=== PATIENT | male | born 1960 | race African-American/Black ===

== ENCOUNTER → 2016-12-02 13:06 | Outpatient (CLI) | payer MEDICARE, MEDICAID ==
[2015-09-29 15:39] VITALS: BMI 28.7
[~2016-12-02 13:06] MED LIST: ADVAIR 250/501 DISK INH; COMBIVENT RESPIM4 GM INH; LEVAQUIN500 MG PO; PRILOSEC20 MG PO
== END | disposition home or self-care (01) ==
LOC: D.RAD 13:06
DX: C34.90 Malignant neoplasm of unspecified part of unspecified bronchus or lung (principal)

== ENCOUNTER 2017-02-16 10:03 | Emergency (ER) | payer MEDICARE, MEDICAID ==
[2015-09-29 15:39] VITALS: BMI 28.7
[2017-02-16 11:32] LABS: BASOPHILS 0.6 % (0.0-2.0); EOSINOPHILS 2.1 % (0-7); HEMATOCRIT 43.8 % (42.0-54.0); HEMOGLOBIN 15.6 g/dL (13.5-17.5); IMMATURE GRANULOCYTES 0.2 % (0-5); LYMPHOCYTES 33.5 % (15-50); MCH 34.1 pg (26.0-34.0); MCHC 35.6 g/dL (31.0-37.0); MCV 95.8 fL (80.0-100.0); MEAN PLATELET VOLUME 9.5 fL (7.4-10.4); MONOCYTES 12.6 % (2-11); PLATELET COUNT 166 10x3/uL (130-400); RBC 4.57 10x6/uL (4.20-6.10); RDW 14.2 % (11.5-14.5); WBC 5.2 10x3/uL (4.8-10.8)
[2017-02-16 11:48] LABS: ALBUMIN 3.3 g/dL (3.4-5.0); ANION GAP 11.9 mmol/L (8-16); BILIRUBIN - TOTAL 0.9 mg/dL (0.2-1.3); CALCIUM 8.7 mg/dL (8.5-10.1); CARBON DIOXIDE 29.4 mmol/L (21.0-32.0); CREATININE - SERUM 1.1 mg/dL (0.6-1.3); POTASSIUM - SERUM 3.3 mmol/L (3.5-5.1); PROTEIN - SERUM 9.2 g/dL (6.4-8.2)
== END 2017-02-16 12:40 | disposition home or self-care (01) ==
LOC: D.ER 10:03
PROVIDERS: Nurse Practitioner Family
DX: J06.9 Acute upper respiratory infection, unspecified (principal); J44.1 Chronic obstructive pulmonary disease with (acute) exacerbation; J20.9 Acute bronchitis, unspecified; C96.9 Malignant neoplasm of lymphoid, hematopoietic and related tissue, unspecified; F17.200 Nicotine dependence, unspecified, uncomplicated

== ENCOUNTER 2017-03-07 06:07 | Inpatient (IN) | payer MEDICARE, MEDICAID ==
[~2017-03-07] VITALS: Ht 177.8 cm; Wt 96.9 kg
--- NOTE | ~2017-03-07 | CN ---
PATIENT NAME:SABINA CLARK MEDICAL RECORD: [id number] : 56 LOCATION:D. D.2114 ADMIT DATE: 03/07/17 ACCOUNT: [id number] CONSULTING PHYSICIAN: MIL SKINNER MD REFERRING PHYSICIAN: VANESSA REYES MD DATE OF CONSULTATION: 03/07/2017 CONSULT REQUESTING PHYSICIAN: Vanessa Reyes MD REASON FOR CONSULTATION: History of cancer of the lung, pneumonia and pulmonary edema. HISTORY OF PRESENT ILLNESS: Mr. Clark is a 56-year-old gentleman who was admitted who has a history of cancer of the lung and COPD and still everyday smoker. The patient with progressive shortness of breath for the last couple of weeks. Last week, he was treated with an antibiotic, but he was not getting any better. He is also having orthopnea. There is also PND. He is coughing with white yellowish colored mucus. Denies any fever or chills. There are no night sweats. REVIEW OF SYSTEMS: As in history of present illness. PAST MEDICAL HISTORY: 1. Chronic obstructive pulmonary disease. 2. History of cancer of the lung. 3. History of pneumonia. 4. History of hepatitis. 5. Gastroesophageal reflux disease. 6. Chronic back ache. PAST SURGICAL HISTORY: He had vasectomy. He had a right leg surgery. ALLERGIES: There are no known drug allergies. PRESENT MEDICATIONS: He is on albuterol/ipratropium nebulizer. He is on Advair Diskus. His other medication is reviewed. He is on omeprazole. PERSONAL AND SOCIAL HISTORY: He is still smoking 1-2 cigarettes a day. He is a nondrinker. FAMILY HISTORY: Noncontributory. PHYSICAL EXAMINATION: GENERAL: Now, the patient is lying comfortably in bed. He is not in acute distress. VITAL SIGNS: The blood pressure is 143/66, pulse is 110, respirations 20, temperature 97.7, SPO2 97% on 2 liters nasal cannula. HEENT: Conjunctivae are pink. Sclerae nonicteric. NECK: Supple. No JVD. CHEST: There are bilateral crackles, wheeze on forceful expiration. HEART: Rhythm regular, normal sound, no murmur. ABDOMEN: Soft, bowel sounds present. No hepatosplenomegaly. RECTAL: Deferred. EXTREMITIES: No cyanosis, no clubbing. There is 1+ pedal edema. SKIN: Warm, normal turgor. CONSULT REPORT [id number] SABINA CLARK CENTRAL NERVOUS SYSTEM: The patient is awake and alert. There is no obvious cranial nerve abnormality. The gait was not tested. IMAGING: CT scan of the chest: There is no pulmonary embolism. There is bilateral increased hilar interstitial infiltrate. There are no significant pleural effusion. There is also cholelithiasis. There is more interstitial marking in the right than the left. LABORATORY DATA: CBC: WBC 6.2, hemoglobin is 14.7, hematocrit is 41.7 and the platelet count is 456. Chemistry: Sodium is 135, potassium 3.4, magnesium is 1, total bilirubin is 1.32. CK is 332. MB is 1.5. The troponin is 0.047, the proBNP 8859. Albumin is 3. IMPRESSION: 1. Acute exacerbation of chronic obstructive pulmonary disease secondary to possible pneumonia right upper and lower lobe. 2. History of cancer of the lung, followed by Dr. Paul. 3. Pulmonary edema. 4. 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 5. Gastroesophageal reflux disease. 6. New onset congestive heart failure, possible diastolic dysfunction. 7. Gastroesophageal reflux disease. 8. Tobacco dependence syndrome. 9. Chronic backache. RECOMMENDATION: 1. Continue Lasix. I will start him on Rocephin and doxycycline to cover for Gram-negative as well as atypical for community-acquired pneumonia. 2. Albuterol/ipratropium nebulizer. Start on Brovana and budesonide nebulizer. 3. Goodspring for pain control. Follow labs and chest radiograph. Dr. Reyes, once again thanks for involving me in the care of Mr. Clark. TRANSINT:[id number] Voice Confirmation ID: [id number] DOCUMENT ID: [id number] MIL SKINNER MD CC: VANESSA REYES MD [id number] DICTATION DATE: 03/07/171423 ORCHESTRA TEACHER: 03/07/17 1557 ADM IN [place] [id number] [place] [id number]
--- NOTE | ~2017-03-07 | HEMODYNAMI ---
PATIENT:SABINA CLARK MEDICAL RECORD: [id number] : 56 [id number] ADMISSION DATE: 03/07/17 Generatedon:03/09/201713:02 Patient name: SABINA CLARK Patient #: [id number] SSN: [id number] : 1960 Date of study: 03/09/2017 Page: Of Hemodynamic Procedure Report Patient Data Patient Demographics Procedure consent was obtained First Name: SABINA Gender: Male Last Name: AMBER : 1960 Patient #: [id number] Age: 56 year(s) Race: Black SSN: [id number] Additional ID: [id number] Contact details [address]: [address] [place] [address] State: [place] City: [place] Zip code: [address] Admission Admission Data Admission Date: 03/07/2017 Admission Time: 9:43 Arrival Date: 03/07/2017 Arrival Time: 9:43 Admit Source: Other Insurance Payor: Medicare Room #: D.2114 Lab Results Lab Result Date: 03/09/2017 Lab Result Time: 0:00 Biochemistry Name Units Result Min Max BUN mg/dl 10 --(-*--)-- 7 18 Creatinine mg/dl 1.1 --(--*-)-- 0.6 1.3 CBC Name Units Result Min Max Hemoglobin g/dl 14.2 --(*---)-- 13.5 17.5 Procedure Procedure Types Cath Procedure Diagnostic Procedure LHC LHC w/Coronaries Miscellaneous Procedures Moderate Sedation up to 30 minutes Procedure Description Procedure Date Procedure Date: 03/09/2017 Procedure Start Time: 12:44 Procedure End Time: 12:57 Procedure Staff Name Function Tre May MD Performing Physician Nuha Chand RT Scrub Biran Hernandez RN Nurse Ella Blackwell RT Monitor Indication CHF Procedure Data Cath Procedure Fluoroscopy Diagnostic fluoroscopy Total fluoroscopy Time: 1.8 time: 1.8 min min Diagnostic fluoroscopy Total fluoroscopy dose: 589 dose: 589 mGy mGy Contrast Material Contrast Material Type Amount (ml) Isovue 370 61 Entry Location Entry Primary Successful Side Size Upsize Upsize Entry Closure Succes sful Closure Location (Fr) 1 (Fr) 2 (Fr) Remarks Device Remarks Femoral Right 5 Fr Exoseal artery Estimated blood loss: 5 ml Procedure Complications No complications Procedure Medications Medication Administration Route Dosage Oxygen NC 2 l/min Lidocaine 2% added to field 20 Heparin Flush Bag added to field 2 bags (1000units/500ml NS) 0.9% NaCl I.V. 100 ml/hr Benadryl I.V. 50 mg Versed I.V. 1 mg Fentanyl I.V. 50 mcg Versed I.V. 1 mg Fentanyl I.V. 50 mcg Radial Cocktail added to field 1 syringe (Verapomil 2mg/Nitro 400mcg/Heparin 1500units) Hemodynamics Rest HGB: 14.2 (g/dl) Heart Rate: 107 (bpm) Pressure Samples Time Site Value (mmHg) Purpose Heart Use Rate(bpm) 12:52 LV 127/9,20 Snapshot 104 Gradients Valve Time Site Site Mean SEP/DFP Peak To Heart Use 1 2 (mmHg) (sec/min) Peak Rate (mmHg) (bpm) Aortic 12:54 LV AO 104 Snapshots Pre Cath Intra NCS Post Cath Vital Signs Time Heart Resp SPO2 NIBP (mmHg) Rhythm Pain Sedation Rate (ipm) (%) Status Level (bpm) 12:33:34 106 26 97 No Cuff NSR 0 (11) 10(A) , No pain 12:37:54 109 20 98 128/100(112) NSR 0 (11) 10(A) , No pain 12:42:57 110 17 100 136/103(113) NSR 0 (11) 10(A) , No pain 12:47:16 106 18 97 140/95(122) NSR 0 (11) 9(A) , No pain 12:51:35 103 16 93 144/88(120) NSR 0 (11) 9(A) , No pain 12:55:54 103 17 95 138/99(119) NSR 0 (11) 9(A) , No pain 13:00:49 103 16 96 137/94(122) NSR 0 (11) 10(A) , No pain Medications Time Medication Route Dose Verified Delivered Reason Notes Effectiveness by by 12:37:02 Oxygen NC 2 l/min Tre Buffie used for Lalo Hernandez RN procedure 12:37:09 Lidocaine 2% added 20ml Tre Tre for local to vial Lalo May MD anesthetic field 12:37:17 Heparin Flush added 2 bags Tre Tre used for Bag to Lalo May MD procedure (1000units/500ml field NS) 12:37:25 0.9% NaCl I.V. 100 Tre Buffie Per ml/hr Lalo Hernandez RN physician 12:37:36 Benadryl I.V. 50 mg Tre Buffie used for Lalo Hernandez RN procedure 12:38:58 Radial Cocktail added 1 Tre Buffie not used (Verapomil to syringe Lalo Hernandez RN femoral 2mg/Nitro field approach 400mcg/Heparin used 1500units) 12:39:47 Versed I.V. 1 mg Tre Buffie for Laol Hernandez RN sedation 12:39:54 Fentanyl I.V. 50 mcg Tre Buffie for Lalo Hernandez RN sedation 12:46:26 Versed I.V. 1 mg Tre Buffie for Lalo Hernandez RN sedation 12:46:29 Fentanyl I.V. 50 mcg Tre Buffie for Lalo Hernandez RN sedation Procedure Log Time Note 12:07:50 Informed consent obtained and on chart 12:08:57 Admit Source: Other 12:09:10 Arrival Date: 03/07/2017 9:43:00 AM 12:09:18 Insurance Payor : Medicare 12:10:15 Lab Result : BUN 10 mg/dl 12:10:15 Lab Result : Hemoglobin 14.2 g/dl 12:10:15 Lab Result : Creatinine 1.1 mg/dl 12:10:27 Diagnostic Cath Status : Elective 12:11:18 Indication : CHF 12:11:27 Brian Hernandez RN sent for patient. Start room use. 12:11:28 Time tracking: Regular hours 12:11:32 Plan of Care:Hemodynamics will remain stable., Cardiac rhythm will remain stable., Comfort level will be maintained., Respiratory function will remain adequate., Patient/ family verbilizes understanding of procedure., Procedure tolerated without complication., Recovers from procedure without complications.. 12:14:06 Patient received from Med II to CCL 2 Alert and oriented. Tansferred to table in Supine position. 12:14:07 Warm blankets applied, and kaitlin hugger turned on for patient comfort. 12:14:08 Correct patient and procedure confirmed by team. 12:14:08 ECG and BP/O2 sat monitors applied to patient. 12:24:45 Vital chart was started 12:24:47 Baseline sample Acquired. 12:25:02 Rhythm: sinus tachycardia 12:25:15 Full Disclosure recording started 12:: H&P Date Dictated: 03/09/2017 New H&P dictated by physician.. 12:25:28 Pre-procedure instructions explained to patient. 12:25:28 Pre-op teaching completed and patient verbalized understanding. 12:25:29 Family in waiting room. 12:25:31 Patient NPO since Midnight. 12:25:39 Is the patient allergic to Iodine/contrast media? No. 12:25:41 Was the patient premedicated? No 12:26:53 Previous problem with sedation/anesthesia? No ? 12:27:59 Snore? Yes 12:28:01 Sleep apnea? No 12:28:02 Deviated septum? No 12:28:05 Opens mouth fully? Yes 12:28:06 Sticks out tongue? Yes 12:28:09 Airway obstruction? Yes copd 12:28:12 Dentures? No ? 12:28:17 Pre procedure: right dorsailis pedis pulse 1+ Palpable, but thready & weak; easily obliterated 12:28:19 Patient pain scale 0/10 ?. 12:28:28 IV patent on arrival in left forearm with 0.9% NaCl at [facility]. 12:28:30 Lab results completed and on chart. 12:28:37 Right Radial & Right Groin area was prepped with chlora-prep and draped in sterile fashion 12:28:38 Alarms reviewed by R. N. 12::38 Sharps counted by scrub and verified by R.N. 12:28:40 Physician arrived 12:28:40 --------ALL STOP TIME OUT------ 12:28:41 Final Timeout: patient, procedure, and site verified with staff and physician. All members of the team are in agreement. 12:28:43 Right Radial & Right Groin site verified by team. 12:28:45 Physical assessment completed. ASA score P 2 - A patient with mild systemic disease as per Tre May MD. 12:28:49 Sedation plan: IV Moderate Sedation Versed, Fentanyl 12:29:16 Use device set Radial Dx 12:29:17 Acist Syringe opened to sterile field. 12:29:17 Medline Cath Pack opened to sterile field. 12::18 Bag Decanter opened to sterile field. 12:29:18 Terumo 6Fr Slender Glidesheath opened to sterile field. 12:29:18 St Get 260cm J .035 wire opened to sterile field. 12:29:19 Acist Hand Control opened to sterile field. 12::19 Acist Manifold opened to sterile field. 12:29:20 Tegaderm 4 x 4 opened to sterile field. 12:29:20 MBrace Wrist Support opened to sterile field. 12:37:02 Oxygen 2 l/min NC was administered by Brian Hernandez RN; used for procedure; 12:37:09 Lidocaine 2% 20ml vial added to field was administered by Tre May MD; for local anesthetic; 12:37:17 Heparin Flush Bag (1000units/500ml NS) 2 bags added to field was administered by Tre May MD; used for procedure; 12:37:25 0.9% NaCl 100 ml/hr I.V. was administered by Brian Hernandez RN; Per physician; 12:37:36 Benadryl 50 mg I.V. was administered by Brian Hernandez RN; used for procedure; 12:38:58 Radial Cocktail (Verapomil 2mg/Nitro 400mcg/Heparin 1500units) 1 syringe added to field was administered by Brian Hernandez RN; ; not used femoral approach used 12:39:47 Versed 1 mg I.V. was administered by Brian Hernandez RN; for sedation; 12:39:54 Fentanyl 50 mcg I.V. was administered by Brian Hernandez RN; for sedation; 12:40:21 Zero performed for pressure channel P1 12:43:34 Procedure started. 12:44:29 Patient prepped for radial access, unable to keep arm still; decided to gain femoral access per Dr. May 12:44:32 Local anesthetic to right femoral artery with Lidocaine 2% by Tre May MD.INITIAL ACCESS ONLY 12:44:40 A 5 Fr sheath was inserted into the Right Femoral artery 12:44:54 Diagnostic Infinity 5Fr Multipack catheter opened to sterile field. 12:45:23 5 Fr jl 4 guide catheter was inserted over the wire 12:46:17 LCA angiography performed. 12:46:20 Injector settings: Ml/sec: 3, Volume: 6, 12:46:26 Versed 1 mg I.V. was administered by Brian Hernandez RN; for sedation; 12:46:29 Fentanyl 50 mcg I.V. was administered by Brian Hernandez RN; for sedation; 12:48:50 Catheter removed. 12:48:58 5 Fr 3drc guide catheter was inserted over the wire 12:49:02 RCA angiography performed. 12:49:06 Injector settings: Ml/sec: 3, Volume: 6, 12:51:28 Catheter removed. 12:51:34 5 Fr pigtail guide catheter was inserted over the wire 12:51:59 Cordis 5Fr Exoseal opened to sterile field. 12:53:13 LV hemodynamics recorded. 12:53:14 LV gram done using WOOD 12:53:17 Injector settings: Ml/sec: 5, Volume: 15, 12:53:49 EF : 20 % 12:54:27 Catheter removed. 12:54:47 Sheath removed intact; hemostasis achieved with Exoseal to the Right Femoral artery. 12:54:50 Procedure ended.(Physican Out) 12:55:36 Fluoroscopy time 01.80 minutes. 12:55:39 Fluoroscopy dose: 589 mGy 12:55:39 Flurop Dose total: 589 12:56:13 Contrast amount:Isovue 370 61ml. 12:56:19 Sharps counted by scrub and verified by R.N. 12:56:22 Insertion/operative site no bleeding no hematoma. 12:56:35 Post-op/insertion site Right Femoral artery dressed using a 4 x 4 and Tegaderm. 12:56:54 Post right femoral artery:stable 12:56:56 Post Procedure Pulses reassessed and unchanged 12:56:58 Post procedure rhythm: unchanged. 12:57:01 Estimated blood loss: 5 ml 12:57:02 Post procedure instruction explained to patient.Patient verbalizes understanding. 12:57:03 Patient needs reinforcement of post procedure teaching. 12:57:13 Procedure type changed to Cath procedure, Diagnostic procedure, LHC, LHC w/Coronaries, Miscellaneous Procedures, Moderate Sedation up to 30 minutes 12:57:14 Procedure and supply charges have been captured, reviewed, submitted and are correct. 12:57:19 Procedure Complication : No complications 12:57:21 Vital chart was stopped 12:57:22 See physician's report for complete and final results. 12:57:37 Report given to [facility] II. 12:57:40 Patient transfered to Med II with Stretcher. 12:57:42 Procedure ended. 12:57:42 Full Disclosure recording stopped 12:57:47 End room use (Document Last) Device Usage Item Name Manufacture Quantity Catalog Hospital Part Current Minimal Lot# / Number Charge Number Stock Stock Serial# Code Acist Acist 1 [id number] 344690 630584 504298 20 Syringe Medical Systems Inc Medline Cardinal 1 [id number] 881010 99570 402093 5 Cath Pack Health Bag Microtek 1 2002S 635576 63335 594251 5 DecAmericanflat [employer] Inc[employer] Terumo 6Fr Terumo 1 [id number] 473449 309862 732202 [address] Get St Get 1 183528 450592 971575 238766 30 260cm J .035 wire Acist Hand Acist 1 15719 667208 534622 588016 5 Control Medical Systems Inc Acist Acist 1 29955 357098 790573 790638 5 Manifold Medical Systems Inc Tegaderm 4 3M 1 1626W 052350 481240 195102 5 x 4 MBrace Advanced 1 140-0250-00 290040 36620 629089 5 Wrist Vascular Support Dynamics Diagnostic Cardinal 1 [id number] 524690 64449 497885 30 myseekit 5Fr Multipack catheter Cordis 5Fr Cardinal 1 EX500 902283 201662 571326 10 [employer]apoint Signature Audit [place] Stage Time Signature Unsigned Intra-Procedure 03/09/2017 Ella Blackwell 1:02:50 PM RT(R) Signatures Monitor : Ella Blackwell RT Signature : Date : Time : [address] [place] [address]
[2017-03-07 07:03] LABS: BASOPHILS 0.3 % (0.0-2.0); EOSINOPHILS 1.1 % (0-7); HEMATOCRIT 41.7 % (42.0-54.0); HEMOGLOBIN 14.5 g/dL (13.5-17.5); IMMATURE GRANULOCYTES 0.3 % (0-5); LYMPHOCYTES 23.7 % (15-50); MCH 34.2 pg (26.0-34.0); MCHC 34.8 g/dL (31.0-37.0); MCV 98.3 fL (80.0-100.0); MEAN PLATELET VOLUME 9.9 fL (7.4-10.4); NEUTROPHILS 66.6 % (40-80); PLATELET COUNT 156 10x3/uL (130-400); RBC 4.24 10x6/uL (4.20-6.10); RDW 15.3 % (11.5-14.5); WBC 6.2 10x3/uL (4.8-10.8)
[2017-03-07 07:19] LABS: ALKALINE PHOSPHATASE 61 U/L (46-116); ALT (SGPT) 38 U/L (10-68); BILIRUBIN - TOTAL 1.32 mg/dL (0.2-1.3); CALC OSMOLALITY 267 mosm/kg (275-300); CALCIUM 7.6 mg/dL (8.5-10.1); CARBON DIOXIDE 25.1 mmol/L (21.0-32.0); CHLORIDE - SERUM 98 mmol/L (98-107); CREATININE - SERUM 1.1 mg/dL (0.6-1.3); GLUCOSE 90 mg/dL (74-106); POTASSIUM - SERUM 3.4 mmol/L (3.5-5.1); PROTEIN - SERUM 8.1 g/dL (6.4-8.2); SODIUM 135 mmol/L (136-145); UREA NITROGEN 8 mg/dL (7-18); eGFR NON AFRICAN AMERICAN 73 mL/min (90-120)
[2017-03-07 07:39] LABS: CREATINE KINASE 332 UL (21-232); PRO BNP 8859 pg/mL (0-125); TROPONIN-I 0.047 ng/mL (0.000-0.060)
[2017-03-07 07:40] LABS: CKMB 1.5 U/L (0.0-3.6)
--- NOTE | 2017-03-07 10:15 | NUR ---
RECEIVED PT FROM ER TO ROOM 2113 VIA W/C IN STABLE CONDITION O2 PLACED AT 2LPM NC RESP SLIGFHTLY SOB , SHALLOW SKIN W/D COLOR WNL SALINE LOCK INTACT TO LFA DRSG C/D/I NO REDNESS OR EDEMA NOTED AT SITE PT DENIES ANY PAIN OR DISCOMFORT AT THIS TIME NAD NOTED WILL CONTINUE TO MONITOR
[2017-03-07] MEDS ORDERED: MOBIC7.5 MG PO (11:23)
[2017-03-07 15:14] VITALS: BP 143/66; BMI 30.9
[2017-03-07 15:39] VITALS: BP 134/97
--- NOTE | 2017-03-07 16:43 | NUR ---
Patient Name: SABINA CLARK Admission Status: ER Accout number: [id number] Admission Date: 03-07-2017 : 1960 Admission Diagnosis: New CHF Attending: FILI Current LOS: 1 Anticipated DC Date: 03-09-2017 Planned Disposition: Home Primary Insurance: [employer] ADV Emergency Contact: Joselin villalba - [phone] Discharge Planning Comments: Cm met with patient to complete initial discharge planning assessment. Patient gave consent to complete assessment. Patient reports he lives home alone and is independent in his care at home. He stated he has O2 at home that he wears prn. He stated he may need home health at discharge which would be good for new dx CHF for education. Patient plans to return home at discharge at this time. CM will continue to follow and assist with dc plan/needs. Metal Smelter: Thuy Crouch RN, [facility] [phone] Is the patient Alert and Oriented? Yes * How many steps to enter\exit or inside your home? none * PCP Does not have one * [facility] * Preadmission Environment Home Alone * ADLs Independent * Equipment Oxygen * Other Equipment O2 he wears prn * Additional services required to return to the preadmission environment? Yes * Can the patient safely return to the preadmission environment? Yes * Has this patient been hospitalized within the prior 30 days at any hospital? No
--- NOTE | 2017-03-07 17:38 | NUR ---
ASSUMED CARE OF PT. UP IN BEDSIDE CHAIR. TELEMERTY SHOWS ST 115. 0 2 AT 4 L/M. WILL MONITOR
--- NOTE | 2017-03-07 19:25 | NUR ---
INITIAL ROUNDS MADE. PT SITTING UP IN BED WATCHING TV. NO NEEDS OR C/O VOICED AT THIS TIME. CALL LIGHT IN REACH. WILL CONT TO MONITOR.
[2017-03-07 20:19] VITALS: BP 98/67
[2017-03-08 00:38] VITALS: BP 135/97
[2017-03-08 04:25] VITALS: BP 134/94
--- NOTE | 2017-03-08 07:30 | NUR ---
RECEIVED PT IN BED AAOX4 YADIEL UNLABORED ABDOMEN DISTENDED BS+ SKIN W/D NAD NOTED PT C/O CONSTIPATION WILL CONTINUE TO MONITOR
[2017-03-08 08:38] VITALS: BP 130/102
[2017-03-08 09:16] LABS: BASOPHILS 0.6 % (0.0-2.0); EOSINOPHILS 1.8 % (0-7); HEMATOCRIT 41.1 % (42.0-54.0); HEMOGLOBIN 14.2 g/dL (13.5-17.5); IMMATURE GRANULOCYTES 0.2 % (0-5); LYMPHOCYTES 22.6 % (15-50); MCH 34.4 pg (26.0-34.0); MCHC 34.5 g/dL (31.0-37.0); MCV 99.5 fL (80.0-100.0); MEAN PLATELET VOLUME 9.7 fL (7.4-10.4); MONOCYTES 7.3 % (2-11); NEUTROPHILS 67.5 % (40-80); PLATELET COUNT 145 10x3/uL (130-400); RBC 4.13 10x6/uL (4.20-6.10); RDW 15.4 % (11.5-14.5); WBC 6.6 10x3/uL (4.8-10.8)
[2017-03-08 09:33] LABS: ANION GAP 16.2 mmol/L (8-16); CALCIUM 7.7 mg/dL (8.5-10.1); CARBON DIOXIDE 24.2 mmol/L (21.0-32.0); CREATININE - SERUM 1.1 mg/dL (0.6-1.3); POTASSIUM - SERUM 3.4 mmol/L (3.5-5.1)
[2017-03-08 12:45] VITALS: BP 137/102
[2017-03-08 17:05] VITALS: BP 132/99
--- NOTE | 2017-03-08 19:15 | NUR ---
INITIAL ROUNDS MADE. PT SITTING UP IN BED WATCHING TV, RT IN ROOM. NO NEEDS OR C/O VOICED AT THIS TIME. CALL LIGHT IN REACH. WILL CONT TO MONITOR.
[2017-03-08 20:00] VITALS: BP 142/94
--- NOTE | 2017-03-09 01:45 | NUR ---
ASSISTANT DESIGNER AT BEDSIDE FOR VS. NEEDS ADDRESSED AT THIS TIME. CALL LIGHT IN REACH. WILL CONT TO MONITOR.
[2017-03-09 02:00] VITALS: BP 142/102
[2017-03-09 04:00] VITALS: BP 131/99
[2017-03-09 06:03] LABS: BASOPHILS 0.3 % (0.0-2.0); EOSINOPHILS 2.9 % (0-7); HEMATOCRIT 41.3 % (42.0-54.0); HEMOGLOBIN 14.2 g/dL (13.5-17.5); IMMATURE GRANULOCYTES 0.2 % (0-5); LYMPHOCYTES 22.9 % (15-50); MCH 33.9 pg (26.0-34.0); MCHC 34.4 g/dL (31.0-37.0); MCV 98.6 fL (80.0-100.0); MEAN PLATELET VOLUME 9.9 fL (7.4-10.4); MONOCYTES 8.4 % (2-11); NEUTROPHILS 65.3 % (40-80); PLATELET COUNT 153 10x3/uL (130-400); RBC 4.19 10x6/uL (4.20-6.10); RDW 15.3 % (11.5-14.5); WBC 5.9 10x3/uL (4.8-10.8)
[2017-03-09 06:24] LABS: ALKALINE PHOSPHATASE 63 U/L (46-116); ALT (SGPT) 34 U/L (10-68); CALCIUM 8.4 mg/dL (8.5-10.1); CHLORIDE - SERUM 95 mmol/L (98-107); GLUCOSE 106 mg/dL (74-106); SODIUM 132 mmol/L (136-145); eGFR NON AFRICAN AMERICAN 81 mL/min (90-120)
[2017-03-09 06:29] LABS: CALC OSMOLALITY 262 mosm/kg (275-300); CARBON DIOXIDE 30.7 mmol/L (21.0-32.0); UREA NITROGEN 7 mg/dL (7-18)
--- NOTE | 2017-03-09 06:44 | NUR ---
NOTIFIED ALPHONSO IN PUBLICATION DIRECTOR OF PT POTASSIUM 3.0-- HE INSTRUCTED TO TREAT LYTE PROTOCOL ORALLY AND HE WILL MOVE PT DOWN LIST THIS AM. GIVEN 40MEQ ORAL WITH OJ AT THIS TIME, PT INFORMED OF NEW PLAN.
[2017-03-09 07:42] VITALS: BP 119/94
[2017-03-09 10:31] VITALS: Ht 177.8 cm; Wt 96.9 kg
[2017-03-09 11:12] VITALS: BP 127/88
--- NOTE | 2017-03-09 12:11 | NUR ---
LEAVING FOR CATH LAV BY BED.
--- NOTE | 2017-03-09 13:21 | NUR ---
BACK FROM HAND THERMAL CUTTER. VS WNL. RIGHT GROIN STABLE WITHOUT BLEEDING OR HEMATOMA NOTED.
--- NOTE | 2017-03-09 13:43 | NUR ---
IV RESTARTED TO RIGHT FA WITH 22 GAUGE CATH X 1 STICK. LINE IS PATENT.
--- NOTE | 2017-03-09 15:11 | NUR ---
BED REST UP. GROIN STABLE.
[2017-03-09 15:25] VITALS: BP 130/94
--- NOTE | 2017-03-09 19:15 | NUR ---
INITIAL ROUNDS MADE. PT SITTING UP IN BED WATCHING TV. RT IN ROOM FOR SCHEDULED UPDRAFT. PT DENIES NEEDS OR C/O AT THIS TIME. RIGHT GROIN STABLE. CALL LIGHT IN REACH. WILL CONT TO MONITOR.
[2017-03-09 20:00] VITALS: BP 124/95
[2017-03-10] VITALS: BP 95/74
[2017-03-10 04:00] VITALS: BP 120/95
[2017-03-10 04:32] LABS: HEMATOCRIT 38.6 % (42.0-54.0); HEMOGLOBIN 13.3 g/dL (13.5-17.5); LYMPHOCYTES 23.6 % (15-50); MCH 34.3 pg (26.0-34.0); MCHC 34.5 g/dL (31.0-37.0); MCV 99.5 fL (80.0-100.0); MEAN PLATELET VOLUME 9.6 fL (7.4-10.4); NEUTROPHILS 67.6 % (40-80); PLATELET COUNT 139 10x3/uL (130-400); RBC 3.88 10x6/uL (4.20-6.10); RDW 16.4 % (11.5-14.5); WBC 5.4 10x3/uL (4.8-10.8)
[2017-03-10 05:00] LABS: ALBUMIN 2.8 g/dL (3.4-5.0); ANION GAP 9.9 mmol/L (8-16); BILIRUBIN - TOTAL 0.53 mg/dL (0.2-1.3); CALCIUM 8.2 mg/dL (8.5-10.1); CARBON DIOXIDE 29.7 mmol/L (21.0-32.0); CREATININE - SERUM 1.2 mg/dL (0.6-1.3); PHOSPHOROUS 4.8 mg/dL (2.5-4.9); POTASSIUM - SERUM 3.6 mmol/L (3.5-5.1); PROTEIN - SERUM 7.7 g/dL (6.4-8.2)
[2017-03-10 05:15] LABS: MAGNESIUM - SERUM 0.7 mg/dL (1.8-2.4)
[2017-03-10 07:47] VITALS: BP 126/91
--- NOTE | 2017-03-10 09:20 | NUR ---
IV PATENT. TELEMETRY ST. RESP UL ON 02 2L NC. CALL LIGHT IN REACH. WILL CONT. PLAN OF CARE.
[2017-03-10 11:06] VITALS: BP 128/91
--- NOTE | 2017-03-10 12:53 | NUR ---
UP AMBULATING HALLWAY WITH PT.
[2017-03-10 16:12] VITALS: BP 130/106
[2017-03-10 19:00] VITALS: BP 120/94
[2017-03-11 06:30] LABS: BASOPHILS 0.5 % (0.0-2.0); EOSINOPHILS 3.2 % (0-7); HEMATOCRIT 40.9 % (42.0-54.0); HEMOGLOBIN 14.2 g/dL (13.5-17.5); IMMATURE GRANULOCYTES 0.2 % (0-5); LYMPHOCYTES 26.7 % (15-50); MCH 34.8 pg (26.0-34.0); MCHC 34.7 g/dL (31.0-37.0); MCV 100.2 fL (80.0-100.0); MEAN PLATELET VOLUME 10.1 fL (7.4-10.4); MONOCYTES 7.7 % (2-11); NEUTROPHILS 61.7 % (40-80); PLATELET COUNT 163 10x3/uL (130-400); RBC 4.08 10x6/uL (4.20-6.10); RDW 15.4 % (11.5-14.5); WBC 5.9 10x3/uL (4.8-10.8)
[2017-03-11 06:38] LABS: ANION GAP 12.4 mmol/L (8-16); BILIRUBIN - TOTAL 0.57 mg/dL (0.2-1.3); CALCIUM 8.7 mg/dL (8.5-10.1); CARBON DIOXIDE 27.4 mmol/L (21.0-32.0); CREATININE - SERUM 1.1 mg/dL (0.6-1.3); POTASSIUM - SERUM 3.8 mmol/L (3.5-5.1); PROTEIN - SERUM 8.2 g/dL (6.4-8.2)
[2017-03-11 06:40] LABS: MAGNESIUM - SERUM 0.9 mg/dL (1.8-2.4)
--- NOTE | 2017-03-11 06:48 | NUR ---
MEDITECH DOWN THROUGHOUT THE SHIFT, SEE NARRATIVE PAPER CHARTING.
[2017-03-11 08:50] VITALS: BP 109/86
--- NOTE | 2017-03-11 09:31 | NUR ---
TELEMETRY SR. UP ADLIB. GAIT STEADY. WILL MONITOR NEEDS.
[2017-03-11 10:27] LABS: PHOSPHOROUS 4.6 mg/dL (2.5-4.9)
[2017-03-11 11:54] VITALS: BP 112/82
--- NOTE | 2017-03-11 14:59 | NUR ---
BILAT SCDS APPLIED.
[2017-03-11 16:09] VITALS: BP 139/95
[2017-03-11 19:00] VITALS: BP 117/87
--- NOTE | 2017-03-11 19:24 | NUR ---
RESUMED CARE OF PT, LYING IN BED RESPIRATIONS EVEN AND UNLABORED ON 2LPM VIA NC. 104 ST ON TELEMETRY. NO NEEDS VOICED AT THIS TIME. CALL LIGHT IN REACH. WILL CONTINUE TO MONITOR. SEE NURSE ASSESSMENT.
[2017-03-12] VITALS: BP 98/53
--- NOTE | 2017-03-12 02:58 | NUR ---
CALL LIGHT IN REACH. WILL CONTINUE TO MONITOR.
[2017-03-12 04:00] VITALS: BP 123/82
[2017-03-12 05:16] LABS: BASOPHILS 0.7 % (0.0-2.0); EOSINOPHILS 3.3 % (0-7); HEMATOCRIT 41.6 % (42.0-54.0); HEMOGLOBIN 14.4 g/dL (13.5-17.5); IMMATURE GRANULOCYTES 0.2 % (0-5); LYMPHOCYTES 26.1 % (15-50); MCH 34.4 pg (26.0-34.0); MCHC 34.6 g/dL (31.0-37.0); MCV 99.3 fL (80.0-100.0); MEAN PLATELET VOLUME 9.7 fL (7.4-10.4); MONOCYTES 9.1 % (2-11); NEUTROPHILS 60.6 % (40-80); PLATELET COUNT 148 10x3/uL (130-400); RBC 4.19 10x6/uL (4.20-6.10); RDW 14.9 % (11.5-14.5); WBC 4.6 10x3/uL (4.8-10.8)
[2017-03-12 05:28] LABS: CALCIUM 8.8 mg/dL (8.5-10.1); CREATININE - SERUM 1.3 mg/dL (0.6-1.3); MAGNESIUM - SERUM 1.1 mg/dL (1.8-2.4)
--- NOTE | 2017-03-12 06:31 | NUR ---
NO CHANGES FROM PREVIOUS ASSESSMENT, CALL LIGHT IN REACH.
--- NOTE | 2017-03-12 07:30 | NUR ---
RESTING QUIETLY DENIES ANY NEEDS RESP UNLABORED NAD NOTED
[2017-03-12 08:24] VITALS: BP 114/87
[2017-03-12 11:55] VITALS: BP 156/91
--- NOTE | 2017-03-12 13:50 | NUR ---
Nutrition Follow Up: Pt reported that his appetite is good. He is eating 60% meal avg on an AHA diet. Wt stable. I<O. +BM 03/08/17. Labs reviewed. Meds noted including Lasix, Solu-Medrol. Pt with fair po intake at this time. Rec continue current diet. Will send Ensure BID. RD following.
[2017-03-12 16:21] VITALS: BP 112/54
--- NOTE | 2017-03-12 19:20 | NUR ---
RESUMED CARE OF PT, LYING IN BED WITH EYES CLOSED RESPIRATIONS EVEN AND UNLABORED ON 2LPM VIA NC. [address] ST ON TELEMETRY. NO NEEDS NOTED AT THIS TIME. CALL LIGHT IN REACH. SEE NURSE ASSESSMENT. WILL CONTINUE TO MONITOR.
[2017-03-12 20:00] VITALS: BP 113/84
--- NOTE | 2017-03-12 20:19 | NUR ---
22 GAUGE X 1 STICK TO LEFT HAND.
--- NOTE | 2017-03-13 04:17 | NUR ---
EMBROIDERY ASSISTANT AT BEDSIDE TO OBTAIN VITALS, CALL LIGHT IN REACH. WILL CONTINUE WITH PLAN OF CARE.
[2017-03-13 05:31] LABS: BASOPHILS 0 % (0.0-2.0); EOSINOPHILS 0 % (0-7); HEMATOCRIT 43.9 % (42.0-54.0); HEMOGLOBIN 15.4 g/dL (13.5-17.5); LYMPHOCYTES 23.3 % (15-50); MCH 34.8 pg (26.0-34.0); MCHC 35.1 g/dL (31.0-37.0); MCV 99.1 fL (80.0-100.0); MEAN PLATELET VOLUME 10.4 fL (7.4-10.4); MONOCYTES 3.2 % (2-11); NEUTROPHILS 73.5 % (40-80); PLATELET COUNT 181 10x3/uL (130-400); RBC 4.43 10x6/uL (4.20-6.10); RDW 14.7 % (11.5-14.5); WBC 4.1 10x3/uL (4.8-10.8)
[2017-03-13 05:51] LABS: ANION GAP 14.6 mmol/L (8-16); CALCIUM 9.4 mg/dL (8.5-10.1); CARBON DIOXIDE 26.7 mmol/L (21.0-32.0); CREATININE - SERUM 1.2 mg/dL (0.6-1.3); MAGNESIUM - SERUM 1.2 mg/dL (1.8-2.4); PHOSPHOROUS 4.3 mg/dL (2.5-4.9)
[2017-03-13 05:54] LABS: POTASSIUM - SERUM 5.3 mmol/L (3.5-5.1)
--- NOTE | 2017-03-13 06:32 | NUR ---
NO CHANGES FROM PREVIOUS ASSESSMENT, CALL LIGHT IN REACH.
--- NOTE | 2017-03-13 07:30 | NUR ---
RECEIVED PT AAOX4 WALKING AROUND IN ROOM DENIOES ANY NEEDS OR DISCOMFORT MAGNESIUM 1 GRAM IV STARTED TO LT HAND FOR ELECTROLYTE PROTOCAL PT TOLERATING WELL
[2017-03-13 08:19] VITALS: BP 112/88
--- NOTE | 2017-03-13 12:24 | EC ---
PATIENT:SABINA CLARK DATE OF SERVICE: 03/07/17 SEX: M MEDICAL RECORD: [id number] DATE OF : 56 LOCATION:D. D.211 AGE OF PATIENT: 56 ADMISSION DATE: 03/07/17 REFERRING PHYSICIAN: INTERPRETING PHYSICIAN: JEANETTE MAY M.D. ECHOCARDIOGRAM REPORT ECHO CHARGES 4 ECHO COMPLETE CLINICAL DIAGNOSIS: PLEURAL EFFUSION ECHOCARDIOGRAPHIC MEASUREMENTS (adult normal given) AC root (d.<3.7cm) 3.6 LV Septum d (<1.2 cm> 1.0 Valve Excursion 2.0 LV Septum (systole) 1.4 Left Atria (s.<4.0cm> 3.7 LVPW d(<1.2cm) 0.9 RV (d.<2.3cm) 3.1 LVPW (sytole) 1.2 LV diastole(<5.6CM) 6.7 MV E-F(>70mm/sec) LV systole 6.1 LVOT Diameter 2.0 MV exc.(>10mm) Est.ejection fraction (50-75%) Pericardial Effusion N DOPPLER: LVIT A E 107 LA RVSP 43.0 LVOT 68.0 AOP1/2T Asc. Ao 114 RVOT 65.0 RA PA 67.0 AV Gradient Peak 5.2 AV Mean 2.5 AV Area 1.2 MV Gradient Peak 4.6 MV Mean 2.2 MV Area COMMENTS: Mushroom Growing Supervisor: Tyra WUOE Inspector Technician:Reddy May TAPE# PACS DATE OF SERVICE: 03/08/2017 REFERRING PHYSICIAN: Delma Walton M.D. INDICATION: Congestive heart failure. DESCRIPTION: Left ventricle is moderately dilated. There is severe LV dysfunction noted. Estimated ejection fraction is in the order of 20%. Mitral valve is structurally normal. There is bqdg-ew-fpjqsdeg regurgitation seen. Left atrium is normal size. The aortic valve is trileaflet. There is trivial ECHOCARDIOGRAM REPORT [id number] SABINA CLARK insufficiency seen, but no evidence of stenosis. Right ventricle is mildly dilated. Tricuspid valve is normal. There is moderate regurgitation noted. Right ventricular systolic pressure is elevated at 43 mmHg. There is no pericardial effusion seen. IMPRESSION: 1. Severe left ventricular dysfunction with ejection fraction 20%. 2. Fxlp-hr-pcbuifpq mitral regurgitation. 3. Moderate tricuspid regurgitation. TRANSINT:[id number] Voice Confirmation ID: [id number] DOCUMENT ID: [id number] JEANETTE MAY M.D. at 1224 CC: [id number] DICTATION DATE: 03/09/17809 MARBLE MACHINE OPERATOR: 03/09/17 1122 ADM IN [place] [id number] [place] [address]
--- NOTE | 2017-03-13 12:24 | OP ---
PATIENT NAME: SABINA CLARK MEDICAL RECORD: [id number] :56 LOCATION:D.M2 D.2114 ADMISSION DATE:03/07/17 SURGEON: JEANETTE COTO M.D. DATE OF OPERATION: 03/09/2017 REFERRING PHYSICIAN: Delma Walton MD PROCEDURES PERFORMED: 1. Selective coronary angiography. 2. Left heart catheterization with ventriculogram. INDICATION: A 56-year-old gentleman presents with cardiomyopathy. EQUIPMENT USED: A 5-Sri Lankan JL4, Juan M right, pigtail catheter. TECHNIQUE: A 5-[place]ankan sheath was inserted in retrograde fashion in the right common femoral artery. Next, selective coronary angiography was performed in standard 5-[place]ri [place]ankan JL4 and Juan M right. Left heart catheterization performed using pigtail catheter. CORONARY ANATOMY: 1. Left main: Left main trunk is large in caliber. It gives rise to the LAD and circumflex. It has no obstruction. 2. LAD: This is a large caliber vessel extending to the apex. It is a smooth-walled vessel and angiographically normal. 3. Circumflex: This vessel is moderate in caliber and dominant. ____ 2 large lateral branch in mid segment. The circumflex and lateral branches are angiographically normal. 4. Right coronary artery: This vessel is small in caliber. It is nondominant. It appears angiographically normal. 5. Left ventricle: Left ventricle is dilated. There is severe global hypokinesis noted. Estimated ejection fraction is in the order of 20%. IMPRESSION: 1. Normal coronary arteries. 2. Severe left ventricular dysfunction with ejection fraction of 20% consistent with nonischemic cardiomyopathy. RECOMMENDATIONS: At this point, we will continue with medical management. TRANSINT:[id number] Voice Confirmation ID: [id number] DOCUMENT ID: [id number] JEANETTE COTO M.D. at 1224 CC: [id number] DICTATION DATE: 03/09/17 1303 BUSINESS MACHINE OPERATOR: 03/09/17 1733 ADM IN [place] [id number] [place] [id number]
[2017-03-13 12:44] VITALS: BP 131/86
[2017-03-13] MEDS ORDERED: VIBRAMYCIN 100100 MG PO (12:58)
[2017-03-13] MEDS ORDERED: LISINOPRIL5 MG PO (12:58)
[2017-03-13] MEDS ORDERED: BENZONATATE200 MG PO (12:58)
[2017-03-13] MEDS ORDERED: LASIX40 MG PO (12:58)
[2017-03-13] MEDS ORDERED: COREG 3.1253.125 MG PO (12:58)
[2017-03-13] MEDS ORDERED: K-DUR20 MEQ PO (13:01)
[2017-03-13] MEDS ORDERED: FLORAJEN3 CAPS460 MG PO (13:01)
[2017-03-13] MEDS ORDERED: PREDNISONE10 MG PO (13:01)
[2017-03-13] MEDS ORDERED: MUCINEX DM ER1 EAC1 PO (13:01)
[2017-03-13] MEDS ORDERED: MAG-OX 400 MG400 MG PO (13:41)
--- NOTE | 2017-03-13 14:54 | NUR ---
Patient Name: SABINA CLARK Encounter No: [id number] : 1960 Primary Insurance: WELL[employer] MEDICARE ADV Anticipated DC Date: 03-09-2017 Planned Disposition: Home DCP follow-up note: CM MET WITH PT IN ROOM TO DISCUSS DISCHARGE NEEDS AND PLANNING. CM DISCUSSED AVAILABILITY OF HOME HEALTH, REHAB SERVICES AND MEDICAL EQUIPMENT. PT DENIES NEED FOR THERAPY SERVICES, WOUND CARE, MEDICATION MANAGEMENT OR TEACHING. PT WOULD ACCEPT HOME HEALTH IF ORDERED BY THE DOCTOR, CHOICE FOR [facility] SIGNED BY PT. PT'S SISTER TO TRANSPORT HOME AT DISCHARGE. IMPORTANT MESSAGE FROM MEDICARE PROVIDED AND EXPLAINED. PT REPORTS HAVING HOME AND PORTABLE OXYGEN AT HOME FROM [facility], BUT NO PORTABLE HERE TO DISCHARGE HOME. CM CALLED [facility], , SPOKE TO TIFFANIE WHO VERIFIED PT'S OXYGEN PORTABILITY AND WILL DELIVER PT'S PORTABLE OXYGEN TO HOSPITAL ROOM FOR DISCHARGE HOME. CM REVIEWED CHART, DID NOT IDENTIFY SKILLED NEED FOR HOME HEALTH. PT NOTIFIED. PT IN AGREEMENT WITH DISCHARGE HOME, SISTER TO CLAIM TECHNICIAN AND HE WILL WAIT FOR PORTABLE OXYGEN DELIVERY TO ROOM BY [facility] FOR DISCHARGE. Tam Spangler, CASE MANAGEMENT
--- NOTE | 2017-03-13 15:45 | NUR ---
REVIEWED DISCHARGE INSTRUCTIONS WITH PT STATES UNDERSTANDING COPY GIVEN TO PT DCD LT HAND SALINE LOCK WITH CATHETER TIP INTACT SITE FREE OF REDNESS OR EDEMA PT DISCHARGED HOME IN STABLE CONDITION WITH ALL PERSONAL BELONGINGS LEFT UNIT VIA W/C
== END 2017-03-13 15:45 | disposition home or self-care (01) | DRG 287 ==
LOC: D.ER 06:07 → D.M2 09:43
PROVIDERS: Emergency Medicine; Family Medicine; Internal Medicine Cardiovascular Disease; ADMIT Family Medicine
PROC: B2151ZZ Fluoroscopy of Left Heart using Low Osmolar Contrast (ICD-10-PCS; 2017-03-09)
PROC: 4A023N7 Measurement of Cardiac Sampling and Pressure, Left Heart, Percutaneous Approach (ICD-10-PCS; 2017-03-09)
PROC: B2111ZZ Fluoroscopy of Multiple Coronary Arteries using Low Osmolar Contrast (ICD-10-PCS; principal; 2017-03-09 09:00)
DX: I50.23 Acute on chronic systolic (congestive) heart failure (principal); J70.0 Acute pulmonary manifestations due to radiation; I42.9 Cardiomyopathy, unspecified; J44.1 Chronic obstructive pulmonary disease with (acute) exacerbation; E87.1 Hypo-osmolality and hyponatremia; K21.9 Gastro-esophageal reflux disease without esophagitis; F17.200 Nicotine dependence, unspecified, uncomplicated; I08.1 Rheumatic disorders of both mitral and tricuspid valves; K80.20 Calculus of gallbladder without cholecystitis without obstruction; E87.6 Hypokalemia; Z85.118 Personal history of other malignant neoplasm of bronchus and lung; D64.9 Anemia, unspecified

== ENCOUNTER 2017-05-23 06:57 | Inpatient (IN) | payer MEDICARE, MEDICAID ==
[~2017-05-23] VITALS: Ht 177.8 cm; Wt 86.2 kg
[~2017-05-23 06:57] MED LIST changes: +BENZONATATE200 MG PO; +COREG 3.1253.125 MG PO; +FLORAJEN3 CAPS460 MG PO; +K-DUR20 MEQ PO; +LASIX40 MG PO; +LISINOPRIL5 MG PO; +MAG-OX 400 MG400 MG PO; +MOBIC7.5 MG PO; +MUCINEX DM ER1 EAC1 PO; +PREDNISONE10 MG PO; +VIBRAMYCIN 100100 MG PO
[2017-05-23 07:38] LABS: BASOPHILS 0.5 % (0-2); EOSINOPHILS 0.5 % (0-7); HEMATOCRIT 40.1 % (42.0-54.0); HEMOGLOBIN 14.3 g/dL (13.5-17.5); IMMATURE GRANULOCYTES 0.3 % (0-5); LYMPHOCYTES 26.8 % (15-50); MCH 34.1 pg (26.0-34.0); MCHC 35.7 g/dL (31.0-37.0); MCV 95.7 fL (80.0-100.0); MEAN PLATELET VOLUME 9.5 fL (7.4-10.4); MONOCYTES 8.4 % (2-11); NEUTROPHILS 63.5 % (40-80); PLATELET COUNT 150 10x3/uL (130-400); RBC 4.19 10x6/uL (4.20-6.10); RDW 14.1 % (11.5-14.5); WBC 6.4 10x3/uL (4.8-10.8)
[2017-05-23 07:42] LABS: APTT 34.5 SECONDS (22.8-39.4)
[2017-05-23 07:43] LABS: INR 1.58 (0.85-1.17); PROTIME 18.8 SECONDS (11.6-15.0)
[2017-05-23 07:48] LABS: APPEARANCE CLEAR (CLEAR); BILIRUBIN 2+ (NEGATIVE); COLOR DK YELLOW (YELLOW); GLUCOSE NEGATIVE (NEGATIVE); KETONE NEGATIVE (NEGATIVE); LEUKOCYTE ESTERASE NEGATIVE (NEGATIVE); NITRITE NEGATIVE (NEGATIVE); PROTEIN 2+ mg/dL (NEGATIVE); SPECIFIC GRAVITY 1.025 (1.005-1.020)
[2017-05-23 07:49] LABS: BACTERIA MODERATE /hpf (NONE SEEN); EPITHELIAL CELLS 0-5 /hpf (0-5); MUCUS <1+ /lpf (NONE SEEN); RED CELLS - URINE 0-5 /hpf (0-5); WHITE CELLS - URINE 0-5 /hpf (0-5)
[2017-05-23 07:50] LABS: UDS - AMPHET NEGATIVE QUAL (NEGATIVE); UDS - BARB NEGATIVE QUAL (NEGATIVE); UDS - BENZO NEGATIVE QUAL (NEGATIVE); UDS - COCAINE POSITIVE QUAL (NEGATIVE); UDS - METH NEGATIVE QUAL (NEGATIVE); UDS - OPIATE NEGATIVE QUAL (NEGATIVE); UDS - PCP NEGATIVE QUAL (NEGATIVE); UDS - THC NEGATIVE QUAL (NEGATIVE)
[2017-05-23 07:57] LABS: ALBUMIN 3.2 g/dL (3.4-5.0); ALKALINE PHOSPHATASE 76 U/L (46-116); ALT (SGPT) 36 U/L (10-68); BILIRUBIN - TOTAL 1.81 mg/dL (0.2-1.3); CALC OSMOLALITY 257 mosm/kg (275-300); CARBON DIOXIDE 19.4 mmol/L (21.0-32.0); CHLORIDE - SERUM 94 mmol/L (98-107); CREATININE - SERUM 1.2 mg/dL (0.6-1.3); POTASSIUM - SERUM 3.3 mmol/L (3.5-5.1); PROTEIN - SERUM 7.4 g/dL (6.4-8.2); SODIUM 129 mmol/L (136-145); UREA NITROGEN 10 mg/dL (7-18); eGFR NON AFRICAN AMERICAN 66 mL/min (90-120)
[2017-05-23 07:58] LABS: GLUCOSE 91 mg/dL (74-106)
[2017-05-23 08:07] LABS: LIPASE 135 U/L (73-393); PRO BNP 9796 pg/mL (0-125)
[2017-05-23 08:08] LABS: TROPONIN-I < 0.017 ng/mL (0.000-0.060)
--- NOTE | 2017-05-23 12:25 | NUR ---
PATIENT RECEIVED TO FLOOR FROM ER VIA WHEELCHAIR. TRANSFERRED SELF TO BED. ORIENTED TO ROOM. NO SIGNS OF DISTRESS NOTED. SIDE RAILS UP X2. BED IN LOW POSITION. CALL LIGHT IN REACH.
[2017-05-23] MEDS ORDERED: OMEPRAZOLE20 M1 PO (12:29)
[2017-05-23] MEDS ORDERED: MOBIC7.5 MG PO (12:30)
[2017-05-23 12:36] VITALS: BP 132/94; BMI 27.3
[2017-05-23 13:18] LABS: AMYLASE - SERUM 45 U/L (25-115)
--- NOTE | 2017-05-23 14:12 | NUR ---
ALERT IN BED WATCHING TV. NO SIGNS OF DISTRESS NOTED. SCHEDULED MEDICATION ADMINISTERED. DENIES NEEDS. SCDS ON BILATERALLY. USE EXPLAINED. SIDE RAILS UP X2. BED IN LOW POSITION. CALL LIGHT IN REACH.
[2017-05-23 14:37] LABS: CKMB 1.3 U/L (0.0-3.6); CREATINE KINASE 279 UL (21-232); TROPONIN-I < 0.017 ng/mL (0.000-0.060)
[2017-05-23 16:02] VITALS: BP 113/89
--- NOTE | 2017-05-23 17:49 | NUR ---
ALERT IN BED WATCHING TV. NO SIGNS OF DISTRESS NOTED. SCHEDULED IV ABX INITIATED PER ORDER. IV TO RIGHT PATENT. FLUSHES EASY. NO REDNESS OR INFLAMMATION NOTED. DENIES NEEDS. SIDE RAILS UP X2. BED IN LOW POSITION. CALL LIGHT IN REACH.
[2017-05-23 20:39] LABS: CKMB 1.4 U/L (0.0-3.6); CREATINE KINASE 270 UL (21-232); TROPONIN-I 0.022 ng/mL (0.000-0.060)
--- NOTE | 2017-05-23 22:35 | NUR ---
TALKED WITH RADIOLOGY, THEY WILL INFORM THE DOCTOR IN THE AM FOR PROCEDURE. THEY WANT HIM NPO AT MIDNIGHT AND CONSENTS SIGNED.
[2017-05-23 23:14] VITALS: BP 110/85
[2017-05-24 00:54] LABS: CKMB 1.3 U/L (0.0-3.6); CREATINE KINASE 261 UL (21-232); TROPONIN-I 0.017 ng/mL (0.000-0.060)
--- NOTE | 2017-05-24 04:21 | NUR ---
PT IS AWAKE AT THE OPENING OF THE DOOR. HE VOICED NO COMPLAINTS AND RESPIRATIONS WERE EASY AND UNLABORED. THE BED IS LOW, RAILS UP X'S 2 WITH THE CALL LIGHT AT HAND
[2017-05-24 05:06] VITALS: BP 103/76
[2017-05-24 06:24] LABS: BASOPHILS 0.2 % (0-2); EOSINOPHILS 0.2 % (0-7); HEMATOCRIT 41.9 % (42.0-54.0); HEMOGLOBIN 14.7 g/dL (13.5-17.5); IMMATURE GRANULOCYTES 0.2 % (0-5); LYMPHOCYTES 15.9 % (15-50); MCH 34.3 pg (26.0-34.0); MCHC 35.1 g/dL (31.0-37.0); MEAN PLATELET VOLUME 9.8 fL (7.4-10.4); MONOCYTES 5.6 % (2-11); NEUTROPHILS 77.9 % (40-80); PLATELET COUNT 150 10x3/uL (130-400); RBC 4.28 10x6/uL (4.20-6.10); RDW 14.3 % (11.5-14.5); WBC 5.9 10x3/uL (4.8-10.8)
[2017-05-24 06:29] LABS: MCV 97.9 fL (80.0-100.0)
[2017-05-24 06:38] LABS: APTT 38.7 SECONDS (22.8-39.4); INR 1.56 (0.85-1.17); PROTIME 18.6 SECONDS (11.6-15.0)
[2017-05-24 06:54] LABS: ALBUMIN 3.1 g/dL (3.4-5.0); BILIRUBIN - TOTAL 1.86 mg/dL (0.2-1.3); CALCIUM 7.1 mg/dL (8.5-10.1); PHOSPHOROUS 5.9 mg/dL (2.5-4.9); PROTEIN - SERUM 7.5 g/dL (6.4-8.2); THYROID STIMULATING HORMONE 22.95 uIU/mL (0.36-3.74)
[2017-05-24 06:55] LABS: ANION GAP 15.4 mmol/L (8-16); CREATININE - SERUM 1.8 mg/dL (0.6-1.3); MAGNESIUM - SERUM 0.6 mg/dL (1.8-2.4); POTASSIUM - SERUM 4.4 mmol/L (3.5-5.1)
--- NOTE | 2017-05-24 07:30 | NUR ---
PATIENT RECEIVED IN MID BLAKE POSITION ALERT AND RESTING QUIETLY. RESPIRATIONS EVEN AND UNLABORED. SIDE RAILS UP X2. BED IN LOW BLAKE POSITION. CALL LIGHT IN REACH.
--- NOTE | 2017-05-24 08:43 | NUR ---
ALERT IN HIGH BLAKE POSITION EATING BREAKFAST. TOLERATING WELL. SCHEDULED MEDICATION ADMINISTERED. DENIES NEEDS. SIDE RAILS UP X2. BED IN LOW POSITION. CALL LIGHT IN REACH.
[2017-05-24 09:11] VITALS: BP 102/75
[2017-05-24 12:20] VITALS: BP 107/80
--- NOTE | 2017-05-24 13:00 | NUR ---
PATIENT ALERT IN BED. IV TO RIGHT HAND SALINE LOCKED. FLUSHES EASY. DENIES NEEDS. SIDE RAILS UP X2. BED IN LOW POSITION. CALL LIGHT IN REACH.
--- NOTE | 2017-05-24 16:00 | NUR ---
UP AMBULATING IN HALLWAY WITHOUT ASSIST. NO SIGNS OF DISTRESS NOTED.
[2017-05-24 16:23] VITALS: BP 107/76
--- NOTE | 2017-05-24 17:08 | HP ---
PATIENT: SABINA CLARK MEDICAL RECORD: [id number] ACCOUNT: [id number] LOCATION:D.MS [place] : 56 ADMISSION DATE: 05/23/17 HISTORY AND PHYSICAL EXAMINATION HISTORY OF PRESENT ILLNESS: A 57-year-old black male who was admitted to the hospital for evaluation of shortness of breath. The patient was seen in the Emergency Room. He has a history of small cell lung cancer that has been treated with chemo and radiation and has been in remission. Evidently, he started having some abdominal distention and shortness breath over the last 48 hours, came in for further evaluation and evaluated in the Emergency Room. The patient did smoke some medicine with cocaine last night and has had positive drug screen. I have discussed with his family. PAST MEDICAL HISTORY: Significant for history of hepatitis, COPD, pneumonia, lung cancer, arrhythmia, GERD, hypertension and CHF. ALLERGIES: The patient has no known drug allergies. PAST SURGICAL HISTORY: He has had right leg surgery and vasectomy. MEDICATIONS: Listed on the MAR sheet. SOCIAL HISTORY: The patient does smoke at least half pack per day and does continue to use illicit drug use. PHYSICAL EXAMINATION: VITAL SIGNS: At the time of the history and physical as below. GENERAL: He is a well-developed, well-nourished, obese 57-year-old black male, in no acute distress. HEENT: Pupils are equal, round and reactive to light. Extraocular movements are intact. Oral cavity and oropharynx otherwise clear. He has got some dental caries noted. LUNGS: Coarse breath sounds bilaterally. HEART: Regular rate and rhythm with a I/ ejection murmur. ABDOMEN: Soft, nontender, positive bowel sounds, distention is noted. SKIN: He has got dullness in his right base of his rib area. EXTREMITIES: No arthritic changes. No edema. NEUROLOGIC: He is moving all 4 extremities. ASSESSMENT: 1. Lung cancer. 2. Pneumonia versus atelectasis. 3. Chronic obstructive pulmonary disease. 4. Large pleural effusion. 5. Illicit drug use. 6. Diverticulosis. 7. Congestive heart failure. 8. Gastroesophageal reflux disease. 9. Urinary tract infection. 10. Hypokalemia. PLAN: The patient will be admitted to the hospital. Hem/onc and pulmonary consultation obtained. Replace his electrolytes, check laboratory appropriately. HISTORY AND PHYSICAL [id number] SABINA CLARK TRANSINT:[id number] Voice Confirmation ID: [id number] DOCUMENT ID: [id number] MARIBEL MARTINEZ MD at 1708 CC: [id number] DICTATION DATE: 05/23/17 1325 BARN MANAGER: 05/23/17 1645 ADM IN [facility] [address] [place] [address]
--- NOTE | 2017-05-24 17:40 | NUR ---
ALERT IN BED EATING DINNER. TOLERATING WELL. DENIES NEEDS. SIDE RAILS UP X1. BED IN LOW POSITION. CALL LIGHT IN REACH.
[2017-05-24 19:00] VITALS: BP 109/78
--- NOTE | 2017-05-24 22:20 | NUR ---
LYING IN BED TALKING ON PHONE, DENIES PAIN OR NEEDS, SR'S UP, CL IN REACH
[2017-05-25 04:00] VITALS: BP 102/83
[2017-05-25 06:51] LABS: BASOPHILS 0 % (0-2); EOSINOPHILS 0 % (0-7); HEMATOCRIT 40.5 % (42.0-54.0); HEMOGLOBIN 14.2 g/dL (13.5-17.5); IMMATURE GRANULOCYTES 0.1 % (0-5); LYMPHOCYTES 5.8 % (15-50); MCH 34.1 pg (26.0-34.0); MCHC 35.1 g/dL (31.0-37.0); MCV 97.4 fL (80.0-100.0); MEAN PLATELET VOLUME 9.9 fL (7.4-10.4); MONOCYTES 2.8 % (2-11); NEUTROPHILS 91.3 % (40-80); PLATELET COUNT 164 10x3/uL (130-400); RBC 4.16 10x6/uL (4.20-6.10); RDW 14.1 % (11.5-14.5)
[2017-05-25 07:12] LABS: CALCIUM 7.4 mg/dL (8.5-10.1); CARBON DIOXIDE 19.9 mmol/L (21.0-32.0); CREATININE - SERUM 1.7 mg/dL (0.6-1.3); POTASSIUM - SERUM 4.9 mmol/L (3.5-5.1)
--- NOTE | 2017-05-25 07:15 | NUR ---
AMBULATING IN THE HALLWAY AT THIS TIME. EXPLAINED TO PT THAT HE WAS POSSIBLY HAVING A PROCEDURE TODAY TO DRAIN THE FLUID OFF OF HIS LUNG AND HE VERBALIZED UNDERSTANDING. EXPLAINED TO HIM THAT HE WOULD NEED TO HAVE A HIBICLENS BATH AND A CLEAN GOWN PLACED ON. HE VERBALIZED UNDERSTANDING. ALSO EXPLAINED THAT HE WOULD HAVE TO REMAIN IN HIS ROOM BECAUSE WE ARE UNSURE OF WHEN THEY MAY COME TO GET HIM FOR HIS PROCEDURE AND THAT HE MUST REMAINS NPO. PT VERBALIZED UNDERSTANDING AND WENT BACK TO HIS ROOM TO PREPARE FOR THE PROCEDURE WITH THE ASSISTANCE OF ANDRZEJ MACARIO.
[2017-05-25 07:34] LABS: WBC 12.3 10x3/uL (4.8-10.8)
[2017-05-25 07:36] LABS: MAGNESIUM - SERUM 0.7 mg/dL (1.8-2.4)
--- NOTE | 2017-05-25 07:45 | NUR ---
ELECTROLYTE PROTOCOL INITIATED FOR MAGNESIUM OF 0.7.
--- NOTE | 2017-05-25 08:00 | NUR ---
NURSES TO ROOM TO TAKE PT FOR THORACENTESIS. PT NOT IN ROOM AND IV POLL MISSING. MED 2 CHECKED AND FRONT AND BACK OF HOSPITAL CHECKED FOR PT. WILL AWAIT PT'S RETURN TO ROOM [id number]. PT BUMPED IN PROCEDURE ORDER AT THIS TIME DUE TO NOT BEING IN HIS ROOM.
--- NOTE | 2017-05-25 08:25 | NUR ---
COME TO FIND OUT PT WAS ACTUAL IN X-RAY WHEN THEY ARRIVED TO GET HIM FOR HIS CT GUIDED THORACENTESIS. PT TAKEN FROM X-RAY TO CT GUIDED THORACENTESIS.
[2017-05-25 08:31] VITALS: BP 105/77
--- NOTE | 2017-05-25 09:59 | NUR ---
Patient Name: SABINA CLARK Admission Status: ER Accout number: [id number] Admission Date: 05-23-2017 : 1960 Admission Diagnosis: Attending: JINNY Current LOS: 2 Anticipated DC Date: Planned Disposition: Home or Self Care Primary Insurance: WE[employer] MEDICARE ADV Discharge Planning Comments: CM met with patient to assess discharge planning needs. Patient states that she lives alone and was hesitant to tell me where he lives. He states that he has a ramp and uses home O2. He said that the DME he uses is across from [facility] on [address]. He could not tell me how he was getting home or who would be taking him. CM will continue to follow and assist as needed with discharge planning needs. PCP: none [facility]acy: [facility] Pantographer: Sofie Mai * Is the patient Alert and Oriented? No 0 * How many steps to enter\exit or inside your home? RAMP 0 * PCP NONE 0 * [facility]acy [facility] 0 * Preadmission Environment Home Alone 0 * ADLs Independent 0 * Equipment Oxygen 0 * Community resources currently utilized None 0 * Additional services required to return to the preadmission environment? Yes 0 * Can the patient safely return to the preadmission environment? Yes 0 * Has this patient been hospitalized within the prior 30 days at any hospital? No 0 Grand Total: 0
[2017-05-25 10:12] LABS: INR 1.48 (0.85-1.17); PROTIME 17.9 SECONDS (11.6-15.0)
[2017-05-25 10:14] LABS: APTT 22.4 SECONDS (22.8-39.4)
[2017-05-25 10:15] VITALS: BP 102/79
[2017-05-25 11:21] LABS: LYMPH - BF 87 %; MACROPHAGES BF 3 %; MESOTHELIALS BF 5 %; NEUT - BF 5 %
[2017-05-25 12:32] VITALS: BP 117/93
[2017-05-25 12:58] VITALS: Ht 177.8 cm; Wt 86.2 kg
--- NOTE | 2017-05-25 13:35 | NUR ---
PT REFUSES TO STAY IN BED AT THIS TIME. PT IS CONFUSED AND VERY UNSTEADY ON HIS FEET. ATTEMPTED TO GET UP WHEN I LEFT THE ROOM TO GET PRN ATIVAN. TIESHA MAT ALARMING AND ANDRZEJ MACARIO WALKING TO PT'S ROOM. PT DESCRIBED BY RENALDO LAYING ON RIGHT SIDE. PT ASSISTED UP AND TO BED WITH VITAL SIGNS OBTAINED. BP 95/42, PULSE 110 OXYGEN SATURATION 97% ON ROOM AIR AND RESPIRATORY RATE 16. ATTEMPTED TO NOTIFY PT'S SISTER,DEEPAK, LISTED IN EMERGENCY CONTACTS AND WHEN THE NUMBER DIALED, , THE LINE STATED, "THIS NUMBER IS NO LONGER IN SERVICE." PT UNABLE TO PROVIDE ME WITH A PHONE NUMBER FOR THE NEXT OF KIN. ORDER OBTAINED FOR TIESHA BED AND CLOSE SUPERVISION WITH ANDRZEJ CAMPOS AT BEDSIDE UNTIL BED CAN BE OBTAINED.
--- NOTE | 2017-05-25 14:45 | NUR ---
TIESHA BED IN ROOM AT THIS TIME AND DR FLANAGAN ASSESSING PT AND EXPLAINING TO HIM THAT HE IS NOT READY FOR DISCHARGE AND DUE TO HIM BEING CONFUSED ON UNABLE TO FOLLOW DIRECTIONS HE MUST BE PLACED IN THE TIESHA BED. SECURITY AT THE BEDSIDE TO ASSIST PT INTO BED HE IS TRYING TO RESIST. PT PLACED IN BED AND EVEYTHING SECURED TO ENSURE THAT PT REMAINS IN BED. CALL LIGHT IN REACH, WILL CONTINUE WITH PLAN OF CARE.
--- NOTE | 2017-05-25 15:06 | NUR ---
PT ATTEMPTING TO GET OUT OF BED AT THIS TIME, DR FLANAGAN AT BEDSIDE. ALPA SAMS ADMINISTERED X4 PEOPLE ASSISTING PER ORDER FOR AGGITATION.
--- NOTE | 2017-05-25 16:00 | NUR ---
PT REFUSES VITAL SIGNS AT THIS TIME.
--- NOTE | 2017-05-25 18:00 | NUR ---
ATTEMPTED TO OPEN TIESHA NET BED TO OBTAIN VITAL SIGNS AND PT REFUSED VITAL SIGNS AND BECAME AGGRESSIVE. IT WAS DEEMED UNSAFE TO LEAVE THE TIESHA BED UNZIPPED FOR A TRIAL. BED ZIPPED AND SECURED WITH PT INSIDE AND TIESHA MAT ALARM IN USE. CALL LIGHT IN REACH, WILL CONTINUE WITH PLAN OF CARE.
[2017-05-26] VITALS (10 sets, daily range): BP systolic 101–148; BP diastolic 65–107
--- NOTE | 2017-05-26 00:30 | NUR ---
IN ROOM FOR RELEASE OF RESTRAINT PT RESTING WELL UNZIPPED AND NO ACUTE DISTRESS NOTED. ZIPPED AGAIN AFTER 30 MIN RELEASE CALL LIGHT IN REACH
--- NOTE | 2017-05-26 02:44 | NUR ---
PT AWAKE AND REFUSING TO STAY IN BED REDUCTION OF RESTRAINT UNSUCCESSFUL.
--- NOTE | 2017-05-26 05:18 | NUR ---
PT YELLING OUT LET ME OUT OF THIS BED PULLING AT ENCLOSURE BED ATTEMPTED TO RELEASE RESTRAINT PT BECOMING INCREASINGLY AGGITATED AND THREATNING WITH BEHAVIOR. STATES YALL ARE TREATING ME LIKE A DOG. ATTEMPTED TO REORIENT PT UNSUCCESSFULY. EXPLAINED TO PT THAT DUE TO FACT THAT HE IS A FALL RISK AND UNWILLING TO CALL FOR HELP HE HAD A FALL ON PREVIOUS SHIFT AND THUS REQUIRES MORE SUPERVISION. PT STATES THAT HE IS NOT A FALL RISK HE CAN WALK WITH NO PROBLEMS. WILL MONITOR
--- NOTE | 2017-05-26 06:24 | NUR ---
PT CALM AND COOPERATIVE AT THIS TIME CLEANED OF INCT EPISODE OF URINE. TOOK AM MEDS WITH NO DIFFICULTY NOTED. PIV TO RIGHT HAND NOTED FLUSHES WELL.
[2017-05-26 07:20] LABS: BASOPHILS 0 % (0-2); EOSINOPHILS 0.1 % (0-7); HEMATOCRIT 40.3 % (42.0-54.0); HEMOGLOBIN 14.4 g/dL (13.5-17.5); IMMATURE GRANULOCYTES 0.3 % (0-5); LYMPHOCYTES 15.3 % (15-50); MCH 34.6 pg (26.0-34.0); MCHC 35.7 g/dL (31.0-37.0); MCV 96.9 fL (80.0-100.0); MEAN PLATELET VOLUME 9.7 fL (7.4-10.4); MONOCYTES 7.8 % (2-11); NEUTROPHILS 76.5 % (40-80); PLATELET COUNT 148 10x3/uL (130-400); RBC 4.16 10x6/uL (4.20-6.10); RDW 14.5 % (11.5-14.5); WBC 10.1 10x3/uL (4.8-10.8)
--- NOTE | 2017-05-26 07:20 | NUR ---
REPORT RECEIVED FROM OPERATIONS MANAGER STATION NURSE. CALL LIGHT IN REACH.
[2017-05-26 07:33] LABS: BILIRUBIN - TOTAL 0.63 mg/dL (0.2-1.3); CALCIUM 7.5 mg/dL (8.5-10.1); CARBON DIOXIDE 21.3 mmol/L (21.0-32.0); CREATININE - SERUM 1.4 mg/dL (0.6-1.3); POTASSIUM - SERUM 4.3 mmol/L (3.5-5.1); PROTEIN - SERUM 7.1 g/dL (6.4-8.2)
--- NOTE | 2017-05-26 08:00 | NUR ---
IN BED WITH EYES CLOSED AT THIS TIME. RESP EVEN AND UNLABORED. CALL LIGHT IN REACH. VSS. WILL CONTINUE TO MONITOR.
--- NOTE | 2017-05-26 10:27 | NUR ---
ASSESSMENT COMPLETED. AM MEDS ADMINISTERED PER ORDER. ATIVAN 2 MG SIVP PER ANXIETY. REFUSES SCDs. BP INCREASED BUT COREG WAS GIVEN. RESPIRATORY THERAPIST IN ROOM TO DO BREATHING TREATMENT. TIESHA MAT ALARM IS ON. CALL LIGHT IN REACH. WILL CONTINUE WITH PLAN OF CARE.
--- NOTE | 2017-05-26 11:02 | NUR ---
IN SHOWER AT THIS TIME. ROUTE CDL DRIVER IN ROOM TO ASSIST PATIENT.
--- NOTE | 2017-05-26 13:03 | NUR ---
RESTING QUIETLY WITH EYES CLOSED. RESP EVEN UNLABORED. CL IN REACH. ALL SAFETY MEASURES CARRIED OUT.
--- NOTE | 2017-05-26 13:52 | NUR ---
ZOSYN IVPB AND SOLU-NEDROL 40 MG SIVP. HAD KNIFE IN BED ATTEMPTING TO CUT THROUGH THE NET. KNIFE TAKEN FROM PATIENT AND DIETARY NOTIFIED ABOUT KEEPING KNIVES OFF OF HIS MEAL TRAYS.
--- NOTE | 2017-05-26 15:30 | NUR ---
RESTING WITH EYES CLOSED. RESP EVEN AND UNLABORED. CALL LIGHT IN REACH.
--- NOTE | 2017-05-26 16:22 | NUR ---
AFTERNOON MEDS ADMINISTERED PER ORDER. CALL LIGHT IN REACH.
--- NOTE | 2017-05-26 17:32 | NUR ---
IV ZOSYN PER ORDER.
--- NOTE | 2017-05-26 18:26 | NUR ---
NO CHANGES IN INITIAL ASSESSMENT. STILL REFUSES SCDs. TIESHA MAT ALARM IS STILL ON WHILE IN TIESHA BED. CALL LIGHT IN REACH. WILL CONTINUE WITH PLAN OF CARE.
--- NOTE | 2017-05-26 19:39 | NUR ---
PATIENT IS RESTING IN BED AND DENIES NEEDS AT THIS TIME. TIESHA BED IS SECURLY CLOSED, TIESHA ALARM ON, AND CALL LIGHT IS WITHIN REACH. ENCOURAGED THE PATIENT TO CALL IF HE HAS NEEDS.
[2017-05-26 20:08] LABS: ACID FAST SMEAR Negative (()); AFB SPECIMEN PROCESSING Not Indicated (())
[2017-05-27] VITALS (11 sets, daily range): BP systolic 107–146; BP diastolic 68–89
--- NOTE | 2017-05-27 04:24 | NUR ---
ANDRZEJ WHITING AND Majo ASSISTED THE PATIENT IN CLEANING HIMSELF UP, CHANGING HIS CLOTHING, AND CHANGING HIS LINENS.
[2017-05-27 05:08] LABS: BASOPHILS 0 % (0-2); EOSINOPHILS 0 % (0-7); HEMATOCRIT 40.3 % (42.0-54.0); HEMOGLOBIN 14.2 g/dL (13.5-17.5); IMMATURE GRANULOCYTES 0.3 % (0-5); LYMPHOCYTES 9.4 % (15-50); MCH 34.5 pg (26.0-34.0); MCHC 35.2 g/dL (31.0-37.0); MCV 97.8 fL (80.0-100.0); MEAN PLATELET VOLUME 9.8 fL (7.4-10.4); MONOCYTES 4.4 % (2-11); NEUTROPHILS 85.9 % (40-80); PLATELET COUNT 161 10x3/uL (130-400); RBC 4.12 10x6/uL (4.20-6.10); RDW 14.4 % (11.5-14.5); WBC 7.7 10x3/uL (4.8-10.8)
[2017-05-27 05:23] LABS: BILIRUBIN - TOTAL 0.53 mg/dL (0.2-1.3); CARBON DIOXIDE 25.2 mmol/L (21.0-32.0); CREATININE - SERUM 1.2 mg/dL (0.6-1.3); PROTEIN - SERUM 7.1 g/dL (6.4-8.2)
[2017-05-27 05:52] LABS: ANION GAP 14.9 mmol/L (8-16); POTASSIUM - SERUM 5.1 mmol/L (3.5-5.1)
--- NOTE | 2017-05-27 07:03 | NUR ---
REPORT RECEIVED FROM OFFICE SUPPORT ASSISTANT NURSE. CALL LIGHT IN REACH.
--- NOTE | 2017-05-27 07:39 | NUR ---
PATIENT IS AWAKE AND ALERT. PATIENT IS IN TIESHA BED. LAYING ON HIS BACK. OXYGEN ON VIA NASAL CANNULA AT 2L/MIN. NO SIGNS OF DISTRESS NOTED. PATIENT REQUESTED A VANILLA ICE CREAM AND ORANGE SHERBERT. PATIENT HAS URINAL, EMPTIED 300ML OF URINE AND WASHED IT OUT BEFORE GIVING IT BACK TO HIM. CLOSED ENCLOSURE BED BACK WHEN FINISHED. PATIENT DENIES FURTHER NEEDS. CALL LIGHT IN REACH.
--- NOTE | 2017-05-27 09:03 | NUR ---
ASSESSMENT COMPLETED. AM MEDS ADMINISTERED. TIESHA BED. REFUSES SCDs. CALL LIGHT IN REACH. WILL CONTINUE WITH PLAN OF CARE.
--- NOTE | 2017-05-27 10:00 | NUR ---
VSS. OUT OF TIESHA FOR A FEW MINUTES.
--- NOTE | 2017-05-27 11:26 | NUR ---
TRYING TO GET IN TOUCH WITH PATIENT'S SISTER SO HE CAN GIVE HER HIS $24.00 TO TAKE HOME WITH HER ALONG WITH HIS WALLET AND OTHER MONEY THAT SHE HAS OF HIS.
--- NOTE | 2017-05-27 12:00 | NUR ---
DENIES NEEDS AT THIS TIME. VSS.
--- NOTE | 2017-05-27 14:13 | NUR ---
NUTRITION MONITORING & EVAL CHART REVIEWED. REMAINS IN TIESHA BED. NURSING REPORTS PT WITH GOOD INTAKE MOST MEALS. RD FOLLOWING
--- NOTE | 2017-05-27 14:20 | NUR ---
ASSISTED TO BR AND BACK TO BED. LARGE BM NOTED.
--- NOTE | 2017-05-27 16:54 | NUR ---
AFTERNOON MEDS ADMINISTERED. CALL LIGHT IN REACH.
[2017-05-27 17:13] LABS: FUNGUS STAIN Final report (())
--- NOTE | 2017-05-27 18:08 | NUR ---
NO CHANGES IN INITIAL ASSESSMENT. STILL REFUSES SCDs. CALL LIGHT IN REACH. WILL CONTINUE WITH PLAN OF CARE.
--- NOTE | 2017-05-27 20:00 | NUR ---
ASSESSMENT PER FLOWSHEET Q2H MONITORING WHILE IN POEY NET BED. SALINE LOCK PATNT RT HAND SITE CLEAR. SOME CONFUSION AT TIMES COOPERATIVE AT THIS TIME.
--- NOTE | 2017-05-27 21:00 | NUR ---
MEDS GIVEN PER MAR.
--- NOTE | 2017-05-27 22:00 | NUR ---
NO CHANGES WITH ASSESSMENT CONTINUES IN TIESHA NET BED TURNS SELF IN BED CALM AT THIS TIME.
[2017-05-28] VITALS: BP 118/86
--- NOTE | 2017-05-28 | NUR ---
EYES CLOSED RESPIRATIONS WITH EASE AND UNLABORED.
[2017-05-28 01:57] VITALS: BP 125/81
--- NOTE | 2017-05-28 02:00 | NUR ---
MEDS GIVEN PER MAR. RESTING QUIETLY REMAINS IN TIESHA NET BED. BOTH SIDES ZIPPED UP CALL LIGHT WITHIN [facility].
[2017-05-28 04:00] VITALS: BP 107/77
[2017-05-28 05:47] LABS: BASOPHILS 0 % (0-2); EOSINOPHILS 0 % (0-7); HEMATOCRIT 42.6 % (42.0-54.0); HEMOGLOBIN 14.7 g/dL (13.5-17.5); IMMATURE GRANULOCYTES 0.3 % (0-5); LYMPHOCYTES 8.3 % (15-50); MCH 34.2 pg (26.0-34.0); MCHC 34.5 g/dL (31.0-37.0); MCV 99.1 fL (80.0-100.0); MEAN PLATELET VOLUME 10.1 fL (7.4-10.4); MONOCYTES 6.1 % (2-11); NEUTROPHILS 85.3 % (40-80); PLATELET COUNT 161 10x3/uL (130-400); RDW 14.8 % (11.5-14.5)
[2017-05-28 06:07] LABS: ALKALINE PHOSPHATASE 66 U/L (46-116); ALT (SGPT) 35 U/L (10-68); BILIRUBIN - TOTAL 0.46 mg/dL (0.2-1.3); CALC OSMOLALITY 277 mosm/kg (275-300); CALCIUM 9.1 mg/dL (8.5-10.1); CARBON DIOXIDE 25.4 mmol/L (21.0-32.0); CHLORIDE - SERUM 101 mmol/L (98-107); GLUCOSE 122 mg/dL (74-106); POTASSIUM - SERUM 5.1 mmol/L (3.5-5.1); PROTEIN - SERUM 7.1 g/dL (6.4-8.2); SODIUM 137 mmol/L (136-145); UREA NITROGEN 21 mg/dL (7-18); eGFR NON AFRICAN AMERICAN 81 mL/min (90-120)
[2017-05-28 07:08] VITALS: BP 110/90
--- NOTE | 2017-05-28 08:39 | NUR ---
SCHEDULED MEDICATIONS ADMINISTERED AT THIS TIME. TIESHA BED OPEN AND PT EATING BREAKFAST AT THIS TIME. PT ALERT AND ORIENTED X4. ASSESSMENT PERFORMED PER FLOWSHEET. IV TO RIGHT HAND RE-DRESSED WITH TEGADERM EXISTING DRESSING WAS COMING OFF. EXPLAINED TO PT THAT WE WOULD LEAVE HIS TIESHA BED UNZIPPED, BUT THAT THE TIESHA MAT ALARM WOULD REMAIN ON AND HE WAS NOT TO GET UP AND OUT OF THE BED ON HIS OWN. IF HE NEEDED TO VOID HE WAS TO USE THE URINAL AND IF HE FELT THE NEED TO MOVE HIS BOWELS THAT HE MUST USE HIS CALL LIGHT TO CALL FOR ASSISTANCE. PT VERBALIZED UNDERSTANDING AND PROPER DEMONSTRATION OF THE CALL LIGHT. EXPLAINED TO PT THAT IF HE DID WELL WITH THE BED UNZIPPED THEN WE WOULD TRY TO GET HIM INTO A REGULAR BED BEFORE THE END OF MY SHIFT.
[2017-05-28 10:13] VITALS: BP 116/91
--- NOTE | 2017-05-28 10:30 | NUR ---
PLACED IN REGULAR BED WITH TIESHA MAT AT THIS TIME. TIESHA NET BED D/C PER PT'S GOOD BEHAVIOR AND ABILITY TO FOLLOW COMMANDS. CALL LIGHT IN REACH, WILL CONTINUE WITH PLAN OF CARE.
--- NOTE | 2017-05-28 11:05 | NUR ---
UP IN CHAIR PER PHYSICAL THERAPY WITH TIESHA MAT CHAIR ALARM ON AND IN WORKING ORDER. PT DENIES NEEDS. CALL LIGHT IN REACH, WILL CONTINUE WITH PLAN OF CARE.
[2017-05-28] MEDS ORDERED: NICODERM C1 PATCH .1 TRANSDERM (11:08)
[2017-05-28] MEDS ORDERED: LEVOXYL100 MCG PO (11:09)
[2017-05-28] MEDS ORDERED: THIAMINE HCL50 MG PO (11:09)
[2017-05-28] MEDS ORDERED: TESSALON PERLE100 MG PO (11:09)
[2017-05-28] MEDS ORDERED: FOLIC ACID1 MG PO (11:09)
[2017-05-28] MEDS ORDERED: MUCINEX DM ER1 EAC1 PO (11:09)
[2017-05-28] MEDS ORDERED: PREDNISONE10 MG PO (11:10)
--- NOTE | 2017-05-28 11:30 | NUR ---
IV TO RIGHT HAND D/C WITH CATH TIP INTACT. PT TURNED TIESHA BOX OFF PER HIMSELF, HOWEVER GAIT IS STEADY AND BALANCE IS WELL. PT ABLE TO AMBULATE INDEPENDENTLY WITHOUT SAFETY CONCERN.
--- NOTE | 2017-05-28 11:53 | NUR ---
PATIENT BEING DISCHARGED TODAY, HOME HEALTH SET UP WITH [facility]. FAX SENT TO DARRION AT [facility]. WILL PROVIDE TAXI TO HOME
[2017-05-28 12:27] VITALS: BP 128/93
--- NOTE | 2017-05-28 12:30 | NUR ---
DISCHARGE PAPERWORK REVIEWED WITH PT. DENIES QUESTIONS OR CONCERNS. WILL AWAIT CAB FOR DISCHARGE.
--- NOTE | 2017-05-28 13:00 | NUR ---
RUSSELL RETURNED TO PT FROM DIRTY LINEN ROOM. FRIEND HERE TO TAKE PT HOME. DENIES QUESTIONS OR CONCERNS. DISCHARGING WITH ALL OF HIS PERSONAL BELONGINGS.
--- NOTE | 2017-05-28 13:17 | NUR ---
PATIENT STATED HE DID NOT NEED A TAXI ANYMORE, HE FOUND A RIDE HOME WITH A FRIEND. PATIENT DISCHARGED HOME TODAY WITH HOME HEALTH SET UP
--- NOTE | 2017-05-28 16:44 | NUR ---
LATE ENTRY: CM REC. CALL FROM JOHNNY WITH [facility] STATING THAT PATIENT WILL NOT ANSWER THEIR PHONE CALLS. JOHNNY STATED THEY HAVE CALLED SEVERAL TIMES. SANA CALLED WHILE JOHNNY WAS ON HOLD AND IT WENT STAIGHT TO VOICE MAIL. JOHNNY WILL CALL [facility]ION WITH [facility] IN AM.
--- NOTE | 2017-05-29 09:10 | NUR ---
late entry- home health called and stated that they can not get aholdpof patient. they have attempted several times. they are calling him a non admit
== END 2017-05-28 13:05 | disposition home or self-care (01) | DRG 190 ==
LOC: D.ER 06:57 → D.MS 11:40
PROVIDERS: Emergency Medicine; Family Medicine; General Practice; Internal Medicine Hematology & Oncology; Internal Medicine Pulmonary Disease; ADMIT Family Medicine
PROC: 0W993ZZ Drainage of Right Pleural Cavity, Percutaneous Approach (ICD-10-PCS; principal; 2017-05-25 08:00)
DX: J44.0 Chronic obstructive pulmonary disease with (acute) lower respiratory infection (principal); J18.9 Pneumonia, unspecified organism; G93.41 Metabolic encephalopathy; G93.49 Other encephalopathy; N39.0 Urinary tract infection, site not specified; F17.203 Nicotine dependence unspecified, with withdrawal; J90 Pleural effusion, not elsewhere classified; C34.01 Malignant neoplasm of right main bronchus; E87.1 Hypo-osmolality and hyponatremia; F10.239 Alcohol dependence with withdrawal, unspecified; J44.1 Chronic obstructive pulmonary disease with (acute) exacerbation; K21.9 Gastro-esophageal reflux disease without esophagitis; I11.0 Hypertensive heart disease with heart failure; I50.9 Heart failure, unspecified; F14.10 Cocaine abuse, uncomplicated; R41.0 Disorientation, unspecified; R09.02 Hypoxemia

== ENCOUNTER 2017-07-14 15:49 | Inpatient (IN) | payer MEDICARE, MEDICAID ==
[~2017-07-14] VITALS: Ht 177.8 cm; Wt 89.8 kg
[~2017-07-14 15:49] MED LIST changes: +FOLIC ACID1 MG PO; +LEVOXYL100 MCG PO; +NICODERM C1 PATCH .1 TRANSDERM; +OMEPRAZOLE20 M1 PO; +TESSALON PERLE100 MG PO; +THIAMINE HCL50 MG PO
[2017-07-14 16:46] LABS: BASOPHILS 0.2 % (0-2); EOSINOPHILS 0.2 % (0-7); HEMATOCRIT 44.8 % (42.0-54.0); HEMOGLOBIN 15.7 g/dL (13.5-17.5); IMMATURE GRANULOCYTES 0.2 % (0-5); LYMPHOCYTES 17.4 % (15-50); MCH 33.8 pg (26.0-34.0); MCV 96.3 fL (80.0-100.0); MEAN PLATELET VOLUME 10.1 fL (7.4-10.4); MONOCYTES 9.7 % (2-11); NEUTROPHILS 72.3 % (40-80); RBC 4.65 10x6/uL (4.20-6.10); RDW 15.3 % (11.5-14.5); WBC 6.4 10x3/uL (4.8-10.8)
[2017-07-14 16:47] LABS: PLATELET COUNT 83 10x3/uL (130-400)
[2017-07-14 16:58] LABS: APTT 77.8 SECONDS (22.8-39.4); INR 2.23 (0.85-1.17); PROTIME 24.8 SECONDS (11.6-15.0)
[2017-07-14 17:00] LABS: PLATELET ESTIMATE DECREASED
[2017-07-14 17:15] LABS: ALKALINE PHOSPHATASE 114 U/L (46-116); ALT (SGPT) 48 U/L (10-68); BILIRUBIN - TOTAL 2.42 mg/dL (0.2-1.3); CALC OSMOLALITY 268 mosm/kg (275-300); CALCIUM 7.9 mg/dL (8.5-10.1); CARBON DIOXIDE 20.4 mmol/L (21.0-32.0); CHLORIDE - SERUM 99 mmol/L (98-107); CREATINE KINASE 127 UL (21-232); CREATININE - SERUM 1.2 mg/dL (0.6-1.3); GLUCOSE 125 mg/dL (74-106); POTASSIUM - SERUM 4.5 mmol/L (3.5-5.1); PRO BNP 15069 pg/mL (0-125); PROTEIN - SERUM 6.9 g/dL (6.4-8.2); SODIUM 133 mmol/L (136-145); UREA NITROGEN 17 mg/dL (7-18); eGFR NON AFRICAN AMERICAN 66 mL/min (90-120)
[2017-07-14 17:17] LABS: TROPONIN-I < 0.017 ng/mL (0.000-0.060)
[2017-07-14 17:18] LABS: APPEARANCE HAZY (CLEAR); BILIRUBIN 1+ (NEGATIVE); COLOR ORANGE (YELLOW); GLUCOSE NEGATIVE (NEGATIVE); KETONE NEGATIVE (NEGATIVE); LEUKOCYTE ESTERASE TRACE (NEGATIVE); NITRITE NEGATIVE (NEGATIVE); PROTEIN 1+ mg/dL (NEGATIVE)
[2017-07-14 17:19] LABS: WHITE CELLS - URINE 0-5 /hpf (0-5)
[2017-07-14 17:20] LABS: EPITHELIAL CELLS 0-5 /hpf (0-5); RED CELLS - URINE 0-5 /hpf (0-5)
[2017-07-14 17:21] LABS: AMORPHOUS SEDIMENT <1+ /lpf (NONE SEEN); BACTERIA FEW /hpf (NONE SEEN)
[2017-07-14 17:26] LABS: WAXY CAST OCC /lpf (NONE SEEN)
[2017-07-14 17:27] LABS: UDS - AMPHET NEGATIVE QUAL (NEGATIVE); UDS - BARB NEGATIVE QUAL (NEGATIVE); UDS - BENZO POSITIVE QUAL (NEGATIVE); UDS - COCAINE POSITIVE QUAL (NEGATIVE); UDS - METH NEGATIVE QUAL (NEGATIVE); UDS - OPIATE NEGATIVE QUAL (NEGATIVE); UDS - PCP NEGATIVE QUAL (NEGATIVE); UDS - THC NEGATIVE QUAL (NEGATIVE)
[2017-07-14 20:16] VITALS: BP 119/93
--- NOTE | 2017-07-14 20:17 | NUR ---
RECEIVED REPORT FROM ER.
[2017-07-15 01:21] LABS: CKMB 1.3 U/L (0.0-3.6); CREATINE KINASE 111 UL (21-232); TROPONIN-I 0.025 ng/mL (0.000-0.060)
[2017-07-15 02:18] VITALS: BP 119/93; BMI 27.3
[2017-07-15] MEDS ORDERED: PACERONE200 MG PO (03:18)
[2017-07-15] MEDS ORDERED: ELIQUIS5 MG PO (03:19)
[2017-07-15] MEDS ORDERED: BAYER CHEWABLE81 MG PO (03:19)
--- NOTE | 2017-07-15 03:47 | NUR ---
IV MORPHINE GIVEN. ADMISSION HISTORY AND ASSESSMENT COMPLETED. PT LYING AWAKE WITH A FREQUENT COUGH, STATES PRODUCTIVE AT TIMES WITH GREEN PHLEGM. O2 @ 2L/NC WITH MILD SHORTNESS OF BREATH AFTER COUGHING. PIV SALINE LOCKED TO LEFT HAND. PLAN OF CARE IN PLACE.
[2017-07-15 06:09] LABS: BASOPHILS 0.4 % (0-2); EOSINOPHILS 0.6 % (0-7); HEMATOCRIT 44.9 % (42.0-54.0); HEMOGLOBIN 16.1 g/dL (13.5-17.5); IMMATURE GRANULOCYTES 0.1 % (0-5); LYMPHOCYTES 24.2 % (15-50); MCH 34.3 pg (26.0-34.0); MCHC 35.9 g/dL (31.0-37.0); MCV 95.5 fL (80.0-100.0); MEAN PLATELET VOLUME 10.4 fL (7.4-10.4); MONOCYTES 9.6 % (2-11); NEUTROPHILS 65.1 % (40-80); RDW 15.2 % (11.5-14.5); WBC 6.9 10x3/uL (4.8-10.8)
[2017-07-15 06:24] LABS: PLATELET COUNT 100 10x3/uL (130-400)
[2017-07-15 06:46] LABS: CALC OSMOLALITY 274 mosm/kg (275-300); CARBON DIOXIDE 21.7 mmol/L (21.0-32.0); CHLORIDE - SERUM 100 mmol/L (98-107); CREATINE KINASE 104 UL (21-232); CREATININE - SERUM 1.3 mg/dL (0.6-1.3); GLUCOSE 113 mg/dL (74-106); POTASSIUM - SERUM 3.8 mmol/L (3.5-5.1); SODIUM 136 mmol/L (136-145); TROPONIN-I 0.029 ng/mL (0.000-0.060); UREA NITROGEN 18 mg/dL (7-18); eGFR NON AFRICAN AMERICAN 60 mL/min (90-120)
[2017-07-15 08:43] VITALS: BP 114/91
[2017-07-15 11:58] VITALS: BP 108/85
[2017-07-15 12:13] LABS: CKMB 1.3 U/L (0.0-3.6); CREATINE KINASE 137 UL (21-232); TROPONIN-I 0.017 ng/mL (0.000-0.060)
--- NOTE | 2017-07-15 13:32 | NUR ---
TELEMETRY ST. RESP UL ON 02 2L NC. CALL LIGHT IN REACH. WILL CONT. PLAN OF CARE.
[2017-07-15 16:16] VITALS: BP 94/69
--- NOTE | 2017-07-15 19:48 | NUR ---
RESUMED CARE OF PT, LYING IN BED WITH EYES CLOSED RESPIRATIONS EVEN AND UNLABORED ON 2LPM VIA NC. 94 SR ON TELEMETRY. LEFT HAND SALINE LOCKED. NO NEEDS NOTED AT THIS TIME. WILL CONTINUE TO MONITOR. SEE NURSE ASSESSMENT.
[2017-07-15 20:02] VITALS: BP 98/72
[2017-07-16 00:35] VITALS: BP 102/67
--- NOTE | 2017-07-16 00:54 | NUR ---
REQUESTS TO HAVE PERSONAL ITEMS LOCKED UP, NOTIFIED ER ADMISSIONS OF REQUEST. EXPLAINED TO PT THAT IT MAY BE A LITTLE WHILE BEFORE SHE CAN GET HERE. BECOMING MORE AGITATED ABOUT DELAY IN REQUEST. EXPLAINED TO PT AGAIN THAT IT MAY BE AWHILE, SERGEANT CAMILO NOTIFIED AND SHE EXPLAINED TO PT AGAIN THAT SHE WILL COME, BUT IT MAY BE A LITTLE WHILE. CALL LIGHT IN REACH. WILL CONTINUE TO MONITOR.
[2017-07-16 05:44] LABS: BASOPHILS 0.2 % (0-2); EOSINOPHILS 0.3 % (0-7); HEMATOCRIT 42.4 % (42.0-54.0); IMMATURE GRANULOCYTES 0.2 % (0-5); LYMPHOCYTES 18.2 % (15-50); MCH 33.9 pg (26.0-34.0); MCHC 35.4 g/dL (31.0-37.0); MCV 95.9 fL (80.0-100.0); MEAN PLATELET VOLUME 10.8 fL (7.4-10.4); MONOCYTES 8.2 % (2-11); NEUTROPHILS 72.9 % (40-80); PLATELET COUNT 92 10x3/uL (130-400); RBC 4.42 10x6/uL (4.20-6.10); RDW 15.1 % (11.5-14.5); WBC 6.6 10x3/uL (4.8-10.8)
[2017-07-16 06:24] LABS: ALBUMIN 2.7 g/dL (3.4-5.0); ANION GAP 15.9 mmol/L (8-16); BILIRUBIN - TOTAL 1.15 mg/dL (0.2-1.3); CALCIUM 7.6 mg/dL (8.5-10.1); CARBON DIOXIDE 23.9 mmol/L (21.0-32.0); POTASSIUM - SERUM 3.8 mmol/L (3.5-5.1); PROTEIN - SERUM 6.8 g/dL (6.4-8.2)
[2017-07-16 06:26] LABS: CREATININE - SERUM 1.7 mg/dL (0.6-1.3)
--- NOTE | 2017-07-16 07:30 | NUR ---
RECEIVED PT IN BED AAOX4 RESP NOTED SOB O2 ON PER NC @ 4LPM DENIES ANY NEEDS AT THIS TIME NAD NOTED
[2017-07-16 08:23] VITALS: BP 107/88
--- NOTE | 2017-07-16 11:04 | NUR ---
Patient Name: SABINA CLARK Admission Status: ER Accout number: [id number] Admission Date: 07-14-2017 : 1960 Admission Diagnosis: Attending: ANGELO Current LOS: 2 Anticipated DC Date: Planned Disposition: Home Primary Insurance: WELL[employer] MEDICARE ADV Discharge Planning Comments: * Is the patient Alert and Oriented? Yes 0 * How many steps to enter\exit or inside your home? RAMP 0 * PCP NONE REFERRED TO [facility] - INFORMATION PROVIDED 0 * Pharmacy [facility] [facility] * Preadmission Environment Home Alone 0 * ADLs Independent 0 * Equipment Oxygen 0 * Other Equipment HOME AND PORTABLE OXYGEN [facility] - MEDICAL EQUIPMENT PROVIDER PREFERENCE 0 * List name and contact numbers for known caregivers / representatives who currently or will assist patient after discharge: DEEPAK RIOJAS, SISTER, 0 * Community resources currently utilized None 0 * Please name any agencies selected above. NONE 0 * Additional services required to return to the preadmission environment? No 0 * Can the patient safely return to the preadmission environment? Yes 0 * Has this patient been hospitalized within the prior 30 days at any hospital? No 0 CM MET WITH PT IN ROOM TO DISCUSS DISCHARGE PLANNING AND NEEDS. PT REPORTS LIVING AT HOME INDEPENDENTLY AND ALONE. PT REPORTS HAVING HOME AND PORTABLE OXYGEN FROM [facility]. PT HAS NO OUTSIDE SERVICES ASSISTING IN THE HOME. CM DISCUSSED AVAILABILITY OF HOME HEALTH, REHAB SERVICES AND MEDICAL EQUIPMENT. PT DENIES DISCHARGE NEEDS, REPORTS HE WILL TRY TO FIND A FRIEND TO PICK HIM UP FOR DISCHARGE HOME. PT DENIES NEED FOR SUBSTANCE ABUSE TREATMENT RESOURCES. PT HAS NO PRIMARY CARE DOCTOR, CM PROVIDED AND DISCUSSED HOW TO ARRANGE APPOINTMENT FOR ASSESSMENT FOR POSSIBLE [facility] CM PROVIDED PT WITH MEDICAID TRANSPORTATION NUMBER AND INSTRUCTIONS ON HOW TO GET REGISTERED FOR SERVICES. CM TO FOLLOW AND ASSIST IF NEEDED. Instructional Technology Specialist: Tam Spangler
[2017-07-16 11:36] VITALS: BP 110/84
[2017-07-16 15:49] VITALS: BP 93/74
[2017-07-16 19:00] VITALS: BP 112/85
--- NOTE | 2017-07-16 20:00 | NUR ---
RESUMED CARE OF PT, LYING IN BED RESPIRATIONS EVEN AND UNLABORED ON ROOM AIR. [address] ST ON TELEMETRY. LEFT HAND SALINE LOCKED. NO NEEDS AT THIS TIME, CALL LIGHT IN REACH. WILL CONTINUE TO MONITOR. SEE NURSE ASSESSMENT.
--- NOTE | 2017-07-16 23:28 | NUR ---
D-DIMER ELEVEATED 16.2, PAGE OUT TO EBONI WHITE. AWAITING CALL BACK.
--- NOTE | 2017-07-16 23:38 | NUR ---
NEW ORDERS OBTAINED, XRAY NOTIFIED. PT MADE AWARE OF CURRENT SITUATION, STATES HE UNDERSTANDS AND WILL DO WHATEVER WE NEED HIM TO DO
--- NOTE | 2017-07-17 00:04 | NUR ---
GONE FOR VQ SCAN
--- NOTE | 2017-07-17 00:50 | NUR ---
BACK FROM VQ SCAN, LOVENOX INJECTION GIVEN. AWAITING RESULTS
--- NOTE | 2017-07-17 01:52 | NUR ---
EBONI WHITE PAGED FOR VQ SCAN RESULSTS, AWAIITING CALL BACK.
[2017-07-17 06:41] LABS: BASOPHILS 0.2 % (0-2); EOSINOPHILS 0.3 % (0-7); HEMOGLOBIN 15.8 g/dL (13.5-17.5); IMMATURE GRANULOCYTES 0.2 % (0-5); LYMPHOCYTES 21.2 % (15-50); MCHC 35.1 g/dL (31.0-37.0); MCV 96.8 fL (80.0-100.0); MEAN PLATELET VOLUME 11.2 fL (7.4-10.4); NEUTROPHILS 71.1 % (40-80); PLATELET COUNT 100 10x3/uL (130-400); RBC 4.65 10x6/uL (4.20-6.10); WBC 6.3 10x3/uL (4.8-10.8)
[2017-07-17 07:03] LABS: ALBUMIN 2.8 g/dL (3.4-5.0); ANION GAP 13.5 mmol/L (8-16); CALCIUM 7.8 mg/dL (8.5-10.1); PROTEIN - SERUM 6.8 g/dL (6.4-8.2)
[2017-07-17 07:04] LABS: POTASSIUM - SERUM 4.5 mmol/L (3.5-5.1)
--- NOTE | 2017-07-17 07:30 | NUR ---
RECEIVED PT IN BED AAOX RESP NOTED WITH SOB O2 0N 3 L/M NC PT DENIES ANY NEEDS AT THIS TIME WILL CONTINUE TO MONITOR
[2017-07-17 09:16] VITALS: BP 103/84
--- NOTE | 2017-07-17 09:41 | CN ---
PATIENT NAME:SABINA RANGEL MEDICAL RECORD: [id number] : 56 LOCATION:D. D.2114 ADMIT DATE: 07/14/17 ACCOUNT: [id number] CONSULTING PHYSICIAN: LAILA WATERS MD REFERRING PHYSICIAN: AGAPITO GARCIA MD DATE OF CONSULTATION: 07/15/2017 PROBLEM LIST: 1. Cardiomyopathy. 2. Shortness of breath. 3. Congestive heart failure, chronic systolic dysfunction. 4. Hypertension. 5. Cocaine abuse. HISTORY OF PRESENT ILLNESS: Mr. Rangel presents with shortness of breath. He has a cardiomyopathy, ejection fraction in the 10% to 20% range. This is not new. He presented in February with similar symptomatology, found to be positie cocaine, found to have cardiomyopathy. He underwent cardiac catheterization at that time. This was nonischemic cardiomyopathy, most likely secondary to the cocaine abuse. He was placed on lisinopril, Coreg, and Lasix. He has continued to have shortness of breath. His chest x-ray does not have significant pulmonary edema. He does not have significant lower extremity edema. His proBNP is elevated. PHYSICAL EXAMINATION: GENERAL APPEARANCE: Well-nourished, well-developed, appears stated age. Level of distress, comfortable. PSYCHIATRIC: Mental status, alert, normal affect. Orientation, oriented to time, place and person. EYES: Lids and conjunctiva, noninjected. No discharge, no pallor. ENT: Lips, teeth, gums, normal dentition. Oropharynx, no cyanosis, no pallor. NECK: Carotid arteries, bilateral normal upstroke, no bruits, no thrills. JUGULAR VEINS: No jugular venous pressure or distention. CERVICAL LYMPH NODES: Nontender, nonenlarged. THYROID: Not enlarged. Nontender. No nodules. LUNGS: Respiratory effort, unlabored. CHEST: Normal curvature. No thoracic deformity. No chest wall tenderness. Percussion, resonant. Auscultation, clear. No wheezes, no rales, no rhonchi. CARDIOVASCULAR: Precordial exam, nondisplaced. No heaves or pericardial thrills. Rate and rhythm, regular. Heart sounds, normal S1, normal S2. No S3, no gallop, no rub. Systolic murmur, not heard. Diastolic murmur, not heard. EXTREMITIES: No cyanosis, no edema. Peripheral pulses, full and equal in all extremities, except as noted. No bruits appreciated. ABDOMEN: Soft, nondistended. Normal aorta. No bruit. Nontender. No masses. Liver, nontender, no hepatomegaly. Spleen, nontender, no splenomegaly. MUSCULOSKELETAL: No joint tenderness. No joint swelling. No erythema. NEUROLOGICAL: Normal gait, normal strength, normal tone. SKIN: Warm and dry. REVIEW OF SYSTEMS: The patient reports easy bruising but reports no swollen glands. The patient reports no fever, no night sweats, no significant weight gain, no significant weight loss. No significant exercise tolerance. The patient reports no dry eyes, no irritation, no vision change. Patient reports no difficulty hearing and no ear pain. Patient reports no frequent nose bleeds or nose and sinus problems. Patient reports on arm pain on exertion. No CONSULT REPORT [id number] AMBER,SABINA shortness of breath while lying down. No history of heart murmur. Patient reports no cough, no wheezing or coughing up blood. Patient reports no abdominal pain, no vomiting. Normal appetite. No diarrhea and not vomiting blood. No nausea and no constipation. Patient reports no incontinence. No difficulty urinating. No hematuria. No increased frequency. Patient reports no muscle aches. No weakness, no arthralgias, no back pain. No swelling of the extremities. Patient reports no abnormal mole, no jaundice, no rashes. Reports no loss of consciousness. No weakness and no numbness. No seizures, dizziness, or headaches. The patient reports no depression, no sleep disturbance, feeling safe in a relationship and no alcohol abuse. Patient reports on fatigue. Reports no runny nose or sinus pressure. No itching, no hives, and no frequent sneezing. OVERALL IMPRESSION: Chronic cardiomyopathy due to cocaine use, drug screen is still positive for cocaine and he has recent cocaine use. He is on Lasix 40 mg IV q.8 at this time, continuing his carvedilol and lisinopril. No other cardiac workup or treatment is necessary. TRANSINT:[id number] Voice Confirmation ID: [id number] DOCUMENT ID: [id number] LAILA WATERS MD at 0941 CC: [id number] DICTATION DATE: 07/15/17 1231 PATIENT REGISTRAR: 07/15/17 1521 ADM IN [facility] [address] [place] [address]
--- NOTE | 2017-07-17 09:41 | EC ---
PATIENT:SABINA CLARK DATE OF SERVICE: 07/14/17 SEX: M MEDICAL RECORD: [id number] DATE OF : 56 LOCATION:D.M2 D.211 AGE OF PATIENT: 57 ADMISSION DATE: 07/14/17 REFERRING PHYSICIAN: INTERPRETING PHYSICIAN: LAILA VELEZ MD ECHOCARDIOGRAM REPORT ECHO CHARGES 5 ECHO LIMITED CLINICAL DIAGNOSIS: SOB ECHOCARDIOGRAPHIC MEASUREMENTS (adult normal given) AC root (d.<3.7cm) 3.3 cm LV Septum d (<1.2 cm> 1.2 cm Valve Excursion 1.5 cm LV Septum (systole) 1.3 cm Left Atria (s.<4.0cm> 4.0 cm LVPW d(<1.2cm) 1.2 cm RV (d.<2.3cm) 3.6 cm LVPW (sytole) 1.4 cm LV diastole(<5.6CM) 6.2 cm MV E-F(>70mm/sec) cm LV systole 5.3 cm LVOT Diameter 2.2 cm MV exc.(>10mm) cm Est.ejection fraction (50-75%) % Pericardial Effusion Y DOPPLER: LVIT cm/sec A cm/sec E 73.0 cm/sec LA cm/sec RVSP 29.4 mmHg LVOT 43.0 cm/sec AOP1/2T m/s Asc. Ao 72.0 cm/sec RVOT 36.0 cm/sec RA cm/sec PA 39.0 cm/sec AV Gradient Peak 2.1 mmHg AV Mean 0.92 mmHg AV Area 2.3 cm MV Gradient Peak 3.4 mmHg MV Mean 1.4 mmHg MV Area cm COMMENTS: Obgyn Specialist: Tyra WUOE Recruiter Manager: 1 Dr. Velez TAPE# PACS DATE OF SERVICE: 07/15/2017 Echocardiogram FINDINGS: 1. Left ventricular chamber size is dilated. Left ventricular systolic function is markedly reduced, overall ejection fraction 15% to 20%. This is unchanged from previous echocardiogram. 2. Left atrium is upper limits of normal at 4.0 cm. Right atrium and right ventricular chamber sizes are mildly dilated. ECHOCARDIOGRAM REPORT [id number] SABINA CLARK 3. Valvular structures have normal structure and motion. 4. Doppler interrogation reveals moderate aortic insufficiency, moderate mitral regurgitation, moderate tricuspid regurgitation, no other valvular insufficiency or stenosis. Pulmonary systolic pressure is normal estimated 30 mmHg. 5. Small pericardial effusion is present, but this is not hemodynamically significant. No evidence of left ventricular thrombus. TRANSINT:[id number] Voice Confirmation ID: [id number] DOCUMENT ID: [id number] LAILA VELEZ MD at 0941 CC: [id number] DICTATION DATE: 07/15/17 1235 ICE BAG ASSEMBLER: 07/15/17 1558 ADM IN [place] [id number] [place] [address]
[2017-07-17 11:56] VITALS: BP 126/88
--- NOTE | 2017-07-17 12:30 | NUR ---
PT RT LEG NOTED WITH 3+ DEPENDENT EDEMA WILL NOTIFY DR GARCIA
[2017-07-17 15:41] LABS: INR 1.68 (0.85-1.17); PROTIME 19.8 SECONDS (11.6-15.0)
[2017-07-17 15:48] VITALS: BP 127/107
[2017-07-17 19:00] VITALS: BP 97/77
--- NOTE | 2017-07-18 00:30 | NUR ---
PT IV INFILTRATED TO LEFT HAND. DC'ED AT THIS TIME. REWSITED TO LEFT FOREARM WITH 22 GA ANGIOCATH X1 STICK. PT RICARDO WELL.
[2017-07-18 04:00] VITALS: BP 89/67
[2017-07-18 07:54] LABS: BASOPHILS 0.2 % (0-2); EOSINOPHILS 0.2 % (0-7); HEMATOCRIT 47.3 % (42.0-54.0); HEMOGLOBIN 16.7 g/dL (13.5-17.5); MCHC 35.3 g/dL (31.0-37.0); MCV 96.3 fL (80.0-100.0); MEAN PLATELET VOLUME 10.9 fL (7.4-10.4); MONOCYTES 6.5 % (2-11); NEUTROPHILS 63.1 % (40-80); PLATELET COUNT 95 10x3/uL (130-400); RBC 4.91 10x6/uL (4.20-6.10); RDW 15.1 % (11.5-14.5)
[2017-07-18 07:57] LABS: WBC 4.6 10x3/uL (4.8-10.8)
[2017-07-18 08:13] LABS: ANION GAP 16.1 mmol/L (8-16); BILIRUBIN - TOTAL 0.89 mg/dL (0.2-1.3); CALCIUM 7.8 mg/dL (8.5-10.1); CARBON DIOXIDE 25.1 mmol/L (21.0-32.0); POTASSIUM - SERUM 4.2 mmol/L (3.5-5.1); PROTEIN - SERUM 7.1 g/dL (6.4-8.2)
[2017-07-18 08:22] VITALS: BP 92/72
[2017-07-18 12:09] VITALS: BP 104/84
--- NOTE | 2017-07-18 12:36 | NUR ---
TELEMETRY SR. IV PATENT. CALL LIGHT IN REACH. WILL MONITOR.
[2017-07-18 16:17] VITALS: BP 130/81
[2017-07-18 19:00] VITALS: BP 90/63
[2017-07-19] VITALS: BP 97/76
[2017-07-19 04:00] VITALS: BP 90/69
[2017-07-19 07:13] LABS: BASOPHILS 0.2 % (0-2); EOSINOPHILS 0.4 % (0-7); HEMATOCRIT 44.3 % (42.0-54.0); HEMOGLOBIN 16.4 g/dL (13.5-17.5); IMMATURE GRANULOCYTES 0.2 % (0-5); LYMPHOCYTES 27.5 % (15-50); MCV 94.7 fL (80.0-100.0); MEAN PLATELET VOLUME 11.3 fL (7.4-10.4); MONOCYTES 7.7 % (2-11); PLATELET COUNT 109 10x3/uL (130-400); RBC 4.68 10x6/uL (4.20-6.10); RDW 14.8 % (11.5-14.5); WBC 4.6 10x3/uL (4.8-10.8)
[2017-07-19 07:40] LABS: ALBUMIN 2.7 g/dL (3.4-5.0); ANION GAP 13.7 mmol/L (8-16); BILIRUBIN - TOTAL 0.9 mg/dL (0.2-1.3); CALCIUM 7.5 mg/dL (8.5-10.1); CARBON DIOXIDE 24.2 mmol/L (21.0-32.0); CREATININE - SERUM 1.8 mg/dL (0.6-1.3); PHOSPHOROUS 5.2 mg/dL (2.5-4.9); POTASSIUM - SERUM 3.9 mmol/L (3.5-5.1); PROTEIN - SERUM 6.6 g/dL (6.4-8.2)
[2017-07-19 07:49] LABS: MAGNESIUM - SERUM 0.7 mg/dL (1.8-2.4)
[2017-07-19 09:18] VITALS: BP 104/81
--- NOTE | 2017-07-19 09:47 | NUR ---
RESP UL ON 02 4L. NC. TELEMETRY SR. CALL LIGHT IN REACH. WILL MONITOR NEEDS.
--- NOTE | 2017-07-19 10:34 | NUR ---
UP AMBULATING HALLWAY WITH PT ASSIST.
[2017-07-19 11:49] VITALS: BP 111/81
--- NOTE | 2017-07-19 14:14 | NUR ---
UP TO BR. LINENS CHANGED.
[2017-07-19 15:43] VITALS: BP 97/73
[2017-07-19 20:00] VITALS: BP 103/76
--- NOTE | 2017-07-19 20:00 | NUR ---
PT RESTING IN BED WITH NO DISTRESS. O2 @ 2L/NC. SALINE LOCK TO LFA. SR PER TELEMETRY. PT WANTING TO GET UP AND "WALK" THE HALLS. EXPLAINED TO PT THAT HE IS ON BEDREST FOR A RLE DVT AND HE DOES NOT NEED TO GET UP AND WALK. PT VOICED UNDERSTANDING. SEE ASSESSMENT. CPOC.
--- NOTE | 2017-07-19 21:22 | NUR ---
BEDTIME MEDS GIVEN. LAB IN ROOM DRAWING BLOOD FOR MAGNESIUM LEVEL.
--- NOTE | 2017-07-19 23:12 | NUR ---
PT'S MAGNESIUM LEVEL STILL LOW AT 1.0. MAGNESIUM 2MG IV STARTED PER PROTOCOL.
[2017-07-20 01:15] VITALS: BP 99/75
[2017-07-20 04:30] VITALS: BP 103/80
[2017-07-20 04:50] LABS: BASOPHILS 0.2 % (0-2); EOSINOPHILS 0.3 % (0-7); HEMATOCRIT 45.6 % (42.0-54.0); IMMATURE GRANULOCYTES 0.2 % (0-5); LYMPHOCYTES 21.5 % (15-50); MCH 33.6 pg (26.0-34.0); MCHC 35.1 g/dL (31.0-37.0); MCV 95.8 fL (80.0-100.0); MEAN PLATELET VOLUME 10.8 fL (7.4-10.4); MONOCYTES 6.8 % (2-11); PLATELET COUNT 128 10x3/uL (130-400); RBC 4.76 10x6/uL (4.20-6.10); RDW 14.6 % (11.5-14.5)
[2017-07-20 04:51] LABS: WBC 5.8 10x3/uL (4.8-10.8)
[2017-07-20 05:16] LABS: ALBUMIN 2.9 g/dL (3.4-5.0); ANION GAP 11.9 mmol/L (8-16); BILIRUBIN - TOTAL 0.8 mg/dL (0.2-1.3); CALCIUM 7.7 mg/dL (8.5-10.1); CREATININE - SERUM 1.6 mg/dL (0.6-1.3); POTASSIUM - SERUM 3.9 mmol/L (3.5-5.1); PROTEIN - SERUM 7.3 g/dL (6.4-8.2)
[2017-07-20 05:19] LABS: MAGNESIUM - SERUM 2.1 mg/dL (1.8-2.4)
[2017-07-20 10:32] VITALS: BP 112/87
[2017-07-20 12:00] VITALS: BP 110/72
--- NOTE | 2017-07-20 13:33 | NUR ---
UP AMBULATING WITH MANAGER ANIMAL ASSIST.
[2017-07-20 17:43] VITALS: BP 116/82
[2017-07-20 20:00] VITALS: BP 93/66
--- NOTE | 2017-07-20 20:00 | NUR ---
PT RESTING IN BED WITH NO DISTRESS. SR PER TELEMETRY. SALINE LOCK TO LFA. O2 @ 2L/NC. SEE ASSESSMENT. CPOC.
--- NOTE | 2017-07-21 04:52 | NUR ---
PT RESTING IN BED. HAS BEEN AWAKE MOST OF THE NIGHT. CONTINUES TO RECIEVE IV ABT ORDERED. DENIES PAIN OR DISCOMFORT. CALL LIGHT IN REACH. CPOC.
--- NOTE | 2017-07-21 07:44 | NUR ---
RECEIVED PT IN BED AAOX4 RESP UNLABORED DENIES ANY NEEDS OR DISCOMFORT NAD NOTED
[2017-07-21 09:23] VITALS: BP 102/77
[2017-07-21 16:28] VITALS: BP 134/70
[2017-07-21 17:59] VITALS: BP 106/61
[2017-07-21 20:00] VITALS: BP 96/66
--- NOTE | 2017-07-21 23:30 | NUR ---
PT RESTLESS. ALL OVER THE BED. BEDTIME MEDS GIVEN WITH ORDERED TYLENOL. PT HAS PULLED OUT HIS IV. RESITED 22G TO LFA AND BEGAN SCHEDULED ABT.
[2017-07-22 01:10] VITALS: BP 98/74
[2017-07-22 08:32] VITALS: BP 102/77
[2017-07-22 11:59] VITALS: BP 99/76
[2017-07-22 12:32] LABS: BASOPHILS 0.3 % (0-2); EOSINOPHILS 0.3 % (0-7); HEMATOCRIT 43.3 % (42.0-54.0); IMMATURE GRANULOCYTES 0.2 % (0-5); LYMPHOCYTES 16.6 % (15-50); MCH 33.7 pg (26.0-34.0); MCHC 34.6 g/dL (31.0-37.0); MCV 97.3 fL (80.0-100.0); MEAN PLATELET VOLUME 11.1 fL (7.4-10.4); NEUTROPHILS 72.6 % (40-80); PLATELET COUNT 132 10x3/uL (130-400); RBC 4.45 10x6/uL (4.20-6.10)
[2017-07-22 12:39] LABS: CALCIUM 7.9 mg/dL (8.5-10.1); CARBON DIOXIDE 25.9 mmol/L (21.0-32.0); CREATININE - SERUM 1.3 mg/dL (0.6-1.3); POTASSIUM - SERUM 3.9 mmol/L (3.5-5.1)
--- NOTE | 2017-07-22 14:45 | NUR ---
TELEMETRY SR. RESTS IN BED WITHOUT C/O VOICED. CALL LIGHT IN REACH. WILL CONT. PLAN OF CARE.
[2017-07-22 15:09] VITALS: Ht 177.8 cm; Wt 89.8 kg
[2017-07-22 15:24] VITALS: BP 98/69
--- NOTE | 2017-07-22 19:19 | NUR ---
RESUMED CARE OF PT, LYING IN BED RESPIRATIONS EVEN AND UNLABORED ON 2LPM VIA NC. 92 SR ON TELEMETRY. LEFT FOREARM SALINE LOCKED. NO NEEDS NOTED AT THIS TIME, CALL LIGHT IN REACH. WILL CONTINUE TO MONITOR. SEE NURSE ASSESSMENT.
[2017-07-22 20:00] VITALS: BP 100/74
--- NOTE | 2017-07-23 01:07 | NUR ---
CALL LIGHT IN REACH. WILL CONTINUE TO MONITOR.
[2017-07-23 05:11] VITALS: BP 98/64
[2017-07-23 06:05] LABS: BASOPHILS 0 % (0-2); EOSINOPHILS 0 % (0-7); HEMATOCRIT 42.9 % (42.0-54.0); HEMOGLOBIN 15.1 g/dL (13.5-17.5); IMMATURE GRANULOCYTES 0.4 % (0-5); LYMPHOCYTES 13.7 % (15-50); MCH 33.5 pg (26.0-34.0); MCHC 35.2 g/dL (31.0-37.0); MEAN PLATELET VOLUME 10.9 fL (7.4-10.4); MONOCYTES 8.4 % (2-11); NEUTROPHILS 77.5 % (40-80); PLATELET COUNT 153 10x3/uL (130-400); RBC 4.51 10x6/uL (4.20-6.10); RDW 14.7 % (11.5-14.5); WBC 5.5 10x3/uL (4.8-10.8)
[2017-07-23 06:12] LABS: MCV 95.1 fL (80.0-100.0)
[2017-07-23 06:28] LABS: ANION GAP 11.1 mmol/L (8-16); CALCIUM 8.3 mg/dL (8.5-10.1); CREATININE - SERUM 1.4 mg/dL (0.6-1.3); POTASSIUM - SERUM 4.1 mmol/L (3.5-5.1)
[2017-07-23 08:33] VITALS: BP 107/71
--- NOTE | 2017-07-23 09:57 | NUR ---
TELEMETRY SR. RESP UL ON 02 2L NC. CALL LIGHT IN REACH. WILL CONT. PLAN OF CARE.
[2017-07-23 12:01] VITALS: BP 99/73
--- NOTE | 2017-07-23 12:51 | NUR ---
Nutrition follow-up: Diet: Low sodium PO intake ~60% average of meals Labs reviewed +BM Wt: 197# RDN following.
[2017-07-23 15:32] VITALS: BP 85/56
[2017-07-23 19:00] VITALS: BP 92/64
--- NOTE | 2017-07-23 19:33 | NUR ---
RESUMED CARE OF PT, LYING IN BED RESPIRAITONS EVEN AND UNLABORED ON 2LPM VIA NC. 96 SR ON TELEMETRY. LEFT FOREARM SAINE LOCKED. UPDRAFT IN PROGRESS. CALL LIGHT IN REACH. WILL CONTINUE TO MONITOR. SEE NURSE ASSESSMENT.
[2017-07-24] VITALS: BP 104/83
[2017-07-24 05:34] LABS: BASOPHILS 0.1 % (0-2); EOSINOPHILS 0.4 % (0-7); HEMOGLOBIN 15.5 g/dL (13.5-17.5); IMMATURE GRANULOCYTES 0.4 % (0-5); LYMPHOCYTES 16.3 % (15-50); MCH 33.5 pg (26.0-34.0); MCHC 35.2 g/dL (31.0-37.0); MEAN PLATELET VOLUME 10.5 fL (7.4-10.4); MONOCYTES 8.8 % (2-11); PLATELET COUNT 164 10x3/uL (130-400); RBC 4.63 10x6/uL (4.20-6.10); RDW 14.4 % (11.5-14.5)
[2017-07-24 05:40] LABS: WBC 8.3 10x3/uL (4.8-10.8)
[2017-07-24 05:49] LABS: ANION GAP 8.3 mmol/L (8-16); CALCIUM 8.3 mg/dL (8.5-10.1); CARBON DIOXIDE 31.5 mmol/L (21.0-32.0); CREATININE - SERUM 1.1 mg/dL (0.6-1.3); POTASSIUM - SERUM 3.8 mmol/L (3.5-5.1)
[2017-07-24 08:00] VITALS: BP 116/86
[2017-07-24] MEDS ORDERED: NICODERM C1 PATCH .2 TRANSDERM (10:14)
[2017-07-24] MEDS ORDERED: COREG 3.1253.125 MG PO (10:14)
[2017-07-24] MEDS ORDERED: ELIQUIS5 MG PO (10:14)
[2017-07-24] MEDS ORDERED: ZYLOPRIM300 MG PO (10:15)
--- NOTE | 2017-07-24 14:51 | NUR ---
IV AND TELEMETRY DCD. DC PLANS GIVEN. UNDERSTANDING VOICED. ESCORTED TO CAR BY W/C.
--- NOTE | 2017-07-24 15:16 | NUR ---
Patient Name: SABINA CLARK Encounter No: [id number] : 1960 Primary Insurance: [employer] ADV Anticipated DC Date: 07-24-2017 Planned Disposition: Home LATE ENTRY: DCP follow-up note: CM RECEIVED CALL FROM [facility] WHO REPORTED THAT THEY WILL NOT ACCEPT PT TODAY BUT WILL HAVE THE MIXING MACHINE TENDER REVIEW THE INFORMATION ON THURSDAY AND CONTACT PT AT HOME WITH DECISION REGARDING ADMISSION FOR GYROSCOPIC ENGINEERING TECHNICIAN CARE. CM NOTIFIED PT AND HIS SISTER IN ROOM. PT REPORTS HE IS GOING HOME AND WILL AWAIT CALL FROM [facility]. PT HAS [facility] INFORMATION AND IF HE STAYS IN [place], PT WILL FOLLOW UP WITH THEM. PT REPORTS HE PLANS TO MOVE TO [place]. CM AGAIN OFFERED COMMUNITY RESOURCE INFORMATION FOR SUBSTANCE ABUSE, PT REPORTS HE IS THROUGH WITH COCAINE AND ALCOHOL AND NEEDS NO REHAB OR OTHER COMMUNITY RESOURCE INFORMATION. CM PROVIDED PT WITH [facility] CONTACT INFORMATION. PT'S SISTER TO TRANSPORT PT HOME TODAY. SEWING MACHINE BOBBIN WINDER NOTIFIED. Tam Spangler, CASE MANAGEMENT
== END 2017-07-24 14:52 | disposition home or self-care (01) | DRG 292 ==
LOC: D.ER 15:49 → D.M2 19:07
PROVIDERS: Emergency Medicine; Family Medicine; Internal Medicine Pulmonary Disease; ADMIT Emergency Medicine
DX: I11.0 Hypertensive heart disease with heart failure (principal); B19.10 Unspecified viral hepatitis B without hepatic coma; J44.1 Chronic obstructive pulmonary disease with (acute) exacerbation; F17.203 Nicotine dependence unspecified, with withdrawal; J98.11 Atelectasis; J70.0 Acute pulmonary manifestations due to radiation; N17.9 Acute kidney failure, unspecified; I82.511 Chronic embolism and thrombosis of right femoral vein; I82.531 Chronic embolism and thrombosis of right popliteal vein; I42.9 Cardiomyopathy, unspecified; I25.10 Atherosclerotic heart disease of native coronary artery without angina pectoris; F14.10 Cocaine abuse, uncomplicated; I50.23 Acute on chronic systolic (congestive) heart failure; F10.129 Alcohol abuse with intoxication, unspecified; F19.10 Other psychoactive substance abuse, uncomplicated; Y90.0 Blood alcohol level of less than 20 mg/100 ml; I08.1 Rheumatic disorders of both mitral and tricuspid valves; R16.0 Hepatomegaly, not elsewhere classified; K80.20 Calculus of gallbladder without cholecystitis without obstruction; D69.6 Thrombocytopenia, unspecified; K74.60 Unspecified cirrhosis of liver; K21.9 Gastro-esophageal reflux disease without esophagitis; Z85.118 Personal history of other malignant neoplasm of bronchus and lung; Z95.5 Presence of coronary angioplasty implant and graft; Z79.01 Long term (current) use of anticoagulants

== ENCOUNTER 2017-07-29 15:35 | Emergency (ER) | payer MEDICARE, MEDICAID ==
[2017-07-22 15:09] VITALS: BMI 28.4
[~2017-07-29 15:35] MED LIST changes: +BAYER CHEWABLE81 MG PO; +ELIQUIS5 MG PO; +NICODERM C1 PATCH .2 TRANSDERM; +PACERONE200 MG PO; +ZYLOPRIM300 MG PO
== END 2017-07-29 17:14 | disposition home or self-care (01) ==
LOC: D.ER 15:35
DX: I82.401 Acute embolism and thrombosis of unspecified deep veins of right lower extremity (principal)

== ENCOUNTER 2017-08-13 20:35 | Inpatient (IN) | payer MEDICARE, MEDICAID ==
[2017-08-13 21:10] LABS: BASOPHILS 0.4 % (0-2); EOSINOPHILS 0.7 % (0-7); HEMOGLOBIN 14.7 g/dL (13.5-17.5); LYMPHOCYTES 34.5 % (15-50); MCH 32.5 pg (26.0-34.0); MCV 92.9 fL (80.0-100.0); MEAN PLATELET VOLUME 9.9 fL (7.4-10.4); MONOCYTES 8.9 % (2-11); NEUTROPHILS 55.5 % (40-80); PLATELET COUNT 175 10x3/uL (130-400); RBC 4.52 10x6/uL (4.20-6.10); RDW 14.5 % (11.5-14.5); WBC 4.5 10x3/uL (4.8-10.8)
[2017-08-13 21:24] LABS: ALBUMIN 2.8 g/dL (3.4-5.0); ANION GAP 12.1 mmol/L (8-16); BILIRUBIN - TOTAL 0.96 mg/dL (0.2-1.3); CALCIUM 7.8 mg/dL (8.5-10.1); CARBON DIOXIDE 27.2 mmol/L (21.0-32.0); CREATININE - SERUM 1.4 mg/dL (0.6-1.3); POTASSIUM - SERUM 3.3 mmol/L (3.5-5.1); PROTEIN - SERUM 7.2 g/dL (6.4-8.2)
[2017-08-13 21:55] LABS: APPEARANCE CLEAR (CLEAR); BILIRUBIN NEGATIVE (NEGATIVE); COLOR DK YELLOW (YELLOW); GLUCOSE NEGATIVE (NEGATIVE); KETONE NEGATIVE (NEGATIVE); NITRITE NEGATIVE (NEGATIVE); PROTEIN NEGATIVE (NEGATIVE); SPECIFIC GRAVITY 1.015 (1.005-1.020); UROBILINOGEN NORMAL (NORMAL)
[2017-08-13 22:18] LABS: APTT 43.9 SECONDS (22.8-39.4); INR 2.59 (0.85-1.17); PROTIME 27.9 SECONDS (11.6-15.0)
[2017-08-13 22:50] LABS: TROPONIN-I 0.026 ng/mL (0.000-0.060)
[2017-08-13 23:21] LABS: UDS - AMPHET NEGATIVE QUAL (NEGATIVE); UDS - BARB NEGATIVE QUAL (NEGATIVE); UDS - BENZO NEGATIVE QUAL (NEGATIVE); UDS - COCAINE NEGATIVE QUAL (NEGATIVE); UDS - OPIATE NEGATIVE QUAL (NEGATIVE); UDS - PCP NEGATIVE QUAL (NEGATIVE); UDS - THC NEGATIVE QUAL (NEGATIVE)
[2017-08-14] VITALS (20 sets, daily range): BP systolic 94–114; BP diastolic 71–91; BMI 25.8
--- NOTE | 2017-08-14 02:00 | NUR ---
PT TO ROOM 2215 FROM ER VIA WHEELCHAIR.PT SEEMS CONFUSED AT TIMES. REFUSES TO ANSWER MOST QUESTIONS. HE REFUSES TO BE PUT IN GOWN. HE REFUSES SHOES OFF. FALL PREVENTION INITIATED WITH DOOR OPEN.MONITOR FOR NEEDS
--- NOTE | 2017-08-14 03:10 | NUR ---
MEDS ORDERED FOR ANXIETY.PT GOING TO CT VIA BED. STILL VERY UNCOOPERATIVE.
--- NOTE | 2017-08-14 03:15 | NUR ---
BACK FROM CT.INCONTINENT TO URINE.BED CHANGED AND PT PLACED IN GOWN. HE IS STILL NOT ANSWERING ANY QUESTIONS AT THIS TIME. CALL LIGHT IN REACH
--- NOTE | 2017-08-14 04:32 | NUR ---
REPORT TO DARRION IN ICU
--- NOTE | 2017-08-14 04:55 | NUR ---
PT ARRIVED TO ICU. ASSESSMENT COMPLETE. BP 101/77. MAP 87. 94% O2 SAT ON 2L VIA NC. RR 16. HR 97 NSR. PT VOIDED 320 INTO URINAL. NO SKIN BREAKDOWN NOTED TO BUTTOCKS. PT CONFUSED; RESTLESS; AGITATED. PT HAVING INCREASE IN HUNGER. PUPILS 2MM; BRISK. WEAKNESS NOTED TO EXTREMITIES X4. +2 PITTING EDEMA NOTED TO LEFT LEG; +4 PITTING EDEMA NOTED TO RIGHT LEG. SCARS NOTED TO BILATERAL LEGS. PT REPEATS WHAT IS BEING SAID; UNSURE IF PT AWARE OF WHAT IS GOING ON WITH SELF. MISSING TEETH NOTED; POOR DENTITION. RING PACKER > 3 SECONDS. YELLOW DISCOLORATION NOTED TO SCLERA. UNABLE TO OBTAIN EMERGENCY CONTACT NUMBERS THROUGHT PT. 194 WT PER BEDSCALE. PT PERSISTANT ABOUT LEAVING THE HOSPITAL AND GOING HOME. MULTIPLE ATTEMPTS AT REORIENTING; UNSUCCESSFUL.
--- NOTE | 2017-08-14 05:02 | NUR ---
PT TO ICU VIA BED ORDERED.
--- NOTE | 2017-08-14 05:39 | NUR ---
ATTEMPTED TO REACH SISTER WITH NUMBER PROVIDED ON FACESHEET. NO ANSWER.
--- NOTE | 2017-08-14 06:47 | NUR ---
PAGED DR. LOWERY. SPOKE WITH EBONI. NOTIFIED OF PT ARRIVAL TO ICU; UPDATE ON PT CONDITION. NO ORDERS RECEIVED AT THIS TIME.
--- NOTE | 2017-08-14 08:18 | NUR ---
DR STEVENS HERE SEEING PT. NOTED ORDER FOR BURRHOLE FOR SUBDURAL HEMATOMA EMERGENT. ATTEMPTED TO SPEAK WITH PTS SISTER AND NOTIFY OF UPDATE AND TO OBTAIN CONSENT. NO ANSWER RECUEVED, VOICEMAIL LEFT. WAITING FOR CALLBACK. WILL CONTINUE PLAN OF CARE.
[2017-08-14] MEDS ORDERED: OMEPRAZOLE20 M1 PO (09:40)
[2017-08-14] MEDS ORDERED: COUMADIN5 MG PO (09:40)
[2017-08-14] MEDS ORDERED: COMBIVENT RESPIM4 GM INH (09:41)
[2017-08-14] MEDS ORDERED: METOLAZONE2.5 MG PO (09:42)
--- NOTE | 2017-08-14 10:24 | NUR ---
DR MENDOZA HERE, HAS SEEN PT, ORDERS PLACED. PT LYING IN BED AWAKE AT THIS TIME, NO ACUTE DISTRESS NOTED. WILL CONTINUE PLAN OF CARE.
--- NOTE | 2017-08-14 10:26 | NUR ---
SPOKE WITH PT SISTER, FABIAN PENA, UPDATE GIVEN. DENIES ANY FURTHER QUESTIONS OR CONCERNS. WILL CONTINUE PLAN OF CARE.
--- NOTE | 2017-08-14 10:34 | NUR ---
PER PTS SISTER FABIAN PENA CONSENT HAS BEEN RECIEVED FOR PT TO HAVE CR HOLE FOR SUBDURAL HEMATOMA. CONSENT GIVEN OVER PHONE AND CONFIRMED BY SECOND NURSE. WILL CONTINUE PLAN OF CARE.
[2017-08-14 10:39] LABS: BASOPHILS 0 % (0-2); EOSINOPHILS 0 % (0-7); HEMATOCRIT 42.5 % (42.0-54.0); HEMOGLOBIN 14.8 g/dL (13.5-17.5); IMMATURE GRANULOCYTES 0.3 % (0-5); MCH 32.7 pg (26.0-34.0); MCHC 34.8 g/dL (31.0-37.0); MCV 93.8 fL (80.0-100.0); MEAN PLATELET VOLUME 9.9 fL (7.4-10.4); MONOCYTES 4.5 % (2-11); NEUTROPHILS 72.2 % (40-80); PLATELET COUNT 170 10x3/uL (130-400); RBC 4.53 10x6/uL (4.20-6.10); RDW 14.5 % (11.5-14.5); WBC 3.8 10x3/uL (4.8-10.8)
--- NOTE | 2017-08-14 10:51 | NUR ---
LEFT AT THIS TIME FOR PROCEDURE VIA BED ACCOMPANED BY HOSPITAL STAFF. NO ACUTE DISTRESS NOTED.
[2017-08-14 10:54] LABS: APTT 42.7 SECONDS (22.8-39.4)
[2017-08-14 10:55] LABS: INR 2.4 (0.85-1.17); PROTIME 26.3 SECONDS (11.6-15.0)
--- NOTE | 2017-08-14 10:56 | NUR ---
NOTIFIED PER ULTRASOUND THAT PT HAS CHRONIC DVT TO RT LEG WHICH WAS NOTED ON June AND June AND WATED TO SEE IF PHYSICIAN WAS AWARE. CALLED DR MENDOZA TO NOTIFY, PER DR MENDOZA SINCE PT HAS PREVIOUS RESULTS OF DVT TO NOT REPEAT US. ORDERS PLACED.
[2017-08-14 11:10] LABS: ALBUMIN 2.7 g/dL (3.4-5.0); ANION GAP 12.2 mmol/L (8-16); BILIRUBIN - TOTAL 1.04 mg/dL (0.2-1.3); CARBON DIOXIDE 28.3 mmol/L (21.0-32.0); CREATININE - SERUM 1.3 mg/dL (0.6-1.3); POTASSIUM - SERUM 3.5 mmol/L (3.5-5.1); PROTEIN - SERUM 7.2 g/dL (6.4-8.2); THYROID STIMULATING HORMONE 27.35 uIU/mL (0.36-3.74)
--- NOTE | 2017-08-14 12:34 | NUR ---
CVL PLACED BY DR SEGURA FROM [id number]
--- NOTE | 2017-08-14 12:39 | NUR ---
Rehab Note- Acute Rehab Prescreen order received. The patient is a new admit and having procedures done at this time. The patient does have [employer] and will require a PreAuth prior to an acute rehab stay. Will follow the patient at this time. Will need a PT and OT eval for [employer] Pre[employer]. Thank you for this referral! Vikki Seay RN Clinical Liaison, [facility] Rehab
--- NOTE | 2017-08-14 13:45 | NUR ---
PT RETURNED FROM OR AT THIS TIME. STABLE CONDITION. PT CONFUSED TO TIME, SITUATION, AND LOCATIONS. UNABLE TO REORIENTATE, THIS NEURO STATUS IS NO CHANGE COMPARED TO BEFORE PT LEFT FOR OR EARLIER THIS MORNING. NOTED ORDERS TO DC ART LINE AND SALINE LOCK CVL. WILL FOLLOW THROUGH WITH ORDERS NOW. NO ACUTE DISTRESS NOTED. WILL CONTINUE PLAN OF CARE.
--- NOTE | 2017-08-14 14:24 | NUR ---
ART LINE DC AT THIS TIME PER PHYSICIAN ORDERS, PRESSURE APPLIED FOR 8 MIN, PRESSURE DRESSING APPLIED. NO ACUTE DISTRESS NOTED. WILL CONTINUE PLAN OF CARE.
--- NOTE | 2017-08-14 15:36 | NUR ---
NOTED PT ON ELECTROLYTE PROTOCOL, MG THIS AM 1.0. REPLACEMENT PROVIDED AT THIS TIME. ORDER IS FOR PT TO RECIEVE 400MG Q4H X 4 DOSES THEN RECHECK 4H LATER AND IN AM. NO ACUTE DISTRESS NOTED. WILL CONTINUE PLAN OF CARE.
--- NOTE | 2017-08-14 16:07 | NUR ---
LYING IN BED RESTING AT THIS TIME. RESPIRATIONS STEADY AND UNLABORED. NO ACUTE DISTRESS NOTED. AWAKENS EASILY WHEN SOKEN TO. WILL CONTINUE PLAN OF CARE.
--- NOTE | 2017-08-14 17:08 | NUR ---
SMALL AMOUNT OF BLEEDING NOTED TO BURRHOLE DRESSING, ERASER SIZED. AREA MARKED AND WILL BE OBSERVED FOR ANY CHANGED. NO ACUTE DISTRESS NOTED. WILL CONTINUE PLAN OF CARE.
--- NOTE | 2017-08-14 19:00 | NUR ---
1900: Pt resting on right side. Pt uncooperative about movement, but moves x4 extrem vs gravity. Pt follows most commands and strength appears equal bilaterally. Pt pupils MATTIE+ bilat. Pt has left temporal dressing intact with small amount of blood noted on dressing. No swelling at site is seen.
--- NOTE | 2017-08-14 21:00 | NUR ---
2100: No change in pt RESP/CV/NV status. Pt remains confused and not oriented to time. Verbal reorientation successful at this time. Pt states "I want to go home" Pt remains ST 100's on CM.
[2017-08-15] VITALS (24 sets, daily range): BP systolic 93–112; BP diastolic 68–90
--- NOTE | 2017-08-15 | NUR ---
0000: Pt resting on right side. Repositioned patient HOB, but patient returns to resting on right side. Pt oriented to person, place, and time, but not situration. Attempted to discuss/educate patient about surgery etc..Pt passive and does not repsond to education. Pt remains ST 100's on CM. Montgomery with >30 cc/hr yellow UOP.
--- NOTE | 2017-08-15 04:00 | NUR ---
0400: Pt repositioned for CXR this AM. Pt cooperative and assists in movement. Pt moves extrem x4 vs gravity. Pt asks for ice cream. Provided to patient. Pt able to use spoon and feed self. No choking or coughing with swallow. Pt remains ST 100's on CM. Pt denies pain at this time.
[2017-08-15 07:21] LABS: BASOPHILS 0 % (0-2); EOSINOPHILS 0 % (0-7); HEMOGLOBIN 14.2 g/dL (13.5-17.5); IMMATURE GRANULOCYTES 0.1 % (0-5); LYMPHOCYTES 10.3 % (15-50); MCHC 34.6 g/dL (31.0-37.0); MCV 92.3 fL (80.0-100.0); MEAN PLATELET VOLUME 10.2 fL (7.4-10.4); MONOCYTES 1.9 % (2-11); NEUTROPHILS 87.7 % (40-80); PLATELET COUNT 180 10x3/uL (130-400); RBC 4.44 10x6/uL (4.20-6.10); RDW 14.3 % (11.5-14.5)
[2017-08-15 07:22] LABS: WBC 7.7 10x3/uL (4.8-10.8)
[2017-08-15 07:30] LABS: INR 2.18 (0.85-1.17); PROTIME 24.3 SECONDS (11.6-15.0)
[2017-08-15 07:36] LABS: ALBUMIN 2.5 g/dL (3.4-5.0); ANION GAP 10.3 mmol/L (8-16); BILIRUBIN - TOTAL 0.66 mg/dL (0.2-1.3); CALCIUM 7.9 mg/dL (8.5-10.1); CARBON DIOXIDE 30.4 mmol/L (21.0-32.0); CREATININE - SERUM 1.6 mg/dL (0.6-1.3); POTASSIUM - SERUM 3.7 mmol/L (3.5-5.1); PROTEIN - SERUM 7.4 g/dL (6.4-8.2)
[2017-08-15 07:41] LABS: MAGNESIUM - SERUM 0.9 mg/dL (1.8-2.4)
--- NOTE | 2017-08-15 10:58 | NUR ---
0700 RECEIVED PT IN BED ON RIGHT SIDE EYES CLOSED, DRESSING INTACT TO LEFT TEMPORAL AREA WIT SOME BLOOD NOTED ON DRESSING. PT WAKES UP AND IS ALERT WITH CONFUSION NOTED TO TIME AND SITUATION, EASILY RDIRECTED. ABLE TO FOLLOW COMMANDS AND EAT BREAKFAST WITH NO DIFFICULTY. PLEASANT MOOD AND NO DISTRESS NOTED. 0800 LAB CALLED WITH CRITICAL LOW MG, TREATED PER PROTOCOL 0930 THERAPY IN ROOM AND WORKED WITH PT ON TRANSFERS, STATES PT DID WELL 1000 RESTING QUIELTY IN BED NO DISTRESS NOTED
[2017-08-15 12:11] LABS: HEPATITIS C ANTIBODY <0.1 (0.0-0.9)
--- NOTE | 2017-08-15 19:00 | NUR ---
1900: Pt rec'd resting HOB 30 degrees with eyes open. Pupils MATTIE+ bilat. SMC x4=bilat estate manager with commands. Pt able to move all extrem vs gravity. Pt denies pain, tingling, numbness, or nausea at this time. Pt breathing 022LNC with TQ19-55g with SPO2 97%. Lungs clear with decreased bases bilat with auscultation. MMP and no cyanosis noted. Encouraged DBC. S1S2 regular ST 110's on CM. Right Jugular CVL intact and SL'D. Left temporal dressing intact. Small amount of dried blood visible on dressing. No swelling, oozing noted. ABD soft NT BS x4 active. Pt has no difficulty with swallow. Montgomery to gravity with >30 cc/hr dark yellow UOP. SR up x2, call light in reach, bed alarm on and audible.
--- NOTE | 2017-08-15 21:00 | NUR ---
2100: Dr. Schwab here at bedside. No new orders rec'd at this time. No change in pt RESP/CV/NV status.
[2017-08-16] VITALS (24 sets, daily range): BP systolic 88–133; BP diastolic 34–94
--- NOTE | 2017-08-16 | NUR ---
0000: Pt resting on right side with eyes closed. Open to verbal and follows all commands. Pt oriented at this time to person, place, and time. Pt has no c/o and request ice cream. Pt remains ST 100 with SBP 100's.
--- NOTE | 2017-08-16 05:00 | NUR ---
0500: Pt opens eyes to verbal. Pt oriented to person, place, and time. Pt follows all commands. Pt denies pain, tingling, numbness, or nausea at this time. Pt remains SR/ST 90-100 bpm with SBP >90.
[2017-08-16 05:02] LABS: BASOPHILS 0 % (0-2); EOSINOPHILS 0 % (0-7); HEMATOCRIT 38.6 % (42.0-54.0); HEMOGLOBIN 13.6 g/dL (13.5-17.5); IMMATURE GRANULOCYTES 0.2 % (0-5); LYMPHOCYTES 5.4 % (15-50); MCH 32.5 pg (26.0-34.0); MCHC 35.2 g/dL (31.0-37.0); MCV 92.1 fL (80.0-100.0); MEAN PLATELET VOLUME 9.8 fL (7.4-10.4); MONOCYTES 3.3 % (2-11); NEUTROPHILS 91.1 % (40-80); PLATELET COUNT 162 10x3/uL (130-400); RBC 4.19 10x6/uL (4.20-6.10); RDW 14.3 % (11.5-14.5)
[2017-08-16 05:10] LABS: WBC 12.8 10x3/uL (4.8-10.8)
[2017-08-16 05:17] LABS: INR 1.77 (0.85-1.17); PROTIME 20.6 SECONDS (11.6-15.0)
[2017-08-16 05:32] LABS: ALBUMIN 2.6 g/dL (3.4-5.0); ANION GAP 8.8 mmol/L (8-16); BILIRUBIN - TOTAL 0.5 mg/dL (0.2-1.3); CALCIUM 8.2 mg/dL (8.5-10.1); CARBON DIOXIDE 31.8 mmol/L (21.0-32.0); CREATININE - SERUM 1.4 mg/dL (0.6-1.3); POTASSIUM - SERUM 3.6 mmol/L (3.5-5.1); PROTEIN - SERUM 7.2 g/dL (6.4-8.2)
[2017-08-16 07:22] LABS: MAGNESIUM - SERUM 1.1 mg/dL (1.8-2.4)
--- NOTE | 2017-08-16 19:30 | NUR ---
REC'D TO CARE, MANAGER CIVIL PER FLOWSHEET. PT AWAKE AND ORIENTED TO SITUATION. VSS. CM - ST. L HEAD DSG NOTED. SWELLING TO LEGS NOTED. GIVEN ICE CREAM PER REQUEST. ALARMS ON AND C/L IN REACH.
--- NOTE | 2017-08-16 21:00 | NUR ---
NO VISITORS. VSS, WATCHING TV, DENIES NEEDS.
--- NOTE | 2017-08-16 23:01 | NUR ---
REASSESSMENT PER FLOWSHEET, NO ACUTE CHANGES. PT RESTING QUIETLY, DENIES NEEDS. VSS. 1100ML CLEAR URINE EMPTIED FROM PEDERSON.
[2017-08-17] VITALS (14 sets, daily range): BP systolic 95–118; BP diastolic 70–103
--- NOTE | 2017-08-17 01:22 | NUR ---
RESTING WITH EYES CLOSED, VSS. NO SIGN OF DISTRESS.
--- NOTE | 2017-08-17 02:37 | NUR ---
REASSESSMENT PER FLOWSHEET, NO ACUTE CHANGES. NEURO INTACT, GIVEN JELLO PER REQUEST.
--- NOTE | 2017-08-17 03:32 | NUR ---
PT UP IN CHAIR. COMPLETE BATH AND LINEN CHANGE DONE. BACK TO BED. VSS. DENIES OTHER NEEDS.
[2017-08-17 04:38] LABS: BASOPHILS 0 % (0-2); EOSINOPHILS 0 % (0-7); HEMATOCRIT 39.4 % (42.0-54.0); HEMOGLOBIN 13.8 g/dL (13.5-17.5); IMMATURE GRANULOCYTES 0.4 % (0-5); LYMPHOCYTES 4.5 % (15-50); MCH 32.5 pg (26.0-34.0); MCV 92.7 fL (80.0-100.0); NEUTROPHILS 91.1 % (40-80); PLATELET COUNT 173 10x3/uL (130-400); RBC 4.25 10x6/uL (4.20-6.10); RDW 14.5 % (11.5-14.5); WBC 13.6 10x3/uL (4.8-10.8)
[2017-08-17 04:48] LABS: ANION GAP 4.1 mmol/L (8-16); CALCIUM 8.5 mg/dL (8.5-10.1); CARBON DIOXIDE 38.2 mmol/L (21.0-32.0); CREATININE - SERUM 1.2 mg/dL (0.6-1.3); MAGNESIUM - SERUM 1.4 mg/dL (1.8-2.4); POTASSIUM - SERUM 3.3 mmol/L (3.5-5.1)
[2017-08-17 04:52] LABS: INR 1.31 (0.85-1.17); PROTIME 16.2 SECONDS (11.6-15.0)
--- NOTE | 2017-08-17 05:11 | NUR ---
AM LABS RESULTED, HOANG SWEET INITIATED.
--- NOTE | 2017-08-17 07:32 | NUR ---
ASSESSMENT PER FLOWSHEET. VOICES NO CO AT TIME.
--- NOTE | 2017-08-17 10:17 | NUR ---
NUTRITION F/U CHART REVIEWED. [facility]. NOTE POSSIBLE TX TO FLOOR. RD FOLLOWING
--- NOTE | 2017-08-17 10:41 | NUR ---
Rehab Note- Clinicals faxed to [facility]. Ref#[id number]. WIll await determination on acute rehab stay approval. Thank you for this referral! Vikki Seay RN Clinical Liaison, [facility] Rehab
[2017-08-17 13:47] LABS: INR 1.27 (0.85-1.17); PROTIME 15.7 SECONDS (11.6-15.0)
--- NOTE | 2017-08-17 16:26 | NUR ---
INCONTINENT OF URINE, SOILED SCRUBS, SKIN CARE AND CHANGE OF CLOTHING OF TRANSFERED TO 2216 VIA WHEELCHAIR, AWAKE AND CONFUSED PRIMARY NURSE AT BEDSIDE, KCL 20 MEQ # 1 INFUSING,
--- NOTE | 2017-08-17 19:41 | NUR ---
OT NOTE: PT COMPLETED BED MOB WITH CGA./MIN A. PT COMPLETED BUE GM/FM SKILLS FOR INCREASED I WITH ADLS. THANK YOU, AMAIRANI BLANCO/Manuel
--- NOTE | 2017-08-17 20:00 | NUR ---
ASSESSMENT PER FLOWSHEET. DRESSING TO LEFT PARIETAL INCISION C/D/I. IV PATENT RT IJ TL SALINE LOCKED. SITE CLEAR. DRESSING TO SITE C/D/I. SR UP X2 CALL LIGHT WITHIN REACH. DOOR OPENED. SCD'S OFF REFUSES TO WEAR.
--- NOTE | 2017-08-17 21:30 | NUR ---
MEDS GIVEN PER FLOWSHEET.
--- NOTE | 2017-08-18 | NUR ---
EYES CLOSED RESPIRATIONS WITH EASE AND UNLABORED. MATHIS PLANT SCIENCES PROFESSOR SLIGHTLY WEAK. FOLLOWS COMMANDS.
--- NOTE | 2017-08-18 02:00 | NUR ---
FOUND PATIENT CRYING OUT. PATIENT TRYING TO PULL OUT TOOTH ON BOTTOM OF HIS MOUTH.
--- NOTE | 2017-08-18 02:00 | NUR ---
RESTING IN BED SR UP X2 CALL LIGHT WITHIN REACH.
[2017-08-18 04:00] VITALS: BP 119/88
--- NOTE | 2017-08-18 04:00 | NUR ---
PT AWAKE WALKING AROUND IN ROOM BALANCE AND GAIT STEADY.
--- NOTE | 2017-08-18 06:00 | NUR ---
NO CHANGES IN ASSESSMENT.
--- NOTE | 2017-08-18 07:40 | NUR ---
ASSESSMENT COMPLETE. R TLIJ PATENT. FREQUENTLY GETS OUT OF BED. TIESHA MAT IN USE. WHEN ASKED QUESTIONS WILL SHAKE HEAD YES OR NO.
--- NOTE | 2017-08-18 08:18 | NUR ---
Pt has dressing to left side of head, states he fell. Removal of dressing shows 6 intact neva to scalp, with no edema, no discoloration, no drainage. Area was cleaned with iodine (after reviewing allergies and confirming no iodine allergy with pt), covered with 2x2 gauze, coveren with 4x4 3/4in Tegaderm. Pt tolerated dressing change with no c/o pain. No orders obtained for this wound. When Tegaderm loose or removed, recommend keeping area clean and dry until neva removed and afterward. Call light and personal belongings in reach. Pt did not speak much during tx, but appears to be able to make needs known.
[2017-08-18 08:50] VITALS: BP 125/96
[2017-08-18 08:50] LABS: BASOPHILS 0 % (0-2); EOSINOPHILS 0 % (0-7); HEMOGLOBIN 15.2 g/dL (13.5-17.5); IMMATURE GRANULOCYTES 0.3 % (0-5); MCH 32.7 pg (26.0-34.0); MCHC 35.3 g/dL (31.0-37.0); MCV 92.5 fL (80.0-100.0); MEAN PLATELET VOLUME 10.4 fL (7.4-10.4); MONOCYTES 2.3 % (2-11); NEUTROPHILS 91.4 % (40-80); PLATELET COUNT 184 10x3/uL (130-400); RBC 4.65 10x6/uL (4.20-6.10); RDW 14.5 % (11.5-14.5); WBC 11.5 10x3/uL (4.8-10.8)
[2017-08-18 09:08] LABS: ANION GAP 11.3 mmol/L (8-16); CALCIUM 8.4 mg/dL (8.5-10.1); CARBON DIOXIDE 36.5 mmol/L (21.0-32.0); CREATININE - SERUM 1.2 mg/dL (0.6-1.3); POTASSIUM - SERUM 3.8 mmol/L (3.5-5.1)
--- NOTE | 2017-08-18 10:09 | NUR ---
Rehab Note- Received fax from [facility], requesting clinicals be faxed, faxed these 08/17/17 @ 1036. Refaxed clinicals at this time 08/18/17 @1007. Awaitng determination for an acute rehab stay. Will continue to follow at this time. Thank you for this referral! Vikki Seay RN Clinical Liaison, [facility] Rehab
--- NOTE | 2017-08-18 12:00 | NUR ---
NO CHANGES NOTED AT THIS TIME.
[2017-08-18 16:21] VITALS: BP 123/91
--- NOTE | 2017-08-18 18:00 | NUR ---
RESTING QUIETLY IN BED WRAPPED IN SHOWER CURTAIN. REFUSING TO LET GO OF SHOWER CURTAIN AT THIS TIME. OFFERRED ANOTHER BLANKET.
[2017-08-18 19:00] VITALS: BP 104/74
--- NOTE | 2017-08-18 19:46 | NUR ---
OT NOTE: PT COMPLETED BED MOB WITH MIN/MOD A. PT COMPLETED SIMPLE HYGIENE TASK WITH MIN A. PT COMPLETED BUE GROSS MOTOR AXS FOR INCREASED COORDINATION WITH FUNCTIONAL TASKS. THANK YOU, AMAIRANI BLANCO/Manuel
--- NOTE | 2017-08-18 20:00 | NUR ---
ASSESSMENT PER FLOWSHEET. RT TLIJ PATENT AND SALINE LOCKED. SITE CLEAR. DRESSING TO LEFT PARIETAL INCISIONAL AREA C/D/I. HOB UP SR UP X2 CALL LIGHT WITHIN REACH TIESHA BED ALARM MAT ON. PT ATTEMPTS SEVERAL TIMES TO GET OUT OF BED. VERY CONFUSED.
--- NOTE | 2017-08-18 22:00 | NUR ---
MEDS GIVEN PER MAR.
--- NOTE | 2017-08-18 23:10 | NUR ---
PATIENT WANDERS AROUND IN NUDE IN ROOM URINATING IN SINK BECOMES VERY UNCOOPERATIVE WITH STAFF AND WILL NOT GET INTO HIS BED. GAIT UNSTEADY. BED ALARM SOUNDING. ATTEMPTS MADE TO ASSIST PATIENT BACK INTO HIS BED. PT ATTEMPTS TO BECOME AGGRESIVE WITH STAFF. ASSISTED BACK INTO BED. NOTIFIED BENJIE SALMERON MANAGER OF PLANNING FOR DR. GARDUNO. ORDERS REC'D. ATIVAN 0.25MG IVP GIVEN FOR DILIRIUM.
[2017-08-19] VITALS (12 sets, daily range): BP systolic 109–146; BP diastolic 76–98
--- NOTE | 2017-08-19 | NUR ---
PT CALM AT THIS TIME IN HIS BED. PT HAS ORDERS FOR A TIESHA NET BED. BUT NONE ARE AVAILABLE AT THIS TIME. SPOKE WITH ORIN JOY RN IN REGARDS TO ENCLOSURE BED.
--- NOTE | 2017-08-19 01:36 | NUR ---
PT CONTINUES TO GET OUT OF BED SOUNDING TIESHA BED MAT ALARM. ASSISTED INTO BED BED BATH AND LINENS WERE CHANGED. INC OF STOOL IN BED.
--- NOTE | 2017-08-19 05:30 | NUR ---
CONTINUES TO UNDRESS SELF Q15 MINUTES. REDRESSED SEVERAL TIMES. REMAINS CONFUSED.
[2017-08-19 05:38] LABS: BASOPHILS 0 % (0-2); EOSINOPHILS 0 % (0-7); HEMATOCRIT 46.2 % (42.0-54.0); HEMOGLOBIN 16.5 g/dL (13.5-17.5); IMMATURE GRANULOCYTES 0.1 % (0-5); LYMPHOCYTES 8.4 % (15-50); MCH 32.6 pg (26.0-34.0); MCHC 35.7 g/dL (31.0-37.0); MCV 91.3 fL (80.0-100.0); MEAN PLATELET VOLUME 10.4 fL (7.4-10.4); MONOCYTES 5.3 % (2-11); NEUTROPHILS 86.2 % (40-80); PLATELET COUNT 195 10x3/uL (130-400); RBC 5.06 10x6/uL (4.20-6.10); RDW 14.4 % (11.5-14.5)
[2017-08-19 05:49] LABS: WBC 8.4 10x3/uL (4.8-10.8)
[2017-08-19 06:00] LABS: ANION GAP 10.4 mmol/L (8-16); CALCIUM 9.1 mg/dL (8.5-10.1); CREATININE - SERUM 1.3 mg/dL (0.6-1.3); MAGNESIUM - SERUM 1.1 mg/dL (1.8-2.4); POTASSIUM - SERUM 3.4 mmol/L (3.5-5.1)
--- NOTE | 2017-08-19 06:23 | NUR ---
PATIENT AWAKEN FROM NAP TO TAKE MEDS. NOW MORE ALERT AND COOPERATIVE. MEDS GIVEN IN PUDDING.
--- NOTE | 2017-08-19 07:30 | NUR ---
RECIEVED PT DURING WALKING ROUNDS, PT SITTING UP ON THE SIDE OF THE BED, WITH EPISODES OF APHASIA, PT WILL NOT RESPOND TO SIMPLE COMANDS, CONTINUES TO HAVE A BLANK STARE. ASSESSMENT DONE PER FLOWSHEET. BED IN LOW POSITION AND CALL LIGHT WITHIN REACH. WILL CONTINUE TO MONITOR.
--- NOTE | 2017-08-19 09:47 | NUR ---
Rehab Note- Received fax approval from [employer] for an acute inpatient rehab stay. Auth #[id number]. Thank you for this referral! Vikki Seay RN Clinical Liaison, [facility] Rehab
--- NOTE | 2017-08-19 11:50 | NUR ---
PTS FAMILY ARRIVED TO FLOOR AT THIS TIME STATED THAT THE PT WAS VERY DIFFERENT THAN HE WAS YESTERDAY, SPEECH THERAPY ARRIVED SHORTLY AFTER AND STATED THAT THIS WAS A LARGE CHANGE IN LOC FROM YESTERDAY. SPOKE WITH JEEVAN CARTWRIGHT APN AND RECIEVED ORDERS FOR A STAT HEAD CT. AWAITING RESULTS.
--- NOTE | 2017-08-19 12:58 | NUR ---
OT NOTE: PT EXHIBITING INCREASED DIFFICULTY WITH VERBALIZATION TODAY, COMPARED TO PREVIOUS DAYS. PT UNABLE TO VREBALLY RESPOND TO ANY QUESTIONS. HE OCCASSIONALLY NODDED HEAD. UNABLE TO FOLLOW 1 STEP COMMANDS. VERY SUBDUED COMPARED TO PREVIOUS SESSION
--- NOTE | 2017-08-19 15:00 | NUR ---
SPOKE WITH JEEVAN CARTWRIGHT APN AND THEN WITH DR. STEVENS, RECIEVED ORDERS FOR DECADRON 10MG IV ONE TIME, LASIX 20MG FOLLOWED BY MANNITOL 40MG IV TIMES TWO DOSES. WILL CONTINUE TO MONITOR.
--- NOTE | 2017-08-19 16:50 | NUR ---
CHANGED PTS CLOTHES AND LINENS DUE TO PT STNADING AND PEEING IN FLOOR. DRESSING CHANGED PER PROTOCOL TO RIGHT IJ. ASSISTED PT INTO BED. SPOKE WITH AND SHARITA CHRISTY AND RECIEVED ORDERS TO TRANSFER PT TO ICU FOR CLOSER MONITORING.
--- NOTE | 2017-08-19 17:59 | NUR ---
PT TO ROOM 2307, ALERT, DOES NOT RESPOND VERBALLY OR TO COMMANDS OR PAIN STIMULI, VSS, ON ROOM AIR, DRESSING TO LEFT SIDE OF HEAD CDI, DRESSING TO LEFT IJ CDI, LINENS CHANGED, WILL CO EVANS UE TO ALLAN RICHARDSON
--- NOTE | 2017-08-19 18:43 | NUR ---
PT CONTINUALLY ATTEMPTING TO GET OUT OF BED, BED ALARM UNAFFECTIVE TO PT, WRIST RESTRAINTS APPLIED, PEDERSON PLACED FOR URINE COLLECTION PT HAS MULTIPLE DIURETICS ORDERED
--- NOTE | 2017-08-19 19:45 | NUR ---
PT IS TRYING TO GET UP OOB. HE WILL NOT FOLLOW DIRECTIONS AND CAN NOT SPEAK TO ME AT THIS TIME. PERRLA, 3 MM, BRISK REACTION TO LIGHT. DRESSING ON L HEAD IS CDI. HE DID TRY TO SQUEEZE MY HANDS WHEN I ASKED HIM TO, BUT IT WAS VERY WEAK. S1S2 AUDIBLE, SINUS TACH VIA TELEMETRY. RR IS REGULAR AND UNLABORED. ABD IS FLAT AND NON TENDER TO TOUCH. +4 PITTING EDEMA IN R LEG. +2 PITTING EDEMA IN L LEG. NO SCDS ON. SLIPPER SOCKS ARE ON. PARTIAL LINEN CHANGE COMPLETE. SMALL BM NOTED. SEMIFORMED, LIGHT BROWN. BED ALARM ON. PT IS IN SIGHT OF THE NURSE'S STATION.
--- NOTE | 2017-08-19 21:10 | NUR ---
PT IS TRYING TO GET OOB. TRIED TO REORIENT. HE IS UNABLE TO COMMUNICATE AT THIS TIME. NO FURTHER CHANGES. PERRLA, 3 MM, BRISK REACTION TO LIGHT. WILL CONT TO MONITOR.
--- NOTE | 2017-08-19 23:35 | NUR ---
PT PULLED OFF DRESSING ON HEAD. SITE IS CDI WITH NO S/S OF INFECTION NOTED. REDRESSED WITH MEPILEX. WILL CONT TO MONITOR.
[2017-08-20] VITALS (25 sets, daily range): BP systolic 108–124; BP diastolic 75–100
--- NOTE | 2017-08-20 | NUR ---
PT O2 IN THE 80'S, 3 L 02 VIA NC APPLIED. O2 BACK UP IN THE 90'S. WILL CONTINUE TO MONITOR.
--- NOTE | 2017-08-20 01:00 | NUR ---
PT RESTING PEACEFULLY AT THIS TIME WITH NO DISTRESS NOTED. PERRLA, 3 MM, BRISK REACTION TO LIGHT. NO FURHTER REQUESTS. WILL CONT TO MONITOR.
--- NOTE | 2017-08-20 03:15 | NUR ---
REASSESSMENT COMPLETE. PT IS ABLE TO FOLLOW COMMANDS. HAND SAS ADMINISTRATOR ARE EQUAL AND WEAK, SAME FOOT PUMPS. HE IS STILL UNABLE TO FORM WORDS, BUT HE IS TRYING TO MAKE AN EFFORT. NO FURTHER CHANGES NOTED AT THIS TIME. VSS. WILL CONT TO MONITOR.
[2017-08-20 04:22] LABS: BASOPHILS 0 % (0-2); EOSINOPHILS 0 % (0-7); HEMATOCRIT 46.5 % (42.0-54.0); HEMOGLOBIN 16.5 g/dL (13.5-17.5); IMMATURE GRANULOCYTES 0.3 % (0-5); LYMPHOCYTES 8.6 % (15-50); MCH 32.5 pg (26.0-34.0); MCHC 35.5 g/dL (31.0-37.0); MCV 91.7 fL (80.0-100.0); MEAN PLATELET VOLUME 10.4 fL (7.4-10.4); MONOCYTES 4.7 % (2-11); NEUTROPHILS 86.4 % (40-80); PLATELET COUNT 185 10x3/uL (130-400); RBC 5.07 10x6/uL (4.20-6.10); RDW 14.6 % (11.5-14.5); WBC 6.5 10x3/uL (4.8-10.8)
[2017-08-20 04:39] LABS: ANION GAP 9.9 mmol/L (8-16); CALCIUM 8.8 mg/dL (8.5-10.1); CARBON DIOXIDE 38.2 mmol/L (21.0-32.0); CREATININE - SERUM 1.1 mg/dL (0.6-1.3); POTASSIUM - SERUM 3.1 mmol/L (3.5-5.1)
[2017-08-20 04:50] LABS: MAGNESIUM - SERUM 1.4 mg/dL (1.8-2.4)
--- NOTE | 2017-08-20 05:00 | NUR ---
STARTED INFUSING MANNITOL PER ORDER. VSS. WILL CONT TO MONITOR.
--- NOTE | 2017-08-20 07:00 | NUR ---
REPORT RECIEVED FROM OFF GOING NURSE. PT IN BED. PT ALERT BUT NOT FOLLOWING ANY COMMANDS. PT WILL FOLLOW VOICE AND LOOK AT YOU WHENEVER SPEAKING TO HIM BUT WILL NOT RESPOND. DRESSING TO LEFT SIDE OF HEAD C/D/I. VSS. PERRLA. HAS A POSITIVE BABISKI REFLEX. ON O2 AT 2L VIA NC. FC IN PLACE WITH CLEAR YELLOW URINE. CALL LIGHT LIGHT IN REACH. WILL CONT POC
--- NOTE | 2017-08-20 09:12 | NUR ---
SPOKE WITH DR STEVENS ABOUT CONDITION OF PT. STATED THIS IS WHAT HE WAS DOING FOR HIM YESTERDAY AND HE PLANS ON DOING ANOTER DOMINIK HOLE ON THURSDAY. WILL CONT POC
--- NOTE | 2017-08-20 10:34 | NUR ---
NUTRITION F/U CHART REVIEWED. PT WITH NO PO INTAKE RECENT MEALS. NOTE PROCEDURE PLANNED FOR THURSDAY. IF PT UNABLE TO RESUME PO INTAKE 24 TO 48 HOURS, MAY BENEFIT FROM NUTRITION SUPPORT. RD FOLLOWING
--- NOTE | 2017-08-20 11:00 | NUR ---
NO CHANGES FROM PREVIOUS ASSESSMENT. CALL SHIRA BENNETT. WILL CONT POC.
--- NOTE | 2017-08-20 11:23 | NUR ---
Rehab Note- Will follow at this time due to scheduled repeated radha hole 08/21/[address] Schwab's note, and change in condition. Vikki Seay RN Clinical Liaison, [facility] Rehab
--- NOTE | 2017-08-20 13:00 | NUR ---
PT BECOMEING MORE ALERT. MAKING UNCOMPREHENSIVE NOISES. NO S/SX OF DISTRESS/DISCOMFORT NTOED. VSS. WILL CONT POC
--- NOTE | 2017-08-20 13:49 | NUR ---
Patient transferred to ICU 08/19 - AMS. Voice message left for sister Azul Rico to return call to assess dc plans/needs.
--- NOTE | 2017-08-20 15:00 | NUR ---
PT BECOMING MORE ALERT. UNABLE TO SQUEEZE FINGERS WHENEVER ASKED TO DO SO, BUT WAS ABLE TO WIGGLE FINGERS WHENEVER ASKED TO DO SO. UNCOMPRESEINSIVE SOUNDS NOTED. WILL CONT POC.
--- NOTE | 2017-08-20 15:53 | NUR ---
Spoke with Vikki with [facility] rehab. They have rec'd auth from [facility] for inpatient rehab. They will accept him when medically ready. Waiting return call from sister, Azul Rico.
--- NOTE | 2017-08-20 17:00 | NUR ---
NO CHANGES FROM PREVIOUS ASSESSMENT. PT REMAINS TO MAKE UNCONPREHENSIVE SOUNDS. NO S/SX OF DISTRESS/DISCOMFORT NOTED. VSS. WILL CONT POC
--- NOTE | 2017-08-20 19:45 | NUR ---
SHIFT ASSESSMENT COMPLETE. PT IS CONFUSED/DISORIENTED X4. HE IS ABLE TO FOLLOW SIMPLE COMMANDS AND HAS GARBLED SPEECH. HAND SALES REPRESENTATIVE RURAL POWER ARE EQUAL AND VERY WEAK. FOOT PUMPS ARE UNEQUAL, L STRONG. PERRLA, 3 MM, BRISK REACTION TO LIGHT. YELLOW SCLERA NOTED IN BOTH EYES. NC @ 3 L/MIN. MUCOUS MEMBRANES ARE MOIST, ORAL CARE PROVIDED, POOR DENTITION. S1S2 AUDIBLE, HR 103, SINUS TACH. RR 18, REGULAR AND UNLABORED, CLEAR LUNG SOUNDS THROUGHOUT ALL LOBES. ABD IS FLAT, NON-TENDER TO TOUCH, BS AUDIBLE X4. PEDERSON CATH INTACT DRAINING CLEAR YELLOW URINE. SKIN IS SMOOTH, DRESSING ON L SIDE OF HEAD IS CDI WITH NO SIGNS OF INFECTION. RADIAL PULSES PALP, PEDAL PULSES WEAK, HEARD WITH DOPPLER. RT JUGULAR CVL, SALINE LOC'D. DRESSING INTACT, SWAB CAPS IN USE. L&R WRIST RESTRAINTS REMOVED AND SKIN ASSESSED, WNL. PARTIAL BED BATH, PEDERSON CARE, AND ORAL CARE PROVIDED. REPOSITIONED FOR COMFORT. CALL LIGHT IN REACH, BED IN LOWEST POSITION. WILL CONT WITH POC.
--- NOTE | 2017-08-20 21:30 | NUR ---
PT'S SISTER CALLED, UPDATED HER ON HIS CONDITION. HE IS ABLE TO FOLLOW COMMANDS AT THIS TIME AND HIS SPEECH IS IMPROVING TO FULL WORDS AT TIMES. REPOSITIONED FOR COMFORT. CALL LIGHT IN REACH. BED IN LOWEST POSITION. WILL CONT WITH POC.
--- NOTE | 2017-08-20 23:30 | NUR ---
REASSESSMENT COMPLETE. PT IS ABLE TO ID HIMSELF, BUT IS DISORIENTED TO TIME, PLACE AND SITUATION. HE HAS GARBLED SPEECH, BUT HE CAN MAKE OUT A FEW CLEAR WORDS AT TIMES. HE IS ABLE TO FOLLOW COMMANDS AND BOTH LEGS WERE STRONG WITH THE FOOT PUMPS. HE IS NOW MAKING LOUD NOISES WITH NO PURPOSE. REPOSITIONED FOR COMFORT. ORAL CARE PROVIDED. CALL LIGHT IN REACH. WILL CONT TO MONITOR.
[2017-08-21] VITALS (24 sets, daily range): BP systolic 113–135; BP diastolic 92–114
--- NOTE | 2017-08-21 01:15 | NUR ---
PT RESTING PEACEFULLY WITH NO SIGNS OF ACUTE DISTRESS NOTED. VSS. CALL LIGHT IN REACH. BED IN LOWEST POSITION. WILL CONT WITH POC.
--- NOTE | 2017-08-21 03:30 | NUR ---
REASSESSMENT COMPLETE. PT IS ABLE TO TELL ME HIS NAME, BUT HE IS UNAWARE OF THE SITUATION. PERRLA, 3 MM, BRISK REACTION TO LIGHT. EQUAL BUT LIGHT HAND CONTRACT SPECIALIST. ORAL CARE PROVIDED. REPOSITIONED FOR COMFORT. WILL CONT TO MONITOR.
[2017-08-21 04:31] LABS: BASOPHILS 0 % (0-2); EOSINOPHILS 0 % (0-7); HEMATOCRIT 48.5 % (42.0-54.0); HEMOGLOBIN 17.1 g/dL (13.5-17.5); IMMATURE GRANULOCYTES 0.1 % (0-5); LYMPHOCYTES 6.9 % (15-50); MCH 32.7 pg (26.0-34.0); MCHC 35.3 g/dL (31.0-37.0); MCV 92.7 fL (80.0-100.0); MEAN PLATELET VOLUME 10.2 fL (7.4-10.4); MONOCYTES 5.7 % (2-11); NEUTROPHILS 87.3 % (40-80); PLATELET COUNT 180 10x3/uL (130-400); RBC 5.23 10x6/uL (4.20-6.10); RDW 14.5 % (11.5-14.5); WBC 7.4 10x3/uL (4.8-10.8)
[2017-08-21 05:17] LABS: ANION GAP 8.3 mmol/L (8-16); CALCIUM 8.9 mg/dL (8.5-10.1); CARBON DIOXIDE 39.2 mmol/L (21.0-32.0); CREATININE - SERUM 1.2 mg/dL (0.6-1.3); MAGNESIUM - SERUM 1.9 mg/dL (1.8-2.4); POTASSIUM - SERUM 3.5 mmol/L (3.5-5.1)
--- NOTE | 2017-08-21 05:20 | NUR ---
PT IS RESTING PEACEFULLY AT THIS TIME WITH NO SIGNS OF DISTRESS NOTED. VSS. CALL LIGHT IN REACH. BED IN LOWEST POSITION. WILL CONT TO MONITOR.
--- NOTE | 2017-08-21 07:40 | NUR ---
AWAKE. KNOWS NAME AND THAT HE IS IN [place]. DOESN'T KNOW WHY HE IS IN THE HOSPITAL OR THE YEAR. DOESN'T FOLLOW COMMANDS. MOANS OUT AT [place]. NO DISTRESS NOTED.
--- NOTE | 2017-08-21 09:00 | NUR ---
NO DISTRESS NOTED.
--- NOTE | 2017-08-21 12:57 | NUR ---
PRE OP MEDS GIVEN LAB ASSISTANT TO OR.
--- NOTE | 2017-08-21 17:00 | NUR ---
NO ACUTE CHANGES IN NEURO ASSESSMENT SINCE 1499.
--- NOTE | 2017-08-21 19:00 | NUR ---
REPORT RECIEVED, SHIFT ASSESSMENT COMPLETE, PLEASE SEE FLOW SHEETS FOR DETAILS. C/O PAIN 10/10 IN HIS RIGHT LEG. CONFUSED TO TIME AND SITUATION, THOUGH HE KNOWS HE IS IN THE HOSPITAL HE COULD NOT TELL ME WHY. RIGHT IJ CVL IN PLACE AND INFUSING NS @ 10. DOES NOT CONSISTANTLY FOLLOW COMMANDS. REPETATIVE SPEECH. WOULD NOT MOVE LOWER EXTREMETIES BUT SOULD COOLING SYSTEM OPERATOR HANDS AND ARE EQUAL AT +1. PUPILS 4MM AND PERRLA. LUNGS DIMINISHED IN LOWER LOBES. S1S2 AUSCULTATED, SINUS TACH NOTED ON MONITOR AT 106. BS HYPOACTIVE. PEDERSON CATH IN PLACE AND DRAINING VIA GRAVITY TO CLOSED SYSTEM BAG. RESTRAINTS ON WRISTS BILATERALLY FOR PULLING AT LINES AND TUBES PER PREVIOUS NURSE REPORT. WILL MONITOR THIS. PT ON OR SCHEDULE FOR CR HOLE. WILL CPOC AND MONITOR.
--- NOTE | 2017-08-21 19:20 | NUR ---
PT ESCORTED BY OR STAFF TO OR FOR CR HOLE.
--- NOTE | 2017-08-21 19:50 | NUR ---
FAMILY CALLED, GAVE CORRECT PASSWORD, FAMILY MEMBER NAME IS FABIAN, INFORMED THAT PATIENT HAD LEFT AT 1920 TO OR, OFFERED TO CALL UPON HIS RETURN AND THEY SAID THAT, THAT WOULD BE GREAT.
--- NOTE | 2017-08-21 20:09 | NUR ---
NO SCDS DUE TO CHRONIC DVTS, CANDY.
--- NOTE | 2017-08-21 21:00 | NUR ---
RECIEVED REPORT FROM PACU, WILL AWAIT PT ARRIVAL.
--- NOTE | 2017-08-21 21:04 | NUR ---
CALLED ANDNOTIFIED MS. PERALTA OF PT BEING OUT OF SURGERY. SHE STATED SHE WILL BE HERE TOMORROW, WILL INFORM PATIENT.
--- NOTE | 2017-08-21 21:31 | NUR ---
RETURNED FROM OR, VSS, PT PLEASENTLY CONFUSED AND DENIES PAIN ATT. DRESSING OVER LEFT SIDE OF HEAD CDI. BED LOW AND LOCKED, CALL LIGHT IN REACH. RESTRAINTS OFF ATT. WILL CPOC.
--- NOTE | 2017-08-21 21:53 | NUR ---
VERY CONFUSED, CALLING OUT RANDOM THINGS/NAMES. WHEN ASKED WHAT HE NEEDED OR WHAT WAS THE MATTER HE WOULD STATE HE DIDNT KNOW.
--- NOTE | 2017-08-21 22:15 | NUR ---
CALLED DR STEVENS AND INFORMED HIM OF PT PUPIL SIZE DIFFERENCE, RIGHT IS 4MM AND FIXED AND LEFT IS 2MM AND BRISK REACTION TO LIGHT. ALSO INFORMED HIM PATIENT HAS BEEN YELLING OUT AND IS STILL VERY CONFUSED, DR STEVENS STATED HE MAY STILL BE COMING OUT OF THE ANESTHESIA. HE ALSO STATED HE IS NOT WORRIED ABOUT THE PATIENTS PUPILS ATT. WILL CONTINUE TO MONITOR PT.
--- NOTE | 2017-08-21 23:00 | NUR ---
REASSESSMENT COMPLETE, PLEASE SEE FLOW SHEETS FOR DETAILS. PT CONTINUE TO MOAN OUT INCOHERENT THINGS, CALL OUT NAMES, CURSES, MAKES RANDOM STATEMENTS. MOVES AROUND IN THE BED CONTINUALLY. BED ALARM IS ON BUT PATIENT NOT PULLING AT LINES SO RESTRAINTS ARE STILL OFF ATT. DBP IS SLIGHTLY ELEVATED, MONITORING. BED IS LOW AND LOCKED, CALL LIGHT IN REACH. WILL CPOC.
--- NOTE | 2017-08-21 23:20 | NUR ---
PEDERSON CARE PROVIDED. TOELRATED WELL. NO OTHER NEEDS ATT.
[2017-08-22] VITALS (24 sets, daily range): BP systolic 119–139; BP diastolic 88–110
--- NOTE | 2017-08-22 00:54 | NUR ---
ASKING ABOUT A CAR, INFORMED HIM HE NEEDED TO GET SOME REST AND GET WELL BEFORE WORRYING ABOUT GETTING A CAR. HE SAID OKAY. BED LOW AND LOCKED, CALL LIGHT IN REACH. VSS, WILL CPOC.
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
[2017-08-22 04:31] LABS: BASOPHILS 0 % (0-2); EOSINOPHILS 0 % (0-7); HEMATOCRIT 50.4 % (42.0-54.0); HEMOGLOBIN 17.5 g/dL (13.5-17.5); IMMATURE GRANULOCYTES 0.2 % (0-5); LYMPHOCYTES 4.6 % (15-50); MCH 32.6 pg (26.0-34.0); MCHC 34.7 g/dL (31.0-37.0); MEAN PLATELET VOLUME 9.8 fL (7.4-10.4); MONOCYTES 8.3 % (2-11); NEUTROPHILS 86.9 % (40-80); PLATELET COUNT 147 10x3/uL (130-400); RBC 5.36 10x6/uL (4.20-6.10); RDW 14.6 % (11.5-14.5); WBC 8.2 10x3/uL (4.8-10.8)
[2017-08-22 04:45] LABS: ANION GAP 6.5 mmol/L (8-16); CALCIUM 9.1 mg/dL (8.5-10.1); CREATININE - SERUM 1.4 mg/dL (0.6-1.3); MAGNESIUM - SERUM 2.2 mg/dL (1.8-2.4); POTASSIUM - SERUM 3.6 mmol/L (3.5-5.1)
[2017-08-22 04:47] LABS: CARBON DIOXIDE 41.1 mmol/L (21.0-32.0)
--- NOTE | 2017-08-22 05:00 | NUR ---
UNCOOPERATIVE, YELLING OUT, DOES NOT ANSWER QUESTIONS APPROPROATELY. PUPILS - RIGHT 4MM AND FIXED, LEFT 3MM AND SLUGGISH. DISORIENTED TO PLACE, TIME, AND SITUATION. TRYING TO GET OOB. VSS ATT. BED LOW AND LOCKED, CALL LIGHT IN REACH. RESTRAINTS CHECKED AND TIED AGAIN WITH QUICK RELEASE KNOTS. WILL CPOC.
--- NOTE | 2017-08-22 07:10 | NUR ---
ASSESSMENT COMPLETE. CONFUSED AND YELLING OUT.
--- NOTE | 2017-08-22 09:00 | NUR ---
COMPLETE BATH AND LINEN CHANGE. NO ACUTE CHANGES IN CONDITION. NO DISTESS NOTED.
--- NOTE | 2017-08-22 11:00 | NUR ---
NO CHANGES IN ASSESSMENT. REMAINS VERY CONFUSED AND YELLING OUT.
--- NOTE | 2017-08-22 13:00 | NUR ---
NO CHANGES IN CONDITION. YELLING OUT. REMAINS IN RESTRAINTS. TRYING TO CLIMB OUT OF BED.
--- NOTE | 2017-08-22 19:00 | NUR ---
REPORT RECIEVED, SHIFT ASSESSMENT COMPLETE, PLEASE SEE FLOW SHEETS FOR DETAILS. DENIES PAIN/NEEDS ATT, IS VERY CONFUSED, DOES NOT ANSWER QUESTIONS APPROPRIATELY, DOES NOT FOLLOW COMMANDS. LAYING IN BED, RESTRAINTS IN PLACE, THESE WERE REALEASED AND SKIN CHECKED, WNL, AND RETIED WITH QUICK RELEASE KNOTS. LUNGS DIMINISHED ALL LOBES, SHALLOW BREATHS. S1S2 HEARD AND SINUS TACH NOTED ON MONITOR. BS ACTIVE X4. FOELY IN PLACE. PUPILS- RIGHT 3MM SLIGGISH, LEFT 2MM BRISK. STILL DOES NOT FOLLOW COMMANDS. BED LOW AND LOCKED, CALL LIGHT IN REACH. WILL CPOC.
--- NOTE | 2017-08-22 21:00 | NUR ---
YELLING OUT. DENIES PAIN. VSS, BED LOW AND LOCKED, RESTRAINTS CHECKED. CALL LIGHT IN REACH. WILL CPOC.
--- NOTE | 2017-08-22 23:00 | NUR ---
REASSESSMENT COMPLETE, PLEASE SEE FLOW SHEETS FOR DETAILS. PT LETHARGIC AND NOT FOLLOWING COMMANDS. INCOMPREHENSIBLE SOUNDS. TEMP 97, WARM BLANKETS PUT ON. DENIES PAIN/NEEDS. NO CHANGE IN PUPILS. VSS, BED LOW AND LOCKED, CALL LIGHT IN REACH. RESTRAINTS CHECKED AND TIED WITH QUICK RELEASE KNOTS. WILL CPOC.
[2017-08-23] VITALS (23 sets, daily range): BP systolic 90–134; BP diastolic 57–103
--- NOTE | 2017-08-23 00:57 | NUR ---
RESTING, NO S&S OF ACUTE DISTRESS NOTED. VSS ATT, BED LOW AND LOCKED, CALL LIGHT IN REACH. CHECK RESTRAINTS, SKIN UNDER WNL, RETIED WITH QUICK RELEASE KNOTS. WILL CPOC.
--- NOTE | 2017-08-23 03:00 | NUR ---
REASSESSMENT COMPLETE, PLEASE SEE FLOW SHEETS FOR DETAILS. VERY CONFUSED. DENIES PAIN ATT. VSS, BED LOW AND LOCKED, CALL LIGHT IN REACH. WILL CPOC.
[2017-08-23 04:28] LABS: BASOPHILS 0 % (0-2); EOSINOPHILS 0 % (0-7); IMMATURE GRANULOCYTES 0.5 % (0-5); LYMPHOCYTES 6.3 % (15-50); MCH 32.2 pg (26.0-34.0); MCV 94.8 fL (80.0-100.0); MEAN PLATELET VOLUME 10.2 fL (7.4-10.4); MONOCYTES 6.4 % (2-11); NEUTROPHILS 86.8 % (40-80); PLATELET COUNT 124 10x3/uL (130-400); RBC 5.59 10x6/uL (4.20-6.10); RDW 14.7 % (11.5-14.5); WBC 7.6 10x3/uL (4.8-10.8)
[2017-08-23 04:39] LABS: CALCIUM 9.6 mg/dL (8.5-10.1); CREATININE - SERUM 1.2 mg/dL (0.6-1.3); MAGNESIUM - SERUM 2.2 mg/dL (1.8-2.4); POTASSIUM - SERUM 3.3 mmol/L (3.5-5.1)
[2017-08-23 04:40] LABS: CARBON DIOXIDE 44.3 mmol/L (21.0-32.0)
--- NOTE | 2017-08-23 05:14 | NUR ---
RESTING, VSS, BED LOW AND LOCKED, CALL LIGHT IN REACH. WILL CPOC.
--- NOTE | 2017-08-23 19:00 | NUR ---
REPORT RECIEVED, SHIFT ASSESSMENT COMPLETE, PLEASE SEE FLOW SHEETS FOR DETAILS. VERY CONFUSED, INCOMPREHENSIBLE SOUNDS, C/O PAIN BUT CANNOT LOCATE AND DESCRIBE, ALSO SHOWS NO SIGNS OF PAIN NEG. [place] OR WITHDRAWL FROM STIMULI. RIGHT PUPIL 4MM AND FIXED/VERY SLUGGISH, LEFT PUPIL 3MM AND SLIGGISH. FLAT AFFECT. APPEARS TO NOT UNDERSTAND SOME QUESTIONS. SAYING IN APPROPRIATE WORDS. LUNG SOUNDS DIMINISHED THROUGHOUT. PPP. VSS ATT, BED LOW AND LOCKED, CALL LIGHT IN REACH. WILL CPOC.
--- NOTE | 2017-08-23 20:59 | NUR ---
STILL VERY CONFUSED, WAS ABLE TO TELL ME HIS FIRST NAME BUT NOTHING ELSE. HE MENTIONED SOMETHING ABOUT "ALCOHOLIC" I ASKED IF HE WAS ONE AND HE RESPONDED "YES" WHEN ASKED IF HE DRINKS BEER, RESPONDED "YES", WHEN ASKED IF HE DRANK LIQOUR HE RESPONDED "YES". ALSO HAD REPETATIVE WORDS DURING CONVERSATIONS, SOME WORDS DID NOT MAKE SENSE. STATED HE HAD PAIN, WHEN ASKED WHERE HE DID POINT TO HIS STOMACH, WHEN ASKED IF STOMACH HE CONFIRMED. WHEN ASKED WHAT KIND OF PAIN (OFFERED ACHY, SHARP, STABBING, BUBBLY), RESPONDED "BUBBLY". ASKED IF PASSING GAS, STATED "YES". SUGGESTED HE KEEP TRYING TO PASS GAS AND MAY RELIEVE PAIN, PT DID NOT AKNOWLEDGE THIS. VSS ATT. ORAL CARE PROVIDED. RESTRAINTS CHECKED AND RETIED WITH QUICK RELEASE KNOTS. BED LOW AND LOCKED, CALL LIGHT IN REACH, WILL CPOC.
--- NOTE | 2017-08-23 23:00 | NUR ---
REASSESSMENT COMPLETE, PLEASE SEE FLOW SHEETS FOR DETAILS. STILL VERY CONFUSED, COULD STATE FIRST NAME ONLY, WITHDRAWLS FROM TOUCH. DENIES PAIN/NEEDS ATT.VSS BED LOW AND LOCKED, CALL LIGHT IN REACH. WILL CPOC.
[2017-08-24] VITALS (24 sets, daily range): BP systolic 101–134; BP diastolic 74–106
--- NOTE | 2017-08-24 01:00 | NUR ---
RESTING, NO S&S OF DISTRESS NOTED. BED LOW AND LOCKED, RESTRAINTS CHECKED. CALL LIGHT IN REACH. VSS, WILL CPOC.
--- NOTE | 2017-08-24 03:04 | NUR ---
REASSESSMENT COMPLETE, PLEASE SEE FLOW SHEETS FOR DETAILS. WAS ABLE TO TELL ME FULL NAME AND . NOT ABLE TO IDENTIFY PLACE OR TIME. DOES NOT FOLLOW INSTRUCTIONS. WAS TRYING TO PULL OUT PEDERSON AND BROKE STAT-LOCK. THIS WAS REMOVED WITH ALCOHOL, AND NEW STAT-LOCK PLACED AND POSITIONED OUT OF REACH AND CONCEALED. DENIES PAIN/NEEDS ATT. BED LOW AND LOCKED, CALL LIGHT IN REACH. RESTRAINTS CHECKED AND TIED WITH QUICK RELEASE KNOTS. VSS, WILL CPOC.
[2017-08-24 04:22] LABS: BASOPHILS 0 % (0-2); EOSINOPHILS 0 % (0-7); HEMATOCRIT 49.6 % (42.0-54.0); HEMOGLOBIN 17.2 g/dL (13.5-17.5); IMMATURE GRANULOCYTES 0.4 % (0-5); LYMPHOCYTES 3.9 % (15-50); MCHC 34.7 g/dL (31.0-37.0); MEAN PLATELET VOLUME 10.9 fL (7.4-10.4); MONOCYTES 4.5 % (2-11); NEUTROPHILS 91.2 % (40-80); RBC 5.22 10x6/uL (4.20-6.10); RDW 14.8 % (11.5-14.5)
[2017-08-24 04:25] LABS: PLATELET COUNT 99 10x3/uL (130-400); WBC 11.2 10x3/uL (4.8-10.8)
[2017-08-24 04:32] LABS: ANION GAP 7.1 mmol/L (8-16); CREATININE - SERUM 1.1 mg/dL (0.6-1.3); MAGNESIUM - SERUM 1.9 mg/dL (1.8-2.4); POTASSIUM - SERUM 3.2 mmol/L (3.5-5.1)
[2017-08-24 04:33] LABS: CARBON DIOXIDE 40.1 mmol/L (21.0-32.0)
--- NOTE | 2017-08-24 05:00 | NUR ---
RESTING. VSS, NO S&S OF ACUTE DISTRESS NOTED. BED LOW AND LOCKED, CALL LIGHT IN REACH. WILL CPOC.
--- NOTE | 2017-08-24 07:45 | NUR ---
PT AWAKE AND ALERT. ABLE TO STATE NAME AND THAT HE IS IN [facility] IN [place]. SPEACH IS SLURRED AND HARD TO COMPREHEND. HE IS UNABLE TO FOLLOW INSTRUCTIONS. PT HAS DRESSING ON LEFT SIDE OF HEAD INTACT, SOME OLD BLEEDING NOTED WHICH HAS BEEN MARKED. NO NEW BLEEDING NOTED. PUPILS 4MM SLUGGISH REACTION TO LIGHT. PT HAS VERY POOR DENTITION. SKIN WAS COOL. AXILARY TEMP 96.6. BLANKET PROVIDED. WRIST RESTRAINTS IN PLACE DUE TO PATIENT PULLING LINES. ON TELEMETRY SYNUS RHYTHM AND HR OF 90. PEDERSON SECURE TO RIGHT LEG WITH YELLOW, CONCENTRATED URINE. R-IJ DRESSING ADHERED TO SKIN, BIO PATCH IN PLACE WITH D5 1/2NS INFUSING AT 100ML/HR. KCL INFUSING AT 47.5ML/HR DUE TO LOW POTASSIUM OF 3.2. BED IS IN LOW POSITION, SIDE RAILS UP X2. WILL CONTINUE TO MONITOR.
--- NOTE | 2017-08-24 09:00 | NUR ---
PT PULLED UP AND REPOSITIONED AM MEDS GIVEN WITHOUT COMPLICATION. ASSISTED PT WITH BREAKFAST TRAY. WRIST RESTRAINTS RELEASED FOR A FEW MINUTES. PT WAS PULLING ON IV TUBING. RESTRAINTS RE APPLIED TO KEEP PT FROM PULLING AT LINES. ATE 100% OF MEAL AND DRANK 600ML IN FLUIDS. NO OTHER NEEDS AT THIS TIME. WILL CONTINUE TO MONITOR.
--- NOTE | 2017-08-24 09:57 | NUR ---
PT CONFUSED. STATED THAT HE HAS CANCER AND THAT HE NEEDED HIS CANCER MEDICATION. EXPLAINED TO HIM THAT HE DID NOT HAVE ANY MEDS DUE AT THIS TIME. PT DID UNDERSTAND. CONTINUED ASKING FOR HIS CANCER MEDICATION. WILL CONTINUE TO MONITOR.
--- NOTE | 2017-08-24 10:39 | NUR ---
PT AGITATED AND CONFUSED. HE KEEPS ASKING FOR HIS MEDICINE. HE DOESN'T HAVE ANY MEDS DUE AT THIS TIME. HE KEEPS POINTING TOWARD THE FLOOR AND ASKING ME TO PASS HIM THE SODA. THERE IS NO SODA IN HIS ROOM. I OFFERRED HIM SOMETHING TO DRINK BUT HE REFUSED IT. KEEPS YELLING OUT FOR THE DOCTOR. RESTRAINTS ARE STILL IN PLACE WILL CONTINUE TO MONITOR.
--- NOTE | 2017-08-24 10:49 | NUR ---
NUTRITION F/U CHART REVIEWED. NURSING REPORTS PT WITH GOOD INTAKE FULL LIQUID BREAKFAST. REQUIRED FEEDING. WILL ADD ENSURE TO MEALS. RD FOLLOWING
--- NOTE | 2017-08-24 11:29 | NUR ---
PT IS CALM AT THIS TIME. APPEARS TO BE ASLEEP. WILL CONTINUE TO MONITOR.
--- NOTE | 2017-08-24 12:28 | NUR ---
POTASSIUM LAB REASSESSED 4.0. NO ACTION NEEDED PER ELECTROLYTE PROTOCOL. ASSISTED PT WITH LUNCH. ATE ABOUT 90%. PT STILL VERY CONFUSED AND NOT MAKING MUCH SENSE WHEN SPEAKING. SISTER CALLED AND SPOKE WITH PATIENT. WILL CONTINUE TO MONITOR.
--- NOTE | 2017-08-24 14:11 | NUR ---
PT IS CALM AT THIS TIME. LOWERED HOB FROM 45 DEGREES TO 30 DEGREES SO PT CAN SLEEP. NO OTHER NEEDS AT THIS TIME. WILL CONTINUE TO MONITOR.
--- NOTE | 2017-08-24 15:28 | NUR ---
Rehab Note- spoke to SANA Bernard- tentatively planning discharge to acute rehab tomorrow. Spoke with Annie with [facility] at [phone] ans stated that we can use same Auth as previously if admitted no later than tomorrow. Will need to call tomorrow with update from [facility]. Will continue to follow at this time. Thank you for this referral! Vikki Seay RN Clinical Liaison, [facility] Rehab
--- NOTE | 2017-08-24 15:39 | NUR ---
PT PULLED UP IN BED. CLEAN PAD PLACED UNDERNEATH HIM. NO OTHER NEEDS AT THIS TIME. WILL CONTINUE TO MONITOR.
--- NOTE | 2017-08-24 17:11 | NUR ---
ASSISTED PT WITH DINNER. ATE 100% OF MEAL AND DRANK 840ML OF FLUID. PT STILL CONFUSED AND HIS CONVERSATION IS HARD TO UNDERSTAND. WILL CONTINUE TO MONITOR.
--- NOTE | 2017-08-24 19:20 | NUR ---
ASSESSMENT COMPLETE. S1S2. SINUS TACHYCARDIA SHOWING ON MONITOR. PT CONFUSED; SLURRED SPEECH. CR HOLE SITE TO LEFT HEAD; DRESSING INTACT. RADIAL AND PEDAL PULSES PALPATED. +1 EDEMA NOTED TO LOWER EXTREMITIES. GENERALIZED SCABS/SORES NOTED. LUNGS DIMINISHED BILATERALLY THROUGHOUT ALL LOBES. POOR DENTITION.
--- NOTE | 2017-08-24 21:30 | NUR ---
NO VISITORS DURING VISITATION.
--- NOTE | 2017-08-24 23:00 | NUR ---
REASSESSMENT COMPLETE. NO ACUTE CHANGES FROM PREVIOUS ASSESSMENT. SEE FLOW SHEET FOR DETAILS.
[2017-08-25] VITALS (24 sets, daily range): BP systolic 113–140; BP diastolic 86–109
--- NOTE | 2017-08-25 01:20 | NUR ---
PT RESTING; EYES CLOSED. VSS. NO DISTRESS NOTED. WILL CONTINUE TO MONITOR.
--- NOTE | 2017-08-25 03:30 | NUR ---
REASSESSMENT COMPLETE. NO ACUTE CHANGES FROM PREVIOUS ASSESSMENT. VSS. NO DISTRESS NOTED. WILL CONTINUE POC
[2017-08-25 04:47] LABS: BASOPHILS 0.1 % (0-2); EOSINOPHILS 0 % (0-7); HEMATOCRIT 47.8 % (42.0-54.0); HEMOGLOBIN 16.6 g/dL (13.5-17.5); IMMATURE GRANULOCYTES 0.3 % (0-5); LYMPHOCYTES 3.5 % (15-50); MCH 32.4 pg (26.0-34.0); MCHC 34.7 g/dL (31.0-37.0); MCV 93.2 fL (80.0-100.0); MONOCYTES 3.2 % (2-11); NEUTROPHILS 92.9 % (40-80); PLATELET COUNT 84 10x3/uL (130-400); RBC 5.13 10x6/uL (4.20-6.10); RDW 14.5 % (11.5-14.5); WBC 14.5 10x3/uL (4.8-10.8)
[2017-08-25 05:13] LABS: ALBUMIN 2.5 g/dL (3.4-5.0); ALKALINE PHOSPHATASE 83 U/L (46-116); ALT (SGPT) 79 U/L (10-68); BILIRUBIN - DIRECT 0.43 mg/dL (0.00-0.30); BILIRUBIN - TOTAL 1.13 mg/dL (0.2-1.3); CALC OSMOLALITY 295 mosm/kg (275-300); CALCIUM 8.2 mg/dL (8.5-10.1); CARBON DIOXIDE 37.4 mmol/L (21.0-32.0); CHLORIDE - SERUM 101 mmol/L (98-107); GLUCOSE 142 mg/dL (74-106); PHOSPHOROUS 3.2 mg/dL (2.5-4.9); POTASSIUM - SERUM 3.4 mmol/L (3.5-5.1); PROTEIN - SERUM 6.9 g/dL (6.4-8.2); SODIUM 141 mmol/L (136-145); THYROID STIMULATING HORMONE 7.91 uIU/mL (0.36-3.74); UREA NITROGEN 48 mg/dL (7-18); eGFR NON AFRICAN AMERICAN 81 mL/min (90-120)
[2017-08-25 05:14] LABS: MAGNESIUM - SERUM 1.4 mg/dL (1.8-2.4)
--- NOTE | 2017-08-25 09:08 | NUR ---
AM MEDS GIVEN WITH NO COMPLICATIONS. PT PULLED UP IN BED.
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
--- NOTE | 2017-08-25 12:31 | NUR ---
PT TRYING TO GET OUT OF BED. NOT FOLLOWING INTRUCTIONS AND BEING ARGUMENTATIVE. WANTED TO TAKE HIS LINENS OUT OF THE ROOM. OFFERED TO TAKE HIS LINENS OUT FOR HIM BUT HE WOULD NOT HAVE IT. HE KEPT TRYING TO GET UP. WITH THE HELP OF TWO OTHER NURSES, PT WAS PUT BACK IN BED AND REPOSITION. WRIST RESTRAINST HAD TO BE REAPPLIED. WILL CONTINUE TO MONITOR.
--- NOTE | 2017-08-25 13:03 | NUR ---
PT TRYING TO GET UP EVEN WITH WRIST RESTRAINTS ON. STATED THAT HE HAD TO USE THE BATHROOM. WITH THE HELP OF JORDANA TRANSFERRED PT TO [facility]. PT DID NOT COMPREHEND THAT HE WAS SITTING ON THE BEDSIDE COMODE. KEPT KEPT WANTING TO GET UP FROM THE CHAIR. EXPLAINED SEVERAL TIMES THAT HE WAS ALREADY ON THE COMODE. PT DID NOT COMPREHEND AND KEPT ARGUING. CALLED PHYSICAL THERAPY TO HELP TRANSFER PATIENT BACK TO BED. WRIST RESTRAINTS REAPPLIED. WILL CONTINUE TO MONITOR.
--- NOTE | 2017-08-25 17:05 | NUR ---
PT TRYING TO GET OUT OF BED. HAD LEGS HANGING OFF THE BED. PULLING ON HIS RESTRAINTS. WITH THE HELP OF ROSALBA MATT ASSISTED PT BACK UP IN BED AND REPOSTIONED HIM. WILL CONTINUE TO MONITOR.
--- NOTE | 2017-08-25 18:20 | NUR ---
ASSISTED PT WITH MEAL. ATE HALF OF BOWL OF SOUP. STILL WANTING TO GET UP. REORIENTED PT. PT NOT COMPREHENDING AND NOT FOLLOWING INSTRUCTIONS. WILL CONTINUE TO MONITOR.
--- NOTE | 2017-08-25 19:15 | NUR ---
ASSESSMENT COMPLETE. S1S2. RR UNLABORED; DIMINISHED THROUGHOUT ALL LOBES. INCISION SITE LEFT SIDE OF HEAD; SHASHA IN PLACE. PT CONFUSED; NOT MAKING SENSE. FLIGHT OF IDEAS. PULLING AT LINES; REMAINS IN RESTRAINTS.
--- NOTE | 2017-08-25 21:30 | NUR ---
NO VISITORS DURING VISITATION.
--- NOTE | 2017-08-25 23:10 | NUR ---
REASSESSMENT COMPLETE. NO ACUTE CHANGES FROM PREVIOUS ASSESSMENT. VSS. NO DISTRESS NOTED. WILL CONTINUE TO MONITOR.
--- NOTE | 2017-08-25 23:18 | NUR ---
SPOKE WITH FAMILY ON THE PHONE. UPDATED ON PT CONDITION. QUESTIONS ANSWERED.
[2017-08-26] VITALS (11 sets, daily range): BP systolic 102–121; BP diastolic 71–97
--- NOTE | 2017-08-26 01:46 | NUR ---
PT RESTING; EYES CLOSED. VSS. NO DISTRESS NOTED. WILL CONTINUE TO MONITOR.
--- NOTE | 2017-08-26 03:00 | NUR ---
REASSESSMENT COMPLETE. NO ACUTE CHANGES FROM PREVIOUS ASSESSMENT. VSS. NO DISTRESS NOTED. PT REMAINS CONFUSED.
[2017-08-26 05:16] LABS: BASOPHILS 0 % (0-2); EOSINOPHILS 0 % (0-7); HEMATOCRIT 48.9 % (42.0-54.0); HEMOGLOBIN 17.2 g/dL (13.5-17.5); IMMATURE GRANULOCYTES 0.3 % (0-5); LYMPHOCYTES 5.1 % (15-50); MCH 32.1 pg (26.0-34.0); MCHC 35.2 g/dL (31.0-37.0); MCV 91.2 fL (80.0-100.0); MEAN PLATELET VOLUME 10.7 fL (7.4-10.4); MONOCYTES 4.3 % (2-11); NEUTROPHILS 90.3 % (40-80); PLATELET COUNT 77 10x3/uL (130-400); RBC 5.36 10x6/uL (4.20-6.10); RDW 14.5 % (11.5-14.5); WBC 12.2 10x3/uL (4.8-10.8)
[2017-08-26 05:25] LABS: CALC OSMOLALITY 289 mosm/kg (275-300); CALCIUM 8.7 mg/dL (8.5-10.1); CHLORIDE - SERUM 100 mmol/L (98-107); CREATININE - SERUM 0.8 mg/dL (0.6-1.3); GLUCOSE 131 mg/dL (74-106); MAGNESIUM - SERUM 1.5 mg/dL (1.8-2.4); POTASSIUM - SERUM 3.3 mmol/L (3.5-5.1); SODIUM 139 mmol/L (136-145); UREA NITROGEN 41 mg/dL (7-18); eGFR NON AFRICAN AMERICAN > 90 mL/min (90-120)
--- NOTE | 2017-08-26 07:00 | NUR ---
PATIENT IS SLEEPING AT THIS TIME. VS WITHIN NORMAL LIMITS, NO DISTRESS NOTED.
--- NOTE | 2017-08-26 10:30 | NUR ---
DR. GARCIA BY TO SEE PATIENT.
--- NOTE | 2017-08-26 11:10 | NUR ---
PATIENT KNOWS HE IS AT [facility] AT THIS TIME. CALL LIGHT WITHIN REACH, BED IN LOW POSITION. PATIENT BROTHER CALLED AND HE SPOKE WITH HIM FOR FEW MINIUTES, CONVERSATION WAS CONFUSED PATIENT COULD NOT FIGURE OUT WHY HE COULD NOT SEE HIS BROTHER.
--- NOTE | 2017-08-26 12:31 | NUR ---
NUTRITION F/U CHART REVIEWED. PT REMAINS IN ICU. RESTRAINED. NURSING REPORTS PT WITH NO DIFFICULTY SWALLOWING, DOES HAVE TO BE FED. ENSURE ADDED TO FULL LIQUID DIET. RECOMMEND ADVANCE DIET TO MECH SOFT AND CONTINUE ENSURE. RD FOLLOWING
--- NOTE | 2017-08-26 13:00 | NUR ---
PATIENT IS AWAKE AND TALKING APPROPRIATELY. PATIENT KNOWS YEAR, PLACE, AND NAME. PATIENT IS WANTING TO GO HOME, WANTS THE RESTRAINTS OFF, AND FOLLOWS COMMANDS WELL.
--- NOTE | 2017-08-26 15:30 | NUR ---
SPOKE WITH DR. AKBAR ABOUT RESTRAINTS AND POSSIBLE TRANSFER ORDERS.
--- NOTE | 2017-08-26 15:32 | NUR ---
Voice message left again for sister, Azul Rico, to return call. There is a note on white board in patients room stating discharge plan is for patient to go home with sister.
--- NOTE | 2017-08-26 15:50 | NUR ---
RESTRAINTS REMOVED FROM PATIENT, PATIENT INSTRUCTED THAT HE COULD NOT BE PULLING ANYTHING OUT, AND HE AGREED THAT HE WOULDN'T. PATIENT IS ABLE TO TELL ME THAT HE IS IN THE [facility] [place] AND WHAT YEAR IT IS. HE IS NOT HAPPY ABOUT ALL THE NURSING ACTIVITY WALKING BY HIS DOOR.
--- NOTE | 2017-08-26 19:30 | NUR ---
ASSESSMENT COMPLETE, PT IS CONFUSED AT THIS TIME, ON RA WITH 97% O2 SAT. LUNGS CLEAR IN B/L UPPER LOBES, DIMNISHED IN B/L LOWER LOBES, S1S2, CM-NSR, SHASHA TO HEAD ARE INTACT, NO REDNESS OR SWELLING NOTED, PATENT RIGHT IJ CVL...S/L...ABDOMEN IS SOFT AND ROUND WITH ACTIVE BS, PATENT F/C WITH C/Y UOP, ALL PPP, VSS, CALL LIGHT IN REACH
--- NOTE | 2017-08-26 21:38 | NUR ---
REC'D A ICU TRANSFER FROM [facility]. ALERT AND ORIENTED X1. DENIED PAIN AT THIS TIME. DENIED NEEDS AT THIS TIME. PLACED BED ALARM ON. HAS DACIA. RIGHT IJ IS SALINE LOCKED. HAS INCISON TO LEFT HEAD SHASHA ARE INTACT, NO DRAINAGE AND IS OPEN TO AIR. INSTRUCTED TO CALL IF NEEDED ANYTHING, VERBALIZED UNDERSTANDING. BED LOW, LOCKED, CALL LIGHT IN REACH.
--- NOTE | 2017-08-26 22:10 | NUR ---
PATIENT IS IN BED, LAYING ON HIS RIGHT SIDE, RESTING QUIETLY WITH EYES CLOSED. NO SIGNS OF DISTRESS NOTED. BED IN LOWEST POSITION, CALL LIGHT IN REACH. BED RAILS UP X'S 2. TIESHA MAT ALARM ON.
[2017-08-27] VITALS: BP 107/84
[2017-08-27 04:00] VITALS: BP 106/77
[2017-08-27 06:14] LABS: BASOPHILS 0.1 % (0-2); EOSINOPHILS 0 % (0-7); HEMATOCRIT 46.8 % (42.0-54.0); HEMOGLOBIN 16.4 g/dL (13.5-17.5); IMMATURE GRANULOCYTES 0.3 % (0-5); LYMPHOCYTES 4.2 % (15-50); MCH 32.1 pg (26.0-34.0); MCV 91.6 fL (80.0-100.0); MONOCYTES 3.4 % (2-11); PLATELET COUNT 78 10x3/uL (130-400); RBC 5.11 10x6/uL (4.20-6.10); RDW 14.4 % (11.5-14.5); WBC 14.4 10x3/uL (4.8-10.8)
[2017-08-27 06:32] LABS: ALBUMIN 2.1 g/dL (3.4-5.0); ALKALINE PHOSPHATASE 78 U/L (46-116); ALT (SGPT) 99 U/L (10-68); CALC OSMOLALITY 292 mosm/kg (275-300); CALCIUM 7.5 mg/dL (8.5-10.1); CARBON DIOXIDE 35.2 mmol/L (21.0-32.0); CHLORIDE - SERUM 105 mmol/L (98-107); CREATININE - SERUM 0.8 mg/dL (0.6-1.3); GLUCOSE 120 mg/dL (74-106); MAGNESIUM - SERUM 1.5 mg/dL (1.8-2.4); POTASSIUM - SERUM 3.2 mmol/L (3.5-5.1); PROTEIN - SERUM 5.7 g/dL (6.4-8.2); SODIUM 142 mmol/L (136-145); UREA NITROGEN 39 mg/dL (7-18); eGFR NON AFRICAN AMERICAN > 90 mL/min (90-120)
[2017-08-27 06:44] LABS: PLATELET ESTIMATE DECREASED
--- NOTE | 2017-08-27 07:00 | NUR ---
REPORT RECIEVED ASSUMED CARE. PATIENT IN BED WITH IV INTACT. NO COMPLAINTS AT THIS TIME. CALL LIGHT WITHIN REACH. EYES CLOSED RESTING QUIETLY.
[2017-08-27 07:57] VITALS: BP 97/78
--- NOTE | 2017-08-27 08:00 | NUR ---
ASSESSMENT COMPLETE, VS STABLE. NO PROBLEMS AT THIS TIME. INCISIONS TO HEAD WITH SHASHA CLEAN AND DRY. IV INTACT IN NECK. BA ON. CALL LIGHT WITHIN REACH.
--- NOTE | 2017-08-27 10:00 | NUR ---
PATIENT IN BED EYES CLOSED RESTING QUIETLY. NO COMPLAINTS OR SIGNS OF DISTRESS. CALL LIGHT WITHIN REACH. IV INTACT. BA ON.
--- NOTE | 2017-08-27 10:19 | CN ---
PATIENT NAME:SABINA CLARK MEDICAL RECORD: [id number] : 56 LOCATION:[facility] ADMIT DATE: 08/13/17 ACCOUNT: [id number] CONSULTING PHYSICIAN: GWEN SARAVIA III, MD REFERRING PHYSICIAN: TONY LOWERY MD DATE OF CONSULTATION: 08/26/2017 FINDINGS: This is a 57-year-old white male who was first admitted to the hospital approximately 2 weeks ago. The patient suffered a fall and subsequent subdural hematoma. He has undergone bur hole procedures twice since the hospitalization. Current comorbidities include congestive heart failure, lung cancer, chronic obstructive pulmonary disease, gastroesophageal reflux disease, hypothyroidism, and deep venous thrombosis. The patient does have a history of alcohol consumption, but exact quantity is not known. The patient has exhibited considerable confusion, restlessness, and agitation, all consistent with a postconcussive syndrome. 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 The patient has no documented previous psychiatric history at all. He has required the use of p.r.n. anxiolytics as well as restraints from time to time. On exam, overweight white male, who is confused and cannot cooperate to any significant degree. Affect is brittle. Overall behavior is agitated and oriented primarily to self. DIAGNOSTIC IMPRESSION: AXIS I: Subacute delirium, consistent with response to subdural hematoma and traumatic brain injury. RECOMMENDATIONS: 1. Relatively little further to be added. The patient is already being given p.r.n. Ativan. For severe agitation, intramuscular or intravenous Haldol may be used. 2. We will follow as needed. TRANSINT:[id number] Voice Confirmation ID: [id number] DOCUMENT ID: [id number] GWEN SARAVIA III, MD at 1019 CC: [id number] DICTATION DATE: 08/26/17 1141 TANK SYSTEMS MAINTAINER: 08/26/17 1408 ADM IN [place] [id number] [place] [address]
--- NOTE | 2017-08-27 11:00 | NUR ---
PATIENT GETTTING RESTLESS AND WANTING TO GET OUT OF BED. EXPLAINED TO PATIENT THAT HE WOULD NOT BE ABLE TO GET OUT OF BED AT THIS TIME BC HE COULD FALL. VERBALIZED UNDERSTANDING. SITTING UP ON SIDE OF BED EATING PUDDING.
--- NOTE | 2017-08-27 11:36 | NUR ---
PATIENT AGITATED AND GETTING ANGRY. KEEPS TRYING TO GET UP. PT AND ST IN ROOM AT THIS TIME FOR ASSISTANCE. TRIED TO EXPLAIN TO PATIENT HE IS NOT ALLOWED TO LEAVE AT THIS TIME. PATIENT CONFUSED AND UPSET. HALIDOL DOSE FROM EARLIER GIVEN AT THIS TIME TO HELP CALM PATIENT. PATIENT ASSISTED TO CHAIR BY NURSE AND NM AT THIS TIME. SITTING AT SIDE TO TRY TO KEEP PATIENT SEATED. EVERARDO RN CALLED CRACK OFF PERSON FOR NET BED.
--- NOTE | 2017-08-27 11:55 | NUR ---
PATIENT ASSISTED SAFELY INTO NET BED X 4 ASSIST. IV INTACT. PEDERSON INTACT. CALL LIGHT WITHIN REACH. WILL CONTINUE TO MONITOR.
[2017-08-27 12:15] VITALS: BP 110/76
--- NOTE | 2017-08-27 13:18 | NUR ---
NUTRITION F/U PT NOW IN TIESHA BED. CONTINUES POOR PO INTAKE SECONDARY TO FULL LIQUID DIET, CONFUSION. NURSING TO FEED PT WHEN MORE ALERT. WILL MAKE SURE FANS LEAVES LUNCH TRAY IN ROOM. PT RECIEVING ENSURE WELL. NOTE ST REC'S FOR DIET UPGRADE TO [facility] SOFT WITH THIN LIQUIDS. RD FOLLOWING
--- NOTE | 2017-08-27 14:00 | NUR ---
PATIENT IN BED WITH EYES CLOSED RESTING AT THIS TIME. IV INTACT. PEDERSON INTACT. CALL LIGHT WITHIN REACH.
--- NOTE | 2017-08-27 16:00 | NUR ---
PATIENT IN BED WITH NO COMPLAINTS OR SIGNS OF DISTRESS. WANTS OUT OF BED AT THIS TIME. STATED HE DOESNT BELONG IN THERE. EXPLAINED TO PATIENT THAT IT IS TO MUCH OF A SAFETY RISK FOR HIM TO BE OUT OF THE NET BED AT THIS TIME. WATER GIVEN TO PATIENT. REFUSES EVERYTHING ELSE. STILL UPSET. CALL LIGHT WITHIN REACH.
[2017-08-27 16:02] VITALS: BP 118/68
--- NOTE | 2017-08-27 17:32 | NUR ---
PATIENT IN BED WITH EYES CLOSED RESTING QUIETLY AT THIS TIME. IV INTACT. NO COMPLAINTS. SPOKE WITH SISTER HELEN AND CHELE AND NOTIFIED OF NET BED. BOTH VERBALIZED UNDERSTANDING. PATIENT CALL LIGHT WITHIN REACH.
--- NOTE | 2017-08-27 18:55 | NUR ---
PATIENT IN BED WITH IV INTACT. ASKING TO GET OUT OF THE NET BED. EXPLAINED NOT ALLOWED TO GET OUT OF BED DUE TO FALL RISK. PATIENT UPSET AND CURSING SAYING HE IS GOING HOME. STILL CONFUSED. REPORT GIVEN TO NIGHT NURSE. CALL LIGHT WITHIN REACH.
--- NOTE | 2017-08-27 19:46 | OP ---
PATIENT NAME: SABINA CLARK MEDICAL RECORD: [id number] :56 LOCATION:[facility] ADMISSION DATE:08/13/17 SURGEON: DONNELL STEVENS MD DATE OF OPERATION: 08/21/2017 PREOPERATIVE DIAGNOSIS: Recurrent left frontal subacute subdural hematoma. POSTOPERATIVE DIAGNOSIS: Recurrent left frontal subacute subdural hematoma. PROCEDURE: Redo radha holes for left frontal subdural hematoma. DESCRIPTION OF TECHNIQUE: After induction of general endotracheal anesthesia, the patient was positioned supine on the operating table. The scalp was prepped and draped in usual sterile fashion. A linear scalp incision was carried out on the superior temporal line approximately 4 cm anterior to the previous incision. A Midas Austen craniotome was used to create a radha hole. Following this, there is a pseudomembrane within the subdural space after the dura was opened in cruciate manner with bipolar cautery and #11 blade. There was brisk egress of subacute subdural hematoma fluid from the subdural space. This was irrigated until it is crystal clear. Following this, the galea was reapproximated with interrupted 2-0 Vicryl suture. The skin was closed with neva. A sterile dressing was applied to the wound. The patient was awakened in good condition and taken to recovery. All counts were reported as correct. Estimated blood loss was minimal. TRANSINT:[id number] Voice Confirmation ID: [id number] DOCUMENT ID: [id number] DONNELL STEVENS MD at 1946 CC: [id number] DICTATION DATE: 08/21/172016 WELFARE SUPERVISOR: 08/21/174 ADM IN [id number] [place] [address]
[2017-08-27 20:00] VITALS: BP 124/71
[2017-08-28] VITALS: BP 96/58
[2017-08-28 04:00] VITALS: BP 93/72
[2017-08-28 05:24] LABS: BASOPHILS 0 % (0-2); EOSINOPHILS 0 % (0-7); HEMATOCRIT 51.7 % (42.0-54.0); HEMOGLOBIN 18.2 g/dL (13.5-17.5); IMMATURE GRANULOCYTES 0.2 % (0-5); LYMPHOCYTES 9.9 % (15-50); MCH 32.3 pg (26.0-34.0); MCHC 35.2 g/dL (31.0-37.0); MCV 91.8 fL (80.0-100.0); MEAN PLATELET VOLUME 11.7 fL (7.4-10.4); MONOCYTES 4.4 % (2-11); NEUTROPHILS 85.5 % (40-80); PLATELET COUNT 77 10x3/uL (130-400); RBC 5.63 10x6/uL (4.20-6.10); RDW 14.3 % (11.5-14.5)
[2017-08-28 05:26] LABS: WBC 10.6 10x3/uL (4.8-10.8)
[2017-08-28 05:49] LABS: CALC OSMOLALITY 290 mosm/kg (275-300); CALCIUM 9.1 mg/dL (8.5-10.1); CARBON DIOXIDE 37.4 mmol/L (21.0-32.0); CHLORIDE - SERUM 100 mmol/L (98-107); CREATININE - SERUM 0.8 mg/dL (0.6-1.3); GLUCOSE 93 mg/dL (74-106); MAGNESIUM - SERUM 1.5 mg/dL (1.8-2.4); POTASSIUM - SERUM 3.4 mmol/L (3.5-5.1); SODIUM 141 mmol/L (136-145); UREA NITROGEN 41 mg/dL (7-18); eGFR NON AFRICAN AMERICAN > 90 mL/min (90-120)
--- NOTE | 2017-08-28 07:00 | NUR ---
REPORT RECIEVED ASSUMED CARE. PATIENT IN BED WITH IV INTACT. NO COMPLAINTS AT THIS TIME. EYES CLOSED RESTING QUIETLY. CALL LIGHT WITHIN REACH.
[2017-08-28 07:39] VITALS: BP 104/82
--- NOTE | 2017-08-28 08:15 | NUR ---
ASSESSMENT COMPLETE, VS STABLE. PATIENT TIRED AT THIS TIME. IV INTACT. NO COMPLAINTS. MORE ORIENTED TODAY THAN YESTERDAY. CALL LIGHTW ITHIN REACH.
--- NOTE | 2017-08-28 09:20 | NUR ---
PATIENT OUT OF BED AT THIS TIME WITH ASSIST TO BEDSIDE COMMODE. IV INTACT. NO COMPLAINTS. HAD BM AND SAT BACK TO BED. ATE SMALL AMOUNT OF BREAKFAST. STATED HE WANTED TO LAY BACK DOWN. PATIENT BACK TO BED. MAG IV STARTED AT THIS TIME PER ELECTROLYTE PROTOCAL. TIESHA BED CLOSED BACK AT THIS TIME. CALL LIGHT WITHIN REACH/
--- NOTE | 2017-08-28 12:00 | NUR ---
PATIENT IN BED WITH EYES CLOSED RESTING QUIETLY AT THIS TIME. NO COMPLAINTS OR SIGNS OF DISTRESS. TIESHA BED IN PLACE. CALL LIGHT WITHIN REACH.
[2017-08-28 12:20] VITALS: BP 92/63
--- NOTE | 2017-08-28 14:11 | NUR ---
PT REMAINS VERY CONFUSED. NOT QUITE AGITATED YESTERDAY. ATTEMPTED ORIENTATION TASKS, BUT PT ONLY ORIENTED TO SELF..UNABLE TO RECALL INFO PREVIOSLY PROVIDED.
--- NOTE | 2017-08-28 14:40 | NUR ---
PATIENT SAT UP ON SIDE OF BED AND ATE FULL LIQUID DIET. NO COMPLAINTS AT THIS TIME. IV INTACT. LAID BACK IN TIESHA BED WHEN DONE. ZIPPED UP AND LOCKED CORRECTLY. CALL LIGHT WITHIN REACH.
[2017-08-28 15:41] VITALS: BP 110/85
--- NOTE | 2017-08-28 16:03 | NUR ---
OT NOTE: PT COMPLETED BED MOB WITH MIN A . PT COMPLETED EOB SITTING WITH SBA. PT COMPLETED BUE FM/GROSS AXS. PT REQUIRED VERBAL REDIRECTION FOR SEQUENCING OF TASK AND TASK COMPLETION. THANK YOU, AMAIRANI BLANCO/Manuel
--- NOTE | 2017-08-28 16:15 | NUR ---
PATIENT IN BED WITH EYES CLOSED RESTING AT THIS TIME. IV INTACT. NO COMPLAINTS. VS STABLE. CALL LIGHT WITHIN REACH. TIESHA BED ON.
--- NOTE | 2017-08-28 17:30 | NUR ---
PATIENT SITTING UP IN BED EATING SANDWICH. IV INTACT, NO COMPLAINTS. TIESHA BED UNZIPPED AND PATIENT SITTING UP WITH NO PROBLEMS. CALL LIGHT WITHIN REACH. WILL CONTINUE TO MONITOR.
--- NOTE | 2017-08-28 17:50 | NUR ---
PATIENT BACK TO SLEEP. ATE 85% OF DINNER. NO COMPLAINTS OR SIGNS OF DISTRESS AT THIS TIME. CALL LIGHT WITHIN REACH.
--- NOTE | 2017-08-28 18:45 | NUR ---
PATIENT IN BED WITH IV INTACT. NO COMPLAINTS. TIESHA BED ZIPPED AND PATIENT RESTING QUIETLY AT THIS TIME. CALL LIGHT WITHIN REACH.
[2017-08-28 20:00] VITALS: BP 100/76
--- NOTE | 2017-08-28 21:59 | NUR ---
REC'D LYING IN BED. ALERT AND ORIENTED X2. IS IN A TIESHA BED. UNZIPPED GAVE SOME APPLE JUICE. DENIED PAIN AT THIS TIME. DENIED FURTHER NEEDS AT THIS TIME. INSTRUCTED TO CALL IF NEEDED ANYTHING. VERBALIZED UNDERSTANDING. NO DISTRESS NOTED. WILL CONT TO MONITOR. BED LOW, LOCKED, CALL LIGHT IN REACH.
[2017-08-29] VITALS (8 sets, daily range): BP systolic 93–110; BP diastolic 59–91
--- NOTE | 2017-08-29 | NUR ---
OPENED TIESHA BED FOR 10MINS. NO DISTRESS NOTED. GAVE 240ML OF COKE. FELL BACK TO SLEEP AFTERWARDS.
--- NOTE | 2017-08-29 02:00 | NUR ---
UNZIPPED TIESHA BED FOR 20MIN, GAVE BATH AND CLEANED UP, GAVE COLA. NO DISTRESS NOTED.
--- NOTE | 2017-08-29 04:00 | NUR ---
UNZIPPED FOR 5MINS, SLEEPING, NO DISTRESS NOTED. WILL CONT TO MONITOR.
--- NOTE | 2017-08-29 04:00 | NUR ---
PT RESTING QUIETLY, EYES CLOSED. RESP EVEN, UNLABORED. NO DISTRESS NOTED. CONTINUE PEER HEALTH PROMOTER'S PLAN OF CARE.
[2017-08-29 04:39] LABS: BASOPHILS 0 % (0-2); EOSINOPHILS 0.1 % (0-7); HEMATOCRIT 50.6 % (42.0-54.0); HEMOGLOBIN 17.7 g/dL (13.5-17.5); IMMATURE GRANULOCYTES 0.2 % (0-5); MCH 32.2 pg (26.0-34.0); MEAN PLATELET VOLUME 13.3 fL (7.4-10.4); MONOCYTES 4.1 % (2-11); NEUTROPHILS 86.6 % (40-80); PLATELET COUNT 79 10x3/uL (130-400); RDW 14.4 % (11.5-14.5); WBC 9.8 10x3/uL (4.8-10.8)
[2017-08-29 04:57] LABS: CALC OSMOLALITY 289 mosm/kg (275-300); CALCIUM 8.8 mg/dL (8.5-10.1); CARBON DIOXIDE 34.8 mmol/L (21.0-32.0); CHLORIDE - SERUM 99 mmol/L (98-107); GLUCOSE 135 mg/dL (74-106); MAGNESIUM - SERUM 1.7 mg/dL (1.8-2.4); POTASSIUM - SERUM 3.4 mmol/L (3.5-5.1); SODIUM 139 mmol/L (136-145); UREA NITROGEN 40 mg/dL (7-18); eGFR NON AFRICAN AMERICAN 81 mL/min (90-120)
--- NOTE | 2017-08-29 06:00 | NUR ---
UNZIPPED TIESHA FOR 10 MIN, ADMINISTERED MEDS, NO DISTRESS NOTED. GAVE COLA. WILL CONT TO MONITOR.
--- NOTE | 2017-08-29 07:20 | NUR ---
SLEEPING, NO DISTRESS NOTED, BED LOWEST PSOITION, CALL LIGHT IN REACH, WILL CONTINUE TO MONITOR
--- NOTE | 2017-08-29 10:00 | NUR ---
SISTER AT BEDSIDE, TIESHA [place], PT VISITING WITH SISTER
--- NOTE | 2017-08-29 12:00 | NUR ---
SISTER AT BEDSIDE FEEDING PT, TIESHA BED OPEN, WILL CONTINUE TO MONITOR
--- NOTE | 2017-08-29 14:00 | NUR ---
PT UP TO BATHROOM, 15 MINUTES, THEN BACK TO TIESHA BED
--- NOTE | 2017-08-29 16:00 | NUR ---
OPENED TIESHA TO GET READY FOR DINNER, DENIES NEEDS, WILL CONTINUE TO MONITOR
--- NOTE | 2017-08-29 18:00 | NUR ---
SITTING ON BED SIDE EATING DINNER, DENIES NEEDS, WILL CONTINUE TO MONITOR
[2017-08-30 04:13] VITALS: BP 127/88
--- NOTE | 2017-08-30 06:50 | NUR ---
REPORT RECIEVED, ASSUMED CARE OF PT. RESTING IN TIESHA BED, NO COMPLAINTS AT THIS TIME. PEDERSON CATHETER IN PLACE, SECURED TO LEG WITH STAT-LOCK. R IJ SALINE LOCKED, VIJAY C/D/I.
[2017-08-30 09:02] VITALS: BP 105/81
[2017-08-30 12:17] VITALS: BP 110/70
--- NOTE | 2017-08-30 17:24 | NUR ---
PT TRYING TO GET UP OUT OF TIESHA BED BY HIMSELF WHEN EATING, AIDE IN THE ROOM, WHEN ASSISTED TO BED HE STARTED RAISING HIS FIST AT THE AIDE. ASSISTED WITH GETTING PT BACK TO BED.
--- NOTE | 2017-08-30 19:15 | NUR ---
RECEIVED CARE FROM DAY NURSE. PT LYING IN TIESHA BED. OFFERED DRINK AND FOOD. ASKED FOR BLANKET AND GIVEN. TIESHA BED ENCLOSURE SECURED. NO OTHER NEEDS NOTED AT THIS TIME.
[2017-08-30 20:00] VITALS: BP 91/72
[2017-08-31] VITALS: BP 110/50
--- NOTE | 2017-08-31 01:00 | NUR ---
RESTING QUIETLY WITH EYES CLOSED. RESP EVEN AND UNLABORED. IN TIESHA BED.
[2017-08-31 05:01] VITALS: BP 92/70
[2017-08-31 05:47] LABS: BASOPHILS 0 % (0-2); EOSINOPHILS 0.2 % (0-7); HEMATOCRIT 48.6 % (42.0-54.0); HEMOGLOBIN 17.7 g/dL (13.5-17.5); IMMATURE GRANULOCYTES 0.3 % (0-5); LYMPHOCYTES 7.2 % (15-50); MCH 32.2 pg (26.0-34.0); MCHC 36.4 g/dL (31.0-37.0); MCV 88.5 fL (80.0-100.0); MONOCYTES 2.8 % (2-11); NEUTROPHILS 89.5 % (40-80); PLATELET COUNT 132 10x3/uL (130-400); RBC 5.49 10x6/uL (4.20-6.10); RDW 14.6 % (11.5-14.5); WBC 12.5 10x3/uL (4.8-10.8)
[2017-08-31 06:06] LABS: ALBUMIN 2.2 g/dL (3.4-5.0); ALKALINE PHOSPHATASE 147 U/L (46-116); ALT (SGPT) 118 U/L (10-68); BILIRUBIN - TOTAL 1.25 mg/dL (0.2-1.3); CALC OSMOLALITY 270 mosm/kg (275-300); CALCIUM 8.6 mg/dL (8.5-10.1); CARBON DIOXIDE 32.7 mmol/L (21.0-32.0); CHLORIDE - SERUM 94 mmol/L (98-107); CREATININE - SERUM 0.8 mg/dL (0.6-1.3); GLUCOSE 93 mg/dL (74-106); POTASSIUM - SERUM 3.9 mmol/L (3.5-5.1); PROTEIN - SERUM 6.8 g/dL (6.4-8.2); SODIUM 132 mmol/L (136-145); UREA NITROGEN 28 mg/dL (7-18); eGFR NON AFRICAN AMERICAN > 90 mL/min (90-120)
--- NOTE | 2017-08-31 08:03 | NUR ---
AROUSES TO VERBAL STIMULATION. ORIENTED TO SELF ONLY ATTEMPTS TO REORIENT PER STAFF WITHOUT SUCCESS. LUNGS ARE CLEAR BUT DIMINISHED THROUGHOUT. NO COUGH NOTED. SKIN IS INTACT WITHOUT REDNESS. RIGHT IJ PATENT WITHOUT REDNESS AT INSERTION SITE. BED ENCLOSURE IN PLACE FOR SAFETY. FOLELY PATENT WITH CLEAR YELLOW URINE. DENIES NEEDS.
[2017-08-31 08:35] VITALS: BP 89/68
--- NOTE | 2017-08-31 10:00 | NUR ---
RESTING QUIETLY IN BED AT THIS TIME. TOOK AM MEDS WITHOUT DIFFICULTY. NO C/O PAIN VOICED. INCISIONS TO LEFT SIDE OF HEAD CLEAN DRY AND WELL APPROXIMATED WITH CLIPS INTACT.
[2017-08-31 11:38] VITALS: BP 105/68
--- NOTE | 2017-08-31 14:58 | NUR ---
GIVEN BATH PER STAFF. LINENS CHANGED. REPORTS FEELING MUCH BETTER. WILL MONIOTR.
[2017-08-31 15:45] VITALS: BP 110/64
[2017-08-31 22:27] VITALS: BP 170/68
[2017-09-01] VITALS (7 sets, daily range): BP systolic 82–166; BP diastolic 59–72
[2017-09-01 06:15] LABS: BASOPHILS 0.1 % (0-2); EOSINOPHILS 0.1 % (0-7); HEMATOCRIT 48.4 % (42.0-54.0); HEMOGLOBIN 17.6 g/dL (13.5-17.5); IMMATURE GRANULOCYTES 0.3 % (0-5); LYMPHOCYTES 8.1 % (15-50); MCH 32.2 pg (26.0-34.0); MCHC 36.4 g/dL (31.0-37.0); MCV 88.5 fL (80.0-100.0); MEAN PLATELET VOLUME 11.7 fL (7.4-10.4); MONOCYTES 1.7 % (2-11); NEUTROPHILS 89.7 % (40-80); RBC 5.47 10x6/uL (4.20-6.10); RDW 14.2 % (11.5-14.5); WBC 11.8 10x3/uL (4.8-10.8)
[2017-09-01 06:24] LABS: PLATELET COUNT 88 10x3/uL (130-400)
[2017-09-01 06:34] LABS: ALBUMIN 2.2 g/dL (3.4-5.0); ALKALINE PHOSPHATASE 157 U/L (46-116); ALT (SGPT) 113 U/L (10-68); BILIRUBIN - TOTAL 1.53 mg/dL (0.2-1.3); CALC OSMOLALITY 266 mosm/kg (275-300); CALCIUM 8.5 mg/dL (8.5-10.1); CARBON DIOXIDE 29.3 mmol/L (21.0-32.0); CHLORIDE - SERUM 93 mmol/L (98-107); CREATININE - SERUM 0.9 mg/dL (0.6-1.3); GLUCOSE 106 mg/dL (74-106); POTASSIUM - SERUM 3.9 mmol/L (3.5-5.1); SODIUM 130 mmol/L (136-145); UREA NITROGEN 28 mg/dL (7-18); eGFR NON AFRICAN AMERICAN > 90 mL/min (90-120)
--- NOTE | 2017-09-01 07:30 | NUR ---
RECIEVED PT DURING WALKING ROUNDS, PT RESTING IN BED WITH NO COMPLAINTS OF PAIN OR DISCOMFORT AT THIS TIME. ASSESSMENT DONE PER FLOWSHEET. PROPER RESTRAINT CHECKED PERFORMED PER PROTOCOL. BED IN LOW POSITION AND CALL LIGHT WITHIN REACH. WILL CONTINUE TO MONITOR.
--- NOTE | 2017-09-01 10:05 | NUR ---
RESTARINT ASSESSMENT DONE PER PROTOCOL. PT SITTING UP IN BED EATING AND ALERT. LASIX HELD DUE TO LOW BP. BED IN LOW POSITION AND CALL LIGHT WITHIN REACH. WILL CONTINUE TO MONITOR.
--- NOTE | 2017-09-01 12:10 | NUR ---
PT SAT UP IN CHAIR WITH CHAIR ALARM ON, PT TOLERATING WELL. WILL CONTINUE TO MONITOR. CALL LIGHT IN REACH.
--- NOTE | 2017-09-01 13:15 | NUR ---
PT RETURNED TO BED AT THIS TIME PER REQUEST. BED IN LOW POSITION AND CALL LIGHT WITHIN REACH. WILL CONTINUE TO MONITOR.
--- NOTE | 2017-09-01 14:37 | NUR ---
OT NOTE: PT NOT COMBATIVE TODAY. HE WAS CALM AND ORIENTED TO SELF AND PLACE. PT ASSISTED TO BATHROOM TODAY. MYSELF AND PHYSICAL THERAPY WERE ABLE TO HELP PT OUT OF BED WITH MIN ASSIST; AMB TO BATHROOM WITH MIN ASSIST X 2 AND LOB ON 1 OCCASSION. PT ABLE TO HAVE BOWEL MOVEMENT, BUT UNABLE TO PERFORM HYGIENE. HE ACTED LIKE HE WAS UNSURE WHAT TO DO. PT KNEW HE NEEDED TO BE CLEANED AND WHEN PROVIDED WITH TOILET PAPER, HE REQUIRED CUES TO WHAT TO DO. THERAPIST FINISHED TOILET HYGIENE BY STANDING PT UP. WE THEN AMBULATED TO CHAIR ( APPROX 15 FT) . PT BEGAN EATING CEREAL WITHOUT DIFFICULTY.
--- NOTE | 2017-09-01 14:51 | NUR ---
PEDERSON CATH REMOVED AT THIS TIME PER ORDER. BED IN LOW POSITION AND CALL LIGHT WITHIN REACH. WILL CONTINUE TO MONITOR.
--- NOTE | 2017-09-01 16:22 | NUR ---
IN AND OUT PERFORMED AT THIS TIME PER ORDER TO OBTAIN A UA AND CULTURE. SPECIMEN SENT TO LAB. PT RESTING IN BED WITH NO COMPLAINTS OF PAIN OR DISCOMFORT AT THIS TIME. BED IN LOW POSITION AND CALL LIGHT WITHIN REACH. WILL CONTINUE TO MONITOR.
--- NOTE | 2017-09-01 16:36 | NUR ---
CM attempted to call sister, left message for her to return my call for discharge planning
[2017-09-01 17:09] LABS: COLOR YELLOW (YELLOW)
[2017-09-01 17:10] LABS: APPEARANCE HAZY (CLEAR); BILIRUBIN NEGATIVE (NEGATIVE); EPITHELIAL CELLS 0-5 /hpf (0-5); GLUCOSE NEGATIVE (NEGATIVE); KETONE NEGATIVE (NEGATIVE); NITRITE NEGATIVE (NEGATIVE); PROTEIN TRACE mg/dL (NEGATIVE); SPECIFIC GRAVITY 1.015 (1.005-1.020); UROBILINOGEN NORMAL (NORMAL); WHITE CELLS - URINE >50 /hpf (0-5)
[2017-09-01 17:11] LABS: BACTERIA MANY /hpf (NONE SEEN)
--- NOTE | 2017-09-01 23:01 | NUR ---
PATIENT IS RESTING QUIETLY WITH EYES CLOSED. NO SIGNS OF DISTRESS NOTED.
[2017-09-02] VITALS: BP 102/62
--- NOTE | 2017-09-02 00:30 | NUR ---
CHANGED CVL DRESSING. PATIENT TOLERATED WELL. PATIENT HAD AN INCONTINENT VOID, PATIENT COOPERATIVE DURING THE CVL CHANGE, HE ANSWERED QUESTIONS APPROPRIATELY, ORIENTED X'S 4. HE ASKED TO GET OUT OF THE BED FOR THE LINEN CHANGE. WITH ASSISTANCE FROM THE NET SQL DEVELOPER GOT HIM OUT OF THE ENCLOSURE BED AND ASSISTED HIM TO THE BATHROOM. HE WASHED HIMSELF UP WITH ASSISTANCE FROM THE NET SQL DEVELOPER, AND SHE HELPED HIM GET CHANGED. HE ATTEMPTED TO GET UP BY HIMSELF MULTIPLE TIMES, EVEN WHILE I STATED "PLEASE DO NOT GET UP YET. WAIT UNTIL WE CAN HELP YOU." WHILE HE WAS AMBULATING WE ASSISTED HIM, HE STATED "I GOT IT, LET GO, I CAN DO IT BY MYSELF." GAIT IS WEAK AND UNSTEADY. NET SQL DEVELOPER ASSISTED PATIENT BACK TO BED, HE COOPERATED GETTING BACK IN BED, HE STATED "I WANT TO GET SOME SLEEP. I AM TIRED." BACK IN ENCLOSURE BED. PATIENT DRANK 3 COKES. DENIES ANY OTHER NEEDS AT THIS TIME. CALL LIGHT IN REACH. PATIENT STATED HE IS COLD, COVERED HIM UP WITH A WARM BLANKET.
[2017-09-02 04:00] VITALS: BP 99/59
--- NOTE | 2017-09-02 04:45 | NUR ---
PATIENT WOKE UP CONFUSED, YELLING OUT "HELP, LET ME OUT OF HERE." ASKED PATIENT WHAT HE NEEDS, HE STATED "I NEED TO GET UP AND COOK BREAKFAST." ASKED PATIENT TO TELL ME WHERE [place] ARE, [place] ST[place] I ST[place] HE STATED "I DON'T KNOW... IN THE CORRECTION." TOLD PATIENT OUR LOCATION, ATTEMPTED TO REORIENT HIM, HE STATED "JUST LET ME OUT SO I CAN GET A POT AND BOIL SOME WATER. I AM HUNGERY." EXPLAINED TO PATIENT THAT HE IS IN THE HOSPITAL, AND HE CANNOT COOK HERE. HE STATED "YOU GO COOK ME SOMETHING THEN." OFFERED PATIENT A SANDWHICH, HE ACCEPTED. PATIENT HAD INCONTINENT VOID. TRIED TO CLEAN PATIENT UP IN THE BED, HE REFUSED, HE SAID "LET ME OUT OF HERE" HE GOT UP AND MYSELF AND THE PEWTER FINISHER ASSISTED HIM TO THE BATHROOM. WE ASSISTED HIM CLEANING UP AND CHANGING CLOTHES. CHANGED HIS LINENS. ASSISTED HIM BACK TO BED. HE ARGUED ABOUT GETTING BACK IN THE BED, FINALLY GOT BACK IN THE BED. SET UP HIS TRAY SO HE CAN EAT, HE IS EATING A SANDWHICH AND DRINKING COLA. HE STATED "MOVE THE BED SO I CAN WATCH TV." TURNED THE BED SO THAT HE CAN SEE THE TV.
[2017-09-02 05:53] LABS: BASOPHILS 0.1 % (0-2); EOSINOPHILS 0.2 % (0-7); HEMATOCRIT 43.9 % (42.0-54.0); HEMOGLOBIN 15.7 g/dL (13.5-17.5); IMMATURE GRANULOCYTES 0.2 % (0-5); LYMPHOCYTES 7.7 % (15-50); MCH 31.9 pg (26.0-34.0); MCHC 35.8 g/dL (31.0-37.0); MCV 89.2 fL (80.0-100.0); MEAN PLATELET VOLUME 11.4 fL (7.4-10.4); MONOCYTES 2.2 % (2-11); NEUTROPHILS 89.6 % (40-80); PLATELET COUNT 96 10x3/uL (130-400); RBC 4.92 10x6/uL (4.20-6.10); RDW 14.4 % (11.5-14.5)
[2017-09-02 06:17] LABS: ALKALINE PHOSPHATASE 157 U/L (46-116); ALT (SGPT) 101 U/L (10-68); BILIRUBIN - TOTAL 1.26 mg/dL (0.2-1.3); CALC OSMOLALITY 268 mosm/kg (275-300); CALCIUM 8.4 mg/dL (8.5-10.1); CARBON DIOXIDE 31.3 mmol/L (21.0-32.0); CHLORIDE - SERUM 95 mmol/L (98-107); CREATININE - SERUM 0.8 mg/dL (0.6-1.3); GLUCOSE 74 mg/dL (74-106); PROTEIN - SERUM 6.5 g/dL (6.4-8.2); SODIUM 132 mmol/L (136-145); UREA NITROGEN 26 mg/dL (7-18); eGFR NON AFRICAN AMERICAN > 90 mL/min (90-120)
[2017-09-02 06:30] LABS: POTASSIUM - SERUM 3.2 mmol/L (3.5-5.1)
--- NOTE | 2017-09-02 07:30 | NUR ---
RECIEVED PT DURING WALKING ROUNDS, PT RESTING IN BED WITH NO COMPLAINTS OF PAIN OR DISCOMFORT AT THIS TIME. PT A/OX4. ASSESSMENT DONE PER FLOWSHEET. BED IN LOW POSITION AND CALL LIGHT WITHIN REACH. WILL CONTINUE TO MONITOR.
[2017-09-02 07:50] VITALS: BP 95/68
--- NOTE | 2017-09-02 10:46 | NUR ---
OT NOTE: UPON ENTERING ROOM, PT HAD MOVED HIS CHAIR, WHILE SITTING IN IT, AND ALSO HIS BED, WHERE IT WAS IN A DIAGANOL IN THE ROOM. MOD CUES TO GET PT TO STOP WHAT HE WAS DOING AND THERAPIST WOULD HELP HIM INTO BED. REQUIRED MIN ASSIST TO TRANSFER INTO BED. PT ASKED THE DAY AND DATE, AND WAS ABLE TO RECALL IT ON 2 SEPERATE OCCASSIONS. HE WAS OREINTED TO SELF AND PLACE, BUT COULD NOT REMEMBER WHAT HE HAD FOR BREAKFAST. PT ALSO DID NOT REMEMBER IF HE HAD GONE TO BATHROOM, BUT THERE WAS EVIDENCE IN TOILET THAT HE HAD IN FACT HAD A BM. PRACTICED STATIC AND DYNMAIC SITTNG BALANCE ACT. PT STILL UNSTEADY WITH GAIT WHEN WALKING WITHIN ROOM.
--- NOTE | 2017-09-02 11:00 | NUR ---
PT RETURNED TO BED AFTER SITTING UP IN CHAIR. ORTHOSTATIC BP TAKEN AT THIS TIME PER ORDER. DOCUMENTED IN FLOWSHEET. BED IN LOW POSITION AND CALL LIGHT WITHIN REACH. WILL CONTINUE TO MONITOR.
[2017-09-02 12:11] VITALS: BP 104/79
--- NOTE | 2017-09-02 13:52 | NUR ---
NUTRITION F/U CHART REVIEWED. PT TOLERATING CURRENT DIET. 25 TO 50% INTAKE RECENT MEALS. ALSO TAKING SOME SNACKS PER NURSING REPORT. WILL CONTINUE TO PROVIDE MEALS, MONITOR INTAKE. RD FOLLOWING
[2017-09-02 15:48] VITALS: BP 109/72
--- NOTE | 2017-09-02 17:34 | NUR ---
OT NOTE: PT COMPLETED BED MOB WITH SBA. PT COMPLETED BUE AROM EXS FOR INCREASED AX TOLERANCE. THANK YOU, AMAIRANI BLANCO/Manuel
[2017-09-02 20:00] VITALS: BP 151/74
[2017-09-03] VITALS: BP 144/68
[2017-09-03 04:00] VITALS: BP 133/60
[2017-09-03 06:59] LABS: BASOPHILS 0 % (0-2); EOSINOPHILS 0.2 % (0-7); HEMATOCRIT 41.2 % (42.0-54.0); HEMOGLOBIN 14.6 g/dL (13.5-17.5); IMMATURE GRANULOCYTES 0.2 % (0-5); LYMPHOCYTES 10.5 % (15-50); MCH 31.5 pg (26.0-34.0); MCHC 35.4 g/dL (31.0-37.0); MONOCYTES 1.7 % (2-11); NEUTROPHILS 87.4 % (40-80); PLATELET COUNT 103 10x3/uL (130-400); RBC 4.63 10x6/uL (4.20-6.10); RDW 14.4 % (11.5-14.5); WBC 8.3 10x3/uL (4.8-10.8)
[2017-09-03 07:14] LABS: ALBUMIN 1.8 g/dL (3.4-5.0); ALKALINE PHOSPHATASE 167 U/L (46-116); ALT (SGPT) 95 U/L (10-68); BILIRUBIN - TOTAL 1.05 mg/dL (0.2-1.3); CALC OSMOLALITY 260 mosm/kg (275-300); CALCIUM 7.9 mg/dL (8.5-10.1); CARBON DIOXIDE 26.4 mmol/L (21.0-32.0); CHLORIDE - SERUM 96 mmol/L (98-107); CREATININE - SERUM 0.8 mg/dL (0.6-1.3); GLUCOSE 91 mg/dL (74-106); POTASSIUM - SERUM 4.2 mmol/L (3.5-5.1); PROTEIN - SERUM 6.3 g/dL (6.4-8.2); SODIUM 129 mmol/L (136-145); eGFR NON AFRICAN AMERICAN > 90 mL/min (90-120)
[2017-09-03 07:15] LABS: UREA NITROGEN 18 mg/dL (7-18)
--- NOTE | 2017-09-03 07:20 | NUR ---
PATIENT RECEIVED IN LOW BLAKE POSITION RESTING WITH EYES CLOSED. RESPIRATIONS EVEN AND UNLABORED. PATIENT IN TIESHA BED. SIDES UNZIPPED AND OPEN. BED IN LOW POSITION. CALL LIGHT IN REACH.
[2017-09-03 07:53] VITALS: BP 90/69
--- NOTE | 2017-09-03 08:00 | NUR ---
PER MICRO RECOMMENDATIONS PATIENT PLACED IN CONTACT ISOLATION FOR ESBL IN URINE. APPROPRIATE SIGNS PLACED ON DOOR.
--- NOTE | 2017-09-03 08:17 | NUR ---
PATIENT ALERT IN BED TIESHA BED. NO SIGNS OF DISTRESS NOTED. SIDES UNZIPPED. PATIENT EATING BREAKFAST. TOLERATING WELL. SCHEDULED MEDICATION ADMINISTERED. BED IN LOW POSITION. CALL LIGHT IN REACH. TIESHA ALARM ON.
--- NOTE | 2017-09-03 10:30 | NUR ---
ALERT IN TIESHA BED WITH SIDES UP. NO SIGNS OF DISTRESS NOTED. SCHEDULED IV ABX INITIATED TO RIGHT IJ. FLUSHES EASY. BED IN LOW POSITION. CALL LIGHT IN REACH. TIESHA ALARM ON.
--- NOTE | 2017-09-03 11:09 | NUR ---
CM attempted to call [facility] ([phone]) without any answer, left message. Spoke with patient about talking to his sister. Patient gave me another number [phone] and stated that was Joselin? I attempted to call that and got a voice mail. CM left message. Patients nurse stated he is more confused today than yesterday. CM will continue to assist with discharge planning needs.
--- NOTE | 2017-09-03 11:14 | NUR ---
attempted to call Antonia ferro (sister) on admin info at [phone] no answer and no voicemail set up.
[2017-09-03 12:35] VITALS: BP 95/61
--- NOTE | 2017-09-03 13:52 | NUR ---
Spoke with Antonia (sister) [phone] to discuss discharge planning. She stated that she lives in and she will be taking her brother to his house at discharge. She said she would like OT, PT, Nursing to come to her house if that is possible. She stated that her son will be home with him at times, but she works and will not be able to stay with him. CM will continue to be in touch with sister. She stated that if we needed her that we can call and leave a message and she will call back on her break. CM will continue to follow and assist with discharge planning needs.
--- NOTE | 2017-09-03 14:18 | NUR ---
OT NOTE: PT WAS IN TIESHA BED UPON ENTRANCE INTO ROOM. HE WAS VERY QUIET AND HAD DIFFICULTY HEARING/UNDERSTANDING WHAT PT WAS SAYING. REQUESTED THAT PT SPEAK UP , BUT HE REMAINED AT SAME LEVEL. PT WAS APPEARED MORE CONFUSED AND DISORIENTED TODAY. PT WAS ABOUT TO HAVE LUNCH BUT THOUGHT IT WAS TIME FOR BREAKFAST..DID NOT KNOW WHERE HE WAS OR WHAT TIME OF DAY. PT WITH FOOD/CRUMBS IN BED. REQUESTED PT TO SIT UP SO I COULD CLEAN HIS BED. PT VERY UNSTEADY AND IMPULSIVE. ONCE IN STANDING, HE WAS ATTEMPTING TO WALK AROUND BED BEFORE I COULD EXCHANGE THE PAD ON BED. ONCE HIS LUNCH TRAY ARRIVED, HE USED HIS FINGERS FOR MOST EVERYTHING. INSTRUCTED PT TO USE UTENSILS, AND HE DID FOR SHORT TIME, BUT THEN WENT BACK TO USING HANDS. REQUIRED FREQUENT REDIRECTION FOR BASIC ADLS/ACT ADLS
[2017-09-03 15:32] VITALS: BP 104/64
--- NOTE | 2017-09-03 15:34 | NUR ---
REFERRAL SENT TO [facility] PER DR NINA'S REQUEST
[2017-09-03 15:57] LABS: APPEARANCE HAZY (CLEAR); COLOR YELLOW (YELLOW)
[2017-09-03 15:58] LABS: BILIRUBIN NEGATIVE (NEGATIVE); GLUCOSE NEGATIVE (NEGATIVE); KETONE NEGATIVE (NEGATIVE); NITRITE POSITIVE (NEGATIVE); PROTEIN NEGATIVE (NEGATIVE); SPECIFIC GRAVITY 1.005 (1.005-1.020); UROBILINOGEN NORMAL (NORMAL)
[2017-09-03 15:59] LABS: EPITHELIAL CELLS 0-5 /hpf (0-5); WHITE CELLS - URINE >50 /hpf (0-5)
[2017-09-03 16:00] LABS: BACTERIA MODERATE /hpf (NONE SEEN)
--- NOTE | 2017-09-03 16:55 | NUR ---
ALERT IN BED. NO SIGNS OF DISTRESS NOTED. SCHEDULED MEDICATION ADMINISTERED. SIDE RAILS UP X2. BED IN LOW POSITION. CALL LIGHT IN REACH.
--- NOTE | 2017-09-03 18:28 | NUR ---
OT NOTE: PT COMPLETED SIMPLE GROOMING AND HYGIENE TASK WITH CGA. PT REQUIRES EXTENSIVE CUES FOR SEQUENCING OF TASKS. THANK YOU, AMAIRANI BLANCO/Manuel
[2017-09-03 20:00] VITALS: BP 130/69
[2017-09-04] VITALS: BP 99/58
[2017-09-04 04:00] VITALS: BP 93/62
[2017-09-04 05:42] LABS: BASOPHILS 0 % (0-2); EOSINOPHILS 0.5 % (0-7); HEMATOCRIT 37.8 % (42.0-54.0); HEMOGLOBIN 13.4 g/dL (13.5-17.5); IMMATURE GRANULOCYTES 0.4 % (0-5); LYMPHOCYTES 10.1 % (15-50); MCH 31.2 pg (26.0-34.0); MCHC 35.4 g/dL (31.0-37.0); MCV 88.1 fL (80.0-100.0); MEAN PLATELET VOLUME 11.2 fL (7.4-10.4); MONOCYTES 1.8 % (2-11); NEUTROPHILS 87.2 % (40-80); PLATELET COUNT 102 10x3/uL (130-400); RBC 4.29 10x6/uL (4.20-6.10); RDW 14.3 % (11.5-14.5); WBC 8.2 10x3/uL (4.8-10.8)
[2017-09-04 06:13] LABS: ALBUMIN 1.8 g/dL (3.4-5.0); ALKALINE PHOSPHATASE 176 U/L (46-116); ALT (SGPT) 85 U/L (10-68); CALCIUM 7.5 mg/dL (8.5-10.1); CARBON DIOXIDE 27.4 mmol/L (21.0-32.0); CHLORIDE - SERUM 96 mmol/L (98-107); CREATININE - SERUM 0.7 mg/dL (0.6-1.3); GLUCOSE 120 mg/dL (74-106); PROTEIN - SERUM 5.8 g/dL (6.4-8.2); SODIUM 124 mmol/L (136-145); eGFR NON AFRICAN AMERICAN > 90 mL/min (90-120)
[2017-09-04 06:14] LABS: CALC OSMOLALITY 250 mosm/kg (275-300); POTASSIUM - SERUM 3.5 mmol/L (3.5-5.1); UREA NITROGEN 12 mg/dL (7-18)
--- NOTE | 2017-09-04 07:35 | NUR ---
PATIENT RECEIVED ALERT IN TIESHA BED. SIDES UNZIPPED. NO SIGNS OF DISTRESS NOTED. TIESHA ALARM ON. BED IN LOW POSITION. CALL LIGHT IN REACH.
[2017-09-04 08:20] VITALS: BP 103/67
--- NOTE | 2017-09-04 08:40 | NUR ---
PATIENT ALERT IN TIESHA BED. NO SIGNS OF DISTRESS NOTED. SIDES UNZIPPED. SCHEDULED MEDICATION ADMINISTERED. BED IN LOW POSITION. CALL LIGHT IN RECAH.
--- NOTE | 2017-09-04 11:10 | NUR ---
PATIENT ASSISTED UP TO RESTROOM. INSTRUCTED TO PULL EMERGENCY CORD ONCE FINISHED. STATES UNDERSTANDING.
--- NOTE | 2017-09-04 11:17 | NUR ---
ENTERED ROOM TO FIND PATIENT SITTING UP ON SIDE OF BED. WHEN ASKED IF HE GOT HIMSELF BACK TO BED HE REPLIED "YES." INSTRUCTED PATIENT OF RISK OF FALLING AND WHY HE NEEDS TO CALL FOR HELP. STATES UNDERSTANDING. BED IN LOW POSITION. CALL LIGHT IN REACH.
[2017-09-04 12:12] VITALS: BP 105/82
--- NOTE | 2017-09-04 12:22 | NUR ---
OT NOTE: PT STILL CONFUSED AND IMPULSIVE. REQUIRED MOD CUES TO SLOW DOWN DURING FUNCITONAL MOBILITY OF ADLS INCLUDING AMB TO BATHROOM. ATTEMPTED STANDING AT SINK FOR HYGIENE, BUT PT WAS UNSAFE DURING STANDING WITHOUT AD. WILL CONT TMT WITH INCREASED FOCUS ON SAFETY
--- NOTE | 2017-09-04 14:30 | NUR ---
PATIENT UP AMBULATING IN HALLWAY WITH PT. NO SIGNS OF DISTRESS NOTED.
--- NOTE | 2017-09-04 16:00 | NUR ---
ALERT IN TIESHA BED WATCHING TV. NO SIGNS OF DISTRESS NOTED. SIDES OF TIESHA BED UNZIPPED. TIESHA ALARM ON. CALL LIGHT IN REACH.
[2017-09-04 16:01] VITALS: BP 98/69
--- NOTE | 2017-09-04 17:16 | NUR ---
OT NOTE: PT COMPLETED SIMPLE ORAL HYGIENE TASK WITH CGA. PT COMPLETED BUE AROM AXS FOR INCREASED I WITH ADLS. THANK YOU, AMAIRANI BLANCO/Manuel
[2017-09-04 20:00] VITALS: BP 98/60
--- NOTE | 2017-09-04 21:11 | NUR ---
[facility]IENT AFTER HE CALL THE DISTRICT RECRUITER AND HE REPORTED THAT WAS ASSUALTED IN HIS APARTMENT.
[2017-09-05] VITALS (7 sets, daily range): BP systolic 85–100; BP diastolic 50–70
--- NOTE | 2017-09-05 00:17 | NUR ---
PT REMAINS IN CONTACT ISOLATION AND IS IN A NET BED. AT THIS TIME HE IS BEING ALLOWED TO HAVE HIS SIDE OPEN AND HAVE A SNACK. HE IS ASLEEP WITH THE TV ON AND NO DISTRESS NOTED.
--- NOTE | 2017-09-05 00:37 | NUR ---
PATIENT GIVEN 240mL COLA AND 1mg ATIVAN. PATIENT KEEPS DEMANDING THAT HE IS NOT A FALLS RISK AND WANTS THE BED ALARM TURNED OFF.
--- NOTE | 2017-09-05 00:42 | NUR ---
PATIENT GETTING OUT OF BED REPEATEDLY. TIESHA BED WAS CLOSED UP TO KEEP PATIENT SAFE. CALL LIGHT WAS LEFT INSIDE BED WITH HIM AND TIESHA ALARM WAS TURNED OFF.
[2017-09-05 06:14] LABS: BASOPHILS 0.1 % (0-2); EOSINOPHILS 0.8 % (0-7); HEMOGLOBIN 13.2 g/dL (13.5-17.5); IMMATURE GRANULOCYTES 0.3 % (0-5); LYMPHOCYTES 12.2 % (15-50); MCH 31.7 pg (26.0-34.0); MCHC 35.7 g/dL (31.0-37.0); MCV 88.7 fL (80.0-100.0); MEAN PLATELET VOLUME 10.7 fL (7.4-10.4); MONOCYTES 2.9 % (2-11); NEUTROPHILS 83.7 % (40-80); PLATELET COUNT 106 10x3/uL (130-400); RBC 4.17 10x6/uL (4.20-6.10); RDW 14.4 % (11.5-14.5); WBC 7.4 10x3/uL (4.8-10.8)
[2017-09-05 06:40] LABS: ALBUMIN 1.8 g/dL (3.4-5.0); ALKALINE PHOSPHATASE 189 U/L (46-116); ALT (SGPT) 81 U/L (10-68); BILIRUBIN - TOTAL 0.91 mg/dL (0.2-1.3); CALC OSMOLALITY 256 mosm/kg (275-300); CALCIUM 7.4 mg/dL (8.5-10.1); CARBON DIOXIDE 24.2 mmol/L (21.0-32.0); CHLORIDE - SERUM 96 mmol/L (98-107); CREATININE - SERUM 0.6 mg/dL (0.6-1.3); GLUCOSE 92 mg/dL (74-106); POTASSIUM - SERUM 3.9 mmol/L (3.5-5.1); PROTEIN - SERUM 6.1 g/dL (6.4-8.2); SODIUM 129 mmol/L (136-145); UREA NITROGEN 8 mg/dL (7-18); eGFR NON AFRICAN AMERICAN > 90 mL/min (90-120)
--- NOTE | 2017-09-05 06:53 | NUR ---
TIESHA BED UNDONE PER PATIENT REQUEST. TIESHA MAT TURNED ON.
--- NOTE | 2017-09-05 07:15 | NUR ---
REPORT RECEIVED FROM HAND TACKER NURSE. CALL LIGHT IN REACH.
--- NOTE | 2017-09-05 12:15 | NUR ---
PT AWAKENS EASILY AT THIS TIME PT IN NET BED PT VERBALIZES NO NEEDS AT THIS TIME
--- NOTE | 2017-09-05 19:15 | NUR ---
PT IN TIESHA BED SLEEPING. RESP EVEN AND UNLABORED. CALL LIGHT AT SIDE.
--- NOTE | 2017-09-05 21:55 | NUR ---
PATIENT RESTING IN BED AND DENIES NEEDS AT THIS TIME. ADMINISTERED MEDS PER ORDERS. BED IN LOWEST POSITION AND CALL LIGHT WITHIN REACH. ENCOURAGED THE PATIENT TO CALL IF HE HAS NEEDS.
[2017-09-06] VITALS (7 sets, daily range): BP systolic 79–115; BP diastolic 53–76
--- NOTE | 2017-09-06 04:03 | NUR ---
PT UP TO BEDSIDE CHAIR. EATING ICE CREAM AND DRINKING COKE. WILL RETURN TO TIESHA BED SOON.
--- NOTE | 2017-09-06 07:30 | NUR ---
RECIEVED PT DURING WALKING ROUNDS. PT RESTING IN BED WITH NO COMPLAINTS OF PAIN OR DISCOMFORT AT THIS TIME. ASSISTED PT UP BATHROOM AND THEN TO CHAIR. PT A/O X4. ASSESSMENT DONE PER FLOWSHEET. BED IN LOW POSITION AND CALL LIGHT WITHIN REACH. WILL CONTINUE TO MONITOR.
--- NOTE | 2017-09-06 15:30 | NUR ---
ASSISTED PT BACK INTO BED DUE TO PT BEING WEAK AND NOT WANTING TO SIT DOWN IN CHAIR. PT KEPT TRYING TO GET UP, ENCLOSED BED AT THIS TIME TO ENSURE PT SAFETY. WILL CONTINUE TO MONITOR.
--- NOTE | 2017-09-06 18:50 | NUR ---
1600 VITALS SIGNS NOT RECORDED BY NURSES' AID, AID UNABLE TO BE LOCATED AT THIS TIME AND NO VITAL SHEET FOUND. SUPPLY CLERK GINGER CALLED AND INFORMED OF THIS. PHONE CALL PLACED TO AID TO OBTAIN DOCUMENTATION OF VITAL SIGNS.
--- NOTE | 2017-09-06 19:15 | NUR ---
RECEIVED CARE FROM DAY NURSE. PT IN TIESHA BED ON SIDE. REPORTS NO NEEDS AT THIS TIME. CALL LIGHT AT SIDE.
[2017-09-07] VITALS: BP 84/52
--- NOTE | 2017-09-07 00:43 | NUR ---
PATIENT RESTING IN BED WITH RIAZ CHEW AT BEDSIDE. PATIENT HAS NO VISIBLE SIGNS OF DISTRESS AND DENIES NEEDS AT THIS TIME. TIESHA BED IN LOWEST POSITION AND CALL LIGHT WITHIN REACH. ENCOURAGED THE PATIENT TO CALL IF HE HAS NEEDS.
[2017-09-07 04:00] VITALS: BP 80/48
[2017-09-07 05:27] LABS: BASOPHILS 0.3 % (0-2); EOSINOPHILS 1.6 % (0-7); HEMATOCRIT 35.7 % (42.0-54.0); HEMOGLOBIN 12.8 g/dL (13.5-17.5); IMMATURE GRANULOCYTES 0.3 % (0-5); LYMPHOCYTES 24.3 % (15-50); MCH 31.6 pg (26.0-34.0); MCHC 35.9 g/dL (31.0-37.0); MCV 88.1 fL (80.0-100.0); MEAN PLATELET VOLUME 10.2 fL (7.4-10.4); MONOCYTES 6.8 % (2-11); NEUTROPHILS 66.7 % (40-80); PLATELET COUNT 119 10x3/uL (130-400); RBC 4.05 10x6/uL (4.20-6.10); RDW 14.7 % (11.5-14.5); WBC 3.7 10x3/uL (4.8-10.8)
[2017-09-07 05:38] LABS: CALC OSMOLALITY 263 mosm/kg (275-300); CALCIUM 7.1 mg/dL (8.5-10.1); CARBON DIOXIDE 23.6 mmol/L (21.0-32.0); CHLORIDE - SERUM 98 mmol/L (98-107); CREATININE - SERUM 0.7 mg/dL (0.6-1.3); GLUCOSE 123 mg/dL (74-106); POTASSIUM - SERUM 3.4 mmol/L (3.5-5.1); SODIUM 132 mmol/L (136-145); UREA NITROGEN 7 mg/dL (7-18); eGFR NON AFRICAN AMERICAN > 90 mL/min (90-120)
--- NOTE | 2017-09-07 08:12 | NUR ---
SCHEDULED MEDICATIONS ADMINISTERED AT THIS TIME WITHOUT DIFFICULTY. AWAKE AND ALERT. DENIES PAIN. IN TIESHA BED WITH SIDES UNZIPPED. TIESHA MAT ALARM IN USE FOR FALL PRECAUTIONS. CALL LIGHT IN REACH, WILL CONTINUE WITH PLAN OF CARE.
[2017-09-07 08:21] VITALS: BP 185/55
--- NOTE | 2017-09-07 10:30 | NUR ---
10 SHASHA D/C FROM LEFT SIDE OF HEAD AT THIS TIME. INCISIONS WELL APPROXIMATED. PT TOLERATED WITH MINIMAL COMPLAINTS.
--- NOTE | 2017-09-07 13:05 | NUR ---
PT TRANSFERRED INTO [facility] BED PER ORDER. TIESHA MAT ALARM IN USE FOR FALL PRECAUTIONS.
--- NOTE | 2017-09-07 15:00 | NUR ---
RIGHT SUBCLAVIAN CENTRAL LINE D/C WITH CATH TIP INTACT. PRESSURE DRESSING APPLIED TO SITE. INSTRUCTED PT TO LIE FLAT FOR 30 MINUTES TO DECREASE THE RISK OF BLEEDING. PT VERBALIZED UNDERSTANDING.
--- NOTE | 2017-09-07 15:40 | NUR ---
22G IV SITED TO PT'S LEFT FOREARM X1 ATTEMPT.
--- NOTE | 2017-09-07 17:23 | NUR ---
OT NOTE: PT PERFORMED MUCH BETTER. LESS CONFUSION NOTED TODAY. PT A AND O TO PERSON AND PLACE, SOME DIFFICULTY WITH TIME. PT ABLE TO AMB IN ROOM WITH CGA AND VC FOR WALKER MGMT; DYNAMIC STANDING BALANCE AT F+; LE DRESSING WITH SET UP; TOILETING WITH CGA/SBA. MUCH IMPROVEMENT SINCE LAST WEEK.
--- NOTE | 2017-09-07 17:33 | NUR ---
OT NOTE: PT COMPLETED BED MOB WITH MOD VERBAL CUES FOR INCREASED SEQUENCING AND SAFETY. PT COMPLETED SIMPLE ADL WITH CUES. THANK YOU, AMAIRANI BLANCO/Manuel
[2017-09-07 20:00] VITALS: BP 89/71; BP 91/66; BP 95/66
[2017-09-08] VITALS: BP 105/58; BP 85/60; BP 91/68
--- NOTE | 2017-09-08 01:09 | NUR ---
EYES CLOSED RESPIRATIONS WITH EASE AND UNLABORED. SR UP X2 CALL LIGHT WITHIN REACH.
--- NOTE | 2017-09-08 04:57 | NUR ---
PATIENT IS ALERT IN BED, REFUSES VITAL SIGNS TO BE TAKEN STATES "I AM TIRED AND JUST WANT TO SLEEP AND BE LEFT ALONE".
[2017-09-08 06:52] LABS: BASOPHILS 0.3 % (0-2); EOSINOPHILS 2.4 % (0-7); HEMATOCRIT 35.9 % (42.0-54.0); HEMOGLOBIN 12.9 g/dL (13.5-17.5); IMMATURE GRANULOCYTES 0.5 % (0-5); LYMPHOCYTES 32.8 % (15-50); MCH 31.5 pg (26.0-34.0); MCHC 35.9 g/dL (31.0-37.0); MCV 87.8 fL (80.0-100.0); MEAN PLATELET VOLUME 9.6 fL (7.4-10.4); MONOCYTES 13.6 % (2-11); NEUTROPHILS 50.4 % (40-80); PLATELET COUNT 133 10x3/uL (130-400); RBC 4.09 10x6/uL (4.20-6.10); RDW 14.9 % (11.5-14.5); WBC 3.8 10x3/uL (4.8-10.8)
[2017-09-08 07:28] LABS: ALBUMIN 1.9 g/dL (3.4-5.0); ALKALINE PHOSPHATASE 207 U/L (46-116); ALT (SGPT) 79 U/L (10-68); BILIRUBIN - TOTAL 0.45 mg/dL (0.2-1.3); CALC OSMOLALITY 262 mosm/kg (275-300); CALCIUM 7.4 mg/dL (8.5-10.1); CARBON DIOXIDE 23.2 mmol/L (21.0-32.0); CHLORIDE - SERUM 101 mmol/L (98-107); CREATININE - SERUM 0.7 mg/dL (0.6-1.3); GLUCOSE 87 mg/dL (74-106); POTASSIUM - SERUM 4.1 mmol/L (3.5-5.1); PROTEIN - SERUM 6.3 g/dL (6.4-8.2); SODIUM 133 mmol/L (136-145); UREA NITROGEN 7 mg/dL (7-18); eGFR NON AFRICAN AMERICAN > 90 mL/min (90-120)
--- NOTE | 2017-09-08 08:00 | NUR ---
AWAKE AND ALERT. ORIENTED X3. LUNGS ARE CLEAR BILATERALLY, NO COUGH NOTED. SKIN IS INTACT WITHOUT REDNESS. SITTING UP IN CHAIR AT BEDSIDE. DENIES NEEDS.
[2017-09-08 08:30] VITALS: BP 95/64
--- NOTE | 2017-09-08 10:38 | NUR ---
spoke with [facility] and they do not accept the patients insurance per the referral department.
[2017-09-08 11:39] VITALS: BP 98/70
[2017-09-08] MEDS ORDERED: MACROBID100 MG PO (11:46)
[2017-09-08] MEDS ORDERED: FLORAJEN3 CAPS460 MG PO (11:58)
[2017-09-08] MEDS ORDERED: SYNTHROID50 MCG PO (11:58)
[2017-09-08] MEDS ORDERED: LASIX40 MG PO (12:00)
[2017-09-08] MEDS ORDERED: K-DUR20 MEQ PO (12:01)
--- NOTE | 2017-09-08 12:15 | NUR ---
LUNCH SERVED IN ROOM. ATE ALL OF MEAL PER SELF.
--- NOTE | 2017-09-08 12:36 | NUR ---
Left message with sister Antonia about brother having discharge orders
--- NOTE | 2017-09-08 14:00 | NUR ---
patient will be discharging home today and Joselin will be driving him to her house and his sister Antonia will be picking him up from her when she gets off work. Patient will be discharging home to his sisters house with Home health, PT,and OT. Patient will have [facility] per sister. [facility] has accepted the patient and will be follow by them. CM will continue to assist as needed with discharge planning at needs.
--- NOTE | 2017-09-08 14:19 | NUR ---
OT NOTE: PT REMAINS APPROX SAME YESTERDAY. HE IS ABLE TO AMB WITHIN ROOM WITH RW, HOWEVER, CONTINUES WITH SAFETY AWARNESS ISSUES, HE REQUIRED 2 VC WHILE ATTEMPTING TO AMB IN ROOM WHILE LIFTING WALKER UP OFF OF FLOOR. CUES REQUIRED AND EDUCATION PERFORMED TO ALWAYS KEEP WHEELS OF WALKER ON THE FLOOR. ABLE TO PERFORM UE AND LE DRESSING WITH SET UP AND SEVERAL CUES TO KEEP PT FOCUSED ON TASK AT HAND. PT REMAINS EASILY DISTRACTED WITH SHORT ATTN SPAN
--- NOTE | 2017-09-08 16:21 | NUR ---
DISCHARGED TO HOME WITH FAMILY AMBULATORY. DISCHARGE INSTRUCTIONS GIVEN BOTH VERBALLY AND WRITTEN. ALL QUESTIONS ANSWERED. INSTRUCTIONS GONE OVER WITH GIRLFRIEND WELL. PATIENT VERBALIZED UNDERSTANDING OF SAME. NEEDED PRESCRIPTIONS ESCRIBED TO PHARMACY OF CHOICE. MEDS IN OUR PHARMACY RETURNED TO PATIENT WHEN FAMILY HERE. ALL BELONGINGS WENT WITH PATIENT.
--- NOTE | 2017-09-15 13:16 | OP ---
PATIENT NAME: SABINA CLARK MEDICAL RECORD: [id number] :58 LOCATION:[id number] ADMISSION DATE:08/13/17 SURGEON: DONNELL STEVENS MD DATE OF OPERATION: 08/14/2017 PREOPERATIVE DIAGNOSIS: Left frontoparietal subacute subdural hematoma. POSTOPERATIVE DIAGNOSIS: Left frontoparietal subacute subdural hematoma. PROCEDURE: Left frontal radha hole for evacuation of subdural hematoma. DESCRIPTION OF THE TECHNIQUE: After induction of general endotracheal anesthesia, the patient was positioned supine on the operating table. Neck and the scalp was prepped and draped in the usual sterile fashion. A linear scalp incision was carried out over the left superior temporal line. A radha hole was created with a craniotome. The dura was opened in a cruciate manner with the bipolar cautery and a #11 blade. There was brisk egress of subacute subdural hematoma fluid from the subdural space. This was irrigated until it was crystal clear. The galea was closed with interrupted 3-0 Vicryl suture. The skin was closed with neva. A sterile dressing was applied to the wounds. The patient was awakened in good condition and taken to recovery. All counts were reported as correct. Estimated blood loss was minimal. TRANSINT:[id number] Voice Confirmation ID: [id number] DOCUMENT ID: [id number] 09/10/2017 Edited to correct date of operation, dmm. DONNELL STEVENS MD at 1316 CC: [id number] DICTATION DATE: 08/18/17 1349 SIGNAL OPERATOR: 08/18/17 1444 DIS IN 09/08/17 [id number] [place] [address]
== END 2017-09-08 16:24 | disposition home health service (06) | DRG 25 ==
LOC: D.ER 20:35 → D.MS 23:33 → D.ICU 23:33 → D.MS 08-17 16:27 → D.ICU 08-19 17:56 → D.MS 08-26 20:56
PROVIDERS: Emergency Medicine; Family Medicine; Internal Medicine Pulmonary Disease; Neurological Surgery; Nurse Practitioner Family; Student in an Organized Health Care Education/Training Program; ADMIT Family Medicine Adult Medicine
PROC: 00940ZZ Drainage of Intracranial Subdural Space, Open Approach (ICD-10-PCS; 2017-08-14)
PROC: 00940ZZ Drainage of Intracranial Subdural Space, Open Approach (ICD-10-PCS; principal; 2017-08-21 13:00)
DX: S06.5X9A Traumatic subdural hemorrhage with loss of consciousness of unspecified duration, initial encounter (principal); J69.0 Pneumonitis due to inhalation of food and vomit; G93.41 Metabolic encephalopathy; I50.23 Acute on chronic systolic (congestive) heart failure; I82.511 Chronic embolism and thrombosis of right femoral vein; I82.531 Chronic embolism and thrombosis of right popliteal vein; R47.01 Aphasia; F17.203 Nicotine dependence unspecified, with withdrawal; I42.9 Cardiomyopathy, unspecified; J98.11 Atelectasis; E87.1 Hypo-osmolality and hyponatremia; F05 Delirium due to known physiological condition; J70.0 Acute pulmonary manifestations due to radiation; W19.XXXA Unspecified fall, initial encounter; J44.9 Chronic obstructive pulmonary disease, unspecified; K21.9 Gastro-esophageal reflux disease without esophagitis; E03.9 Hypothyroidism, unspecified; R40.2143 Coma scale, eyes open, spontaneous, at hospital admission; R40.2363 Coma scale, best motor response, obeys commands, at hospital admission; R40.2243 Coma scale, best verbal response, confused conversation, at hospital admission; Z85.118 Personal history of other malignant neoplasm of bronchus and lung; I08.1 Rheumatic disorders of both mitral and tricuspid valves; K74.60 Unspecified cirrhosis of liver; M10.9 Gout, unspecified; R13.10 Dysphagia, unspecified; Z78.1 Physical restraint status; E87.6 Hypokalemia; E83.42 Hypomagnesemia; I27.20 Pulmonary hypertension, unspecified

== ENCOUNTER 2018-06-11 08:04 | Emergency (ER) | payer MEDICARE, MEDICAID ==
[~2018-06-11] VITALS: Ht 177.8 cm; Wt 90.9 kg
[~2018-06-11 08:04] MED LIST changes: +COUMADIN5 MG PO; +MACROBID100 MG PO; +METOLAZONE2.5 MG PO; +SYNTHROID50 MCG PO
[2018-06-11 08:07] VITALS: Ht 177.8 cm; Wt 90.9 kg
[2018-06-11] MEDS ORDERED: HYDROCODON-ACE1 EAC7 PO (08:36)
[2018-06-11 09:18] VITALS: BP 120/74
== END 2018-06-11 09:19 | disposition home or self-care (01) ==
LOC: D.ER 08:04
DX: S62.615A Displaced fracture of proximal phalanx of left ring finger, initial encounter for closed fracture (principal); S62.617A Displaced fracture of proximal phalanx of left little finger, initial encounter for closed fracture; X58.XXXA Exposure to other specified factors, initial encounter; Y93.89 Activity, other specified; Y92.019 Unspecified place in single-family (private) house as the place of occurrence of the external cause; I50.9 Heart failure, unspecified; J44.9 Chronic obstructive pulmonary disease, unspecified; F17.200 Nicotine dependence, unspecified, uncomplicated

== ENCOUNTER 2018-12-13 02:42 | Observation (INO) | payer OTHER, MEDICAID ==
[~2018-12-13] VITALS: Ht 177.8 cm; Wt 96.4 kg
[2018-12-13] VITALS (8 sets, daily range): BP systolic 105–146; BP diastolic 73–98
[~2018-12-13 02:42] MED LIST changes: +HYDROCODON-ACE1 EAC7 PO
[2018-12-13 03:49] LABS: BASOPHILS 0.5 % (0-2); EOSINOPHILS 0 % (0-7); HEMATOCRIT 44.9 % (42.0-54.0); HEMOGLOBIN 16.2 g/dL (13.5-17.5); IMMATURE GRANULOCYTES 0.2 % (0-5); LYMPHOCYTES 39.3 % (15-50); MCH 35.8 pg (26.0-34.0); MCHC 36.1 g/dL (31.0-37.0); MCV 99.1 fL (80.0-100.0); MEAN PLATELET VOLUME 10.2 fL (7.4-10.4); RBC 4.53 10x6/uL (4.20-6.10); WBC 5.6 10x3/uL (4.8-10.8)
--- NOTE | 2018-12-13 03:50 | NUR ---
PT CHANGED INTO A GOWN. IV NS BOLUS BEGAN. STOOL FOR OCCULT BLOOD OBTAINED- TRACE POSITIVE. PT STATES HAS BEEN SICK FOR ABOUT 1 WEEK. PT C/O NAUSEA.
[2018-12-13 03:56] LABS: PLATELET COUNT 201 10x3/uL (130-400)
[2018-12-13 04:00] LABS: APTT 33.3 SECONDS (22.8-39.4); INR 1.4 (0.85-1.17); PROTIME 16.5 SECONDS (11.6-15.0)
[2018-12-13 04:09] LABS: ALBUMIN 3.2 g/dL (3.4-5.0); ALKALINE PHOSPHATASE 70 U/L (46-116); ALT (SGPT) 94 U/L (10-68); AMYLASE - SERUM 189 U/L (25-115); BILIRUBIN - TOTAL 1.06 mg/dL (0.2-1.3); CALC OSMOLALITY 277 mosm/kg (275-300); CALCIUM 8.6 mg/dL (8.5-10.1); CARBON DIOXIDE 30.5 mmol/L (21.0-32.0); CHLORIDE - SERUM 96 mmol/L (98-107); CREATININE - SERUM 2.1 mg/dL (0.6-1.3); GLUCOSE 129 mg/dL (74-106); LIPASE 208 U/L (73-393); PROTEIN - SERUM 11.5 g/dL (6.4-8.2); SODIUM 137 mmol/L (136-145); UREA NITROGEN 18 mg/dL (7-18); eGFR NON AFRICAN AMERICAN 34 mL/min (90-120)
[2018-12-13 04:24] LABS: POTASSIUM - SERUM 2.8 mmol/L (3.5-5.1); TROPONIN-I < 0.017 ng/mL (0.000-0.060)
--- NOTE | 2018-12-13 04:30 | NUR ---
PT RESTING ON BED. PT UPDATED ON PLAN OF CARE.
--- NOTE | 2018-12-13 05:40 | NUR ---
PT C/O PAIN, RN ADMINISTERED MEDS ORDERED.
--- NOTE | 2018-12-13 06:27 | NUR ---
PT ASKING FOR COFFEE, RN EXPLAINED NPO STATUS WHILE ACTIVELY VOMITING.
--- NOTE | 2018-12-13 07:05 | NUR ---
EDP VO OK TO START PRN PAIN MEDS NOW AND CONT Q 4 HR. PT REPORTS PAIN 06/08.
[2018-12-13 11:57] LABS: BASOPHILS 0.3 % (0-2); EOSINOPHILS 0 % (0-7); HEMATOCRIT 39.8 % (42.0-54.0); IMMATURE GRANULOCYTES 0.1 % (0-5); LYMPHOCYTES 33.4 % (15-50); MCH 34.7 pg (26.0-34.0); MCHC 35.2 g/dL (31.0-37.0); MCV 98.5 fL (80.0-100.0); MEAN PLATELET VOLUME 9.9 fL (7.4-10.4); MONOCYTES 14.4 % (2-11); NEUTROPHILS 51.8 % (40-80); PLATELET COUNT 149 10x3/uL (130-400); RBC 4.04 10x6/uL (4.20-6.10); RDW 16.1 % (11.5-14.5); WBC 7.2 10x3/uL (4.8-10.8)
--- NOTE | 2018-12-13 12:09 | NUR ---
URINE COLLECTED AND SENT TO LAB
[2018-12-13 12:23] LABS: CALCIUM 7.3 mg/dL (8.5-10.1); CARBON DIOXIDE 26.4 mmol/L (21.0-32.0); CREATININE - SERUM 1.9 mg/dL (0.6-1.3)
[2018-12-13 12:29] LABS: APPEARANCE TURBID (CLEAR); BILIRUBIN NEGATIVE (NEGATIVE); COLOR DK YELLOW (YELLOW); GLUCOSE NEGATIVE (NEGATIVE); KETONE NEGATIVE (NEGATIVE); NITRITE NEGATIVE (NEGATIVE); PROTEIN 2+ mg/dL (NEGATIVE)
[2018-12-13 12:31] LABS: BACTERIA MANY /hpf (NONE SEEN); EPITHELIAL CELLS OCC /hpf (0-5); RED CELLS - URINE 0-5 /hpf (0-5); WHITE CELLS - URINE 25-50 /hpf (0-5)
[2018-12-13 12:36] LABS: POTASSIUM - SERUM 3.4 mmol/L (3.5-5.1)
[2018-12-13 12:37] LABS: UDS - AMPHET NEGATIVE QUAL (NEGATIVE); UDS - BARB NEGATIVE QUAL (NEGATIVE); UDS - BENZO NEGATIVE QUAL (NEGATIVE); UDS - COCAINE NEGATIVE QUAL (NEGATIVE); UDS - OPIATE POSITIVE QUAL (NEGATIVE); UDS - PCP NEGATIVE QUAL (NEGATIVE); UDS - THC NEGATIVE QUAL (NEGATIVE)
[2018-12-13 12:52] LABS: MAGNESIUM - SERUM 0.8 mg/dL (1.8-2.4)
--- NOTE | 2018-12-13 17:34 | NUR ---
IV TO R HAND OCCLUDED AND D/C
[2018-12-14 00:08] VITALS: BP 139/92; BMI 28.7
[2018-12-14 04:00] VITALS: BP 149/93
--- NOTE | 2018-12-14 06:20 | NUR ---
RECIEVED [id number] FROM [facility] IN ER. BROUGHT TO FLOOR IN W/C ASSISTED BY STAFFREFUSES TO LET THIS NURSE LOOK AT LEFT FA THAT IS WRAPPED WITH DELPHINE BANDAGE. STATING IT HURTS TO MUCH. REQUEST THAT MD BE CALLED FOR PAIN MEDS THIS AM. SPOKE WITH DR. MELLO AND STATED DR. FOSTER NEEDS TO LOOK AT THST ARM AND ASSESS IT BEFORE HE WILL ORDER AND PAIN MEDICATIONS. EXPLAINED TO PT NAD GAVE VERBAL AGREEMENT ON PLAN.
--- NOTE | 2018-12-14 07:48 | NUR ---
SHIFT ASSESSMENT COMPLETED AT THIS TIME. PT IS AA0X3. HR0-RRR, PPP, PIV TO RT WRIST C/D/I WITHOUT ERYTHEMA OR EDEMA NOTED TO SITE. BREATH SOUNDS CLEAR, BUT DIMINISHED X2. BOWEL SOUNDS ACTIVE X4, BUT ABD APPEARS MILDLY DISTENDED. PT DENIES PAIN, N/V/D AT THIS TIME. NO EDEMA NOTED TO BLE. FEET BILATERALLY DRY AND CRACKED WITH SKIN FLAKING. BLUE SOCKS PLACED ON FEET BILATERALLY. PT IS NPO AWAITING EGD. NO NEEDS VOICED. BED LOW, WHEELS LOCKED, CALL LIGHT AND PHONE WITHIN REACH, SIDE RAILS UP X2.
--- NOTE | 2018-12-14 08:26 | NUR ---
RyanneRN in Outpatient GI calls unit to give scheduled time of scheduled EGD per Dr. Armenta. procedure scheduled for 4pm. Anesthesia orders for preop to be given at approx 1530.
[2018-12-14 09:18] LABS: ALBUMIN 2.6 g/dL (3.4-5.0); BILIRUBIN - TOTAL 1.12 mg/dL (0.2-1.3); CHOL - HDL RATIO 2.7 ratio (2.3-4.9); LDL-HDL RATIO 1.5 ratio (1.5-3.5)
--- NOTE | 2018-12-14 09:18 | NUR ---
SCHEDULED MEDS GIVEN PER ORDERS. SEE EMAR FOR ADMINISTRATION. MEDS GIVEN WITH SMALL SIPS OF WATER.
[2018-12-14 09:26] LABS: ANION GAP 13.3 mmol/L (8-16); CREATININE - SERUM 1.4 mg/dL (0.6-1.3); POTASSIUM - SERUM 4.3 mmol/L (3.5-5.1); PROTEIN - SERUM 8.4 g/dL (6.4-8.2)
[2018-12-14 09:27] LABS: CALCIUM 6.9 mg/dL (8.5-10.1)
[2018-12-14 10:03] VITALS: BMI 28.6
--- NOTE | 2018-12-14 10:24 | NUR ---
MORNING LAB RESULTS CALLED TO SHAIN[facility] AT [facility] OFFICE. PHONE NUMBER [phone].CALL BACK NUMBER PROVIDED.
--- NOTE | 2018-12-14 10:39 | NUR ---
PT UP TO BATHROOM PER SELF AT THIS TIME. NO C/O OR NEEDS VOICED. LIBRIUM GIVEN PER ORDERS. SEE EMAR FOR ADMINISTRATION.
--- NOTE | 2018-12-14 10:41 | NUR ---
LIBRIUM 10 MG GIVEN PER ORDERS WITH SMALL SIPS OF WATER
[2018-12-14 11:23] LABS: BASOPHILS 0.7 % (0-2); HEMOGLOBIN 12.5 g/dL (13.5-17.5); IMMATURE GRANULOCYTES 0.2 % (0-5); LYMPHOCYTES 32.3 % (15-50); MCH 34.6 pg (26.0-34.0); MCHC 34.7 g/dL (31.0-37.0); MCV 99.7 fL (80.0-100.0); MEAN PLATELET VOLUME 10.2 fL (7.4-10.4); MONOCYTES 7.3 % (2-11); NEUTROPHILS 58.5 % (40-80); PLATELET COUNT 151 10x3/uL (130-400); RBC 3.61 10x6/uL (4.20-6.10); RDW 16.4 % (11.5-14.5); WBC 5.7 10x3/uL (4.8-10.8)
--- NOTE | 2018-12-14 13:42 | NUR ---
PT RINGS CALL LIGHT. ASKS ABOUT PROCEDURE AGAIN. EXPLAINED TO PT GI LAB WILL COME TO GET HIM WHEN READY. PT VERBALIZED UNDERSTANDING.
[2018-12-14 13:44] VITALS: BP 143/92
--- NOTE | 2018-12-14 14:33 | NUR ---
PT RINGS CALL LIGHT. ASKS ABOUT PROCEDURE AGAIN. EXPLAINED TO PT GI LAB WILL COME TO GET HIM WHEN READY. PT VERBALIZED UNDERSTANDING.
--- NOTE | 2018-12-14 15:10 | NUR ---
PT RINGS CALL LIGHT. ASKS ABOUT PROCEDURE AGAIN. EXPLAINED TO PT GI LAB WILL COME TO GET HIM WHEN READY. PT VERBALIZED UNDERSTANDING. ADV RN WILL COME TO BEDSIDE FOR PREOP MEDS WHEN READY. PT VERBALIZED UNDERSTANDING, DENIES FURTHER NEEDS AT THIS TIME.
--- NOTE | 2018-12-14 15:45 | NUR ---
PRE OP MEDS GIVEN PER ORDERS. SEE EMAR FOR ADMINISTRATION.
--- NOTE | 2018-12-14 16:05 | NUR ---
PRE OP NS SET TO INFUSE AT 50 ML/HR VIA ALARIS PUMP. AWAITING GI LAB ARRIVAL AT THIS TIME.
--- NOTE | 2018-12-14 16:26 | NUR ---
OFF UNIT VIA BED PER GI STAFF
[2018-12-14 17:40] VITALS: BP 119/81
--- NOTE | 2018-12-14 17:40 | NUR ---
RCVD PT FROM GI LAB POST EGD. PT IS AAOX3. PIV SET TO INFUSED VIA ALARIS PUMP PER ORDERS. PT DENIES NEEDS AT THIS TIME.
--- NOTE | 2018-12-14 17:48 | NUR ---
SCHEDULED MEDS GIVEN PER ORDERS. SEE EMAR FOR ADMINISTRATION.
--- NOTE | 2018-12-14 18:04 | NUR ---
PT REPORTS NEED TO HAVE BM. PT ASSISTED TO SITTING ON BEDSIDE WITHOUT C/O DIZZINESS OR WEAKNESS. PT AMB PER SELF TO BATHROOM WITHOUT DIFFICULTY. NO FURTHER NEEDS VOICED AT THIS TIME.
[2018-12-14 18:05] VITALS: BP 138/95
--- NOTE | 2018-12-14 18:13 | NUR ---
PT RINGS CALL LIGHT ASKING ABOUT DIET. INFORMED PT HE'S ON A FULL LIQUID DIET. PT VERBALIZES UNDERSTANDING. NO NEEDS VOICED.
--- NOTE | 2018-12-14 19:23 | NUR ---
PM ROUNDS MADE, PT WATCHING TV, INFORMED PT THAT I WILL BE BACK SHORTLY TO DO ASSESSMENT, PT VERBALIZES UNDERSTANDING, DENIES NEEDS OR PAIN AT THIS TIME, BED IN LOW POSITION, SIDE RAILS X 2, CALL LIGHT IN REACH
[2018-12-14 20:45] VITALS: BP 133/95
--- NOTE | 2018-12-14 20:45 | NUR ---
VS OBTAINED PER LEXIE FAIRBANKS RN
--- NOTE | 2018-12-14 21:13 | NUR ---
ASSESSMENT PER FLOW SHEET, IV IN RIGHT WRIST INTACT WITH NO REDNESS OR EDEMA, NEW BAG OF NS WITH KCL INFUSING VIA PUMP AT 125 ML/HR, PT USING URINAL, HAS INCONT AT TIMES, EMPTIED 300 MLS OF DARK YELLOW URINE FROM URINAL, PT DENIES BM, REPORTS FLATUS, TALKED TO PT ABOUT NPO AFTER 9AM FOR PIPIDA SCAN, PT VERBALIZES UNDERSTANDING, FRESH H20 SERVED, ADM 2100 MEDS PER MD ORDERS, SEE EMAR, PT DENIES FURTHER NEEDS OR PAIN, BED IN LOW POSITION, SIDE RAILS X 2, CALL LIGHT IN REACH
--- NOTE | 2018-12-14 22:05 | NUR ---
PT DISPOSAL MAN LIGHT, PT REQUESTED AND SERVED ICE CREAM, DENIES FURTHER NEEDS
--- NOTE | 2018-12-14 22:42 | NUR ---
PT AGILE BUSINESS ANALYST LIGHT, PT STATES "I NEED TO CHANGE MY GOWN, I DIDN'T QUITE MAKE IT TO THE BR", GOWN CHANGED, INST PT TO USE URINAL, PT STATES "OH, I FORGOT ABOUT THAT", URINAL PLACED IN A MORE CONVENIENT SPOT FOR HIM, PT DENIES FURTHER NEEDS, BED IN LOW POSITION, SIDE RAILS X 2, CALL LIGHT IN REACH
[2018-12-15 00:27] VITALS: BP 123/88
--- NOTE | 2018-12-15 00:27 | NUR ---
GUI HUNG VIA PUMP, SEE EMAR, PT REQUESTED AND SERVED SNACK, DENIES FURTHER NEEDS OR PAIN, BED IN LOW POSITION, SIDE RAILS X 2, CALL LIGHT IN REACH
--- NOTE | 2018-12-15 00:27 | NUR ---
VS OBTAINED PER HEAT TREAT SUPERVISOR FROM [facility]
--- NOTE | 2018-12-15 02:49 | NUR ---
PT CASINO GAMES DEALER LIGHT, THIS RN TO ROOM, PT DRESSED HIMSELF, SHIRT OVER IV, PT STATES "I MISSED THE TOILET", ROOM CLEANED UP, ASSISTED PT WITH CLEANING SELF UP, SHIRT AND PANTS REMOVED, ADULT BRIEFS, SCRUB PANTS/TOP, AND CLEAN SOCKS PLACED, COMPLETE BEDDING CHANGED, PT BACK IN BED, PT INST NOT TO GET UP OUT OF BED WITHOUT ASSISTANCE, PT SLIGHTLY UNSTEADY THIS MORNING, PT VERBALIZES UNDERSTANDING, WILL PLACE BED ALARM WHEN RECEIVED, BED IN LOW POSITION, SIDE RAILS X 2, CALL LIGHT IN REACH
--- NOTE | 2018-12-15 03:40 | NUR ---
PT RESTING ON LEFT SIDE, DENIES NEEDS OR PAIN AT THIS TIME, BED IN LOW POSITION, SIDE RAILS X 2, CALL LIGHT IN REACH
--- NOTE | 2018-12-15 04:00 | NUR ---
IV BEEPING, THIS RN TO ROOM, IV NO LONGER PATENT, PT HAS BENT IV TO SIDE, IV REMOVED, TIP INTACT, PRESSURE HELD, BANDAID APPLIED, WILL PLACE NEW IV
--- NOTE | 2018-12-15 04:12 | NUR ---
VENKATESH NAYLOR RN FROM L&D TO ROOM FOR IV START, ATTEMPTED TWICE WITH NO SUCCESS
--- NOTE | 2018-12-15 04:24 | NUR ---
ER NURSE NOTIFIED FOR IV START
--- NOTE | 2018-12-15 04:30 | NUR ---
BOX ALARM ATTACHED TO PT AND WORKING PROPERLY, PT INFORMED AND INST ON BOX ALARM AND FALL PRECAUTIONS, PT VERBALIZES UNDERSTANDING
--- NOTE | 2018-12-15 04:33 | NUR ---
VERNELL GUERRA FROM ER TO ROOM FOR IV START
--- NOTE | 2018-12-15 05:00 | NUR ---
VERNELL GUERRA FROM ER REPORTS THAT HE ATTEMPTED IV START X 3 WITH NO SUCCESS
[2018-12-15 05:10] VITALS: BP 126/87
--- NOTE | 2018-12-15 05:32 | NUR ---
PT AWAKE, ADM 0600 MED PER MD ORDERS, SEE EMAR
--- NOTE | 2018-12-15 06:00 | NUR ---
RN FROM [facility] CAME TO SEE ABOUT STARTING AN IV ON PT, HE SAID HE WOULD NOT BE ABLE TO GET THE IV
--- NOTE | 2018-12-15 06:14 | NUR ---
ADM 0700 MED PO PER MD ORDERS, SEE EMAR, EMPTIED 175 MLS OF DARK YELLOW URINE FROM URINAL, PT DENIES NEEDS OR PAIN AT THIS TIME, BED IN LOW POSITION, SIDE RAILS X 2, CALL LIGHT IN REACH, BOX ALARM ON AND WORKING PROPERLY
[2018-12-15 06:24] LABS: BASOPHILS 0.3 % (0-2); EOSINOPHILS 1.4 % (0-7); HEMATOCRIT 36.3 % (42.0-54.0); HEMOGLOBIN 12.4 g/dL (13.5-17.5); IMMATURE GRANULOCYTES 0.3 % (0-5); LYMPHOCYTES 32.3 % (15-50); MCH 34.4 pg (26.0-34.0); MCHC 34.2 g/dL (31.0-37.0); MCV 100.8 fL (80.0-100.0); MEAN PLATELET VOLUME 10.5 fL (7.4-10.4); MONOCYTES 5.8 % (2-11); NEUTROPHILS 59.9 % (40-80); PLATELET COUNT 144 10x3/uL (130-400); RDW 16.5 % (11.5-14.5); WBC 7.1 10x3/uL (4.8-10.8)
[2018-12-15 06:49] LABS: ALBUMIN 2.4 g/dL (3.4-5.0); ANION GAP 14.2 mmol/L (8-16); BILIRUBIN - TOTAL 0.88 mg/dL (0.2-1.3); CARBON DIOXIDE 21.2 mmol/L (21.0-32.0); CREATININE - SERUM 1.2 mg/dL (0.6-1.3); POTASSIUM - SERUM 4.4 mmol/L (3.5-5.1); PROTEIN - SERUM 7.8 g/dL (6.4-8.2)
[2018-12-15 07:08] LABS: CALCIUM 6.7 mg/dL (8.5-10.1)
[2018-12-15 08:22] LABS: HEPATITIS C ANTIBODY 0.2 S/CO RAT (0.0-0.9)
[2018-12-15 08:27] VITALS: BP 138/96
--- NOTE | 2018-12-15 08:27 | NUR ---
SHIFT ASSESSMENT COMPLETED AT THIS TIME. PT LYING ON BACK WITH HOB 30 DEGREES. FULL LIQUID MEAL TRAY SERVED. PT IS AWAKE AND ALERT TO PERSON ONLY. THIS RN ATTEMPTED TO ORIENT PT TO PLACE AND SITUATION. PT STATES "I JUST NEED A CIGARETTE. WHERE CAN I GET A CIGARETTE AROUND HERE?" ADV PT THAT HE CAN HAVE A NICOTINE PATCH. PT IS AGREEABLE. HR-RRR, PPP, BREATH SOUNDS CLEAR & UNLABORED X2, BOWEL SOUNDS ACTIVE X4. ABD APPEARS MILDLY DISTENDED. NO TENDERNESS TO ABD NOTED. PT IS WITHOUT IV ACCESS DUE TO HIM TAKING IT OUT OVERNIGHT. WILL CALL THE VASCULAR ACCESS NURSE. BED LOW, WHEELS LOCKED, CALL LIGHT AND PHONE WITHIN REACH, SIDE RAILS UP X2.
--- NOTE | 2018-12-15 08:30 | NUR ---
SCHEDULED 0900 MEDS GIVEN PER ORDERS. WHILE GIVING MEDS PT SEES THE MAINTANENCE MAN IN THE HALLWAY AND BECOMES VERY AGGITATED AND ANGRY. PT JUMPS UP OUT BED TO GO AFTER THE MAINTANENCE MAN. HUMANE OFFICER, DOMINIC NOTIFIED OF PT STATUS.
--- NOTE | 2018-12-15 09:00 | NUR ---
SUSANNAH, VASCULAR ACCESS NURSE CALLED TO RESTART IV. SHE STATES SHE WILL BE ON UNIT LOPEZ.
--- NOTE | 2018-12-15 09:25 | NUR ---
IV ACCESS NURSE, SUSANNAH NETTLES, VERNELL STARTS PIV TO RT HAND AT THIS TIME.
--- NOTE | 2018-12-15 09:40 | NUR ---
ORDERED IV MEDS INITIATED VIA ALARIS PUMP.
--- NOTE | 2018-12-15 10:10 | NUR ---
RN TO BEDSIDE. GUI TATE FINISHED. LINE DISCONNECTED AT THIS TIME. PT ASKS "HEY! WHERE CAN I GET SOME CIGARETTES?" ADV PT THAT HE HAS A NICOTINE PATCH. PT SAYS "OH YEAH." NO NEEDS VOICED. PT TRIES TO GET UP OUT OF BED AGAIN. ADV PT THAT HE NEEDS TO REMAIN IN HIS ROOM AT THIS TIME.
--- NOTE | 2018-12-15 10:45 | NUR ---
CURRENT NS WITH 20 MEQ KCL COMPLETE. OLD BAG DOWN, NEW BAG UP TO PRESENT TUBING SET TO INFUSE AT 200ML/HR PER ORDERS. PT ASKS AGAIN, "WHERE CAN I GET SOME CIGARETTES AT?" ADV PT THAT HE CANNOT HAVE CIGARETTES AND THAT HE IS IN THE HOSPITAL. PT STATES "OH OK. WELL WHY CAN'T I SMOKE? I NEED TO GO OUTSIDE AND SMOKE?" ADV PT THAT HE HAS A NICOTINE PATCH ON AND THAT HE CANNOT GO OUTSIDE. PT BECOMES ANGRY WITH HIS RN AND YELLS "I NEED A CIGARETTE!" THIS RN TELLS PT THAT HE CANNOT YELL AT HOSPITAL STAFF AND HE IS TO STAY IN HIS ROOM AT THIS TIME.
--- NOTE | 2018-12-15 10:54 | NUR ---
ANAIS NAVA ON UNIT. POC DISCUSSED WITH THIS RN. NO NEW ORDERS RCVD.
--- NOTE | 2018-12-15 11:52 | NUR ---
SOURCING ASSISTANT INFORMED OF PT STATUS. SOURCING ASSISTANT, CELINE STATES SHE DOES NOT HAVE A BED TO MOVE HIM TO AND TO CALL THE DR AND GET SOMETHING ELSE ORDERED.
--- NOTE | 2018-12-15 11:59 | NUR ---
GUEST TO ROOM AT THIS TIME.
[2018-12-15 12:15] VITALS: BP 144/92
--- NOTE | 2018-12-15 12:30 | NUR ---
PT DESIRES TO TAKE A SHOWER. BATH WIPES AND CLEAN GOWN PROVIDED TO PT PER Joni GARDINER RN.
--- NOTE | 2018-12-15 13:50 | NUR ---
PT ATTEMPTS TO TAKE PIV OUT. THIS RN AND Joni ZULEYKA RN TO ROOM AT THIS TIME. PIV ASSESSED, REMAINS PATENT. RETAPED. BLOOD ON FLOOR, AND IV POLE CLEANED. ADV PT TO LEAVE IV ALONE AND TO CALL RN FOR ASSISTANCE WITH DRESSING. PT STATES "CAN THIS IV THING BE TAKEN IN THE TRUCK? WHEN ARE WE GOING TO MY APPOINTMENT? WE GOT TO GO!" ADV PT THAT PIPIDA SCAN PROCEDURE WILL BE DONE AT THE HOSPITAL TODAY AND THEY WILL COME GET HIM BY WHEELCHAIR. PT SAYS "OH OK THEN."
--- NOTE | 2018-12-15 14:30 | NUR ---
E.R. ADMISSIONS TO UNIT TO PUT PT'S WALLET IN THE SAFE. CONSENTS EXPLAINED AND SIGNED. ITEMS IN WALLET ITEMIZED AND WALLET TAKEN TO THE SAFE PER PT REQUEST.
--- NOTE | 2018-12-15 16:04 | NUR ---
ANAIS AUSTIN ON UNIT TO ASSESS PT AND DISCUSS POC. NEW ORDERS [facility].
--- NOTE | 2018-12-15 16:12 | NUR ---
PT OFF UNIT VIA W/C WITH PAWAN FROM [employer] FOR PIPIDA SCAN.
--- NOTE | 2018-12-15 17:10 | NUR ---
CALL [facility] FROM [facility] FOR PIPIDA SCAN. PAWAN REPORTS THAT TYPICALLY WHEN THE GALLBLADDER CANNOT BE VISUALIZED THEY HAVE TO GET A VERBAL ORDER FOR MORPHINE AND IT NEEDS TO BE ADMINISTERED BY THE PT'S NURSE. ADV HER TO CALL CAR REFINISHER I AM THE ONLY NURSE ON THE UNIT AT THIS TIME.
--- NOTE | 2018-12-15 18:46 | NUR ---
PT ARRIVED TO FLOOR BY BED, ORIENTED TO ROOM. MANUALLY REMOVED PIV UPON ARRIVAL. NO S/S OF DISTRESS NOTED. CALL LIGHT IN REACH. WILL CTM.
--- NOTE | 2018-12-15 19:36 | NUR ---
ATTEMPT FOR IV UNSUCCESSFUL. CUTLER ALSO ATTEMPTED IV. PT HAS NO S/S OF DISTRESS. BEDLOW AND CALL LIGHT IN REACH. PT IS SKAKING AT THIS TIME. EATING SOME DINNER. WILL CALL ER OR ICU FOR ASSIST
--- NOTE | 2018-12-15 19:50 | NUR ---
GREETED PATIENT AND INTRODUCED MYSELF. PATIENT IS SOMEWHAT CONFUSED TO WHERE HE IS AND WHAT IS GOING ON. PATIENT HAS NO IV ACCESS DUE TO PATIENT PULLING OUT HIMSELF. SEVERAL ATTEMPTS HAVE BEEN MADE TO START IV BUT HAVE BEEN UNSUCCESSFUL.
--- NOTE | 2018-12-15 20:48 | NUR ---
DR. GRAMAJO OFFICE CONTACTED TO SEE IF WE CAN POSSIBLY CHANGE SOME OF PATIENTS MEDICATIONS TO PO DUE TO NOT BEING ABLE TO OBTAIN IV ACCESS. WCTM.
--- NOTE | 2018-12-15 21:04 | NUR ---
CONTACTED DR. KAPADIA OFFICE TO SEE IF WE CAN POSSIBLY CHANGE SOME OF PATIENTS MEDICATIONS TO PO DUE TO NOT BEING ABLE TO OBTAIN IV ACCESS. ANSWERING SVC. WILL CALL BACK
--- NOTE | 2018-12-16 00:30 | NUR ---
PATIENT RESTING COMFORTABLY IN SUPINE POSITION WATCHING TV. DENIES ANY NEEDS AT THIS TIME. WCTM.
--- NOTE | 2018-12-16 02:51 | NUR ---
PATIENT AWAKE AND WANDERING IN THE [place] CONFUSED LOOKING FOR THE BATHROOM. REDIRECED PATIENT BACK TO HIS ROOM AND TO HIS BATHROOM. ASSISTED PATIENT BACK TO BED. IAN.
--- NOTE | 2018-12-16 03:57 | NUR ---
PATIENT CONFUSED AND WANDERING OUTSIDE OF HIS ROOM. STATES HE DOESNT KNOW WHERE HE IS. I REDIRECTED PATIENT TO HIS ROOM AND REORIENTATED HIM TO WHERE HE WAS. CALL LIGHT IN REACH. BED IN LOWEST POSITION.
[2018-12-16 06:05] VITALS: BP 138/95
[2018-12-16 08:39] LABS: BASOPHILS 0.5 % (0-2); EOSINOPHILS 1.5 % (0-7); HEMATOCRIT 39.3 % (42.0-54.0); HEMOGLOBIN 13.9 g/dL (13.5-17.5); IMMATURE GRANULOCYTES 0.1 % (0-5); LYMPHOCYTES 37.4 % (15-50); MCH 35.5 pg (26.0-34.0); MCHC 35.4 g/dL (31.0-37.0); MCV 100.3 fL (80.0-100.0); MEAN PLATELET VOLUME 10.3 fL (7.4-10.4); MONOCYTES 6.5 % (2-11); RBC 3.92 10x6/uL (4.20-6.10); RDW 16.3 % (11.5-14.5)
[2018-12-16 08:40] LABS: PLATELET COUNT 182 10x3/uL (130-400)
--- NOTE | 2018-12-16 08:57 | NUR ---
PT SCD'S ORDERED. PT REFUSING TO WEAR THEM AT THIS TIME. PT REQUESTING VALUABLES FROM [employer] ALSO. WCTM.
[2018-12-16 09:08] LABS: ALBUMIN 2.7 g/dL (3.4-5.0); ANION GAP 13.5 mmol/L (8-16); BILIRUBIN - TOTAL 1.09 mg/dL (0.2-1.3); CALCIUM 7.8 mg/dL (8.5-10.1); CARBON DIOXIDE 22.4 mmol/L (21.0-32.0); CREATININE - SERUM 1.3 mg/dL (0.6-1.3); POTASSIUM - SERUM 3.9 mmol/L (3.5-5.1); PROTEIN - SERUM 9.3 g/dL (6.4-8.2)
[2018-12-16 09:46] VITALS: BP 137/97
[2018-12-16 09:56] VITALS: Ht 177.8 cm; Wt 96.4 kg
--- NOTE | 2018-12-16 10:10 | NUR ---
PT AM MEDS ADMINISTERED. PT ASKING FOR BELONGINGS FROM [employer].
--- NOTE | 2018-12-16 11:00 | NUR ---
ER CALLED. BRINGING VALUABLES. PT DENIES FURTHER NEEDS. WCTM.
[2018-12-16 12:22] VITALS: BP 132/97
--- NOTE | 2018-12-16 14:01 | NUR ---
Nutrition Follow Up: Chart reviewed. Pt still N/V at times per surgery note. Per chart pt to have cholecystectomy 12/17/18. BM: 12/14/18 Labs reviewed Meds noted including Lasix, Thiamine Rec continue current diet as tolerated. RD following.
--- NOTE | 2018-12-16 15:00 | NUR ---
VERNELL DAVALOS STARTED NEW MIDLINE TO PT'S RT UPPER ARM. STERILE PRECAUTIONS. PT TOLERATED WELL.
[2018-12-16 17:27] VITALS: BP 109/57
--- NOTE | 2018-12-16 19:50 | NUR ---
PT GET OUT OF ROOM AND WALK IN HALLWAY. TAKLING TO SELF. REORIENTED PT BACK TO ROOM.
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
--- NOTE | 2018-12-16 22:31 | NUR ---
PT REST QUIETLY IN BED.CONTINUE MONITOR CLOSELY.
[2018-12-17] VITALS (7 sets, daily range): BP systolic 106–136; BP diastolic 71–98
--- NOTE | 2018-12-17 03:29 | NUR ---
RESP IN BED, RESP EVEN, NO DISTRESS. CALL LIGHT IN REACH.
--- NOTE | 2018-12-17 04:00 | NUR ---
PT ASLEEP, RESP EVEN AND UNLABORED. BEDLOW AND CALL LIGHT IN REACH. NO S/S OF DISTRESS. WILL CPOC
[2018-12-17 06:27] LABS: BASOPHILS 0.3 % (0-2); EOSINOPHILS 1.8 % (0-7); HEMATOCRIT 36.5 % (42.0-54.0); HEMOGLOBIN 12.7 g/dL (13.5-17.5); IMMATURE GRANULOCYTES 0.2 % (0-5); LYMPHOCYTES 36.8 % (15-50); MCH 34.7 pg (26.0-34.0); MCHC 34.8 g/dL (31.0-37.0); MCV 99.7 fL (80.0-100.0); MEAN PLATELET VOLUME 10.7 fL (7.4-10.4); MONOCYTES 7.2 % (2-11); NEUTROPHILS 53.7 % (40-80); PLATELET COUNT 182 10x3/uL (130-400); RBC 3.66 10x6/uL (4.20-6.10); WBC 6.5 10x3/uL (4.8-10.8)
[2018-12-17 06:55] LABS: ALBUMIN 2.5 g/dL (3.4-5.0); ANION GAP 16.4 mmol/L (8-16); BILIRUBIN - TOTAL 0.82 mg/dL (0.2-1.3); CALCIUM 8.4 mg/dL (8.5-10.1); CARBON DIOXIDE 20.3 mmol/L (21.0-32.0); CREATININE - SERUM 1.2 mg/dL (0.6-1.3); POTASSIUM - SERUM 3.7 mmol/L (3.5-5.1); PROTEIN - SERUM 8.4 g/dL (6.4-8.2)
--- NOTE | 2018-12-17 08:56 | NUR ---
AWAKE AND ALERT. ORIENTED X3. NO C/O AT THIS TIME. LUNGS ARE CLEAR BILATERALLY, NO COUGH NOTED. SKIN IS INTACT WITHOUT REDNESS EXCEPT WOUND TO LEFT FOREARM WHICH IS HEALING WITHOUT SIGNS OF INFECTION.DRY INTACT DRESSING IN PLACE. SL TO RIGHT UPPER ARM IS PATENT WITHOUT REDNESS AT INSERTION SITE. DENIES NEEDS. NPO FOR SURGERY.
--- NOTE | 2018-12-17 11:23 | NUR ---
NO SCD'S PLACED DUE TO CURRENT BLOOD CLOT IN RIGHT LEG, CANDY.
--- NOTE | 2018-12-17 12:48 | NUR ---
RETURNED FROM SURGERY. A/O X3. 4 SMALL INSERTION TO ABDOMEN CLEAN AND DRY. DENIES NEEDS.
--- NOTE | 2018-12-17 13:00 | NUR ---
ATE ALL OF CL TRAY WITHOUT DIFFICULTY. WILL ORDER REGUALR TRAY FOR SUPPER. WANTS TO GO HOME.
--- NOTE | 2018-12-17 14:05 | OP ---
PATIENT NAME: SABINA CLARK MEDICAL RECORD: [id number] :56 LOCATION:D.M3 D.1211 ADMISSION DATE:12/13/18 SURGEON: KVNG NOGUERA MD DATE OF OPERATION: 12/17/2018 PREOPERATIVE DIAGNOSES: 1. Acute cholecystitis. 2. Coronary artery disease. 3. Hypertension. 4. Congestive heart failure. 5. Chronic obstructive pulmonary disease. 6. History of hepatitis. POSTOPERATIVE DIAGNOSES: 1. Acute cholecystitis. 2. Coronary artery disease. 3. Hypertension. 4. Congestive heart failure. 5. Chronic obstructive pulmonary disease. 6. History of hepatitis. PROCEDURES: 1. Laparoscopic cholecystectomy. 2. Liver biopsy. SURGEON: Kvng Noguera MD MANGLE TENDER: Laura Alvarado APRN REPORT OF PROCEDURE: The patient's abdomen was prepped and draped in sterile fashion. A skin incision was made on the superior aspect of the umbilicus. The 0 Vicryls were placed in the fascia bilaterally and the fascia was incised with 15-blade. I then bluntly entered the peritoneal cavity and placed a 12-mm Rocio port. Under direct visualization, a 5-mm trocar was placed in the epigastrium and 2 more 5-mm trocars were placed in the right subcostal region. The gallbladder was noted to be markedly inflamed with a lot of fatty tissue around it. The fatty tissue was taken down with electrocautery and blunt dissection. We eventually dissected out the cystic artery and cystic duct. The patient had 2 branches of the cystic artery. These were both clipped proximally and distally and ligated in standard fashion. The cystic duct was clipped proximally and distally and ligated and at this point, the gallbladder was taken off the liver bed using electrocautery. Any bleeding from the liver bed was then treated with electrocautery. The patient's gallbladder had a cobblestoning appearance and with his history of hepatitis, a Heriberto-Cut biopsy tool was brought through the abdominal wall and 2 biopsies were taken of the right side of the liver. Any bleeding from these was treated with electrocautery. At this point, the ports and insufflation were then removed and the gallbladder was taken out through the umbilicus. The umbilical fascia was closed with interrupted 0 Vicryls times 3. The wounds were then irrigated out with normal saline, infused with 10 mL of 0.25% Marcaine with epinephrine. The skin incisions were all closed with subcutaneous 5-0 Monocryl and dressed appropriately. COMPLICATIONS: None. CONDITION: Stable. OPERATIVE REPORT [id number] SABINA CLARK ANESTHESIA: General endotracheal and local. BLOOD LOSS: Minimal. TRANSINT:[id number] Voice Confirmation ID: [id number] DOCUMENT ID: [id number] KVNG NOGUERA MD at 1405 CC: [id number] DICTATION DATE: 12/17/18 1139 ANIMAL ECOLOGIST: 12/17/18 1241 ADM IN [facility] [id number] [place] [address]
--- NOTE | 2018-12-17 15:00 | NUR ---
RESTING QUIETLY IN PHONE. DENIES NEEDS.
--- NOTE | 2018-12-17 18:37 | NUR ---
ATE ALL OF REGUALR SUPPER TRAY WITHOUT C/O PAIN OR NAUSEA. WILL CONTINUE TO MONITOR. DENIES NEEDS. NO CHANGES NOTED.
--- NOTE | 2018-12-17 20:00 | NUR ---
THE PATIENT WAS WATCHING TELEVISION WHEN STAFF ENTERED HIS ROOM. THE PATIENT IS ON CONTACT PRECAUTIONS. BED IN THE LOW POSITION WITH SIDERAILS X2 AND CALL LIGHT WITHIN REACH. THE PATIENT WAS EDUCATED ON USE OF A CALL LIGHT AND THE FACT THAT HE CAN NOT LEAVE HIS ROOM. PATIENT DEMONSTRATES UNDERSTANDING VIA TEACHBACK METHOD. THE PATIENT APPEARS COMFORTABLE AND HAS NO QUESTIONS OR CONCERNS AT THIS TIME.
[2018-12-18] VITALS: BP 138/96
--- NOTE | 2018-12-18 01:55 | NUR ---
THE PATIENT IS WATCHING TELEVISION. HE HAS NO QUESTIONS OR CONCERNS AT THIS TIME.
[2018-12-18 04:00] VITALS: BP 129/91
[2018-12-18 07:27] LABS: BASOPHILS 0.2 % (0-2); EOSINOPHILS 0.1 % (0-7); HEMATOCRIT 35.9 % (42.0-54.0); HEMOGLOBIN 12.6 g/dL (13.5-17.5); IMMATURE GRANULOCYTES 0.3 % (0-5); MCHC 35.1 g/dL (31.0-37.0); MCV 99.7 fL (80.0-100.0); MEAN PLATELET VOLUME 10.6 fL (7.4-10.4); MONOCYTES 8.3 % (2-11); NEUTROPHILS 71.1 % (40-80); PLATELET COUNT 183 10x3/uL (130-400); RDW 16.1 % (11.5-14.5)
[2018-12-18 07:28] LABS: WBC 12.8 10x3/uL (4.8-10.8)
[2018-12-18 07:45] LABS: ALBUMIN 2.7 g/dL (3.4-5.0); ANION GAP 14.9 mmol/L (8-16); BILIRUBIN - TOTAL 0.59 mg/dL (0.2-1.3); CALCIUM 7.8 mg/dL (8.5-10.1); CREATININE - SERUM 1.4 mg/dL (0.6-1.3); POTASSIUM - SERUM 3.9 mmol/L (3.5-5.1)
--- NOTE | 2018-12-18 07:45 | NUR ---
ASSESSMENT COMPLETE. MIDLINE TO RIGHT UPPER ARM. LAP SITES X 4 TO ABDOMEN. CONTACT ISOLATION PRECAUTIONS IN PLACE. DENIES ANY NEEDS AT THIS TIME.
--- NOTE | 2018-12-18 12:00 | NUR ---
NO CHANGES NOTED AT THIS TIME.
--- NOTE | 2018-12-18 15:00 | NUR ---
RESTING QUIETLY WITH EYES CLOSED. RESP EVEN,NONLABORED.
--- NOTE | 2018-12-18 18:04 | NUR ---
DENIES ANY NEEDS AT THIS TIME.
[2018-12-18 19:39] VITALS: BP 109/66
--- NOTE | 2018-12-18 20:08 | NUR ---
THE PATIENT WAS SITTING IN HIS CHAIR, TALKING ON THE PHONE, WHEN STAFF ENTERED HIS ROOM. THE PATIENT STATED PAIN AND REQUESTED PAIN MEDICATION. MEDICATION DELIVERED. THE PATIENT DEMONSTRATES APPROPRIATE USE OF A CALL LIGHT. THE PATIENT APPEARS COMFORTABLE WITH NO QUESTIONS OR CONCERNS AT THIS TIME.
[2018-12-18 23:31] VITALS: BP 106/73
--- NOTE | 2018-12-19 02:51 | NUR ---
THE PATIENT APPEARS TO BE SLEEPING WIT HIS CALL LIGHT WITHIN REACH.
[2018-12-19 04:24] VITALS: BP 132/94
[2018-12-19 07:24] LABS: BASOPHILS 0.2 % (0-2); EOSINOPHILS 1.3 % (0-7); HEMATOCRIT 35.4 % (42.0-54.0); HEMOGLOBIN 12.1 g/dL (13.5-17.5); IMMATURE GRANULOCYTES 0.3 % (0-5); LYMPHOCYTES 31.5 % (15-50); MCH 34.4 pg (26.0-34.0); MCHC 34.2 g/dL (31.0-37.0); MCV 100.6 fL (80.0-100.0); MEAN PLATELET VOLUME 10.1 fL (7.4-10.4); MONOCYTES 10.2 % (2-11); NEUTROPHILS 56.5 % (40-80); PLATELET COUNT 174 10x3/uL (130-400); RBC 3.52 10x6/uL (4.20-6.10); RDW 16.5 % (11.5-14.5)
[2018-12-19 07:28] LABS: WBC 9.1 10x3/uL (4.8-10.8)
[2018-12-19 07:35] LABS: ANION GAP 12.6 mmol/L (8-16); CALCIUM 8.3 mg/dL (8.5-10.1); CARBON DIOXIDE 23.9 mmol/L (21.0-32.0); CREATININE - SERUM 1.4 mg/dL (0.6-1.3); MAGNESIUM - SERUM 1.2 mg/dL (1.8-2.4); POTASSIUM - SERUM 3.5 mmol/L (3.5-5.1)
--- NOTE | 2018-12-19 08:10 | NUR ---
ASSESSMENT COMPLETE. MIDLINE TO R UPPER ARM. CONTACT ISOLATION. LAP SITES X 3 TO ABDOMEN. DENIES ANY NEEDS AT THIS TIME.
[2018-12-19 08:57] VITALS: BP 129/98
[2018-12-19 11:00] VITALS: BP 123/52
--- NOTE | 2018-12-19 12:00 | NUR ---
NO CHANGES NOTED AT THIS TIME.
[2018-12-19 15:00] VITALS: BP 128/86
--- NOTE | 2018-12-19 18:05 | NUR ---
DENIES ANY NEEDS AT THIS TIME.
[2018-12-19 19:45] VITALS: BP 128/94
--- NOTE | 2018-12-19 20:20 | NUR ---
PT RESTING IN BED. ALERT AND ORIENTED. PT STATES NO PROBLEMS AT THIS TIME. NO SIGNS OF DITRESS. BREATHING EVEN AND UNLABORED. IV SITE RT UPPER MIDLINE DRESSING CLEAN DRY AND INTACT. NO SIGNS OF INFECTION. SKIN CLEAN DRY AND INTACT. BOWEL SOUNDS ACTIVE ABD DRESSINGS CLEAN DRY AND ITNACT. NO LOWER LEG SWELLING PRESENT. WILL CONTINUE PLAN OF CARE. CALL LIGHT IN REACH.
[2018-12-19 23:55] VITALS: BP 122/86
[2018-12-20 03:55] VITALS: BP 133/98
[2018-12-20 06:56] LABS: BASOPHILS 0.2 % (0-2); EOSINOPHILS 1.4 % (0-7); HEMATOCRIT 37.3 % (42.0-54.0); IMMATURE GRANULOCYTES 0.5 % (0-5); LYMPHOCYTES 36.6 % (15-50); MCH 35.1 pg (26.0-34.0); MCHC 34.9 g/dL (31.0-37.0); MCV 100.8 fL (80.0-100.0); MEAN PLATELET VOLUME 9.9 fL (7.4-10.4); MONOCYTES 13.4 % (2-11); NEUTROPHILS 47.9 % (40-80); PLATELET COUNT 190 10x3/uL (130-400); RDW 16.7 % (11.5-14.5); WBC 8.4 10x3/uL (4.8-10.8)
[2018-12-20 07:00] LABS: ANION GAP 12.3 mmol/L (8-16); CALCIUM 8.3 mg/dL (8.5-10.1); CARBON DIOXIDE 23.5 mmol/L (21.0-32.0); CREATININE - SERUM 1.2 mg/dL (0.6-1.3); POTASSIUM - SERUM 3.8 mmol/L (3.5-5.1)
--- NOTE | 2018-12-20 07:46 | NUR ---
ROUNDING DONE WITH PAITENT IN CONTACT ISOLATION. DENIES NEEDS AT THIS TIME. ON ROOM AIR. RIGHT UPPER ARM MIDLINE SEEN WITH SALINE LOCK. ON EP, K+ 3.8. DENIES NEEDS AT THIS TIME.
[2018-12-20 08:35] VITALS: BP 118/90
[2018-12-20 11:38] VITALS: BP 115/86
--- NOTE | 2018-12-20 12:56 | NUR ---
1256-DULCOLOX SUPP GIVE ORDERED. PATIENT IS INSTRUCTED TO CALL US FOR ANY BOWEL MOVEMENT. STATES TO UNDERSTANDING.
--- NOTE | 2018-12-20 14:10 | NUR ---
CALLED TO ROOM WITH PATIENT HAVING SMALL BOWEL MOVEMENT.
--- NOTE | 2018-12-20 17:08 | NUR ---
PATIENT HAD A MODERATE AMOUNT OF STOOL FROM DULCOLOX. STATES THAT HE WANTS TO WAIT ON HIS SUPPER TRAY AT THIS TIME. STILL IN CONTACT ISOLATION.
--- NOTE | 2018-12-20 19:30 | NUR ---
PT IS RESTING IN BED WITH EYES CLOSED. AWOKE EASILY TO VERBAL STIMULI. DENIES ANY PAIN OR DISCOMFORT AT THIS TIME. NO NEEDS VOICED. CONTACT PRECAUTIONS OBSERVED WITH PT. RIGHT ARM MIDLINE IV SALINE LOCK NOTED. SR'S ARE UP X 2 IN BED. CALL LIGHT AND BEDSIDE TABLE ARE WITHIN EASY REACH.
[2018-12-20 20:00] VITALS: BP 123/97
--- NOTE | 2018-12-20 22:14 | NUR ---
PT VOICED COMPLAINT OF BACK PAIN LEVEL OF 7. MEDICATED PER MAR.
[2018-12-21] VITALS (7 sets, daily range): BP systolic 102–129; BP diastolic 72–90
--- NOTE | 2018-12-21 00:41 | NUR ---
PT RESTING IN BED WITH EYES CLOSED.
--- NOTE | 2018-12-21 02:00 | NUR ---
PATIENT RESTING IN BED WITH EYES CLOSED AND NO S/S OF DISTRESS. BED IN LOWEST POSITION AND CALL LIGHT WITHIN REACH. WILL CONTINUE TO MONITOR.
--- NOTE | 2018-12-21 03:56 | NUR ---
PT RESTING IN BED WITH EYES CLOSED. NO DISTRESS NOTED.
[2018-12-21 07:12] LABS: BASOPHILS 0.3 % (0-2); HEMATOCRIT 35.2 % (42.0-54.0); HEMOGLOBIN 12.7 g/dL (13.5-17.5); IMMATURE GRANULOCYTES 0.4 % (0-5); LYMPHOCYTES 30.8 % (15-50); MCH 35.6 pg (26.0-34.0); MCHC 36.1 g/dL (31.0-37.0); MEAN PLATELET VOLUME 9.6 fL (7.4-10.4); MONOCYTES 13.2 % (2-11); NEUTROPHILS 54.3 % (40-80); PLATELET COUNT 199 10x3/uL (130-400); RBC 3.57 10x6/uL (4.20-6.10); RDW 16.3 % (11.5-14.5)
[2018-12-21 07:13] LABS: MCV 98.6 fL (80.0-100.0); WBC 10.6 10x3/uL (4.8-10.8)
[2018-12-21 07:27] LABS: ANION GAP 14.4 mmol/L (8-16); CALCIUM 8.3 mg/dL (8.5-10.1); CARBON DIOXIDE 21.4 mmol/L (21.0-32.0); CREATININE - SERUM 1.2 mg/dL (0.6-1.3); POTASSIUM - SERUM 3.8 mmol/L (3.5-5.1)
--- NOTE | 2018-12-21 08:00 | NUR ---
PT AOX4 RESP EVEN AND NONLABORED PT DENIES NEEDS AT THIS TIME IV TO RIGHT MIDLINE PATENT AND INTACT AT THIS TIME SRX2 BED AT LOWEST SETTING CALL LIGHT WITHIN REACH WILL CONTINUE TO MONITOR
--- NOTE | 2018-12-21 14:15 | NUR ---
Regular diet with 75,50% intake of meal yesterday. Observed lunch today and pt eating >/=75% of meal. Pt reports a good appetite and pt reports he has no nutrition related questions at this time RD following
--- NOTE | 2018-12-21 15:30 | MORECARE ---
CASE MANAGEMENT DISCHARGE SUMMARY PATIENT: SABINA CLARK UNIT: [id number] ADM DATE: 12/13/18 AGE: 58 : 56 SEX: M ROOM/BED: D.1211 AUTHOR: MICHEL JULIO PHYSICIAN: REFERRING PHYSICIAN: ECHO NINA MD DATE OF SERVICE: 12/21/18 Discharge Plan Patient Name: SABINA CLARK Facility: [facility]:[place] : 1960 Planned Disposition: Anticipated Discharge Date: Discharge Date: Expected LOS: Initial Reviewer: [email or web address] Initial Review Date: 12/21/2018 Generated: 12/21/18 4:30 pm Patient Name: SABINA CLARK Page [phone] at 1530 All edits/amendments must be made on the electronic document DICTATION DATE: 12/21/18 1529 PETROLEUM INSPECTOR SUPERVISOR: MELONY 12/21/18 1529 RPT#: [id number] DC DATE: STATUS: ADM IN [facility] [address] [place] [address] END OF REPORT
--- NOTE | 2018-12-21 19:20 | NUR ---
PATIENT IS RESTING IN HIS BED. BED IS DOWN LOW WITH SIDE RAILS UP X2. CALL LIGHT IS IN REACH.
--- NOTE | 2018-12-21 23:30 | NUR ---
PT JUST FINISHED EATING, FOOD ON PT'S SCRUB TOP, VS OBTAINED, ASSISTED PT CHANGING INTO HOSPITAL GOWN AND CLEAN ADULT BRIEF, CLEAN SOCKS PLACED ON, PARTIAL BED BATH DONE, PT REQUESTED AND SERVED [place], PT DENIES FURTHER NEEDS OR PAIN, BED IN LOW POSITION, SIDE RAILS X 2, CALL LIGHT IN REACH
--- NOTE | 2018-12-22 04:08 | NUR ---
PATIENT IS SLEEPING. BED IS DOWN LOW WITH SIDE RAILS UP X2. CALL LIGHT IS IN REACH.
[2018-12-22 04:30] VITALS: BP 118/87
[2018-12-22 05:55] LABS: BASOPHILS 0.2 % (0-2); EOSINOPHILS 1.4 % (0-7); HEMOGLOBIN 11.8 g/dL (13.5-17.5); IMMATURE GRANULOCYTES 0.3 % (0-5); LYMPHOCYTES 26.9 % (15-50); MCH 34.8 pg (26.0-34.0); MCHC 34.7 g/dL (31.0-37.0); MCV 100.3 fL (80.0-100.0); MEAN PLATELET VOLUME 9.7 fL (7.4-10.4); MONOCYTES 10.4 % (2-11); NEUTROPHILS 60.8 % (40-80); PLATELET COUNT 210 10x3/uL (130-400); RBC 3.39 10x6/uL (4.20-6.10); RDW 16.6 % (11.5-14.5); WBC 10.4 10x3/uL (4.8-10.8)
[2018-12-22 06:15] LABS: HEPATITIS BE ANTIGEN Negative (Negative)
[2018-12-22 06:28] LABS: ANION GAP 14.6 mmol/L (8-16); CALCIUM 8.2 mg/dL (8.5-10.1); CARBON DIOXIDE 21.9 mmol/L (21.0-32.0); CREATININE - SERUM 1.2 mg/dL (0.6-1.3); POTASSIUM - SERUM 3.5 mmol/L (3.5-5.1)
[2018-12-22 09:50] VITALS: BP 124/93
[2018-12-22 16:12] LABS: HBV IU/ML 436000000 IU/mL (()); HBV IU/ML See Final Results IU/mL (()); LOG10 HBV IU/ML 8.639 (())
--- NOTE | 2018-12-22 17:30 | NUR ---
DISCHARGED HOME WITH FAMILY TO PRIVATE CAR. INSTRUCTIONS REVIEWED AND SIGNED PER PATIENT.
--- NOTE | 2018-12-22 19:10 | NUR ---
PATIENT LEFT HOSPITAL WITH RIGHT MIDLINE IV STILL IN PLACE. AFTER SEVERAL PHONE CALLS TO LOCATE PATIENT OF INCIDENT. HE RETURNED TO HOSPITAL WITH FAMILY TO GET IV REMOVED. IV DC'D PER AVERY VILLARREAL RN. NO BLEEDING, DIRECT PRESSURE APPLIED X 10 MINUTES. SENT PATIENT TO CAR VIA WHEELCHAIR WITH STAFF.
--- NOTE | 2018-12-23 15:26 | MORECARE ---
CASE MANAGEMENT DISCHARGE SUMMARY PATIENT: SABINA CLARK UNIT: [id number] ADM DATE: 12/13/18 AGE: 58 : 56 SEX: M ROOM/BED: D.1211 AUTHOR: MICHEL JULIO PHYSICIAN: REFERRING PHYSICIAN: ECHO NINA MD DATE OF SERVICE: 12/23/18 Discharge Plan Patient Name: SABINA CLARK [facility] : 1960 Planned Disposition: Anticipated Discharge Date: Discharge Date: 12/22/2018 Expected LOS: Initial Reviewer: [email or web address] Initial Review Date: 12/21/2018 Generated: 12/23/18 4:26 pm Last DP export: 12/21/18 2:30 p Patient Name: SABINA CLARK Page [phone] at 1526 All edits/amendments must be made on the electronic document DICTATION DATE: 12/23/18 1525 FBI SHARPSHOOTER: MELONY 12/23/18 1525 RPT#: [id number] DC DATE:12/22/18 STATUS: DIS IN [facility] [address] [place] [address] END OF REPORT
== END 2018-12-22 17:30 | disposition home or self-care (01) ==
LOC: D.ER 02:42 → D.EDHOLD 05:27 → D.WS 05:27 → D.M3 05:27 → OBSVTIME 05:27 → D.EDHOLD 05:27 → D.WS 20:06 → D.M3 12-15 18:41 → D.SDCHOLD 12-21 10:41 → D.M3 12-21 11:34
PROVIDERS: Family Medicine; Internal Medicine Gastroenterology; Internal Medicine Nephrology; ADMIT Family Medicine
DX: K81.0 Acute cholecystitis (principal); I25.10 Atherosclerotic heart disease of native coronary artery without angina pectoris; J44.9 Chronic obstructive pulmonary disease, unspecified; I11.0 Hypertensive heart disease with heart failure; I50.9 Heart failure, unspecified; K75.9 Inflammatory liver disease, unspecified; K20.9 Esophagitis, unspecified; K29.70 Gastritis, unspecified, without bleeding; K44.9 Diaphragmatic hernia without obstruction or gangrene

== ENCOUNTER 2019-02-04 10:14 | Emergency (ER) | payer OTHER ==
[~2019-02-04] VITALS: Ht 177.8 cm; Wt 86.4 kg
[2019-02-04 10:19] VITALS: Ht 177.8 cm; Wt 86.4 kg
[2019-02-04] MEDS ORDERED: BACLOFEN20 M1 PO (11:45)
[2019-02-04] MEDS ORDERED: VOLTAREN75 MG PO (11:45)
[2019-02-04 12:02] VITALS: BP 110/64
== END 2019-02-04 12:03 | disposition home or self-care (01) ==
LOC: D.ER 10:14
DX: M79.651 Pain in right thigh (principal); W18.30XA Fall on same level, unspecified, initial encounter; Y93.89 Activity, other specified; Y92.89 Other specified places as the place of occurrence of the external cause; M79.18 Myalgia, other site

== ENCOUNTER 2019-07-08 18:52 | Inpatient (IN) | payer MEDICARE, MEDICAID ==
[~2019-07-08] VITALS: Ht 177.8 cm; Wt 96.6 kg
[~2019-07-08 18:52] MED LIST changes: +BACLOFEN20 M1 PO; +VOLTAREN75 MG PO
[2019-07-08] MEDS ORDERED: VITAMIN B-1100 M1 PO (19:21)
[2019-07-08] MEDS ORDERED: PROBIOTIC1 EAC1 PO (19:23)
[2019-07-08] MEDS ORDERED: ELIQUIS5 MG PO (19:24)
[2019-07-08 19:34] LABS: BASOPHILS 0.2 % (0-2); EOSINOPHILS 0 % (0-7); HEMATOCRIT 45.6 % (42.0-54.0); HEMOGLOBIN 16.6 g/dL (13.5-17.5); IMMATURE GRANULOCYTES 0.1 % (0-5); LYMPHOCYTES 23.5 % (15-50); MCH 34.9 pg (26.0-34.0); MCHC 36.4 g/dL (31.0-37.0); MEAN PLATELET VOLUME 9.5 fL (7.4-10.4); MONOCYTES 8.6 % (2-11); NEUTROPHILS 67.6 % (40-80); PLATELET COUNT 196 10x3/uL (130-400); RBC 4.75 10x6/uL (4.20-6.10); RDW 14.7 % (11.5-14.5); WBC 8.9 10x3/uL (4.8-10.8)
[2019-07-08 19:54] LABS: ALBUMIN 3.5 g/dL (3.4-5.0); ALKALINE PHOSPHATASE 75 U/L (46-116); ALT (SGPT) 30 U/L (10-68); AMYLASE - SERUM 217 U/L (25-115); BILIRUBIN - TOTAL 1.08 mg/dL (0.2-1.3); CALCIUM 9.4 mg/dL (8.5-10.1); CARBON DIOXIDE 26.3 mmol/L (21.0-32.0); CHLORIDE - SERUM 98 mmol/L (98-107); CREATININE - SERUM 1.6 mg/dL (0.6-1.3); LIPASE 505 U/L (73-393); PROTEIN - SERUM 10.1 g/dL (6.4-8.2); SODIUM 137 mmol/L (136-145); UREA NITROGEN 16 mg/dL (7-18); eGFR NON AFRICAN AMERICAN 47 mL/min (90-120)
[2019-07-08 19:56] LABS: CALC OSMOLALITY 276 mosm/kg (275-300); GLUCOSE 128 mg/dL (74-106); POTASSIUM - SERUM 2.8 mmol/L (3.5-5.1); TROPONIN-I < 0.017 ng/mL (0.000-0.060)
--- NOTE | 2019-07-08 20:18 | NUR ---
PT TO RADIOLOGY.
[2019-07-08 21:22] LABS: APPEARANCE CLOUDY (CLEAR); BILIRUBIN 1+ (NEGATIVE); COLOR DK YELLOW (YELLOW); GLUCOSE NEGATIVE (NEGATIVE); KETONE MODERATE mg/dL (NEGATIVE); NITRITE POSITIVE (NEGATIVE); PROTEIN 2+ mg/dL (NEGATIVE); SPECIFIC GRAVITY 1.025 (1.005-1.020)
[2019-07-08 21:24] LABS: BACTERIA MODERATE /hpf (NONE SEEN); MUCUS <1+ /lpf (NONE SEEN); RED CELLS - URINE 0-5 /hpf (0-5); WHITE CELLS - URINE 25-50 /hpf (0-5)
[2019-07-08 21:25] LABS: HYALINE CAST 0-5 /lpf (NONE SEEN)
--- NOTE | 2019-07-08 23:57 | NUR ---
PT'S SECOND BAG OF POTASSIUM FINISHED.
--- NOTE | 2019-07-09 00:30 | NUR ---
PT ARRIVED TO FLOOR VIA WHEELCHAIR, WITHOUT DISTRESS, ALERT AND ORIENTED. AMBULATED TO BED WITHOUT DIFFICULTY. IV RIGHT FA INFUSING PROTONIX AND ROCEPHIN. PT REQUESTED AND GIVEN ICE WATER. BOWEL SOUNDS ACTIVE X4. LUNGS CTA. ABD DISTENDED, TENDER TO TOUCH. PT REPORT HAVING N/V/D X3 DAYS. ONLY HAS DIARRHEA WHEN ATTEMPTING TO EAT. ASSISTED WITH SET UP FOR SHOWER. PT SHOWERED BY SELF WITHOUT DIFFICULTY. DENIES PAIN OR NAUSEA AT THIS TIME. CL IN REACH, WILL CTM
--- NOTE | 2019-07-09 02:00 | NUR ---
IV RIGHT FA INFILTRATED. DC'D WITH CATHETER INTACT. RESITED 20G IV RIGHT AC X1 ATTEMPT. INFUSING PROTONIX @ 10. SITED 22G IV RIGHT FA X2 ATTEMPTS. INFUSING NS @ 125 AND POTASSIUM. WILL CTM
[2019-07-09 02:23] VITALS: BP 122/95; BMI 26.6
[2019-07-09 04:00] VITALS: BP 111/84
[2019-07-09 05:09] LABS: BASOPHILS 0.2 % (0-2); EOSINOPHILS 0.1 % (0-7); HEMATOCRIT 42.1 % (42.0-54.0); HEMOGLOBIN 14.7 g/dL (13.5-17.5); IMMATURE GRANULOCYTES 0.2 % (0-5); LYMPHOCYTES 23.3 % (15-50); MCH 34.3 pg (26.0-34.0); MCHC 34.9 g/dL (31.0-37.0); MEAN PLATELET VOLUME 9.5 fL (7.4-10.4); MONOCYTES 9.6 % (2-11); NEUTROPHILS 66.6 % (40-80); PLATELET COUNT 180 10x3/uL (130-400); RBC 4.28 10x6/uL (4.20-6.10); RDW 15.3 % (11.5-14.5)
[2019-07-09 05:15] LABS: MCV 98.4 fL (80.0-100.0); WBC 12.2 10x3/uL (4.8-10.8)
[2019-07-09 05:38] LABS: ALBUMIN 2.9 g/dL (3.4-5.0); ANION GAP 14.3 mmol/L (8-16); BILIRUBIN - TOTAL 0.72 mg/dL (0.2-1.3); CALCIUM 8.3 mg/dL (8.5-10.1); CARBON DIOXIDE 26.4 mmol/L (21.0-32.0); CREATININE - SERUM 1.5 mg/dL (0.6-1.3); PROTEIN - SERUM 8.8 g/dL (6.4-8.2)
[2019-07-09 05:39] LABS: POTASSIUM - SERUM 3.7 mmol/L (3.5-5.1)
--- NOTE | 2019-07-09 07:00 | NUR ---
RECEIVED REPORT. ASSUMED CARE OF PATIENT. RESTING IN BED WITH EYES OPEN. CALL LIGHT WITHIN REACH. IV FLUIDS INFUSING ORDERED. NO DISTRESS. ATTENTION TOWARD TELEVISION.
[2019-07-09 08:50] VITALS: BP 120/95
[2019-07-09 09:04] VITALS: Ht 177.8 cm; Wt 96.6 kg
--- NOTE | 2019-07-09 10:45 | NUR ---
no distress. resting in bed. easily aroused.
--- NOTE | 2019-07-09 11:42 | NUR ---
PATIENT IS ON A PROTONIX DRIP AND RECEIVED ORDERS FOR 40MG IV DAILY.
[2019-07-09 11:45] LABS: AMYLASE - SERUM 180 U/L (25-115); LIPASE 513 U/L (73-393)
[2019-07-09 12:30] VITALS: BP 116/79
[2019-07-09] MEDS ORDERED: PEPCID AC20 MG PO (15:51)
[2019-07-09] MEDS ORDERED: COMBIVENT RESPIM4 GM INH (15:53)
[2019-07-09] MEDS ORDERED: VOLTAREN75 MG PO (15:55)
--- NOTE | 2019-07-09 16:02 | NUR ---
MED REC IS UPDATED PER REQUEST OF EBONI
[2019-07-09 16:36] VITALS: BP 126/97
--- NOTE | 2019-07-09 17:19 | NUR ---
MAGNESIUM REPLACEMENT PROTOCOL INITIATED AT THIS TIME.
--- NOTE | 2019-07-09 19:06 | NUR ---
RECIEVED UP IN BED WITH EYES OPEN AND TV ON. ALERT AND ORIENTED X4. IV TO LEFT AC SL. IV TO RIGHT FA WITH NS @ 125 AND PROTONIX AT 10CC/HR. DENIES ANY NEEDDS AT THIS TIME.
[2019-07-09 20:00] VITALS: BP 145/88
[2019-07-10] VITALS: BP 140/93
[2019-07-10 04:00] VITALS: BP 128/85
[2019-07-10 05:50] LABS: HEMATOCRIT 36.9 % (42.0-54.0); LYMPHOCYTES 29.9 % (15-50); MCH 34.9 pg (26.0-34.0); MCHC 35.2 g/dL (31.0-37.0); MCV 99.2 fL (80.0-100.0); MEAN PLATELET VOLUME 9.3 fL (7.4-10.4); NEUTROPHILS 61.6 % (40-80); PLATELET COUNT 150 10x3/uL (130-400); RBC 3.72 10x6/uL (4.20-6.10); RDW 15.1 % (11.5-14.5)
[2019-07-10 05:52] LABS: WBC 8.2 10x3/uL (4.8-10.8)
[2019-07-10 06:01] LABS: ALBUMIN 2.3 g/dL (3.4-5.0); BILIRUBIN - TOTAL 0.73 mg/dL (0.2-1.3); CALCIUM 7.3 mg/dL (8.5-10.1); CREATININE - SERUM 1.2 mg/dL (0.6-1.3); MAGNESIUM - SERUM 1.2 mg/dL (1.8-2.4)
[2019-07-10 06:08] LABS: ANION GAP 12.9 mmol/L (8-16); POTASSIUM - SERUM 2.9 mmol/L (3.5-5.1)
--- NOTE | 2019-07-10 07:00 | NUR ---
RECEIVED REPORT. ASSUMED CARE OF PATIENT. RESTING ON RIGHT LATERAL SIDE WITH EYES CLOSED. RESP EVEN AND UNLABORED. IV FLUIDS INFUSING ORDERED. NO DISTRESS. CALL LIGHT WITHIN REACH.
[2019-07-10 08:55] VITALS: BP 130/91
--- NOTE | 2019-07-10 09:20 | NUR ---
MICROBIOLOGY CAME TO NURSES STATION TO REPORT THAT PATIENT HAS ECOLI, +ESBL IN URINE AND REQUIRES CONTACT ISOLATION. PATIENT PLACED IN ISOLATION AT THIS TIME.
--- NOTE | 2019-07-10 11:29 | NUR ---
RESTING IN BED WITH EYES OPEN. HOME MEDS RESTARTED AT THIS TIME. CONTINUES ON PROTONIX DRIP. PATIENT DENIES ANY CHEST PAIN OR SOB. DENIES SEEING ANY PROVIDER THIS AM. INFORMED PATIENT NEW ORDERS FOR TELEMETRY, EKG AND BLOOD TESTS TO BE COMPLETED. PATIENT VERBALIZED HIS UNDERSTANDING.
[2019-07-10 12:51] LABS: CKMB 0.6 U/L (0.0-3.6); CREATINE KINASE 343 UL (21-232); TROPONIN-I < 0.017 ng/mL (0.000-0.060)
[2019-07-10 13:01] VITALS: BP 129/88
--- NOTE | 2019-07-10 14:03 | NUR ---
TELEMETRY POUCH AND WET CLOTHS PROVIDED UPON REQUEST.
--- NOTE | 2019-07-10 15:28 | NUR ---
ORDERS CLARIFIED FOR IV PUSH PROTONIX OR CONTINUE ON PROTONIX DRIP. ORDER RECEIVED TO D/C DRIP AND GIVE PROTONIX IV PUSH ONCE DAILY.
--- NOTE | 2019-07-10 17:08 | NUR ---
RESTING IN BED WITH EYES OPEN. NO DISTRESS. GRAPE POPSICKLE PROVIDED. CALL LIGHT WITHIN REACH. NO DISTRESS.
[2019-07-10 17:59] VITALS: BP 136/83
[2019-07-10 18:38] LABS: CKMB 0.6 U/L (0.0-3.6); CREATINE KINASE 310 UL (21-232)
[2019-07-10 18:55] LABS: TROPONIN-I < 0.017 ng/mL (0.000-0.060)
--- NOTE | 2019-07-10 19:23 | NUR ---
RECIEVED UP IN BED WITH EYES OPEN AND TV ON. ALERT AND ORIENTED X4. UP AD EFREN TO B/R. CONTACT ISOLATION IN PLACE D/T ESBL IN URINE. EDUCATED ON ESBL WITH VERBAL UNDERSTANDING. IV TI LEFT AC WITH NS INFUSING AT 125/HR. DENIES ANY NEEDS AT THIS TIME.
[2019-07-10 20:00] VITALS: BP 105/69
--- NOTE | 2019-07-10 20:14 | MORECARE ---
CASE MANAGEMENT DISCHARGE SUMMARY PATIENT: SABINA CLARK UNIT: [id number] ADM DATE: 07/08/19 AGE: 59 : 56 SEX: M ROOM/BED: D.211 AUTHOR: MICHEL JULIO PHYSICIAN: REFERRING PHYSICIAN: ECHO NINA MD DATE OF SERVICE: 07/10/19 Discharge Plan Patient Name: SABINA CLARK Facility: [facility]:[place] : 1960 Planned Disposition: Anticipated Discharge Date: Discharge Date: Expected LOS: Initial Reviewer: [email or web address] Initial Review Date: 07/09/2019 Generated: 07/10/19 9:14 pm Patient Name: SABINA CLARK Page [phone] at 2013 All edits/amendments must be made on the electronic document DICTATION DATE: 07/10/192013 STONE UNLOADER: MELONY 07/10/192013 RPT#: [id number] DC DATE: STATUS: ADM IN [facility] [address] [place] [address] END OF REPORT
[2019-07-10 23:04] LABS: CKMB 0.8 U/L (0.0-3.6); CREATINE KINASE 285 UL (21-232); POTASSIUM - SERUM 3.3 mmol/L (3.5-5.1)
[2019-07-10 23:15] LABS: TROPONIN-I < 0.017 ng/mL (0.000-0.060)
--- NOTE | 2019-07-10 23:49 | NUR ---
LAB CALLED CRITICAL LOW MAGNESIUM LEVEL. IV MAG STARTED PER PROTOCOL.
[2019-07-11] VITALS: BP 112/60; BP 117/81; BP 123/78
--- NOTE | 2019-07-11 03:50 | NUR ---
IV INFILTRATED EARLIER THIS SHIFT. RESTARTED 20GA TO RIGHT FA WITH ATTEMPTS X1.
[2019-07-11 04:00] VITALS: BP 132/82
[2019-07-11 05:36] LABS: BASOPHILS 0.5 % (0-2); EOSINOPHILS 2.2 % (0-7); HEMOGLOBIN 12.8 g/dL (13.5-17.5); IMMATURE GRANULOCYTES 0.1 % (0-5); LYMPHOCYTES 30.6 % (15-50); MCH 34.5 pg (26.0-34.0); MCHC 35.6 g/dL (31.0-37.0); MEAN PLATELET VOLUME 9.8 fL (7.4-10.4); MONOCYTES 8.6 % (2-11); PLATELET COUNT 166 10x3/uL (130-400); RBC 3.71 10x6/uL (4.20-6.10); RDW 14.7 % (11.5-14.5); WBC 8.5 10x3/uL (4.8-10.8)
[2019-07-11 05:53] LABS: ALBUMIN 2.3 g/dL (3.4-5.0); ANION GAP 11.8 mmol/L (8-16); BILIRUBIN - TOTAL 0.75 mg/dL (0.2-1.3); CALCIUM 7.2 mg/dL (8.5-10.1); CREATININE - SERUM 1.1 mg/dL (0.6-1.3); PROTEIN - SERUM 6.9 g/dL (6.4-8.2)
[2019-07-11 05:56] LABS: MAGNESIUM - SERUM 2.2 mg/dL (1.8-2.4); POTASSIUM - SERUM 3.8 mmol/L (3.5-5.1)
[2019-07-11 08:30] VITALS: BP 131/89
[2019-07-11 12:06] VITALS: BP 125/89
[2019-07-11 16:04] VITALS: BP 127/74
--- NOTE | 2019-07-11 20:27 | NUR ---
RECIEVED LAYING IN BED WITH EYES OPEN AND TV ON. ALERT AND ORIENTED X4. UP AD EFREN TO B/R. IV TO RIGHTH FA WITH NS AT 125 CC/HR. DENIES ANY NEEDS AT THIS TIME.
[2019-07-12 04:00] VITALS: BP 134/62
--- NOTE | 2019-07-12 07:33 | NUR ---
AM ROUNDS- PT RESTING COMFORTABLY IN BED, PT A/O X4, RESP EVEN AND NONLABORED ON RA. RT WRIST IV INFUSING NS AT 125CC/HR. ELECTRODES FIXED ON HEART MONITOR. PT DENIES ANY NEEDS AT THIS TIME. CALL LIGHT IN REACH, BEDSIDE RAILS X2, NAD NOTED, WILL CONTINUE PLAN OF CARE.
[2019-07-12 07:45] LABS: BASOPHILS 0.3 % (0-2); EOSINOPHILS 2.1 % (0-7); HEMATOCRIT 35.5 % (42.0-54.0); HEMOGLOBIN 12.7 g/dL (13.5-17.5); IMMATURE GRANULOCYTES 0.1 % (0-5); LYMPHOCYTES 33.4 % (15-50); MCH 34.5 pg (26.0-34.0); MCHC 35.8 g/dL (31.0-37.0); MCV 96.5 fL (80.0-100.0); MEAN PLATELET VOLUME 9.8 fL (7.4-10.4); MONOCYTES 9.7 % (2-11); NEUTROPHILS 54.4 % (40-80); PLATELET COUNT 149 10x3/uL (130-400); RBC 3.68 10x6/uL (4.20-6.10); RDW 14.4 % (11.5-14.5); WBC 8.6 10x3/uL (4.8-10.8)
[2019-07-12 07:57] VITALS: BP 116/74
--- NOTE | 2019-07-12 08:11 | NUR ---
AM MEDS GIVEN AT THIS TIME. PT DENIES ANY NEEDS, CALL LIGHT IN REACH, NAD NOTED,W ILL CONTINUE TO MONITOR.
[2019-07-12 08:43] LABS: ALBUMIN 2.3 g/dL (3.4-5.0); ANION GAP 12.8 mmol/L (8-16); BILIRUBIN - TOTAL 0.87 mg/dL (0.2-1.3); CALCIUM 7.5 mg/dL (8.5-10.1); CARBON DIOXIDE 21.6 mmol/L (21.0-32.0); CREATININE - SERUM 1.1 mg/dL (0.6-1.3); POTASSIUM - SERUM 3.4 mmol/L (3.5-5.1)
[2019-07-12 08:44] LABS: MAGNESIUM - SERUM 1.3 mg/dL (1.8-2.4)
[2019-07-12 12:50] VITALS: BP 115/76
--- NOTE | 2019-07-12 13:58 | NUR ---
Nutrition Follow-up: Clear liquid diet x 4 days PO intake: 65% avg meal intake (07/09-07/10) Last BM: 07/12 per chart Wt: 208# Labs reviewed Meds reviewed If unable to advance diet past clears, rec initiate Procalamine. RD following.
[2019-07-12 16:52] VITALS: BP 122/79
[2019-07-12 20:00] VITALS: BP 129/90
--- NOTE | 2019-07-12 22:17 | NUR ---
PT IN BED LOWEST POSITION, RESPIRATIONS EVEN AND UNLABORED, NO NEEDS VERBALIZED OR NOTED, IVPB AND NS RUNNING RT WRIST IV PATENT DRSG ADHERED WELL TO SKIN, FLUIDS AND CALL LIGHT WITHIN REACH
--- NOTE | 2019-07-12 23:13 | NUR ---
RECHECK OF MAG LEVEL 1.7, PRN 400MG PO GIVEN AT 2300, 2ND 400MG DOSE TO BE GIVEN AT 0300
[2019-07-13] VITALS: BP 132/80
--- NOTE | 2019-07-13 03:24 | NUR ---
IVPB PIPERCILLIN RUNNING @ 125ML/HR, IV SITE PATENT DRSG ADHERED TO SKIN, FLUIDS AND CALL LIGHT WITHIN REACH
[2019-07-13 04:00] VITALS: BP 130/75
[2019-07-13 05:45] LABS: BASOPHILS 0.3 % (0-2); EOSINOPHILS 2.1 % (0-7); IMMATURE GRANULOCYTES 0.1 % (0-5); LYMPHOCYTES 29.2 % (15-50); MCH 34.7 pg (26.0-34.0); MCHC 36.1 g/dL (31.0-37.0); MEAN PLATELET VOLUME 9.4 fL (7.4-10.4); NEUTROPHILS 57.3 % (40-80); PLATELET COUNT 157 10x3/uL (130-400); RBC 3.75 10x6/uL (4.20-6.10); RDW 14.5 % (11.5-14.5); WBC 9.4 10x3/uL (4.8-10.8)
[2019-07-13 06:16] LABS: ALBUMIN 2.4 g/dL (3.4-5.0); ALKALINE PHOSPHATASE 43 U/L (46-116); ALT (SGPT) 16 U/L (10-68); BILIRUBIN - TOTAL 0.77 mg/dL (0.2-1.3); CALC OSMOLALITY 272 mosm/kg (275-300); CARBON DIOXIDE 23.5 mmol/L (21.0-32.0); CHLORIDE - SERUM 107 mmol/L (98-107); GLUCOSE 71 mg/dL (74-106); LIPASE 468 U/L (73-393); MAGNESIUM - SERUM 1.5 mg/dL (1.8-2.4); POTASSIUM - SERUM 3.7 mmol/L (3.5-5.1); PROTEIN - SERUM 6.9 g/dL (6.4-8.2); SODIUM 139 mmol/L (136-145); UREA NITROGEN 5 mg/dL (7-18); eGFR NON AFRICAN AMERICAN 81 mL/min (90-120)
[2019-07-13 06:21] LABS: AMYLASE - SERUM 188 U/L (25-115)
--- NOTE | 2019-07-13 08:18 | NUR ---
AM MEDS GIVEN A THIS TIME. ALSO HUNG 1G OF MAG FOR LOW MAG. PT WILL GET A TOTAL OF 2G OF MAG. PT A/O X4, RESP EVEN AND NONLABORED ON RA. MONITOR SHOWING SR WITH RATE OF 73. PT ON CONTACT ISOLATION FOR ESBL/ECOLI IN HIS URINE. PT PT WAS ABLE TO TOLERATE HIS REGULAR DIET. DENIES ANY NEEDS AT THIS TIME. CALL LIGHT IN REACH, NAD NOTED, WILL CONTINUE TO MONITOR.
[2019-07-13 08:30] VITALS: BP 142/94
[2019-07-13 16:04] VITALS: BP 131/62
--- NOTE | 2019-07-13 16:15 | MORECARE ---
CASE MANAGEMENT DISCHARGE SUMMARY PATIENT: SABINA CLARK UNIT: [id number] ADM DATE: 07/08/19 AGE: 59 : 56 SEX: M ROOM/BED: D.2111 AUTHOR: SUMANTH,DOC PHYSICIAN: REFERRING PHYSICIAN: ECHO NINA MD DATE OF SERVICE: 07/13/19 Discharge Plan Patient Name: SABINA CLARK Facility: [facility]:[place] : 1960 Planned Disposition: Home Anticipated Discharge Date: Discharge Date: Expected LOS: Initial Reviewer: [email or web address] Initial Review Date: 07/09/2019 Generated: 07/13/19 5:15 pm Comments DCP- Discharge Planning Updated by [email or web address]: Tam Spangler on 07/13/19 3:[address] Patient Name: SABINA CLARK Admission Status: ER Accout number: [id number] Admission Date: 07-08-2019 : 1960 Admission Diagnosis:ACUTE PANCREATITIS WITHOUT NECROSIS OR INFECTION, UNSP Attending: ECHO NINA Current LOS: 5 Anticipated DC Date: Planned Disposition: Home Primary Insurance: [employer] MEDICARE ADV Discharge Planning Comments: CM RECEIVED ORDER FOR DISCHARGE PLAN. CM MET WITH PT IN ROOM TO DISCUSS DISCHARGE PLANNING AND NEEDS. PT REPORTS LIVING AT HOME INDEPENDENTLY WITH A FRIEND. PT HAS WALKER THAT HE DOES NOT USE WITH NO MEDICAL EQUIPMENT PROVIDER PREFERENCE. PT HAS NO OUTSIDE SERVICES ASSISTING IN THE HOME. CM DISCUSSED AVAILABILITY OF HOME HEALTH, REHAB SERVICES AND MEDICAL EQUIPMENT. PT DENIES DISCHARGE NEEDS, REPORTS HE WILL TAKE THE BUS OR HAVE HIS DAUGHTER WHO LIVES IN [place] PICK HIM UP FOR DISCHARGE HOME. IMPORTANT MESSAGE FROM MEDICARE PROVIDED AND EXPLAINED. PT PLANS TO DISCHARGE HOME WHERE HE LIVES WITH A FRIEND, DENIES DISCHARGE NEEDS, FAMILY TO TRANSPORT OR PT WILL CATCH THE BUS HOME. CM TO FOLLOW AND ASSIST IF NEEDED. Neuropsychiatrist: Tam Spangler DCPIA - Discharge Planning Initial Assessment Updated by [email or web address]: Tam Spangler on 07/13/19 4:12 pm * Is the patient Alert and Oriented? Yes * How many steps to enter\exit or inside your home? * PCP DR. GARRISON * Pharmacy [facility] [address] OR [facility]. * Preadmission Environment Home with Family * ADLs Independent * Equipment Walker * Other Equipment NO MEDICAL EQUIPMENT PROVIDER PREFERENCE * List name and contact numbers for known caregivers / representatives who currently or will assist patient after discharge: DEEPAK RIOJAS, SISTER, * Verbal permission to speak to the caregivers and representatives has been obtained from the patient. N/A * Community resources currently utilized None * Please name any agencies selected above. NONE * Additional services required to return to the preadmission environment? No * Can the patient safely return to the preadmission environment? Yes * Has this patient been hospitalized within the prior 30 days at any hospital? No Coverage Notice Reviewer: [email or web address] Jacques Spangler Notice Issued Date-Time: 07/13/2019 8:40 Notice Type: IM Discharge Notice Notice Delivered To: Patient Relationship to Patient: Linen Attendant Name: Delivery Method: HAND - Hand Delivered Celsa Days: Prior Verbal Notification: Recipient Understood Notice: Yes Recipient Signature: Yes Med Rec Note Co-signed by Attending: Coverage Notice Comment: Last DP export: 07/10/19 7:14 p Patient Name: SABINA CLARK Page [phone] at 1615 All edits/amendments must be made on the electronic document DICTATION DATE: 07/13/19 1615 BAG FILLER MACHINE OPERATOR: MELONY 07/13/19 1615 RPT#: [id number] DC DATE: STATUS: ADM IN [facility] [address] [place] [address] END OF REPORT
--- NOTE | 2019-07-13 19:44 | NUR ---
REPORT RECEIVED FROM DAY SHIFT, PT CARE ASSUMED. INTRODUCED SELF AND WROTE NAME ON BOARD. PT AAOX4, LYING IN BED. DENIES PAIN OR ANY OTHER NEEDS AT THIS TIME. BED IN LOWEST POSITION, SR X2, CALL LIGHT WITHIN REACH. WILL CONTINUE TO MONITOR.
[2019-07-13 20:00] VITALS: BP 134/89
[2019-07-14] VITALS: BP 127/79
--- NOTE | 2019-07-14 03:51 | NUR ---
PT LYING IN BED, EYES CLOSED, RR EVEN AND NONLABORED, NO S/S OF DISTRESS, EASILY AROUSED BY VOICE. DENIES PAIN OR ANY OTHER NEEDS AT THIS TIME. BED IN LOWEST POSITION, SR X2, CALL LIGHT WITHIN REACH. WILL CONTINUE TO MONITOR.
[2019-07-14 04:00] VITALS: BP 146/84
[2019-07-14 05:54] LABS: ALBUMIN 2.4 g/dL (3.4-5.0); ALKALINE PHOSPHATASE 46 U/L (46-116); ALT (SGPT) 13 U/L (10-68); AMYLASE - SERUM 200 U/L (25-115); BILIRUBIN - TOTAL 0.63 mg/dL (0.2-1.3); CALC OSMOLALITY 271 mosm/kg (275-300); CALCIUM 8.2 mg/dL (8.5-10.1); CARBON DIOXIDE 21.9 mmol/L (21.0-32.0); CHLORIDE - SERUM 107 mmol/L (98-107); GLUCOSE 75 mg/dL (74-106); LIPASE 538 U/L (73-393); MAGNESIUM - SERUM 1.6 mg/dL (1.8-2.4); POTASSIUM - SERUM 3.5 mmol/L (3.5-5.1); PROTEIN - SERUM 7.3 g/dL (6.4-8.2); SODIUM 138 mmol/L (136-145); UREA NITROGEN 5 mg/dL (7-18); eGFR NON AFRICAN AMERICAN 81 mL/min (90-120)
[2019-07-14 06:31] LABS: BASOPHILS 0.3 % (0-2); EOSINOPHILS 2.2 % (0-7); HEMOGLOBIN 12.8 g/dL (13.5-17.5); IMMATURE GRANULOCYTES 0.3 % (0-5); LYMPHOCYTES 28.8 % (15-50); MCHC 35.6 g/dL (31.0-37.0); MCV 95.5 fL (80.0-100.0); MEAN PLATELET VOLUME 9.6 fL (7.4-10.4); MONOCYTES 10.7 % (2-11); NEUTROPHILS 57.7 % (40-80); PLATELET COUNT 174 10x3/uL (130-400); RBC 3.77 10x6/uL (4.20-6.10); RDW 14.5 % (11.5-14.5); WBC 9.7 10x3/uL (4.8-10.8)
--- NOTE | 2019-07-14 07:01 | NUR ---
REPORT RECEIVED. HE IS IN BED AND AROUSES TO NAME. DENIES ANY C/O AT THIS TIME. ALERT REMAINS IN CONTACT ISOLATION FOR ESBL OF URINE. RESP EVEN WITHOUT LABOR. IV SITE INTACT WITH NS AT 125CC/HR. DENIES ANY ABDOMINAL PAIN, NO N/V. CAREPLAN REVIEW DONE WITH SAFETY PRECAUTIONS IN PLACE. BED IN LOWEST POSITION AND LOCKED
[2019-07-14 09:23] VITALS: BP 114/65
--- NOTE | 2019-07-14 11:15 | NUR ---
HE REMAINS ALERT WITH SIMPLE NEEDS LIKE FIXING HIS COVERS ECT. NO OTHER C/O. CONTINUES TO DENY ANY ABDOMINAL PAIN OR ISSUES.
[2019-07-14 13:30] VITALS: BP 123/79
--- NOTE | 2019-07-14 15:33 | NUR ---
OT NOTE: PT REQUIRED SPV FOR BED MOB . PT REQUIRED SBA/CGA FOR ADL MOB. PT COMPLETED BUE AROM AXS. PT COMPLETED HYGIENE TASK WITH SET UP. PT HAS OCCASIONAL LOSS OF BALANCE. PT EDUCATED ON THE USE OF CALL LIGHT FOR SAFETY. THANK YOU, AMAIRANI BLANCO
[2019-07-14 17:29] VITALS: BP 139/91
--- NOTE | 2019-07-14 19:10 | NUR ---
REPORT RECEIVED FROM DAY SHIFT. PT CARE ASSUMED. PT TO BATHROOM, AAOX4, BED IN LOWEST POSITION, SR X2, CALL LIGHT WITHIN REACH. WILL CONTINUE TO MONITOR.
[2019-07-14 20:00] VITALS: BP 161/93
[2019-07-15] VITALS: BP 149/81
[2019-07-15 04:00] VITALS: BP 135/88
--- NOTE | 2019-07-15 06:31 | NUR ---
PT LYING IN BED WITH EYES CLOSED, RESPIRATIONS EVEN AND NONLABORED, NO S/S OF DISTRESS, EASILY AROUSED BY VOICE. AM MEDICATION GIVEN PER ORDER. DENIES PAIN OR ANY OTHER NEEDS AT THIS TIME. BED IN LOWEST POSITION, SR X2, CALL LIGHT WITHIN REACH. WILL CONTINUE TO MONITOR.
--- NOTE | 2019-07-15 07:00 | NUR ---
REPORT RECEIVED. HE IS LYING IN BED SUPINE ASLEEP. RESP EVEN WITHOUT LABOR. REMAINS IN CONTACT ISOLATION FOR ESBL OF URINE. BED IN LOWEST POSITION AND LOCKED. CAREPLAN REVIEW DONE AND SAFETY PRECAUTIONS IN PLACE. CL IN REACH
--- NOTE | 2019-07-15 08:30 | NUR ---
ASSISTED HIM WITH FILLING OUT MENU FOR MEALS. HE IS ALERT AND DENIES ANY CURRENT NEEDS, IV SITE IS CLEAR. DENIES ANY C/O ABDOMINAL PAIN OR DISCOMFORT
[2019-07-15 09:58] VITALS: BP 120/68
--- NOTE | 2019-07-15 13:00 | NUR ---
STATES HE IS GOING TO TAKE A NAP RIGHT NOW. HE DENIES ANY CURRENT NEEDS
[2019-07-15 13:46] VITALS: BP 101/71
--- NOTE | 2019-07-15 14:16 | NUR ---
OT NOTE: PT COMPLETED ADL MOB WITH SPV. PT COMPLETED EOB SITTING WITH MOD I. PT COMPLETED BUE AROM AXS AT EOB WITH MOD I. THANK YOU, AMAIRANI BLANCO
[2019-07-15 20:00] VITALS: BP 151/89
[2019-07-16] VITALS: BP 157/84
--- NOTE | 2019-07-16 03:45 | NUR ---
PT LYING IN BED, EYES CLOSED, RR EVEN AND NONLABORED, NO S/S DISTRESS, EASILY AROUSED BY VOICE. REQUESTED AND ACCEPTED A POPSICLE. DENIES PAIN OR OTHER NEEDS AT THIS TIME. BED IN LOWEST POSITION, SR X2, CALL LIGHT WITHIN REACH. WILL CONTINUE TO MONITOR.
[2019-07-16 04:00] VITALS: BP 145/97
--- NOTE | 2019-07-16 05:57 | NUR ---
I have reviewed this patient and I concur with the Shift Assessment completed by the Licensed Practical Nurse today this shift.
[2019-07-16 09:58] VITALS: BP 136/89
[2019-07-16 14:51] VITALS: BP 137/83
--- NOTE | 2019-07-16 14:59 | NUR ---
PATIENT IS WALKING AROUND THE UNIT. HE LOVES POPSICLES.
[2019-07-16 17:15] VITALS: BP 132/91
--- NOTE | 2019-07-16 17:28 | NUR ---
PATIENT SITTING UP IN BED EATTING. STATES HE IS READY TO GO HOME WHEN HIS ANTIBIOTICS ARE DONE.
[2019-07-16 20:00] VITALS: BP 137/88
--- NOTE | 2019-07-16 21:01 | NUR ---
PT REST IN BED. CALL LIGHT IN REACH.
[2019-07-17] VITALS: BP 150/93
--- NOTE | 2019-07-17 01:59 | NUR ---
REST QUIETLY IN BED. CALL LIGHT IN REACH.
[2019-07-17 04:00] VITALS: BP 149/89
--- NOTE | 2019-07-17 04:07 | NUR ---
I have reviewed this patient and I concur with the Shift Assessment completed by the Licensed Practical Nurse today this shift.
--- NOTE | 2019-07-17 04:16 | NUR ---
REST IN BED. EYE CLOSE. CALL LIGHT IN REACH.
[2019-07-17 08:47] VITALS: BP 135/89
[2019-07-17 12:20] VITALS: BP 137/86
--- NOTE | 2019-07-17 13:47 | NUR ---
ALERT AND ORIENTED X4. SITTING UP IN BED. ANTIBIOTIC COMPLETE. DISCHARGE INSTRUCTIONS GIVEN VERBALLY AND SRITTEN. DISCHARGE PAPERS SIGNED ON CHART. DC RT HAND IV TIP INTACT. ESCORT TO RIDE VIA WHEELCHAIR. REMAINS FREE FROM INJURY.
--- NOTE | 2019-07-18 10:08 | MORECARE ---
CASE MANAGEMENT DISCHARGE SUMMARY PATIENT: SABINA CLARK UNIT: [id number] ADM DATE: 07/08/19 AGE: 59 : 56 SEX: M ROOM/BED: D.2111 AUTHOR: SUMANTHDOC PHYSICIAN: REFERRING PHYSICIAN: ECHO NINA MD DATE OF SERVICE: 07/18/19 Discharge Plan Patient Name: SABINA CLARK Facility: [facility]:[place] : 1960 Planned Disposition: Home Anticipated Discharge Date: 07/17/19 Discharge Date: 07/17/2019 Expected LOS: 9 Initial Reviewer: [id number] Initial Review Date: 07/09/2019 Generated: 07/18/19 11:08 am Comments DCP- Discharge Planning Updated by [id number]: Tam Spangler on 07/13/19 3:[address] Patient Name: SABINA CLARK Admission Status: ER Accout number: [id number] Admission Date: 07-08-2019 : 1960 Admission Diagnosis:ACUTE PANCREATITIS WITHOUT NECROSIS OR INFECTION, UNSP Attending: ECHO NINA Current LOS: 5 Anticipated DC Date: Planned Disposition: Home Primary Insurance: [employer] MEDICARE ADV Discharge Planning Comments: CM RECEIVED ORDER FOR DISCHARGE PLAN. CM MET WITH PT IN ROOM TO DISCUSS DISCHARGE PLANNING AND NEEDS. PT REPORTS LIVING AT HOME INDEPENDENTLY WITH A FRIEND. PT HAS WALKER THAT HE DOES NOT USE WITH NO MEDICAL EQUIPMENT PROVIDER PREFERENCE. PT HAS NO OUTSIDE SERVICES ASSISTING IN THE HOME. CM DISCUSSED AVAILABILITY OF HOME HEALTH, REHAB SERVICES AND MEDICAL EQUIPMENT. PT DENIES DISCHARGE NEEDS, REPORTS HE WILL TAKE THE BUS OR HAVE HIS DAUGHTER WHO LIVES IN [place] PICK HIM UP FOR DISCHARGE HOME. IMPORTANT MESSAGE FROM MEDICARE PROVIDED AND EXPLAINED. PT PLANS TO DISCHARGE HOME WHERE HE LIVES WITH A FRIEND, DENIES DISCHARGE NEEDS, FAMILY TO TRANSPORT OR PT WILL CATCH THE BUS HOME. CM TO FOLLOW AND ASSIST IF NEEDED. Wheel Installer: Tam Spangler DCPIA - Discharge Planning Initial Assessment Updated by [id number]: Tam Spangler on 07/13/19 4:12 pm * Is the patient Alert and Oriented? Yes * How many steps to enter\exit or inside your home? * PCP DR. GARRISON * Pharmacy [facility] [address] OR [facility]. * Preadmission Environment Home with Family * ADLs Independent * Equipment Walker * Other Equipment NO MEDICAL EQUIPMENT PROVIDER PREFERENCE * List name and contact numbers for known caregivers / representatives who currently or will assist patient after discharge: DEEPAK RIOJAS, SISTER, * Verbal permission to speak to the caregivers and representatives has been obtained from the patient. N/A * Community resources currently utilized None * Please name any agencies selected above. NONE * Additional services required to return to the preadmission environment? No * Can the patient safely return to the preadmission environment? Yes * Has this patient been hospitalized within the prior 30 days at any hospital? No Coverage Notice Reviewer: [id number] Jacques Spangler Notice Issued Date-Time: 07/13/2019 8:40 Notice Type: IM Discharge Notice Notice Delivered To: Patient Relationship to Patient: Inside Sales Recruiter Name: Delivery Method: HAND - Hand Delivered Celsa Days: Prior Verbal Notification: Recipient Understood Notice: Yes Recipient Signature: Yes Med Rec Note Co-signed by Attending: Coverage Notice Comment: Last DP export: 07/13/19 3:15 p Patient Name: SABINA CLARK Page [phone] at 1008 All edits/amendments must be made on the electronic document DICTATION DATE: 07/18/[address] REPORTER: MELONY 07/18/19 1008 RPT#: [id number] DC DATE:07/17/19 STATUS: DIS IN [facility] [address] [place] [address] END OF REPORT
== END 2019-07-17 13:49 | disposition home or self-care (01) | DRG 689 ==
LOC: D.ER 18:52 → D.M2 23:31 → D.SDCHOLD 07-11 09:35 → D.M2 07-17 13:49
PROVIDERS: Family Medicine; ADMIT Family Medicine; ATTEND Family Medicine
DX: N39.0 Urinary tract infection, site not specified (principal); K85.90 Acute pancreatitis without necrosis or infection, unspecified; N17.9 Acute kidney failure, unspecified; F17.213 Nicotine dependence, cigarettes, with withdrawal; J96.11 Chronic respiratory failure with hypoxia; I11.0 Hypertensive heart disease with heart failure; I50.9 Heart failure, unspecified; I25.10 Atherosclerotic heart disease of native coronary artery without angina pectoris; J44.9 Chronic obstructive pulmonary disease, unspecified; E87.6 Hypokalemia; E78.5 Hyperlipidemia, unspecified; K75.9 Inflammatory liver disease, unspecified; B96.20 Unspecified Escherichia coli [E. coli] as the cause of diseases classified elsewhere

== ENCOUNTER 2019-11-01 11:57 | Inpatient (IN) | payer MEDICARE, MEDICAID ==
[~2019-11-01] VITALS: Ht 177.8 cm; Wt 90.7 kg
[~2019-11-01 11:57] MED LIST changes: +PEPCID AC20 MG PO; +PROBIOTIC1 EAC1 PO; +VITAMIN B-1100 M1 PO
[2019-11-01 12:40] LABS: BASOPHILS 2.5 % (0-2); EOSINOPHILS 0.6 % (0-7); HEMATOCRIT 48.7 % (42.0-54.0); HEMOGLOBIN 16.9 g/dL (13.5-17.5); IMMATURE GRANULOCYTES 0.4 % (0-5); LYMPHOCYTES 41.6 % (15-50); MCH 33.1 pg (26.0-34.0); MCHC 34.7 g/dL (31.0-37.0); MCV 95.5 fL (80.0-100.0); MEAN PLATELET VOLUME 9.2 fL (7.4-10.4); NEUTROPHILS 42.9 % (40-80); WBC 4.7 10x3/uL (4.8-10.8)
[2019-11-01 12:50] LABS: APTT 31.8 SECONDS (22.8-39.4); INR 1.25 (0.85-1.17); PROTIME 15.1 SECONDS (11.6-15.0)
[2019-11-01 12:51] LABS: CALC OSMOLALITY 269 mosm/kg (275-300); CALCIUM 10.3 mg/dL (8.5-10.1); CARBON DIOXIDE 25.7 mmol/L (21.0-32.0); CHLORIDE - SERUM 97 mmol/L (98-107); CREATININE - SERUM 1.3 mg/dL (0.6-1.3); POTASSIUM - SERUM 3.9 mmol/L (3.5-5.1); SODIUM 134 mmol/L (136-145); UREA NITROGEN 16 mg/dL (7-18); eGFR NON AFRICAN AMERICAN 60 mL/min (90-120)
[2019-11-01 12:54] LABS: GLUCOSE 117 mg/dL (74-106); PLATELET COUNT 232 10x3/uL (130-400)
[2019-11-01 13:11] LABS: ALBUMIN 3.1 g/dL (3.4-5.0); ALKALINE PHOSPHATASE 93 U/L (46-116); ALT (SGPT) 30 U/L (10-68); AMYLASE - SERUM 83 U/L (25-115); BILIRUBIN - TOTAL 0.32 mg/dL (0.2-1.3); CREATINE KINASE 66 UL (21-232); LIPASE 181 U/L (73-393); MAGNESIUM - SERUM 1.4 mg/dL (1.8-2.4); PRO BNP 356 pg/mL (0-125); PROTEIN - SERUM 9.9 g/dL (6.4-8.2)
[2019-11-01 13:36] LABS: CKMB 0.2 U/L (0.0-3.6); TROPONIN-I < 0.017 ng/mL (0.000-0.060)
[2019-11-01 18:07] VITALS: BP 107/89; BMI 28.7
[2019-11-01 19:30] VITALS: BP 97/70
--- NOTE | 2019-11-01 20:00 | NUR ---
ALERT AND ORIENTIATED, RESTING IN BED, REPORTS PAIN AND ITCHING TO LEFT SIDE UPPER CHEST AND BACK DUE TO SHINGLES, SEE SHIFT ASSESSMENT, CALL LIGHT IN REACH
[2019-11-02 00:30] VITALS: BP 137/79
[2019-11-02 04:54] LABS: BASOPHILS 0.9 % (0-2); EOSINOPHILS 0 % (0-7); HEMATOCRIT 43.4 % (42.0-54.0); HEMOGLOBIN 15.2 g/dL (13.5-17.5); LYMPHOCYTES 43.3 % (15-50); MCH 33.1 pg (26.0-34.0); MCV 94.6 fL (80.0-100.0); MEAN PLATELET VOLUME 9.6 fL (7.4-10.4); MONOCYTES 6.4 % (2-11); NEUTROPHILS 49.4 % (40-80); PLATELET COUNT 270 10x3/uL (130-400); RBC 4.59 10x6/uL (4.20-6.10); RDW 14.4 % (11.5-14.5); WBC 4.6 10x3/uL (4.8-10.8)
[2019-11-02 05:00] VITALS: BP 110/46
[2019-11-02 05:28] LABS: ALBUMIN 2.6 g/dL (3.4-5.0); ANION GAP 15.7 mmol/L (8-16); BILIRUBIN - TOTAL 0.25 mg/dL (0.2-1.3); C-REACTIVE PROTEIN 2.9 mg/dL (0.0-0.9); CALCIUM 9.1 mg/dL (8.5-10.1); CARBON DIOXIDE 25.3 mmol/L (21.0-32.0); CREATININE - SERUM 1.2 mg/dL (0.6-1.3); MAGNESIUM - SERUM 1.4 mg/dL (1.8-2.4); PROTEIN - SERUM 9.5 g/dL (6.4-8.2); THYROID STIMULATING HORMONE 5.78 uIU/mL (0.36-3.74)
[2019-11-02 08:11] VITALS: BP 101/66
[2019-11-02 08:33] LABS: ERYTHROCYTE SEDIMENTATION RATE 54 mm/hr (0-20)
[2019-11-02 09:15] VITALS: Ht 177.8 cm; Wt 90.7 kg
[2019-11-02 12:30] VITALS: BP 127/84
[2019-11-02 14:45] LABS: APPEARANCE HAZY (CLEAR); BILIRUBIN NEGATIVE (NEGATIVE); COLOR YELLOW (YELLOW); GLUCOSE NEGATIVE (NEGATIVE); KETONE NEGATIVE (NEGATIVE); NITRITE NEGATIVE (NEGATIVE); PROTEIN NEGATIVE (NEGATIVE); SPECIFIC GRAVITY 1.025 (1.005-1.020); UROBILINOGEN NORMAL (NORMAL)
[2019-11-02 14:51] LABS: BACTERIA MODERATE /hpf (NEGATIVE); RED CELLS - URINE 0-5 /hpf (0-5)
[2019-11-02 17:10] VITALS: BP 134/82
--- NOTE | 2019-11-02 18:00 | NUR ---
PT RESTING IN BED. NO NEEDS AT THIS TIME.
--- NOTE | 2019-11-02 20:00 | NUR ---
ALERT RESTING IN BED DENIES PAIN OR NEEDS AT THIS TIME, SEE SHIFT ASSESSMENT, CALL LIGHT IN REACH
[2019-11-02 21:57] VITALS: BP 113/77
[2019-11-03 02:42] VITALS: BP 107/85
[2019-11-03 06:49] VITALS: BP 109/77
[2019-11-03 07:11] LABS: ANION GAP 11.9 mmol/L (8-16); CALCIUM 9.2 mg/dL (8.5-10.1); CARBON DIOXIDE 24.2 mmol/L (21.0-32.0); CREATININE - SERUM 1.1 mg/dL (0.6-1.3); MAGNESIUM - SERUM 1.5 mg/dL (1.8-2.4); PHOSPHOROUS 2.6 mg/dL (2.5-4.9); POTASSIUM - SERUM 4.1 mmol/L (3.5-5.1)
--- NOTE | 2019-11-03 08:24 | NUR ---
PATIENT A/O. REQUESTED AND RECEIVED A "FREEZE POP" BEFORE BREAKFAST. CL IN REACH. TM
[2019-11-03 08:26] LABS: HEMATOCRIT 41.8 % (42.0-54.0); HEMOGLOBIN 14.6 g/dL (13.5-17.5); MCH 32.7 pg (26.0-34.0); MCHC 34.9 g/dL (31.0-37.0); MCV 93.5 fL (80.0-100.0); MEAN PLATELET VOLUME 9.4 fL (7.4-10.4); PLATELET COUNT 209 10x3/uL (130-400); RBC 4.47 10x6/uL (4.20-6.10); RDW 14.9 % (11.5-14.5); WBC 21.8 10x3/uL (4.8-10.8)
[2019-11-03 09:32] VITALS: BP 108/75
[2019-11-03 09:47] LABS: LYMPHOCYTES 10 % (15-50); MONOCYTES 9 % (2-11); NEUTROPHILS 73 % (40-80); PLATELET ESTIMATE NORMAL
[2019-11-03 09:48] LABS: ANISOCYTOSIS OCC
--- NOTE | 2019-11-03 11:54 | NUR ---
PATIENT AGAIN REQUESTING I GET A MENU. I CALLED DIETARY AND THEY REPLIED THEY HAD BEEN THERE AND HE WAS ASLEEP. SAID HE WANTED TURKEY AND DRESSING. PATIENT WAS AGREEABLE TO THIS. CL IN REACH. IAN
--- NOTE | 2019-11-03 12:51 | MORECARE ---
CASE MANAGEMENT DISCHARGE SUMMARY PATIENT: SABINA CLARK UNIT: [id number] ADM DATE: 11/01/19 AGE: 59 : 56 SEX: M ROOM/BED: D.2201 AUTHOR: MICHEL JULIO PHYSICIAN: REFERRING PHYSICIAN: JEREMIE HARO MD DATE OF SERVICE: 11/03/19 Discharge Plan Patient Name: SABINA CLARK [facility] [facility] 1960 Planned Disposition: Home Anticipated Discharge Date: Discharge Date: Expected LOS: Initial Reviewer: [email or web address] Initial Review Date: 11/01/2019 Generated: 11/03/19 1:51 pm DCPIA - Discharge Planning Initial Assessment Updated by [id number]: Sofie Mai on 11/03/19 12:50 pm * Is the patient Alert and Oriented? Yes * How many steps to enter\exit or inside your home? * PCP GARRISON? * Pharmacy [facility] * Preadmission Environment Home Alone * ADLs Independent * Equipment Nebulizer Oxygen Walker Wheelchair * List name and contact numbers for known caregivers / representatives who currently or will assist patient after discharge: DEEPAK (SISTER) [phone] * Verbal permission to speak to the caregivers and representatives has been obtained from the patient. N/A * Community resources currently utilized None * Additional services required to return to the preadmission environment? Yes * Can the patient safely return to the preadmission environment? Yes * Has this patient been hospitalized within the prior 30 days at any hospital? No Patient Name: SABINA CLARK Page [phone] at 1251 All edits/amendments must be made on the electronic document DICTATION DATE: 11/03/19 1251 CHAIRLIFT OPERATOR: MELONY 11/03/19 1251 RPT#: [id number] DC DATE: STATUS: ADM IN [facility] [address] [place] [address] END OF REPORT
--- NOTE | 2019-11-03 13:41 | MORECARE ---
CASE MANAGEMENT DISCHARGE SUMMARY PATIENT: SABINA CLARK UNIT: [id number] ADM DATE: 11/01/19 AGE: 59 : 56 SEX: M ROOM/BED: D.2201 AUTHOR: MICHEL JULIO PHYSICIAN: REFERRING PHYSICIAN: JEREMIE HARO MD DATE OF SERVICE: 11/03/19 Discharge Plan Patient Name: SABINA CLARK Facility: [facility]:[place] : 1960 Planned Disposition: Home Anticipated Discharge Date: Discharge Date: Expected LOS: Initial Reviewer: [email or web address] Initial Review Date: 11/01/2019 Generated: 11/03/19 2:40 pm Comments DCP- Discharge Planning Updated by [email or web address]: Sofie Mai on 11/03/19 12:[address] Patient Name: SABINA CLARK Admission Status: ER Accout number: [id number] Admission Date: 11-01-2019 : 1960 Admission Diagnosis: Attending: JEREMIE HARO Current LOS: 2 Anticipated DC Date: Planned Disposition: Home Primary Insurance: [employer] MEDICARE ADV Discharge Planning Comments: CM met with patient to complete initial dc planning assessment. CM educated patient on the CM role and verbal consent given by patient to complete assessment. Patient lives at home alone. He stated that he is independent, but could use some help. At discharge patient plans to return home and feels this is a safe discharge. CM discussed availability of home health, rehab services, and medical equipment. I spoke with him about [place] choices and he would like to know more about that. I will send a referral to [facility]. He has a walker and wheelchair at home. He also has a nebulizer and O2 if needed from [facility]. He said he needs a new PCP and he asked me to help him find a new one. I will call Dr Nash office to make sure he is not current. Patient denied known discharge needs at this time. CM will continue to follow and will assist as needed with dc plans/needs. Hand Coremaker: Sofie Mai DCPIA - Discharge Planning Initial Assessment Updated by [email or web address]: Sofie Mai on 11/03/19 12:50 pm * Is the patient Alert and Oriented? Yes * How many steps to enter\exit or inside your home? * PCP GARRISON? * Pharmacy [facility] [address] * Preadmission Environment Home Alone * ADLs Independent * Equipment Nebulizer Oxygen Walker Wheelchair * List name and contact numbers for known caregivers / representatives who currently or will assist patient after discharge: DEEPAK (SISTER) [phone] * Verbal permission to speak to the caregivers and representatives has been obtained from the patient. N/A * Community resources currently utilized None * Additional services required to return to the preadmission environment? Yes * Can the patient safely return to the preadmission environment? Yes * Has this patient been hospitalized within the prior 30 days at any hospital? No Last DP export: 11/03/19 11:51 a Patient Name: SABINA CLARK Page [id number] at 1341 All edits/amendments must be made on the electronic document DICTATION DATE: 11/03/19 1340 SCALE ATTENDANT: MELONY 11/03/19 1340 RPT#: [id number] DC DATE: STATUS: ADM IN [facility] [address] [place] [address] END OF REPORT
[2019-11-03 14:02] VITALS: BP 113/80
[2019-11-03 18:48] VITALS: BP 123/82
[2019-11-03 20:00] VITALS: BP 102/69
--- NOTE | 2019-11-03 23:15 | NUR ---
A/O WITH NO SIGNS OF ACUTE DISTRESS. IV TO THE RT HAND WITH NO REDNESS OR SWELLING NOTED. DENIES PAIN OR OTHER NEEDS AT THIS TIME. CONTINUE PLAN OF CARE.
[2019-11-04] VITALS: BP 116/54
[2019-11-04 04:00] VITALS: BP 104/59
[2019-11-04 07:07] LABS: ANION GAP 11.2 mmol/L (8-16); CALCIUM 9.1 mg/dL (8.5-10.1); CARBON DIOXIDE 24.8 mmol/L (21.0-32.0); CREATININE - SERUM 1.1 mg/dL (0.6-1.3); MAGNESIUM - SERUM 1.6 mg/dL (1.8-2.4); PHOSPHOROUS 2.7 mg/dL (2.5-4.9)
[2019-11-04 07:09] LABS: BASOPHILS 0.2 % (0-2); EOSINOPHILS 0 % (0-7); HEMATOCRIT 39.1 % (42.0-54.0); HEMOGLOBIN 13.6 g/dL (13.5-17.5); IMMATURE GRANULOCYTES 0.4 % (0-5); LYMPHOCYTES 12.6 % (15-50); MCH 32.5 pg (26.0-34.0); MCHC 34.8 g/dL (31.0-37.0); MCV 93.5 fL (80.0-100.0); MEAN PLATELET VOLUME 9.4 fL (7.4-10.4); MONOCYTES 3.6 % (2-11); NEUTROPHILS 83.2 % (40-80); PLATELET COUNT 242 10x3/uL (130-400); RBC 4.18 10x6/uL (4.20-6.10); RDW 14.4 % (11.5-14.5); WBC 24.5 10x3/uL (4.8-10.8)
[2019-11-04 08:12] VITALS: BP 130/85
[2019-11-04] MEDS ORDERED: VALTREX500 MG PO (11:52)
[2019-11-04] MEDS ORDERED: ZITHROMAX500 MG PO (11:52)
[2019-11-04] MEDS ORDERED: OMNICEF300 MG PO (11:53)
[2019-11-04] MEDS ORDERED: PREDNISONE10 MG PO (11:54)
--- NOTE | 2019-11-04 12:21 | MORECARE ---
CASE MANAGEMENT DISCHARGE SUMMARY PATIENT: SABINA CLARK UNIT: [id number] ADM DATE: 11/01/19 AGE: 59 : 56 SEX: M ROOM/BED: D.2201 AUTHOR: MICHEL JULIO PHYSICIAN: REFERRING PHYSICIAN: JEREMIE HARO MD DATE OF SERVICE: 11/04/19 Discharge Plan Patient Name: SABINA CLARK Facility: [facility]:[place] : 1960 Planned Disposition: Home Anticipated Discharge Date: Discharge Date: Expected LOS: Initial Reviewer: [id number] Initial Review Date: 11/01/2019 Generated: 11/04/19 1:21 pm Comments DCP- Discharge Planning Updated by [email or web address]: Sofie Mai on 11/03/19 12:[address] Patient Name: SABINA CLARK Admission Status: ER Accout number: [id number] Admission Date: 11-01-2019 : 1960 Admission Diagnosis: Attending: JEREMIE HARO Current LOS: 2 Anticipated DC Date: Planned Disposition: Home Primary Insurance: [employer] MEDICARE ADV Discharge Planning Comments: CM met with patient to complete initial dc planning assessment. CM educated patient on the CM role and verbal consent given by patient to complete assessment. Patient lives at home alone. He stated that he is independent, but could use some help. At discharge patient plans to return home and feels this is a safe discharge. CM discussed availability of home health, rehab services, and medical equipment. I spoke with him about [place] choices and he would like to know more about that. I will send a referral to [facility]. He has a walker and wheelchair at home. He also has a nebulizer and O2 if needed from [facility]. He said he needs a new PCP and he asked me to help him find a new one. I will call Dr Nash office to make sure he is not current. Patient denied known discharge needs at this time. CM will continue to follow and will assist as needed with dc plans/needs. Hitting Coach: Sofie Mai DCPIA - Discharge Planning Initial Assessment Updated by [id number]: Sofie Mai on 11/03/19 12:50 pm * Is the patient Alert and Oriented? Yes * How many steps to enter\exit or inside your home? * PCP GARRISON? * Pharmacy [facility] * Preadmission Environment Home Alone * ADLs Independent * Equipment Nebulizer Oxygen Walker Wheelchair * List name and contact numbers for known caregivers / representatives who currently or will assist patient after discharge: DEEPAK (SISTER) [phone] * Verbal permission to speak to the caregivers and representatives has been obtained from the patient. N/A * Community resources currently utilized None * Additional services required to return to the preadmission environment? Yes * Can the patient safely return to the preadmission environment? Yes * Has this patient been hospitalized within the prior 30 days at any hospital? No External Providers External Provider: [facility] Next Contact Date: Service Request Date: Service Type: Resolution: Reviewer: Comments: Last DP export: 11/03/19 12:41 p Patient Name: SABINA CLARK Page 99627 at 1221 All edits/amendments must be made on the electronic document DICTATION DATE: 11/04/19 1221 VISUAL EDUCATION DIRECTOR: MELONY 11/04/19 1221 RPT#: [id number] DC DATE: STATUS: ADM IN [facility] [address] [place] [address] END OF REPORT
--- NOTE | 2019-11-04 12:29 | MORECARE ---
CASE MANAGEMENT DISCHARGE SUMMARY PATIENT: SABINA CLARK UNIT: [id number] ADM DATE: 11/01/19 AGE: 59 : 56 SEX: M ROOM/BED: D.2201 AUTHOR: SUMANTHDOC PHYSICIAN: REFERRING PHYSICIAN: JEREMIE HARO MD DATE OF SERVICE: 11/04/19 Discharge Plan Patient Name: SABINA CLARK Facility: [facility]:[place] : 1960 Planned Disposition: Home Anticipated Discharge Date: Discharge Date: Expected LOS: Initial Reviewer: [email or web address] Initial Review Date: 11/01/2019 Generated: 11/04/19 1:28 pm Comments DCP- Discharge Planning Updated by [id number]: Sofie Mai on 11/04/19 11:[address] REFERRAL SENT TO [facility]. I WILL GIVE PATIENT THE CARD TO FOLLOW UP WITH HIM. DCP- Discharge Planning Updated by [id number]: Sofie Mai on 11/03/19 12:[address] Patient Name: SABINA CLARK Admission Status: ER Accout number: [id number] Admission Date: 11-01-2019 : 1960 Admission Diagnosis: Attending: JEREMIE HARO Current LOS: 2 Anticipated DC Date: Planned Disposition: Home Primary Insurance: [employer] ADV Discharge Planning Comments: CM met with patient to complete initial dc planning assessment. CM educated patient on the CM role and verbal consent given by patient to complete assessment. Patient lives at home alone. He stated that he is independent, but could use some help. At discharge patient plans to return home and feels this is a safe discharge. CM discussed availability of home health, rehab services, and medical equipment. I spoke with him about [place] choices and he would like to know more about that. I will send a referral to [facility]. He has a walker and wheelchair at home. He also has a nebulizer and O2 if needed from [facility]. He said he needs a new PCP and he asked me to help him find a new one. I will call Dr Nash office to make sure he is not current. Patient denied known discharge needs at this time. CM will continue to follow and will assist as needed with dc plans/needs. Locomotive Engineer: Sofie Mai DCPIA - Discharge Planning Initial Assessment Updated by [email or web address]: Sofie Mai on 11/03/19 12:50 pm * Is the patient Alert and Oriented? Yes * How many steps to enter\exit or inside your home? * PCP GARRISON? * Pharmacy [facility] * Preadmission Environment Home Alone * ADLs Independent * Equipment Nebulizer Oxygen Walker Wheelchair * List name and contact numbers for known caregivers / representatives who currently or will assist patient after discharge: DEEPAK (SISTER) [phone] * Verbal permission to speak to the caregivers and representatives has been obtained from the patient. N/A * Community resources currently utilized None * Additional services required to return to the preadmission environment? Yes * Can the patient safely return to the preadmission environment? Yes * Has this patient been hospitalized within the prior 30 days at any hospital? No Last DP export: 11/04/19 11:21 a Patient Name: SABINA CLARK Page 80352 at 1229 All edits/amendments must be made on the electronic document DICTATION DATE: 11/04/191227 FIREBRICK LAYER HELPER: MELONY 11/04/198 RPT#: [id number] IN DATE: STATUS: ADM IN [facility] [address] [place] [address] END OF REPORT
--- NOTE | 2019-11-04 13:03 | MORECARE ---
CASE MANAGEMENT DISCHARGE SUMMARY PATIENT: SABINA CLARK UNIT: [id number] ADM DATE: 11/01/19 AGE: 59 : 56 SEX: M ROOM/BED: D.2201 AUTHOR: SUMANTH,DOC PHYSICIAN: REFERRING PHYSICIAN: JEREMIE HARO MD DATE OF SERVICE: 11/04/19 Discharge Plan Patient Name: SABINA CLARK Facility: [facility]:[place] : 1960 Planned Disposition: Home Anticipated Discharge Date: Discharge Date: Expected LOS: Initial Reviewer: [email or web address] Initial Review Date: 11/01/2019 Generated: 11/04/19 2:02 pm Comments DCP- Discharge Planning Updated by [email or web address]: Sofie Mai on 11/04/19 12:[address] PATIENT TO BE DISCHARGED TODAY. INFORMATION WILL BE GIVEN IN HIS DC PACKET ON [facility] AND NEW PCP, IMM SERVED AND EXPLAINED. HE CAN NOT HAVE HOME HEALTH BECAUSE HE DOES NOT HAVE A PCP TO FOLLOW. [facility] REFERRAL ALSO DONE. WE WILL PROVIDE A TAXI FOR HIM TO GET HOME AND WILL MAKE A STOP [facility] TO [facility] OFFICER HIS MEDICATION. APPROVED BY Nuria MALCOLM RN 12.75 IS THE COST DCP- Discharge Planning Updated by [id number]: Sofie Mai on 11/04/19 11:[address] REFERRAL SENT TO [facility]. I WILL GIVE PATIENT THE CARD TO FOLLOW UP WITH HIM. DCP- Discharge Planning Updated by [id number]: Sofie Mai on 11/03/19 12:[address] Patient Name: SABINA CLARK Admission Status: ER Accout number: [id number] Admission Date: 11-01-2019 : 1960 Admission Diagnosis: Attending: JEREMIE HARO Current LOS: 2 Anticipated DC Date: Planned Disposition: Home Primary Insurance: [employer] MED[employer] ADV Discharge Planning Comments: CM met with patient to complete initial dc planning assessment. CM educated patient on the CM role and verbal consent given by patient to complete assessment. Patient lives at home alone. He stated that he is independent, but could use some help. At discharge patient plans to return home and feels this is a safe discharge. CM discussed availability of home health, rehab services, and medical equipment. I spoke with him about [place] choices and he would like to know more about that. I will send a referral to [facility]. He has a walker and wheelchair at home. He also has a nebulizer and O2 if needed from [facility]. He said he needs a new PCP and he asked me to help him find a new one. I will call Dr Nash office to make sure he is not current. Patient denied known discharge needs at this time. CM will continue to follow and will assist as needed with dc plans/needs. Diesel Engine Specialist: Sofie Mai DCPIA - Discharge Planning Initial Assessment Updated by [email or web address]: Sofie Mai on 11/03/19 12:50 pm * Is the patient Alert and Oriented? Yes * How many steps to enter\exit or inside your home? * PCP MELI? * Pharmacy [facility] * Preadmission Environment Home Alone * ADLs Independent * Equipment Nebulizer Oxygen Walker Wheelchair * List name and contact numbers for known caregivers / representatives who currently or will assist patient after discharge: DEEPAK (SISTER) [phone] * Verbal permission to speak to the caregivers and representatives has been obtained from the patient. N/A * Community resources currently utilized None * Additional services required to return to the preadmission environment? Yes * Can the patient safely return to the preadmission environment? Yes * Has this patient been hospitalized within the prior 30 days at any hospital? No Coverage Notice Reviewer: [id number] - Sofie Mai Notice Issued Date-Time: 11/04/2019 12:40 Notice Type: IM Discharge Notice Notice Delivered To: Patient Relationship to Patient: Handicraft Or Hobby Shop Manager Name: Delivery Method: HAND - Hand Delivered Celsa Days: Prior Verbal Notification: Recipient Understood Notice: Yes Recipient Signature: Yes Med Rec Note Co-signed by Attending: Coverage Notice Comment: Last DP export: 11/04/19 11:29 a Patient Name: SABINA CLARK Page 53058 at 1303 All edits/amendments must be made on the electronic document DICTATION DATE: 11/04/19 1302 QUALITY MANAGEMENT COORDINATOR: MELONY 11/04/19 1302 RPT#: [id number] DC DATE: STATUS: ADM IN [facility] [address] [facility] [place] [address] END OF REPORT
[2019-11-04 13:21] VITALS: BP 106/69
--- NOTE | 2019-11-04 14:25 | NUR ---
ALL DISCHARGE INSTRUCTIONS COVERED WITH PT. PT VERBALIZES UNDERSTANDING. PT DENIES FURTHER QUESTIONS/CONCERNS/NEEDS AT THIS TIME. PIV TORIGHT HAND REMOVED WITH CATHETER TIP INTACT. DRESSING APPLIED. CARAMEL COLORING OPERATOR REMOVED. ALL DISCHARGE PAPERS SIGNED. [facility] CALLED. PT STATES THAT HE WILL BE WAITING BY [facility]. PT DENIES FURTHER NEEDS/QUESTIOS/CONCERNS. PT AMBULATES FROM ROOM WITHOUT DIFFICULTY AND THANKS ME FOR ASSISTANCE.
--- NOTE | 2019-11-06 16:23 | MORECARE ---
CASE MANAGEMENT DISCHARGE SUMMARY PATIENT: SABINA CLARK UNIT: [id number] ADM DATE: 11/01/19 AGE: 59 : 56 SEX: M ROOM/BED: D.2201 AUTHOR: SUMANTHDOC PHYSICIAN: REFERRING PHYSICIAN: JEREMIE HARO MD DATE OF SERVICE: 11/06/19 Discharge Plan Patient Name: SABINA CLARK Facility: [facility]:[place] : 1960 Planned Disposition: Home Anticipated Discharge Date: Discharge Date: 11/04/2019 Expected LOS: Initial Reviewer: [id number] Initial Review Date: 11/01/2019 Generated: 11/06/19 5:23 pm Comments DCP- Discharge Planning Updated by [email or web address]: Sofie Mai on 11/04/19 12:[address] PATIENT TO BE DISCHARGED TODAY. INFORMATION WILL BE GIVEN IN HIS DC PACKET ON [facility] AND NEW PCP, IMM SERVED AND EXPLAINED. HE CAN NOT HAVE HOME HEALTH BECAUSE HE DOES NOT HAVE A PCP TO FOLLOW. [facility] REFERRAL ALSO DONE. WE WILL PROVIDE A TAXI FOR HIM TO GET HOME AND WILL MAKE A STOP AT [facility] FOR HIM TO RATER ASSOCIATE HIS MEDICATION. APPROVED BY Nuria MALCOLM RN 12.75 IS THE COST DCP- Discharge Planning Updated by [email or web address]: Sofie Mai on 11/04/19 11:[address] REFERRAL SENT TO [facility] AT [facility]. I WILL GIVE PATIENT THE CARD TO FOLLOW UP WITH HIM. DCP- Discharge Planning Updated by [id number]: Sofie Mai on 11/03/19 12:[address] Patient Name: SABINA CLARK Admission Status: ER Accout number: [id number] Admission Date: 11-01-2019 : 1960 Admission Diagnosis: Attending: JEREMIE HARO Current LOS: 2 Anticipated DC Date: Planned Disposition: Home Primary Insurance: [employer] ADV Discharge Planning Comments: CM met with patient to complete initial dc planning assessment. CM educated patient on the CM role and verbal consent given by patient to complete assessment. Patient lives at home alone. He stated that he is independent, but could use some help. At discharge patient plans to return home and feels this is a safe discharge. CM discussed availability of home health, rehab services, and medical equipment. I spoke with him about [facility] choices and he would like to know more about that. I will send a referral to [facility]. He has a walker and wheelchair at home. He also has a nebulizer and O2 if needed from [facility]. He said he needs a new PCP and he asked me to help him find a new one. I will call Dr Nash office to make sure he is not current. Patient denied known discharge needs at this time. CM will continue to follow and will assist as needed with dc plans/needs. Jack Frame Tender: Sofie Mai DCPIA - Discharge Planning Initial Assessment Updated by [email or web address]: Sofie Mai on 11/03/19 12:50 pm * Is the patient Alert and Oriented? Yes * How many steps to enter\exit or inside your home? * PCP MELI? * Pharmacy [facility] [address] * Preadmission Environment Home Alone * ADLs Independent * Equipment Nebulizer Oxygen Walker Wheelchair * List name and contact numbers for known caregivers / representatives who currently or will assist patient after discharge: DEEPAK (SISTER) [phone] * Verbal permission to speak to the caregivers and representatives has been obtained from the patient. N/A * Community resources currently utilized None * Additional services required to return to the preadmission environment? Yes * Can the patient safely return to the preadmission environment? Yes * Has this patient been hospitalized within the prior 30 days at any hospital? No Coverage Notice Reviewer: [id number] - Sofie Mai Notice Issued Date-Time: 11/04/2019 12:40 Notice Type: IM Discharge Notice Notice Delivered To: Patient Relationship to Patient: Assembly Manager Name: Delivery Method: HAND - Hand Delivered Celsa Days: Prior Verbal Notification: Recipient Understood Notice: Yes Recipient Signature: Yes Med Rec Note Co-signed by Attending: Coverage Notice Comment: Last DP export: 11/04/19 12:03 p Patient Name: SABINA CLARK Page [id number] at 1623 All edits/amendments must be made on the electronic document DICTATION DATE: 11/06/19 LEAD WEB DEVELOPER: MELONY 11/06/191 RPT#: [id number] DC DATE:11/04/19 STATUS: DIS IN [facility] [address] [place] [address] END OF REPORT
== END 2019-11-04 14:47 | disposition home or self-care (01) | DRG 871 ==
LOC: D.ER 11:57 → D.MS 16:23
PROVIDERS: Family Medicine; ADMIT Internal Medicine Nephrology; ATTEND Internal Medicine Nephrology
DX: A41.9 Sepsis, unspecified organism (principal); J18.9 Pneumonia, unspecified organism; E87.1 Hypo-osmolality and hyponatremia; I50.22 Chronic systolic (congestive) heart failure; I42.9 Cardiomyopathy, unspecified; F17.203 Nicotine dependence unspecified, with withdrawal; B02.9 Zoster without complications; E83.42 Hypomagnesemia; Z79.01 Long term (current) use of anticoagulants; K75.9 Inflammatory liver disease, unspecified; I11.0 Hypertensive heart disease with heart failure; K21.9 Gastro-esophageal reflux disease without esophagitis; I25.10 Atherosclerotic heart disease of native coronary artery without angina pectoris; I73.9 Peripheral vascular disease, unspecified; J44.9 Chronic obstructive pulmonary disease, unspecified; Z85.118 Personal history of other malignant neoplasm of bronchus and lung

== ENCOUNTER → 2020-04-04 20:44 | Outpatient (CLI) | payer MEDICARE, MEDICAID ==
[2019-11-02 09:15] VITALS: BMI 28.6
[~2020-04-04 20:44] MED LIST changes: +OMNICEF300 MG PO; +VALTREX500 MG PO; +ZITHROMAX500 MG PO
[2020-04-04 22:34] LABS: BASOPHILS 0.4 % (0-2); EOSINOPHILS 2.9 % (0-7); HEMATOCRIT 35.7 % (42.0-54.0); HEMOGLOBIN 11.6 g/dL (13.5-17.5); IMMATURE GRANULOCYTES 0.2 % (0-5); LYMPHOCYTES 32.4 % (15-50); MCH 31.7 pg (26.0-34.0); MCHC 32.5 g/dL (31.0-37.0); MCV 97.5 fL (80.0-100.0); MEAN PLATELET VOLUME 9.5 fL (7.4-10.4); MONOCYTES 6.2 % (2-11); NEUTROPHILS 57.9 % (40-80); RBC 3.66 10x6/uL (4.20-6.10); RDW 15.8 % (11.5-14.5); WBC 9.2 10x3/uL (4.8-10.8)
[2020-04-04 22:39] LABS: PLATELET COUNT 442 10x3/uL (130-400)
[2020-04-04 22:52] LABS: ALBUMIN 3.1 g/dL (3.4-5.0); ANION GAP 17.4 mmol/L (8-16); BILIRUBIN - TOTAL 0.24 mg/dL (0.2-1.3); CALCIUM 9.4 mg/dL (8.5-10.1); CARBON DIOXIDE 20.8 mmol/L (21.0-32.0); CREATININE - SERUM 1.1 mg/dL (0.6-1.3); POTASSIUM - SERUM 4.2 mmol/L (3.5-5.1); PROTEIN - SERUM 8.7 g/dL (6.4-8.2)
== END | disposition home or self-care (01) ==
LOC: D.LABREF 20:44
PROVIDERS: ATTEND Family Medicine
DX: I11.0 Hypertensive heart disease with heart failure (principal); I50.32 Chronic diastolic (congestive) heart failure